=== PATIENT | male | born 1975 | race Caucasian/White ===

== ENCOUNTER 2017-01-06 21:40 | Emergency (ER) | payer BC ==
[~2017-01-06] VITALS: Ht 170.2 cm; Wt 77.7 kg
[~2017-01-06 21:40] MED LIST: ACYC200C PO; HYDR25CA PO; OMEP20TA2 PO
--- OUTSIDE RECORDS SUMMARY | 2017-01-06 21:44 | XMS REPORT | Continuity of Care Document ---
Author Author [facility] Organization [facility] Address Unknown Phone Unavailable Care Team Providers Care Medical Van Driver Name Role Phone Lawrence Sher MD Primary Care Physician [phone] Insurance Providers Payer Name Policy Number Subscriber Name Relationship Self Pay Chin Weber 17 Self / Same As Patient Chief Complaint and Reason for Visit Chief Complaint Malaise Reason for Visit Methamphetamine addiction [id number] Problems Medical Problems Problem Onset Date Status Acute drug intoxication 04/25/2012 Active Anxiety 04/25/2012 Active Abdominal pain 11/14/2013 Resolved Dizziness 10/14/2012 Resolved ANXIETY STATE NOS 05/27/2013 Active Drug abuse 08/19/2013 Active Cellulitis 05/27/2013 Resolved Skin lesion 12/04/2013 Resolved Chest pain 07/04/2013 Resolved Headache 04/25/2014 Resolved Chest discomfort 02/25/2014 Resolved Drug dependence 12/28/2013 Active Cellulitis ~11/29/2013 Resolved Esophagogastroduodenoscopy Unknown Resolved Atypical facial pain ~12/17/2013 Resolved Sore throat symptom ~12/18/2013 Resolved Ear problem ~12/13/2013 Resolved Acute gastritis ~12/25/2013 Active Abdominal pain ~01/20/2014 Active Anxiety ~01/20/2014 Active Jaw pain ~02/16/2014 Resolved Chest pain ~03/03/2014 Resolved Sore throat ~03/27/2014 Active Corneal abrasion, right ~04/14/2014 Active Headache behind the eyes ~04/22/2014 Active Injury of head ~04/25/2014 Active Exposure to STD Unknown Active Eye irritation Unknown Active Diarrhea ~04/27/2014 Active Gastritis ~04/27/2014 Active Drug abuse ~10/11/2014 Active Chest discomfort ~11/11/2014 Active Chest pain ~11/16/2014 Active Methamphetamine addiction ~11/16/2014 Active Cellulitis Unknown Active Methamphetamine abuse ~11/16/2014 Active Substance abuse ~11/21/2014 Active Paresthesias ~11/23/2014 Active Drug abuse and dependence Unknown Active Medications Medication Dose Route Sig Days/Qty Instructions Order Date Discontinued Date Status Omeprazole 20 Mg ORAL DAILY 04/25/12 08/21/13 Discontinued Buspirone Hcl 10 Mg ORAL TWICE A DAY 04/25/12 10/14/12 Discontinued Iron 1 Ea GT DAILY 04/25/12 10/14/12 Discontinued Alprazolam 0.25 Mg ORAL NEEDED 04/25/12 10/14/12 Discontinued Solifenacin Succinate 10 Mg ORAL DAILY 04/26/12 10/14/12 Discontinued Tramadol Hcl 50 Mg ORAL EVERY 6 HOURS PRN 12 Qty 08/15/12 07/19/13 Discontinued Promethazine Hcl 1 Tab ORAL Q 6H PRN 10 Qty 08/15/12 07/19/13 Discontinued Gabapentin 300 Mg ORAL THREE TIMES A DAY 08/21/13 08/27/13 Discontinued Omeprazole 40 Mg ORAL daily 08/27/13 Active Metoprolol Succinate 25 Mg ORAL DAILY 30 Qty 08/28/13 09/13/13 Discontinued Cyanocobalamin 6325-4859 Mcg ORAL DAILY 09/16/13 Active Multivits,Th W-Fe,Other Min 1 Each ORAL DAILY 09/16/13 Active [place]-3 Fatty Acids/Fish Oil 1 Each ORAL DAILY 09/16/13 Active Gabapentin 300 Mg ORAL BEDTIME 09/16/13 12/18/13 Discontinued Phenobarbital 32.4 Mg ORAL THREE TIMES A DAY 09/16/13 12/18/13 Discontinued Calcium Carbonate/Mag Hydrox 1 Each ORAL NEEDED 09/16/13 Discontinued Cephalexin 500 Mg ORAL THREE TIMES A DAY 10 Days 12/01/13 12/01/13 Discontinued Penicillin V Potassium 250 Mg ORAL FOUR TIMES DAILY 12/01/13 Discontinued Cephalexin 500 Mg ORAL FOUR TIMES DAILY 40 Qty 12/04/13 12/18/13 Discontinued Ibuprofen (Motrin) 600 Mg ORAL NEEDED 12/18/13 11/23/14 Discontinued Acetaminophen 1,000 Mg ORAL 12/18/13 01/20/14 Discontinued Prednisone 3 Tab ORAL DAILY 5 Days 12/18/13 12/25/13 Discontinued Acetaminophen (Tylenol) 1,000 Mg ORAL NEEDED 01/20/14 Active Cholecalciferol (Vitamin D3) 2,000 Unit ORAL DAILY 01/20/14 Active Lorazepam 1 Mg ORAL BEDTIME For Anxiety 14 Qty 02/25/14 03/29/14 Discontinued Alprazolam 0.5 Mg ORAL TWICE A DAY 7 Days 03/03/14 03/29/14 Discontinued Fluoxetine Hcl 40 Mg ORAL DAILY 03/29/14 11/11/14 Discontinued Acyclovir 200 Mg ORAL TWICE A DAY 03/29/14 04/25/14 Discontinued Amoxicillin 500 Mg ORAL THREE TIMES A DAY 21 Qty 03/29/14 04/14/14 Discontinued Ondansetron Hcl 4 Mg ORAL prn Q 4 hrs 10 Qty 03/29/14 04/14/14 Discontinued Tramadol Hcl 1-2 Tab ORAL EVERY 4HRS PRN PAIN 8 Qty 04/25/14 11/11/14 Discontinued Doxycycline Hyclate 100 Mg ORAL TWICE A DAY 28 Qty 04/26/14 11/11/14 Discontinued Sulfamethoxazole/Trimethoprim 1 Tab ORAL TWICE A DAY 20 Qty 11/15/14 Active Aspirin/Calcium Carbonate/Mag 2-3 Mg ORAL NEEDED 11/23/14 Active Acyclovir 200 Mg ORAL TWICE A DAY 11/23/14 Active Alprazolam 1 Mg ORAL TWICE A DAY 11/23/14 Active Social History No social history. Hospital Discharge Instructions No hospital discharge instructions. Plan of Care Discharge Date 11/23/14 9:43pm Disposition 01 HOME OR SELF-CARE Condition at Discharge Stable Instructions/Education Provided Methamphetamine Abuse (ED) Prescriptions See Medications Section Referrals Lawrence Sher MD Additional Instructions/Education Follow up with your doctor. ED [place] if any worse. Some of your test results may not be complete prior to your leaving the Emergency Department. The Emergency Department is not authorized to give test results over the phone. Please contact the doctor's office listed in this packet of information for your final results. Follow up with your primary care physician or return to the Emergency Department for worsening or worrisome symptoms. * Emergency Department phone number: [phone], x [phone]* MEDICAL RECORD If you need copies of your X-rays, call [phone]. If you need copies of your medical record, including lab results, a signed authorization for release of records will be required. A telephone call for release of Health Information is not allowed. BILLING Billing can sometimes be confusing and frustrating. To help avoid confusion in the future, please take a moment to acquaint yourself with the billing parties for services. SERVICE BILLING DEMOCRAT Emergency Room Services [facility] Physician Services [facility] X-rays [facility] Patients will receive bills for services from the appropriate provider. If you have any questions about your [facility] bill, our staff will be happy to assist you. Please call [phone], and ask for the billing department. THANK YOU for choosing [facility] as your emergency care provider! Functional Status No functional status results. Allergies, Adverse Reactions, Alerts Allergen Type Severity Reaction Status Last Updated No Known Drug Allergies Active 03/03/14 Immunizations No immunization records. Vital Signs Acute Vital Signs Vital Response Date/Time Temperature (Fahrenheit) 98.2 Pulse 91 bpm Respirations 22 Height 5 ft 7 in Weight 174 lb Body Mass Index 27.0 kg/m^2 Results Test Source Date Result Interp. Ref. Range Comments Absolute Band Neutrophils November 20, 2014 7:20pm 0.1 # Acetaminophen Level August 27, 2013 2:30pm < 10.0 UG/ML L 10.0-30.0 Collected by nurse? N Activated Partial Thromboplast Time November 15, 2014 11:40am 29.5 SEC N 24.9-35.9 Alanine Aminotransferase (ALT/SGPT) November 23, 2014 9:00pm 34 U/L N 30- 65 Albumin November 23, 2014 9:00pm 4.7 g/dL N 3.4-5.0 Albumin/Globulin Ratio November 23, 2014 9:00pm 1.807 H 1.1-1.8 Alkaline Phosphatase November 23, 2014 9:00pm 67 U/L N 38-126 Amylase Level December 25, 2013 6:51pm 69 U/L N 25-115 Collected by nurse? N Anion Gap November 23, 2014 9:00pm 14.3 MEQ/L N 3-15 Aspartate Amino Transf (AST/SGOT) November 23, 2014 9:00pm 23 U/L N 15-37 B-Type Natriuretic Peptide August 20, 2013 10:15am 7 PG/ML N 0-100 BUN/Creatinine Ratio November 23, 2014 9:00pm 11 N 10-20 Band Neutrophils % November 20, 2014 7:20pm 1 % N 0-6 Basophils # (Auto) November 23, 2014 9:00pm 0.0 10^3uL Basophils % (Manual) November 20, 2014 7:20pm 0 % N 0-2 Basophils (%) (Auto) November 23, 2014 9:00pm 0 % N 0-2 Blood Morphology Comment November 20, 2014 7:20pm Normal NORMAL Blood Urea Nitrogen November 23, 2014 9:00pm 12 mg/dL N 7-18 C-Reactive Protein December 25, 2013 6:51pm 0.70 MG/DL N 0.0-0.9 Collected by nurse? N Calcium Level November 23, 2014 9:00pm 9.5 mg/dL N 8.8-10.8 Calcium/Ionized Calcium Ratio November 23, 2014 9:00pm 4.1 mg/dL N 3.8-4.6 Calculated Osmolality November 23, 2014 9:00pm 270 mosm/L L 280-300 Carbon Dioxide Level November 23, 2014 9:00pm 29 mmol/L N 22-29 Chlamydia trachomatis RNA April 26, 2014 8:30am Negative Negative Chlamydia/GC DNA Probe Source April 26, 2014 8:30am Urine () Corrected result; previously reported as Urine on 04/26/14 at 12:42 by V/AUT--- 04/27/14 2349 --- GC.CHL SOURCE previously reported as: Urine Chloride Level November 23, 2014 9:00pm 100 mmol/L N 98-108 Creatine Kinase MB November 20, 2014 7:20pm 2.0 ng/mL N 0.0-6.0 Creatinine November 23, 2014 9:00pm 1.14 mg/dL N 0.8-1.5 D-Dimer August 20, 2013 10:15am 0.43 ug/mL PH 0.00-0.41 Results called to Ladan read back the results. Called by Janna Greenwood at [phone] Differential Total Cells Counted November 20, 2014 7:20pm 100 Eosinophils # November 20, 2014 7:20pm 0.0 # Eosinophils # (Auto) November 23, 2014 9:00pm 0.1 10^3uL Eosinophils % (Manual) November 20, 2014 7:20pm 0 % N 0-4 Eosinophils (%) (Auto) November 23, 2014 9:00pm 1 % N 0-4 Erythrocyte Sedimentation Rate December 25, 2013 6:51pm 8 mm/hr N 0-12 Collected by nurse? N Estimat Glomerular Filtration Rate November 23, 2014 9:00pm 86.1 Estimated GFR (Non- November 23, 2014 9:00pm 71.2 Glucose Level November 23, 2014 9:00pm 99 mg/dL DN 70-110 Hematocrit November 23, 2014 9:00pm 40.80 % N 39.00-50.00 Hemoglobin November 23, 2014 9:00pm 13.9 g/dL N 13.5-17.0 Iron (send out) October 14, 2012 2:48am 75 ug/dL 65-175 Lipase January 20, 2014 12:45pm 58 U/L N 23-300 Collected by nurse? N Lymphocytes # November 20, 2014 7:20pm 1.0 # Lymphocytes # (Auto) November 23, 2014 9:00pm 1.4 X10^3 Lymphocytes % (Manual) November 20, 2014 7:20pm 9 % L 20-46 Lymphocytes (%) (Auto) November 23, 2014 9:00pm 21 % N 20-46 Magnesium Level September 15, 2013 5:35am 2.1 MG/DL N 1.6-2.3 Collected by nurse? N Mean Corpuscular Hemoglobin November 23, 2014 9:00pm 28.6 PG N 26.0-34.0 Mean Corpuscular Hemoglobin Concent November 23, 2014 9:00pm 34.1 g/dL N 31.0-37.0 Mean Corpuscular Volume November 23, 2014 9:00pm 84 FL N 80-100 Mean Platelet Volume November 23, 2014 9:00pm 8.8 FL N 6.0-9.5 Metamyelocytes % August 20, 2013 10:15am 0 % N 0-1 Monocytes # November 20, 2014 7:20pm 0.3 # Monocytes # (Auto) November 23, 2014 9:00pm 0.7 X10^3 Monocytes % (Manual) November 20, 2014 7:20pm 3 % N 3-11 Monocytes (%) (Auto) November 23, 2014 9:00pm 10 % N 3-11 N. gonorrhoeae DNA Specimen Source April 26, 2014 8:30am Urine () Corrected result; previously reported as Urine on 04/26/14 at 12:42 by V/AUT-- - 04/27/14 2349 --- NGON SOURCE previously reported as: Urine Neisseria gonorrhoeae RNA April 26, 2014 8:30am Negative Negative Test Performed by:[place] [address] [employer] Helper: Ernst Stiles III, M.D. Neutrophils # November 20, 2014 7:20pm 9.7 # Neutrophils # (Auto) November 23, 2014 9:00pm 4.7 X10^3 Neutrophils (%) (Auto) November 23, 2014 9:00pm 68 % H 51-67 Platelet Count November 23, 2014 9:00pm 343 10^3uL N 150-450 Potassium Level November 23, 2014 9:00pm 3.9 mmol/L N 3.5-5.1 Prothromb Time International Ratio November 15, 2014 11:40am 1.0 N 0.8-1.4 Prothrombin Time November 15, 2014 11:40am 13.1 SEC N 11.9-14.2 Rapid Plasma Reagin April 26, 2014 9:15am Non-reactive () Red Blood Count November 23, 2014 9:00pm 4.86 10^6uL N 4.50-5.50 Red Cell Distribution Width November 23, 2014 9:00pm 13.0 % N 11.8-15.6 Salicylates Level August 27, 2013 2:30pm < 1.0 MG/DL L 2.0-20.0 Collected by nurse? N Segmented Neutrophils % November 20, 2014 7:20pm 87 % H 51-67 Serum Alcohol November 13, 2014 6:50pm < 10.0 mg/dL L 10-80 Sodium Level November 23, 2014 9:00pm 140 mmol/L N 135-150 Stool Occult Blood November 14, 2013 11:59pm Negative Negative --- 08/30 ---OCCULT BLOOD previously reported as: Negative Stool Occult Blood Expiration Date November 14, 2013 11:59pm 11/29 -- - 11/15/1315 ---OBEXP previously reported as: 11/29 Stool Occult Blood Lot Number November 14, 2013 11:59pm [id number] --- 08/30 ---OCCULT BLOOD LO previously reported as: [id number] Streptococcus Screen March 29, 2014 6:55am Negative Negative Total Bilirubin November 23, 2014 9:00pm 0.5 mg/dL N 0.1-1.0 Total Creatine Kinase November 20, 2014 7:20pm 127 U/L N 55-170 Total Iron Binding Capacity October 14, 2012 2:48am 393 ug/dL 260- 445 Total Protein November 23, 2014 9:00pm 7.3 g/dL N 6.4-8.5 Transferrin % Saturation October 14, 2012 2:48am 19 % 11-46 Troponin I November 23, 2014 9:00pm < 0.012 ng/mL 0.010-0.080 Ur Tricyclic Antidepressants Screen November 13, 2014 6:50pm Negative Negative Urine Amphetamines Screen November 13, 2014 6:50pm Positive H Negative Urine Bacteria July 04, 2013 3:52am None seen /HPF Urine collection method Clean Catch Urine Barbiturates Screen November 13, 2014 6:50pm Negative Negative Urine Benzodiazepines Screen November 13, 2014 6:50pm Negative Negative Urine Bilirubin March 29, 2014 6:55am Negative Negative Urine Blood March 29, 2014 6:55am Negative Negative Urine Cannabinoids Screen November 13, 2014 6:50pm Negative Negative Urine Clarity March 29, 2014 6:55am Clear Urine Cocaine Screen November 13, 2014 6:50pm Negative Negative Urine Collection Type March 29, 2014 6:55am Random voided Urine Color March 29, 2014 6:55am Yellow Urine Glucose (UA) March 29, 2014 6:55am Negative Negative Urine Hyaline Casts July 04, 2013 3:52am 3+ /LPF H Urine collection method Clean Catch Urine Ketones March 29, 2014 6:55am Negative Negative Urine Leukocyte Esterase March 29, 2014 6:55am Negative Negative Urine Methadone Screen November 13, 2014 6:50pm Negative Negative Urine Methamphetamines Screen November 13, 2014 6:50pm Positive H NEGATIVE Urine Mucus July 04, 2013 3:52am 2+ H Urine collection method Clean Catch Urine Myoglobin May 27, 2013 8:30pm <15 mcg/L <=21 Urinary myoglobin is highly unstable unless alkalinizedwith Na2CO3 preservative. Even with alkalinization, myoglobin deterioration is variable and sample dependent (approximate averages of 10% at 1 day, 20% at 3 days, and 30% at 7 days). Analyte Specific Reagent: This test was developed and its performance characteristics determined by [facility]. It has not been cleared or approved by the [place]. Food and Drug Administration. Test Performed by: [address] [address] [employer] Helper: Ernst Stiles III, M.D. Urine Nitrite March 29, 2014 6:55am Negative Negative Urine Opiates Screen November 13, 2014 6:50pm Negative Negative Urine Oxycodone Screen November 13, 2014 6:50pm Negative NEGATIVE Urine Phencyclidine Screen November 13, 2014 6:50pm Negative Negative Phencyclidine testing by this method can showcross-reactivity with several common medications such as venlafaxine, dextromethorphan, and diphenhydramine. Submission of any positive sample for confirmatory testing is recommended. Urine Propoxyphene Screen November 13, 2014 6:50pm Negative NEGATIVE Results of this screen are qualitative and are presumptiveresults. A more specific method (i.e. GC/MS) must be used if confirmation of results is indicated. Urine Protein March 29, 2014 6:55am Negative Negative Urine RBC July 04, 2013 3:52am None seen /HPF Urine collection method Clean Catch Urine RBC (Auto) February 26, 2012 10:55pm Negative Negative Urine Specific Range March 29, 2014 6:55am 1.020 1.005-1.030 Urine Squamous Epithelial Cells July 04, 2013 3:52am None /LPF Urine collection method Clean Catch Urine Urobilinogen March 29, 2014 6:55am 0.2 mg/dL 0.2-1.0 Urine WBC July 04, 2013 3:52am 2-5 /HPF Urine collection method Clean Catch Urine pH March 29, 2014 6:55am 7.0 5.0 - 8.0 Volume Urine Centrifuged July 04, 2013 3:52am 12 ml Urine collection method Clean Catch White Blood Count November 23, 2014 9:00pm 6.94 10^3uL N 4.0-11.0 Group A Streptococcus Culture Throat March 29, 2014 6:55am Procedures Procedure Status Date Provider(s) ROUTINE VENIPUNCTURE completed 11/11/14 METABOLIC PANEL TOTAL CA completed 11/11/14 ASSAY OF TROPONIN QUANT completed 11/11/14 ELECTROCARDIOGRAM TRACING completed 11/11/14 HYDRATION IV INFUSION INIT completed 11/11/14 EMERGENCY DEPT VISIT completed 11/11/14 completed 11/11/14 CHEST X-RAY 1 VIEW FRONTAL completed 11/13/14 COMPREHEN METABOLIC PANEL completed 11/13/14 DRUG SCREEN CLASS LIST A completed 11/13/14 DRUG SCREEN QUANTALCOHOLS completed 11/13/14 ASSAY OF CK (CPK) completed 11/13/14 CREATINE MB FRACTION completed 11/13/14 ASSAY OF TROPONIN QUANT completed 11/13/14 COMPLETE CBC W/AUTO DIFF WBC completed 11/13/14 PROTHROMBIN TIME completed 11/13/14 THROMBOPLASTIN TIME PARTIAL completed 11/13/14 ELECTROCARDIOGRAM TRACING completed 11/13/14 MEASURE BLOOD OXYGEN LEVEL completed 11/13/14 HYDRATE IV INFUSION ADD-ON completed 11/13/14 THER/PROPH/DIAG INJ IV PUSH completed 11/13/14 TX/PRO/DX INJ NEW DRUG ADDON completed 11/13/14 EMERGENCY DEPT VISIT completed 11/13/14 completed 11/13/14 completed 11/13/14 completed 11/13/14 CHEST X-RAY 1 VIEW FRONTAL completed 11/15/14 COMPREHEN METABOLIC PANEL completed 11/15/14 ASSAY OF CK (CPK) completed 11/15/14 CREATINE MB FRACTION completed 11/15/14 ASSAY OF TROPONIN QUANT completed 11/15/14 COMPLETE CBC W/AUTO DIFF WBC completed 11/15/14 PROTHROMBIN TIME completed 11/15/14 THROMBOPLASTIN TIME PARTIAL completed 11/15/14 ELECTROCARDIOGRAM TRACING completed 11/15/14 ELECTROCARDIOGRAM TRACING completed 11/15/14 MEASURE BLOOD OXYGEN LEVEL completed 11/15/14 THER/PROPH/DIAG INJ IV PUSH completed 11/15/14 TX/PRO/DX INJ NEW DRUG ADDON completed 11/15/14 TX/PRO/DX INJ SAME DRUG [employer] TECHNICIAN completed 11/15/14 EMERGENCY DEPT VISIT completed 11/15/14 completed 11/15/14 completed 11/15/14 completed 11/15/14 EMERGENCY DEPT VISIT completed 11/16/14 Encounters Encounter Location Date/Time Departed Emergency Room [facility] 11/23/14 7:34pm Departed Emergency Room [facility] 11/22/14 2:36pm Departed Emergency Room [facility] 11/21/14 5:44pm Departed Emergency Room [facility] 11/20/14 6:27pm Departed Emergency Room [facility] 11/16/14 8:21pm Departed Emergency Room [facility] 11/15/14 11:11am Departed Emergency Room [facility] 11/13/14 6:22pm Departed Emergency Room [facility] 11/11/14 1:06pm Registered Emergency Room [facility] 11/06/14 6:02pm Recent Diagnosis
--- OUTSIDE RECORDS SUMMARY | 2017-01-06 21:44 | XMS REPORT | Continuity of Care Document ---
Author Author [facility] Organization [facility] Address Unknown Phone Unavailable Care Team Providers Care Business Segment Manager Name Role Phone Lawrence Sher MD Primary Care Physician [phone] Insurance Providers Payer Name Policy Number Subscriber Name Relationship Self Pay Chin Weber 18 Self / Same As Patient Chief Complaint and Reason for Visit Chief Complaint Abuse Reason for Visit Drug abuse Chest discomfort Problems Medical Problems Problem Onset Date Status [...] Active Drug abuse ~10/11/2014 Active Chest discomfort Unknown Active Medications Medication Dose Route Sig [...] DAILY 30 Qty 08/28/13 09/13/13 Discontinued Cyanocobalamin 3221-5158 Mcg ORAL DAILY 09/16/13 Active Multivits,Th W-Fe,Other Min 1 Each ORAL DAILY 09/16/13 Active [place]-3 Fatty Acids/Fish Oil 1 Each ORAL DAILY [...] DAILY 40 Qty 12/04/13 12/18/13 Discontinued Ibuprofen 600 Mg ORAL NEEDED 12/18/13 Active Acetaminophen 1,000 Mg ORAL 12/18/13 01/20/14 Discontinued [...] A DAY 28 Qty 04/26/14 11/11/14 Discontinued Social History No social history. Hospital Discharge Instructions No hospital discharge instructions. Plan of Care Discharge Date 11/11/14 3:52pm Disposition 01 HOME OR SELF-CARE Prescriptions See Medications Section Referrals Lawrence Sher MD Additional Instructions/Education Follow up with Dr. Sher as needed Return if symptoms worsen Some of your test results may not [...] worrisome symptoms. * Emergency Department phone number: [phone], x [phone]* MEDICAL RECORD If you need copies of your X-rays, call [phone] x [phone]. If you need copies of [...] the billing parties for services. SERVICE BILLING [employer] Emergency Room Services [facility] Physician Services [facility] X-[facility] Patients will receive bills for services from the appropriate provider. If you have any questions about your [facility] bill, our staff will be happy to assist you. Please call [phone], and ask for the billing department. THANK YOU for choosing [facility] as your emergency care provider! Functional Status No functional status results. Allergies, Adverse Reactions, Alerts Allergen Type Severity Reaction Status Last Updated No Known Drug Allergies Active 03/03/14 Immunizations No immunization records. Vital Signs Acute Vital Signs Vital Response Date/Time Temperature (Fahrenheit) 99.3 Pulse 100 bpm Respirations 17 Height 5 ft 7 in Weight 176 lb Body Mass Index 27.0 kg/m^2 Results Test Source Date Result Interp. Ref. Range Comments Absolute Band Neutrophils August 20, 2013 10:15am 0.0 # Acetaminophen Level August 27, 2013 2:30pm < 10.0 UG/ML L 10.0-30.0 Collected by nurse? N Activated Partial Thromboplast Time August 28, 2013 9:08pm 30.3 SEC N 25.0-39.0 Collected by nurse? N Alanine Aminotransferase (ALT/SGPT) March 29, 2014 7:05am 38 U/L N 30- 65 Albumin March 29, 2014 7:05am 4.7 G/DL N 3.4-5.0 Albumin/Globulin Ratio March 29, 2014 7:05am 1.566 N 1.1-1.8 Alkaline Phosphatase March 29, 2014 7:05am 79 U/L N 38-126 Amylase Level December 25, 2013 6:51pm 69 U/L N 25-115 Collected by nurse? N Anion Gap November 11, 2014 1:25pm 14.6 MEQ/L N 3-15 Aspartate Amino Transf (AST/SGOT) March 29, 2014 7:05am 26 U/L N 15-37 B-Type Natriuretic Peptide August 20, 2013 10:15am 7 PG/ML N 0-100 BUN/Creatinine Ratio November 11, 2014 1:25pm 8 L 10-20 Band Neutrophils % August 20, 2013 10:15am 0 % N 0-6 Basophils # (Auto) April 22, 2014 7:53pm 0.0 10^3uL Basophils % (Manual) August 20, 2013 10:15am 0 % N 0-2 Basophils (%) (Auto) April 22, 2014 7:53pm 0 % N 0-2 Blood Morphology Comment August 20, 2013 10:15am Normal NORMAL Blood Urea Nitrogen November 11, 2014 1:25pm 8 mg/dL N 7-18 C-Reactive Protein December 25, 2013 6:51pm 0.70 MG/DL N 0.0-0.9 Collected by nurse? N Calcium Level November 11, 2014 1:25pm 9.9 mg/dL N 8.8-10.8 Calcium/Ionized Calcium Ratio March 29, 2014 7:05am 4.00 mg/dL Calculated Osmolality March 29, 2014 7:05am 278 MOSM/L L 280-300 Carbon Dioxide Level November 11, 2014 1:25pm 30 mmol/L H 22-29 Chlamydia trachomatis RNA April 26, 2014 8:30am Negative Negative Chlamydia/GC DNA Probe Source April 26, 2014 8:30am Urine () Corrected result; previously reported as Urine on 04/26/14 at 12:42 by V/AUT--- 04/27/14 2349 --- GC.CHL SOURCE previously reported as: Urine Chloride Level November 11, 2014 1:25pm 102 mmol/L N 98-108 Creatine Kinase MB March 03, 2014 7:20am 3.4 NG/ML N 0.0-6.0 Collected by nurse? N Creatinine November 11, 2014 1:25pm 0.96 mg/dL N 0.8-1.5 D-Dimer August 20, 2013 10:15am 0.43 ug/mL PH 0.00-0.41 Results called to Ladan read back the results. Called by Janna Greenwood at 1044 Differential Total Cells Counted August 20, 2013 10:15am 100 Eosinophils # August 20, 2013 10:15am 0.0 # Eosinophils # (Auto) April 22, 2014 7:53pm 0.1 10^3uL Eosinophils % (Manual) August 20, 2013 10:15am 0 % N 0-4 Eosinophils (%) (Auto) April 22, 2014 7:53pm 2 % N 0-4 Erythrocyte Sedimentation Rate December 25, 2013 6:51pm 8 mm/hr N 0-12 Collected by nurse? N Estimat Glomerular Filtration Rate November 11, 2014 1:25pm 105.0 Estimated GFR (Non- November 11, 2014 1:25pm 86.8 Glucose Level November 11, 2014 1:25pm 103 mg/dL N 70-110 Hematocrit April 22, 2014 7:53pm 39.00 % N 39.00-50.00 Hemoglobin April 22, 2014 7:53pm 13.6 g/dL N 13.5-17.0 Iron (send out) October 14, 2012 2:48am 75 ug/dL 65-175 Lipase January 20, 2014 12:45pm 58 U/L N 23-300 Collected by nurse? N Lymphocytes # August 20, 2013 10:15am 0.4 # Lymphocytes # (Auto) April 22, 2014 7:53pm 1.6 X10^3 Lymphocytes % (Manual) August 20, 2013 10:15am 8 % L 20-46 Lymphocytes (%) (Auto) April 22, 2014 7:53pm 29 % N 20-46 Magnesium Level September 15, 2013 5:35am 2.1 MG/DL N 1.6-2.3 Collected by nurse? N Mean Corpuscular Hemoglobin April 22, 2014 7:53pm 29.4 PG N 26.0- 34.0 Mean Corpuscular Hemoglobin Concent April 22, 2014 7:53pm 34.9 g/dL N 31.0-37.0 Mean Corpuscular Volume April 22, 2014 7:53pm 84 FL N 80-100 Mean Platelet Volume April 22, 2014 7:53pm 9.0 FL N 6.0-9.5 Metamyelocytes % August 20, 2013 10:15am 0 % N 0-1 Monocytes # August 20, 2013 10:15am 0.1 # Monocytes # (Auto) April 22, 2014 7:53pm 0.6 X10^3 Monocytes % (Manual) August 20, 2013 10:15am 2 % L 3-11 Monocytes (%) (Auto) April 22, 2014 7:53pm 10 % N 3-11 N. gonorrhoeae DNA Specimen Source April 26, 2014 8:30am Urine () Corrected result; previously reported as Urine on 04/26/14 at 12:42 by V/OLIVERIO-- - 04/27/14 2349 --- NGON SOURCE previously reported as: Urine Neisseria gonorrhoeae RNA April 26, 2014 8:30am Negative Negative Test Performed by:[address] [address] Bridge Painter Helper: Ernst Stiles III, M.D. Neutrophils # August 20, 2013 10:15am 4.7 # Neutrophils # (Auto) April 22, 2014 7:53pm 3.2 X10^3 Neutrophils (%) (Auto) April 22, 2014 7:53pm 58 % N 51-67 Platelet Count April 22, 2014 7:53pm 284 10^3uL N 150-450 Potassium Level November 11, 2014 1:25pm 3.5 mmol/L N 3.5-5.1 Prothromb Time International Ratio December 25, 2013 6:51pm 1.0 N 0.8-1.4 Collected by nurse? N Prothrombin Time December 25, 2013 6:51pm 13.2 SEC N 12.3-14.4 Collected by nurse? N Rapid Plasma Reagin April 26, 2014 9:15am Non-reactive () Red Blood Count April 22, 2014 7:53pm 4.62 10^6uL N 4.50-5.50 Red Cell Distribution Width April 22, 2014 7:53pm 12.8 % N 11.8- 15.6 Salicylates Level August 27, 2013 2:30pm < 1.0 MG/DL L 2.0-20.0 Collected by nurse? N Segmented Neutrophils % August 20, 2013 10:15am 90 % H 51-67 Serum Alcohol August 27, 2013 2:30pm < 10.0 mg/dL L 10-80 Collected by nurse? N Sodium Level November 11, 2014 1:25pm 143 mmol/L N 135-150 Stool Occult Blood November [...] 29, 2014 6:55am Negative Negative Total Bilirubin March 29, 2014 7:05am 0.3 MG/DL N 0.1-1.0 Total Creatine Kinase March 03, 2014 7:20am 353 U/L DPH 55-[address] Alejo read back the results. Called by Lida Phillips at 0845 Total Iron Binding Capacity October 14, 2012 2:48am 393 ug/dL 260- 445 Total Protein March 29, 2014 7:05am 7.7 G/DL N 6.4-8.5 Transferrin % Saturation October 14, 2012 2:48am 19 % 11-46 Troponin I November 11, 2014 1:25pm < 0.012 ng/mL 0.010-0.080 Ur Tricyclic Antidepressants Screen April 26, 2014 8:45am Negative Negative Urine Amphetamines Screen April 26, 2014 8:45am Negative Negative Urine Bacteria July 04, 2013 3:52am None seen /HPF Urine collection method Clean Catch Urine Barbiturates Screen April 26, 2014 8:45am Negative Negative Urine Benzodiazepines Screen April 26, 2014 8:45am Negative Negative Urine Bilirubin March 29, 2014 6:55am Negative Negative Urine Blood March 29, 2014 6:55am Negative Negative Urine Cannabinoids Screen April 26, 2014 8:45am Negative Negative Urine Clarity March 29, 2014 6:55am Clear Urine Cocaine Screen April 26, 2014 8:45am Negative Negative Urine Collection Type March 29, 2014 6:55am Random voided Urine Color March 29, 2014 6:55am Yellow Urine Glucose (UA) March 29, 2014 6:55am Negative Negative Urine Hyaline Casts July 04, 2013 3:52am 3+ /LPF H Urine collection method Clean Catch Urine Ketones March 29, 2014 6:55am Negative Negative Urine Leukocyte Esterase March 29, 2014 6:55am Negative Negative Urine Methadone Screen April 26, 2014 8:45am Negative Negative Urine Methamphetamines Screen April 26, 2014 8:45am Negative NEGATIVE Urine Mucus July 04, 2013 3:52am [...] developed and its performance characteristics determined by [facility]. It has not been cleared or approved by the U.S. Food and Drug Administration. Test Performed by: [address] [address] Bridge Pain[employer] Helper: Ernst Stiles III, M.D. Urine Nitrite March 29, 2014 6:55am Negative Negative Urine Opiates Screen April 26, 2014 8:45am Negative Negative Urine Oxycodone Screen April 26, 2014 8:45am Negative NEGATIVE Urine Phencyclidine Screen April 26, 2014 8:45am Negative Negative Phencyclidine testing by this method can showcross-reactivity with several common medications such as venlafaxine, dextromethorphan, and diphenhydramine. Submission of any positive sample for confirmatory testing is recommended. Urine Propoxyphene Screen April 26, 2014 8:45am Negative NEGATIVE Results of this screen are qualitative and are presumptiveresults. A more specific method (i.e. GC/MS) must be used if confirmation of results is indicated. Urine Protein March 29, 2014 6:55am Negative Negative Urine RBC July 04, 2013 3:52am None seen /HPF Urine collection method Clean Catch Urine RBC (Auto) February 26, 2012 10:55pm Negative Negative Urine Specific [place] March 29, 2014 6:55am 1.020 1.005-1.030 Urine [...] collection method Clean Catch White Blood Count April 22, 2014 7:53pm 5.46 10^3uL N 4.0-11.0 Group A Streptococcus Culture Throat March 29, 2014 6:55am Procedures No known history of procedures. Encounters Encounter Location Date/Time Departed Emergency Room [facility] 11/11/14 1:06pm Registered Emergency Room [facility] 11/06/14 6:02pm Recent Diagnosis
[2017-01-06 21:45] VITALS: Ht 170.2 cm; Wt 77.7 kg
--- OUTSIDE RECORDS SUMMARY | 2017-01-06 21:45 | XMS REPORT | Continuity of Care Document ---
Author Author [facility] Address Unknown Phone Unavailable Care Team Providers Care Mechanic Chief Name Role Phone Lawrence Sher MD Primary Care Physician [phone] Insurance Providers Payer Name Policy Number Subscriber Name Relationship [facility] [id number] Chin Limon 18 Self / Same As Patient Advance Directives Directive Response Recorded Date/Time Advanced Directives No 10/01/16 7:27am Chief Complaint and Reason for Visit Chief Complaint Cardiac Complaint Reason for Visit Chest pain Problems Active Problems Medical Problem Onset Date Status ANXIETY STATE NOS 05/27/2013 Chronic Abdominal pain 11/14/2013 Resolved Abdominal pain ~01/20/2014 Resolved Abdominal pain ~02/02/2015 Resolved Acute drug intoxication 04/18/2016 Chronic Acute gastritis ~12/25/2013 Chronic Anxiety 04/25/2012 Chronic Anxiety ~01/20/2014 Chronic Anxiety ~11/26/2014 Chronic Anxiety disorder, unspecified ~10/14/2015 Chronic Atypical facial pain ~12/17/2013 Resolved Cellulitis 05/27/2013 Resolved Cellulitis ~11/29/2013 Resolved Cellulitis ~05/02/2015 Resolved Chest discomfort 04/28/2016 Resolved Chest discomfort ~11/11/2014 Chronic Chest discomfort ~04/21/2016 Chronic Chest pain 07/04/2013 Resolved Chest pain ~03/03/2014 Resolved Chest pain ~05/02/2015 Chronic Chest pain ~05/03/2015 Chronic Chest wall pain Unknown Chronic Cold exposure Unknown Resolved Constipation Unknown Resolved Corneal abrasion, right ~04/14/2014 Resolved Costochondritis, acute ~12/31/2015 Resolved Diarrhea ~04/27/2014 Resolved Dizziness 10/14/2012 Resolved Drug abuse 04/28/2016 Chronic Drug abuse ~10/11/2014 Chronic Drug abuse and dependence ~11/25/2014 Chronic Drug dependence 12/28/2013 Chronic Ear problem ~12/13/2013 Resolved Epigastric pain ~04/23/2015 Resolved Esophagogastroduodenoscopy Unknown Resolved Exposure to STD Unknown Resolved Eye irritation Unknown Resolved Foreign body anus/rectum ~02/02/2015 Resolved Gastritis ~04/27/2014 Resolved Gastroenteritis ~12/17/2014 Resolved Head ache ~05/03/2015 Chronic Headache 04/25/2014 Resolved Headache Unknown Acute Headache behind the eyes ~04/22/2014 Resolved Hypokalemia ~12/31/2015 Resolved Injury of head ~04/25/2014 Resolved Jaw pain ~02/16/2014 Resolved 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 Methamphetamine addiction ~04/28/2016 Chronic Pain of left calf ~04/21/2016 Resolved Paresthesias ~11/23/2014 Chronic Rectal trauma ~02/02/2015 Resolved Skin lesion 12/04/2013 Resolved Sore throat ~03/27/2014 Resolved Sore throat symptom ~12/18/2013 Resolved Substance abuse ~11/21/2014 Chronic Vomiting ~12/17/2014 Resolved Medications Current Home Medications Medication Dose Units Route Directions Days/Qty Instructions Start Date Cyanocobalamin 1,000 Mcg 6503-2135 Mcg ORAL Daily 09/16/13 Multivits,Th W-Fe,Other Min 1 Each 1 Each ORAL Daily 09/16/13 [place]-3 Fatty Acids/Fish Oil 1 Each 1 Each ORAL Daily 09/16/13 Cholecalciferol (Vitamin D3) 2,000 Unit 2,000 Unit ORAL Daily Acetaminophen (Tylenol) 325 Mg 650 Mg ORAL Every 6 Hours as needed for Pain 0 04/16/16 Past Home Medications Medication Directions Ordered Status Omeprazole 20 Mg Capsule.dr, 20 Mg Oral Daily 04/25/12 Discontinued Buspirone Hcl 10 Mg Tablet, 10 Mg Oral Twice A Day 04/25/12 Discontinued Iron 1 Ea Elixir, 1 Ea G Tube Daily 04/25/12 Discontinued Alprazolam 0.25 Mg Tab.rapdis, 0.25 Mg Oral As Needed 04/25/12 Discontinued Solifenacin Succinate 10 Mg Tablet, 10 Mg Oral Daily 04/26/12 Discontinued Tramadol Hcl (Ultram) 50 Mg Tablet, 50 Mg Oral Every 6 Hours as needed Discontinued Promethazine Hcl 25 Mg Tablet, 1 Tab Oral Q 6H Prn 08/15/12 Discontinued Gabapentin 300 Mg Capsule, 300 Mg Oral Three Times A Day 08/21/13 Discontinued Omeprazole 20 Mg Capsule.dr, 40 Mg Oral Daily 08/27/13 Discontinued Metoprolol Succinate 25 Mg Tab, 25 Mg Oral Daily 08/28/13 Discontinued Gabapentin 300 Mg Capsule, 300 Mg Oral Bedtime 09/16/13 Discontinued Phenobarbital 32.4 Mg Tablet, 32.4 Mg Oral Three Times A Day 09/16/13 Discontinued Calcium Carbonate/Mag Hydrox 1 Each Tab.chew, 1 Each Oral As Needed 09/16/13 Discontinued Cephalexin 500 Mg Capsule, 500 Mg Oral Three Times A Day 12/01/13 Discontinued Penicillin V Potassium 250 Mg Tablet, 250 Mg Oral Four Times Daily 12/01/13 Discontinued Cephalexin 500 Mg Capsule, 500 Mg Oral Four Times Daily 12/04/13 Discontinued Ibuprofen (Motrin) 600 Mg Tablet, 600 Mg Oral As Needed 12/18/13 Discontinued Acetaminophen 325 Mg Tablet, 1000 Mg Oral 12/18/13 Discontinued Prednisone 20 Mg Tablet, 3 Tab Oral Daily 12/18/13 Discontinued Acetaminophen (Tylenol) 500 Mg Tablet, 1000 Mg Oral As Needed 01/20/14 Discontinued Lorazepam 1 Mg Tablet, 1 Mg Oral Bedtime for Anxiety 02/25/14 Discontinued Alprazolam 0.5 Mg Tablet, 0.5 Mg Oral Twice A Day 03/03/14 Discontinued Fluoxetine Hcl 40 Mg Capsule, 40 Mg Oral Daily 03/29/14 Discontinued Acyclovir 200 Mg Capsule, 200 Mg Oral Twice A Day 03/29/14 Discontinued Amoxicillin 500 Mg Capsule, 500 Mg Oral Three Times A Day 03/29/14 Discontinued Ondansetron Hcl 4 Mg Tab, 4 Mg Oral Prn Q 4 Hrs 03/29/14 Discontinued Tramadol Hcl (Ultram) 50 Mg Tablet, 1-2 Tab Oral Every 4HRS as needed for Pain 04/25/14 Discontinued Doxycycline Hyclate 100 Mg Capsule, 100 Mg Oral Twice A Day 04/26/14 Discontinued Sulfamethoxazole/Trimethoprim 1 Each Tablet, 1 Tab Oral Twice A Day 11/15/14 Discontinued Aspirin/Calcium Carbonate/Mag 325 Mg Tablet, 2-3 Mg Oral As Needed 11/23/14 Discontinued Acyclovir 200 Mg/5 Ml Oral.susp, 200 Mg Oral Twice A Day 11/23/14 Discontinued Alprazolam 1 Mg Tablet, 1 Mg Oral Twice A Day 11/23/14 Discontinued Cyclobenzaprine Hcl 10 Mg Tablet, 10 Mg Oral Three Times A Day as needed for Chest Pain 01/06/15 Discontinued Sulfamethoxazole/Trimethoprim 1 Each Tablet, 2 Each Oral Twice A Day Discontinued Cephalexin Monohydrate 500 Mg Capsule, 2 Ea Oral Twice A Day 01/09/15 Discontinued Esomeprazole Magnesium 20 Mg Capsule.dr, 20 Mg Oral Daily 02/02/15 Discontinued Ondansetron Hcl 4 Mg Tab, 4 Mg Oral Three Times A Day as needed for Nausea/ Vomiting 04/23/15 Discontinued Cephalexin 500 Mg Capsule, 500 Mg Oral Three Times A Day 04/29/15 Discontinued Buspirone Hcl (Buspar) 10 Mg Tablet, 10 Mg Oral Twice A Day 10/14/15 Discontinued Citalopram Hydrobromide 10 Mg/5 Ml Solution, 10 Mg Oral Daily 10/14/15 Discontinued Ondansetron Hcl 4 Mg Tab.rapdis, 4 Mg Oral Three Times A Day for Nausea/ Vomiting 12/30/15 Discontinued Ondansetron 4 Mg Tab.rapdis, 4 Mg Oral Every 6 Hours as needed for Nausea Discontinued Social History Social History Problem Response Recorded Date/Time Onset Date Status Exposure to occupational hazards No 04/14/2016 7:46pm Query Response Start Date Stop Date Smoking Status Never smoker Hospital Discharge Instructions No hospital discharge instructions. Plan of Care Discharge Date 10/01/16 8:43am Disposition 01 HOME OR SELF-CARE Instructions/Education Provided Chest Pain (DC) Prescriptions See Medication Section Referrals Lawrence Sher MD - Additional Instructions/Education Rest, drink plenty of fluids. Take ibuprofen or tylenol over the counter as directed for pain. Return if symptoms worsen, if new symptoms develop, or for any other concerns. Some of your test results may not [...] worrisome symptoms. * Emergency Department phone number: [phone], x [phone]* MEDICAL RECORD If you need copies of your X-rays, call [phone] x [phone]. If you need copies of [...] the billing parties for services. SERVICE BILLING LIBERTARIAN Emergency Room Services [facility] Physician Services [facility] X-rays [facility] Patients will receive bills for services from the appropriate provider. If you have any questions about your [facility] bill, our staff will be happy to assist you. Please call [phone], and ask for the billing department. THANK YOU for choosing [facility] as your emergency care provider! Care Plan and Goals ~~Discharge Care Plan~~ Problem: Problems with coping. Goal: Patient will use appropriate resources to deal with life situations. Instructions: Call [employer] hotline @ for assistance. Follow up with screener as directed. Functional Status No functional status results. Allergies, Adverse Reactions, Alerts No known allergies. Immunizations Name Given Type Status Date Pneumonia Vaccine Received if Current 08/17/08 Historical Historical Date Influenza Vaccine Received if Current 05/29/13 Historical Historical Vital Signs Acute Vital Signs Vital Response Date/Time Temperature (Fahrenheit) 98.2 10/01/2016 7:27am Pulse 65 bpm 10/01/2016 8:37am Respirations 17 10/01/2016 8:37am Height 5 ft 7 in Weight 185 lb Body Mass Index 29.0 kg/m^2 Results Laboratory Results Test Name Result Units Flags Reference Collection Date/Time Result Date/ Time Comments White Blood Count 6.46 10^3uL 4.0-11.0 10/01/2016 7:40am 10/01/2016 8: 01am Red Blood Count 4.62 10^6uL 4.50-5.50 10/01/2016 7:40am 10/01/2016 8: 01am Hemoglobin 13.7 g/dL 13.5-17.0 10/01/2016 7:40am 10/01/2016 8:01am Hematocrit 38.30 % L 39.00-50.00 10/01/2016 7:40am 10/01/2016 8:01am Mean Corpuscular Volume 83 FL 80-100 10/01/2016 7:40am 10/01/2016 8: 01am Mean Corpuscular Hemoglobin 29.7 PG 26.0-34.0 10/01/2016 7:40am 2016 8:01am Mean Corpuscular Hemoglobin Concent 35.8 g/dL 31.0-37.0 10/01/2016 7: 40am 10/01/2016 8:01am Red Cell Distribution Width 12.9 % 11.8-15.6 10/01/2016 7:40am 2016 8:01am Platelet Count 299 10^3uL 150-450 10/01/2016 7:40am 10/01/2016 8:01am Mean Platelet Volume 9.0 FL 6.0-9.5 10/01/2016 7:40am 10/01/2016 8: 01am Neutrophils (%) (Auto) 55 % 51-67 10/01/2016 7:40am 10/01/2016 8:01am Lymphocytes (%) (Auto) 32 % 20-46 10/01/2016 7:40am 10/01/2016 8:01am Monocytes (%) (Auto) 11 % 3-11 10/01/2016 7:40am 10/01/2016 8:01am Eosinophils (%) (Auto) 1 % 0-4 10/01/2016 7:40am 10/01/2016 8:01am Basophils (%) (Auto) 1 % 0-2 10/01/2016 7:40am 10/01/2016 8:01am Neutrophils # (Auto) 3.6 X10^3 10/01/2016 7:40am 10/01/2016 8:01am Lymphocytes # (Auto) 2.1 X10^3 10/01/2016 7:40am 10/01/2016 8:01am Monocytes # (Auto) 0.7 X10^3 10/01/2016 7:40am 10/01/2016 8:01am Eosinophils # (Auto) 0.1 10^3uL 10/01/2016 7:40am 10/01/2016 8:01am Basophils # (Auto) 0.0 10^3uL 10/01/2016 7:40am 10/01/2016 8:01am Prothrombin Time 12.3 SEC 10.0-12.5 10/01/2016 7:40am 10/01/2016 8: 09am Prothromb Time International Ratio 1.1 0.8-1.4 10/01/2016 7:40am 8:09am Activated Partial Thromboplast Time 29.9 SEC 26.3-36.8 10/01/2016 7: 40am 10/01/2016 8:09am Sodium Level 144 mmol/L 135-150 10/01/2016 7:40am 10/01/2016 8:19am Potassium Level 4.0 mmol/L 3.5-5.1 10/01/2016 7:40am 10/01/2016 8:19am Chloride Level 104 mmol/L 98-108 10/01/2016 7:40am 10/01/2016 8:19am Carbon Dioxide Level 28 mmol/L 22-29 10/01/2016 7:40am 10/01/2016 8: 19am Anion Gap 16.3 MEQ/L H 3-15 10/01/2016 7:40am 10/01/2016 8:19am Blood Urea Nitrogen 19 mg/dL H 7-18 10/01/2016 7:40am 10/01/2016 8:19am Creatinine 0.85 mg/dL 0.8-1.5 10/01/2016 7:40am 10/01/2016 8:19am BUN/Creatinine Ratio 22 H 10-20 10/01/2016 7:40am 10/01/2016 8:19am Estimat Glomerular Filtration Rate 119.6 10/01/2016 7:40am 2016 8:19am Estimated GFR (Non- 98.9 10/01/2016 7:40am 2016 8:19am Glucose Level 88 mg/dL # 70-110 10/01/2016 7:40am 10/01/2016 8:19am Calculated Osmolality 280 mosm/L 280-300 10/01/2016 7:40am 10/01/2016 8 :19am Calcium Level 9.1 mg/dL 8.8-10.8 10/01/2016 7:40am 10/01/2016 8:19am Calcium/Ionized Calcium Ratio 3.7 mg/dL L 3.8-4.6 10/01/2016 7:40am 8:19am Total Bilirubin 0.6 mg/dL 0.1-1.0 10/01/2016 7:40am 10/01/2016 8:19am Alkaline Phosphatase 76 U/L 38-126 10/01/2016 7:40am 10/01/2016 8:19am Aspartate Amino Transf (AST/SGOT) 33 U/L 15-37 10/01/2016 7:40am 2016 8:19am Alanine Aminotransferase (ALT/SGPT) 46 U/L 30-65 10/01/2016 7:40am 8:19am Troponin I < 0.012 ng/mL 0.010-0.080 10/01/2016 7:40am 10/01/2016 8: 19am Total Protein 8.0 g/dL 6.4-8.5 10/01/2016 7:40am 10/01/2016 8:19am Albumin 4.7 g/dL 3.4-5.0 10/01/2016 7:40am 10/01/2016 8:19am Albumin/Globulin Ratio 1.424 1.1-1.8 10/01/2016 7:40am 10/01/2016 8: 19am Procedures No known history of procedures. Encounters Encounter Location Arrival/Admit Date Discharge/Depart Date Attending Provider Departed Emergency Room [facility] 10/01/16 7:18am 10/01/16 8:43am NIHARIKA PATEL MD Recent Diagnosis
--- OUTSIDE RECORDS SUMMARY | 2017-01-06 21:45 | XMS REPORT | Summary of Care ---
Author Author Igor Correia M.D. Organization Unknown Address Unknown Phone Unavailable Care Team Providers Care Garage Door Technician Name Role Phone Igor Correia M.D. Unavailable Unavailable Igor Correia Unavailable Unavailable Unavailable Unavailable Functional Status Name Dates Details Functional status health issues are not documented Status: Name Dates Details Cognitive status health issues are not documented Status: Problems Name Dates Details Stomach problems (536.9, K31.9) Status: Active Chest pain (786.50, R07.9) Status: Active Shortness of breath (786.05, R06.02) Status: Active Kidney problem (593.9, N28.9) Status: Active Appetite loss (783.0, R63.0) Status: Active Hoarseness (784.42, R49.0) Status: Active Weight loss (783.21, R63.4) Status: Active Dysphagia (787.20, R13.10) Status: Active Eczematoid otitis externa of both ears, unspecified chronicity (380.22, H60.543 ) Status: Active Chronic cough (786.2, R05) Status: Active Gastroesophageal reflux disease without esophagitis (530.81, K21.9) Status: Active Lymphadenopathy, posterior cervical (785.6, R59.0) Status: Active Dysphonia (784.42, R49.0) Status: Active Bacterial folliculitis (704.8, L73.8) Status: Active Acne vulgaris (706.1, L70.0) Status: Active Benign neoplasm of skin of trunk (216.5, D23.5) Status: Active Epidermal inclusion cyst (706.2, L72.0) Status: Active Anxiety (300.00, F41.9) Status: Active Panic attack (300.01, F41.0) Status: Active Canker sores oral (528.2, K12.0) Status: Active Coccyx pain (724.79, M53.3) Status: Active Fatigue (780.79, R53.83) Status: Active Lump in neck (784.2, R22.1) Status: Active Lump in the groin (789.39, R19.09) Status: Active Shoulder pain (719.41, M25.519) Status: Active Back pain (724.5, M54.9) Status: Active Chronic midline low back pain without sciatica (724.2, M54.5) Status: Active Medications Name Dates Details Multivitamins Oral Capsule TAKE 1 CAPSULE DAILY. * Start 01-May-2014 Active Fish Oil 1000 MG Oral Capsule TAKE 1 CAPSULE DAILY. * Quantity: 30 Refills: 0 * Start 01-May-2014 Active Vitamin D3 1000 UNIT Oral Capsule Take 1 tablet daily * Quantity: 30 Refills: 3 * Start 01-May-2014 Active NexIUM 20 MG Oral Capsule Delayed Release * Refills: 0 * Start 18-Jun-2015 Active Vitamin B-12 250 MCG Oral Tablet * Refills: 0 * Start 18-Jun-2015 Active Acyclovir 400 MG Oral Tablet TAKE 1 TABLET TWICE DAILY. * Quantity: 60 Refills: 11 Brenstephanie Sorto, Igor * Start 03-Jun-2016 Active Meloxicam 7.5 MG Oral Tablet TAKE 1 TABLET DAILY WITH FOOD. * Quantity: 30 Refills: 0 Jairon Correia M.D.ian * Start 18-Jun-2016 Active Allergies and Adverse Reactions Name Dates Details No Known Drug Allergies (Allergy) Status: Active Past Medical History Name Dates Details History of depression (V11.8, Z86.59) Status: Resolved History of migraine (V12.49, Z86.69) Status: Resolved History of osteoarthritis (V13.4, Z87.39) Status: Resolved History of peptic ulcer (V12.71, Z87.11) Status: Resolved History of recurrent urinary tract infection (V13.02, Z87.440) Status: Resolved Procedures Procedure Dates Details History of Tonsillectomy History of Neuroplasty Decompression Median Nerve At Carpal Tunnel History of Repair Tendon / Muscle Of Elbow History of Diagnostic Esophagogastroduodenoscopy History of Colonoscopy History of Special ENT Services Nasopharyngoscopy With Endoscope Procedures not documented Immunization Name Dates Details Immunizations not documented Family History Name Dates Details Family history of malignant neoplasm of breast (V16.3, Z80.3) Comments: Family History Status: Active Family history of cerebrovascular accident (CVA) (V17.1, Z82.3) Comments: Family History Status: Active Family history of malignant neoplasm of prostate (V16.42, Z80.42) Comments: Family History Status: Active Name Dates Details Family history of chronic obstructive pulmonary disease (V17.6, Z82.5) Status: Active Name Dates Details Family history of myocardial infarction (V17.3, Z82.49) Status: Active Name Dates Details Family history of malignant neoplasm of breast (V16.3, Z80.3) Status: Active Name Dates Details Family history of lung disease (V19.8, Z83.6) Status: Active Family history of cardiac disorder (V17.49, Z82.49) Status: Active Name Dates Details Family history of hypertension (V17.49, Z82.49) Status: Active Family history of diabetes mellitus (V18.0, Z83.3) Status: Active Family history of High cholesterol (272.0, E78.00) Status: Active Family history of malignant neoplasm (V16.9, Z80.9) Status: Active Name Dates Details Family history of myocardial infarction (V17.3, Z82.49) Status: Active Name Dates Details Family history of myocardial infarction (V17.3, Z82.49) Status: Active Social History Name Dates Details - Status: Name Dates Details Never smoker Vital Signs Date Test Result Details 18-Jun-2016 08:27 BP Systolic 128 mm[Hg] Status: Comments: Location: LUE; Position: Sitting BP Diastolic 68 mm[Hg] Status: Comments: Location: LUE; Position: Sitting Temperature 98.8 f Status: Comments: Method: Tympanic Heart Rate 70 /min Status: Comments: Location: ; Weight 181 lb Status: Physical Findings 95 Status: Comments: O2 Saturation 03-Jun-2016 08:24 BP Systolic 162 mm[Hg] Status: Comments: Location: LUE; Position: Sitting BP Diastolic 70 mm[Hg] Status: Comments: Location: LUE; Position: Sitting Temperature 98.4 f Status: Comments: Method: Tympanic Heart Rate 63 /min Status: Comments: Location: ; Weight 187 lb Status: Physical Findings 97 Status: Comments: O2 Saturation Results Date Description Value Details 03-Jun-2016 10:32 XRay SPINE-SACRUM & COCCYX Comments: Exam Date: 2015 09:36Dictation Date: 06/03/2016 10:32 X SPINE SACRUM & COCCYX 14:47 CBC w/ Auto Diff 7150 WBC 5.0 K/uL Range: 4.5-11.0 RBC 4.76 mil/uL Range: 4.20-5.40 HGB 13.8 g/dL (Below low threshold) Range: 14.0-18.0 HCT 40.4 % (Below low threshold) Range: 42.0-53.0 MCV 84.8 fL Range: 80.0-99.0 MCH 28.9 pg Range: 27.3-32.5 MCHC 34.1 % Range: 32.0-36.0 RDW 13.7 % Range: 11.6-14.8 PLATELETS 341 K/uL Range: 150-400 MPV 6.1 fL Range: 6.0-11.0 %NEUTRO 58.8 % Range: 37.0-80.0 %LYMPHS 31.5 % Range: 13.0-50.0 %MONO 5.8 % Range: 0.0-12.0 %EOS 1.5 % Range: 0.0-7.0 %BASO 0.5 % Range: 0.0-2.5 %GENNA 2.0 % Range: 0.0-5.0 NEUTRO 3.0 K/uL Range: 2.0-6.9 LYMPHS 1.6 K/uL Range: 0.6-3.4 MONOS 0.3 K/uL Range: 0.0-0.9 EOS 0.1 K/uL Range: 0.0-0.7 BASO 0.0 K/uL Range: 0.0-0.2 14:51 Comprehensive Metabolic Panel 1212 SODIUM 141 mmol/L Range: 133-144 POTASSIUM 3.9 mmol/L Range: 3.5-5.1 CHLORIDE 108 mmol/L Range: 98-110 CARBON DIOXIDE 26.2 mmol/L Range: 23.0-33.0 ANION GAP 7 mmol/L Range: 6-16 BUN 14 mg/dL Range: 7-18 CREATININE, SERUM 0.91 mg/dL Range: 0.70-1.30 BUN:CREATININE RATIO 15 EST GFR, >60 ml/min Range: >60 EST GFR, NON-AFR SW[place] >60 ml/min Range: >60 Comments: EST GFR is reported in ml/min per 1.73 m2 of body surface area. ----- GLUCOSE 100 mg/dL Range: 70-100 ALK PHOSPHATASE 71 U/L Range: 46-116 TOTAL BILIRUBIN 0.20 mg/dL Range: 0.20-1.00 AST 28 U/L Range: 8-35 ALT 42 U/L Range: 16-63 ALBUMIN 3.9 g/dL Range: 3.4-5.0 TOTAL PROTEIN 7.0 g/dL Range: 6.4-8.2 A/G RATIO 1.3 units Range: 1.0-1.8 CALCIUM 8.7 mg/dL Range: 8.5-10.1 14:53 THYROID STIM. HORMONE 3602 THYROID STIM. HORMONE 1.385 uIU/mL Range: 0.550-4.780 Comments: No established reference ranges for infants and children <2 years of age----- Plan of Care Name Dates Details Planned Observations Planned Goals not documented Planned Encounters Appointment; Provider: Lv Lester M.D. On 02-Sep-2016 10:15 Interventions Provided Medication Changes* Meloxicam 7.5 MG Oral Tablet - Start Instructions Name Dates Details Instructions not documented Encounters Appointment; Igor Correia M.D. Encounter Diagnosis: Problem not documented On 03-Jun-2016 08:15 Appointment; Lv Lester M.D. Encounter Diagnosis: Problem not documented On 30-Aug-2015 10:00 Appointment; Smith Ibanez M.D. Encounter Diagnosis: Problem not documented On 27-Aug-2015 08:30 Appointment; Smith Ibanez M.D. Encounter Diagnosis: Problem not documented On 18-Jun-2015 08:30
--- OUTSIDE RECORDS SUMMARY | 2017-01-06 21:45 | XMS REPORT | Continuity of Care Document ---
Author Author [facility] Organization [facility] Address Unknown Phone Unavailable Care Team Providers Care Table Tender Sludge Name Role Phone Lawrence Sher MD Primary Care Physician [phone] Insurance Providers Payer Name Policy Number Subscriber Name Relationship [facility] [id number] Chin Weber 18 Self / Same As Patient Self Pay/Pending [facility] Apprv [id number] Chin Weber 18 Self / Same As Patient Chief Complaint and Reason for Visit Chief Complaint Pain Reason for Visit Methamphetamine addiction [id number] Problems Medical Problems Problem Onset Date Status [...] Acute gastritis ~12/25/2013 Active Abdominal pain ~01/20/2014 Resolved Anxiety ~01/20/2014 Active Jaw pain ~02/16/2014 Resolved Chest pain ~03/03/2014 Resolved Sore throat ~03/27/2014 Resolved Corneal abrasion, right ~04/14/2014 Resolved Headache behind the eyes ~04/22/2014 Resolved Injury of head ~04/25/2014 Resolved Exposure to STD Unknown Resolved Eye irritation Unknown Resolved Diarrhea ~04/27/2014 Resolved Gastritis ~04/27/2014 Resolved Drug abuse ~10/11/2014 Active Chest discomfort ~11/11/2014 Active Chest pain ~11/16/2014 Active Methamphetamine addiction ~11/16/2014 Active Cellulitis Unknown Resolved Methamphetamine abuse ~11/16/2014 Active Substance abuse ~11/21/2014 Active Paresthesias ~11/23/2014 Active Drug abuse and dependence ~11/25/2014 Active Anxiety ~11/26/2014 Active Vomiting ~12/17/2014 Resolved Gastroenteritis ~12/17/2014 Resolved Chest discomfort Unknown Active Rectal trauma ~02/02/2015 Resolved Foreign body anus/rectum ~02/02/2015 Resolved Abdominal pain ~02/02/2015 Resolved Constipation Unknown Resolved Epigastric pain ~04/23/2015 Active Medications Medication Dose Route Sig Days/Qty [...] Discontinued Omeprazole 40 Mg ORAL daily 08/27/13 02/02/15 Discontinued Metoprolol Succinate 25 Mg ORAL DAILY 30 Qty 08/28/13 09/13/13 Discontinued Cyanocobalamin 3581-6367 Mcg ORAL DAILY 09/16/13 Active Multivits,Th W-Fe,Other Min 1 Each ORAL DAILY 09/16/13 Active Gunter-3 Fatty Acids/Fish Oil 1 Each ORAL DAILY [...] ORAL TWICE A DAY 20 Qty 11/15/14 02/02/15 Discontinued Aspirin/Calcium Carbonate/Mag 2-3 Mg ORAL NEEDED 11/23/14 Discontinued Acyclovir 200 Mg ORAL TWICE A DAY 11/23/14 Active Alprazolam 1 Mg ORAL TWICE A DAY 11/23/14 Active Cyclobenzaprine HCl 10 Mg ORAL THREE TIMES A DAY PRN CHEST PAIN 15 Qty 01/06/15 02/02/15 Discontinued Sulfamethoxazole/Trimethoprim 2 Each ORAL TWICE A DAY 14 Qty 01/09/15 02/02/15 Discontinued Cephalexin Monohydrate 2 Ea ORAL TWICE A DAY 14 Qty 01/09/15 02/02/15 Discontinued Esomeprazole Magnesium 20 Mg ORAL DAILY 02/02/15 Active Ondansetron Hcl 4 Mg ORAL THREE TIMES A DAY PRN NAUSEA/VOMITING 12 Qty 04/23/15 Active Social History No social history. Hospital Discharge Instructions No hospital discharge instructions. Plan of Care Discharge Date 04/28/15 1:25am Disposition 01 HOME OR SELF-CARE Condition at Discharge Stable Instructions/Education Provided Generalized Anxiety Disorder (GEN) Methamphetamine Abuse (ED) Prescriptions See Medications Section Referrals Lawrence Sher MD Additional Instructions/Education ED [place] if any worse. Follow up with your doctor. Some of your test results may not [...] worrisome symptoms. * Emergency Department phone number: [phone], x [phone]* MEDICAL RECORD If you need copies of your X-rays, call [phone]. If you need copies of [...] the billing parties for services. [employer] Emergency Room Services [facility] Physician Services [facility] X-rays [facility] Patients will receive bills for services from the appropriate provider. If you have any questions about your [facility] bill, our staff will be happy to assist you. Please call [phone], and ask for the billing department. THANK YOU for choosing [facility] as your emergency care provider! Functional Status No functional status results. Allergies, Adverse Reactions, Alerts Allergen Type Severity Reaction Status Last Updated No Known Drug Allergies Active 04/27/15 Immunizations No immunization records. Vital Signs Acute Vital Signs Vital Response Date/Time Temperature (Fahrenheit) 98.1 Pulse 113 bpm Respirations 22 Height 5 ft 6 in Weight 174 lb Body Mass Index 28.0 kg/m^2 Results Test Source Date Result Interp. Ref. Range Comments Absolute Band Neutrophils November 20, 2014 7:20pm 0.1 # Acetaminophen Level August 27, 2013 2:30pm < 10.0 UG/ML L 10.0-30.0 Collected by nurse? N Activated Partial Thromboplast Time April 27, 2015 9:51pm 29.3 SEC N 24.9-35.9 Alanine Aminotransferase (ALT/SGPT) April 27, 2015 9:51pm 46 U/L N 30-65 Albumin April 27, 2015 9:51pm 5.2 g/dL H 3.4-5.0 Albumin/Globulin Ratio April 27, 2015 9:51pm 1.529 N 1.1-1.8 Alkaline Phosphatase April 27, 2015 9:51pm 76 U/L N 38-126 Amylase Level February 02, 2015 7:39am 77 U/L N 25-115 Anion Gap April 27, 2015 9:51pm 23.2 MEQ/L H 3-15 Aspartate Amino Transf (AST/SGOT) April 27, 2015 9:51pm 36 U/L N 15- 37 B-Type Natriuretic Peptide August 20, 2013 10:15am 7 PG/ML N 0-100 BUN/Creatinine Ratio April 27, 2015 9:51pm 12 N 10-20 Band Neutrophils % November 20, 2014 7:20pm 1 % N 0-6 Basophils # (Auto) April 27, 2015 9:51pm 0.0 10^3uL Basophils % (Manual) November 20, 2014 7:20pm 0 % N 0-2 Basophils (%) (Auto) April 27, 2015 9:51pm 0 % N 0-2 Blood Morphology Comment November 20, 2014 7:20pm Normal NORMAL Blood Urea Nitrogen April 27, 2015 9:51pm 12 mg/dL N 7-18 C-Reactive Protein December 25, 2013 6:51pm 0.70 MG/DL N 0.0-0.9 Collected by nurse? N Calcium Level April 27, 2015 9:51pm 10.2 mg/dL N 8.8-10.8 Calcium/Ionized Calcium Ratio April 27, 2015 9:51pm 4.0 mg/dL N 3.8- 4.6 Calculated Osmolality April 27, 2015 9:51pm 277 mosm/L L 280-300 Carbon Dioxide Level April 27, 2015 9:51pm 25 mmol/L N 22-29 Chlamydia trachomatis RNA April 26, 2014 8:30am Negative Negative Chlamydia/GC DNA Probe Source April 26, 2014 8:30am Urine () Corrected result; previously reported as Urine on 04/26/14 at 12:42 by V/AUT--- 04/27/14 2349 --- GC.CHL SOURCE previously reported as: Urine Chloride Level April 27, 2015 9:51pm 100 mmol/L N 98-108 Creatine Kinase MB April 27, 2015 9:51pm 4.4 ng/mL N 0.0-6.0 Creatinine April 27, 2015 9:51pm 0.99 mg/dL N 0.8-1.5 D-Dimer April 27, 2015 9:51pm 0.51 ug/mL PH 0.00-0.41 Results called to EZ IN ERwho read back the results. Called by Ysabel Almeida at 2212 Differential Total Cells Counted November 20, 2014 7:20pm 100 Eosinophils # November 20, 2014 7:20pm 0.0 # Eosinophils # (Auto) April 27, 2015 9:51pm 0.1 10^3uL Eosinophils % (Manual) November 20, 2014 7:20pm 0 % N 0-4 Eosinophils (%) (Auto) April 27, 2015 9:51pm 1 % N 0-4 Erythrocyte Sedimentation Rate December 25, 2013 6:51pm 8 mm/hr N 0-12 Collected by nurse? N Estimat Glomerular Filtration Rate April 27, 2015 9:51pm 101.3 Estimated GFR (Non- April 27, 2015 9:51pm 83.7 Glucose Level April 27, 2015 9:51pm 99 mg/dL N 70-110 Hematocrit April 27, 2015 9:51pm 42.20 % N 39.00-50.00 Hemoglobin April 27, 2015 9:51pm 14.8 g/dL N 13.5-17.0 Iron (send out) October 14, 2012 2:48am 75 ug/dL 65-175 Lipase April 24, 2015 3:18pm 58 U/L N 23-300 Lymphocytes # November 20, 2014 7:20pm 1.0 # Lymphocytes # (Auto) April 27, 2015 9:51pm 2.0 X10^3 Lymphocytes % (Manual) November 20, 2014 7:20pm 9 % L 20-46 Lymphocytes (%) (Auto) April 27, 2015 9:51pm 23 % N 20-46 Magnesium Level September 15, 2013 5:35am 2.1 MG/DL N 1.6-2.3 Collected by nurse? N Mean Corpuscular Hemoglobin April 27, 2015 9:51pm 28.7 PG N 26.0- 34.0 Mean Corpuscular Hemoglobin Concent April 27, 2015 9:51pm 35.1 g/dL N 31.0-37.0 Mean Corpuscular Volume April 27, 2015 9:51pm 82 FL N 80-100 Mean Platelet Volume April 27, 2015 9:51pm 8.6 FL N 6.0-9.5 Metamyelocytes % August 20, 2013 10:15am 0 % N 0-1 Monocytes # November 20, 2014 7:20pm 0.3 # Monocytes # (Auto) April 27, 2015 9:51pm 0.7 X10^3 Monocytes % (Manual) November 20, 2014 7:20pm 3 % N 3-11 Monocytes (%) (Auto) April 27, 2015 9:51pm 8 % N 3-11 N. gonorrhoeae DNA Specimen Source April 26, 2014 8:30am Urine () Corrected result; previously reported as Urine on 04/26/14 at 12:42 by V/AUT-- - 04/27/14 2349 --- NGON SOURCE previously reported as: Urine SO-Fbt-J-Type Natriuretic Peptide April 27, 2015 9:51pm 41 pg/mL N 0 -125 <300 ng/mL - HF unlikely Age <50 years, NT-proBNP >450 pg/mL - HF Likely Age 50-75 yrs, NT-proBNP >900 pg/mL - HF Likely Age >75 yrs, NT-proBNP >1800 - HF likely Neisseria gonorrhoeae RNA April 26, 2014 8:30am Negative Negative Test Performed by:[address] [address] Patch Press Operator: Ernst Stiles III, M.D. Neutrophils # November 20, 2014 7:20pm 9.7 # Neutrophils # (Auto) April 27, 2015 9:51pm 5.7 X10^3 Neutrophils (%) (Auto) April 27, 2015 9:51pm 67 % N 51-67 Platelet Count April 27, 2015 9:51pm 352 10^3uL N 150-450 Potassium Level April 27, 2015 9:51pm 3.9 mmol/L N 3.5-5.1 Prothromb Time International Ratio April 27, 2015 9:51pm 1.0 N 0.8- 1.4 Prothrombin Time April 27, 2015 9:51pm 13.3 SEC N 11.9-14.2 Rapid Plasma Reagin April 26, 2014 9:15am Non-reactive () Red Blood Count April 27, 2015 9:51pm 5.15 10^6uL N 4.50-5.50 Red Cell Distribution Width April 27, 2015 9:51pm 12.7 % N 11.8- 15.6 Salicylates Level August 27, 2013 2:30pm < 1.0 MG/DL L 2.0-20.0 Collected by nurse? N Segmented Neutrophils % November 20, 2014 7:20pm 87 % H 51-67 Serum Alcohol April 27, 2015 9:51pm < 10.0 mg/dL L 10-80 Sodium Level April 27, 2015 9:51pm 144 mmol/L N 135-150 Stool Occult Blood February 02, 2015 7:27am Positive NEGATIVE Stool Occult Blood Expiration Date November 14, 2013 11:59pm 11/29 -- - 11/15/1315 ---OBEXP previously reported as: 11/29 Stool Occult Blood Lot Number November 14, 2013 11:59pm [id number] --- 08/30 ---OCCULT BLOOD LO previously reported as: 1121 Streptococcus Screen March 29, 2014 6:55am Negative Negative Total Bilirubin April 27, 2015 9:51pm 1.2 mg/dL H 0.1-1.0 Total Creatine Kinase April 27, 2015 9:51pm 472 U/L PH 55-170 Results called to EZ IN ERwho read back the results. Called by Ysabel Almeida at 2210 Total Iron Binding Capacity October 14, 2012 2:48am 393 ug/dL 260- 445 Total Protein April 27, 2015 9:51pm 8.6 g/dL H 6.4-8.5 Transferrin % Saturation October 14, 2012 2:48am 19 % 11-46 Troponin I April 27, 2015 9:51pm < 0.012 ng/mL 0.010-0.080 Urine Bacteria April 22, 2015 8:30am Rare /HPF Urine collection method Clean Catch Urine Bilirubin April 27, 2015 9:45pm Negative Negative Urine collection method Clean Catch Urine Blood March 29, 2014 6:55am Negative Negative Urine Clarity April 27, 2015 9:45pm Clear Urine collection method Clean Catch Urine Collection Type April 27, 2015 9:45pm Clean catch Urine collection method Clean Catch Urine Color April 27, 2015 9:45pm Yellow Urine collection method Clean Catch Urine Glucose (UA) April 27, 2015 9:45pm Negative Negative Urine collection method Clean Catch Urine Hyaline Casts July 04, 2013 3:52am 3+ /LPF H Urine collection method Clean Catch Urine Ketones April 27, 2015 9:45pm 1+ H Negative Urine collection method Clean Catch Urine Leukocyte Esterase April 27, 2015 9:45pm Negative Negative Urine collection method Clean Catch Urine Mucus April 22, 2015 8:30am 2+ H Urine collection method Clean Catch [...] developed and its performance characteristics determined by [facility]. It has not been cleared or approved by the U.S. Food and Drug Administration. Test Performed by: [facility] [address] [address] Patch Press Operator: Ernst Stiles III, M.D. Urine Nitrite April 27, 2015 9:45pm Negative Negative Urine collection method Clean Catch Urine Protein April 27, 2015 9:45pm Negative Negative Urine collection method Clean Catch Urine RBC April 22, 2015 8:30am 2-5 /HPF Urine collection method Clean Catch Urine RBC (Auto) April 27, 2015 9:45pm Negative Negative Urine collection method Clean Catch Urine Specific Adamant April 27, 2015 9:45pm 1.010 1.005-1.030 Urine collection method Clean Catch Urine Squamous Epithelial Cells April 22, 2015 8:30am 2-5 /LPF Urine collection method Clean Catch Urine Urobilinogen April 27, 2015 9:45pm 0.2 mg/dL 0.2-1.0 Urine collection method Clean Catch Urine WBC April 22, 2015 8:30am 0-2 /HPF Urine collection method Clean Catch Urine pH April 27, 2015 9:45pm 6.0 5.0 - 8.0 Urine collection method Clean Catch Volume Urine Centrifuged April 22, 2015 8:30am 10 ml Urine collection method Clean Catch White Blood Count April 27, 2015 9:51pm 8.43 10^3uL N 4.0-11.0 Group A Streptococcus Culture Throat March 29, 2014 6:55am Urine Culture Urine-Voided Urine April 22, 2015 8:30am Procedures Procedure Status Date Provider(s) US EXAM ABDOM COMPLETE completed 04/13/15 US EXAM PELVIC COMPLETE completed 04/13/15 Encounters Encounter Location Date/Time Departed Emergency Room [facility] 04/27/15 9:08pm Departed Emergency Room [facility] 04/24/15 2:30pm Departed Emergency Room [facility] 04/23/15 1:10pm Departed Emergency Room [facility] 04/22/15 5:47am Registered Clinic [facility] 04/13/15 7:19am Recent Diagnosis
--- OUTSIDE RECORDS SUMMARY | 2017-01-06 21:45 | XMS REPORT | Continuity of Care Document ---
Author Author [facility] Organization [facility] Address Unknown Phone Unavailable Care Team Providers Care Honey Producer Name Role Phone Lawrence Sher MD Primary Care Physician [phone] Insurance Providers Payer Name Policy Number Subscriber Name Relationship Self Pay Chin Weber 17 Self / Same As Patient Chief Complaint and Reason for Visit Chief Complaint Cardiac Complaint Reason for Visit Chest pain Drug abuse Problems Medical Problems Problem Onset Date Status [...] Active Chest discomfort ~11/11/2014 Active Chest pain Unknown Active Medications Medication Dose Route Sig [...] DAILY 30 Qty 08/28/13 09/13/13 Discontinued Cyanocobalamin [id number] Mcg ORAL DAILY 09/16/13 Active Multivits,Th W-Fe,Other Min 1 Each ORAL DAILY 09/16/13 Active [place]-3 Fatty Acids/Fish Oil 1 Each ORAL DAILY [...] discharge instructions. Plan of Care Discharge Date 11/13/14 8:14pm Disposition 01 HOME OR SELF-CARE Condition at Discharge Stable Instructions/Education Provided Chest Pain (ED) Methamphetamine Abuse (ED) Prescriptions See Medications Section Referrals Lawrence Sher MD Additional Instructions/Education STOP using drugs!!! Follow up with primary care doctor. Return to ER as needed. Some of your test results may not [...] worrisome symptoms. * Emergency Department phone number: [phone], x [phone]* MEDICAL RECORD If you need copies of your X-rays, call [phone] x [phone]. If you need copies of [...] the billing parties for services. SERVICE BILLING [employer]STITUTION [employer] Emergency Room Services [facility] Physician Services [facility] X-[facility] [place] [facility] Patients will receive bills for services from the appropriate provider. If you have any questions about your [facility] bill, our staff will be happy to assist you. Please call [phone], and ask for the billing department. THANK YOU for choosing [facility] as your emergency care provider! Functional Status No functional status results. Allergies, Adverse Reactions, Alerts Allergen Type Severity Reaction Status Last Updated No Known Drug Allergies Active 03/03/14 Immunizations No immunization records. Vital Signs Acute Vital Signs Vital Response Date/Time Temperature (Fahrenheit) 97.4 Pulse 98 bpm Respirations 28 Height 5 ft 7 in Weight 175 lb Body Mass Index 27.0 kg/m^2 Results Test Source Date Result Interp. Ref. Range Comments Absolute Band Neutrophils August 20, 2013 10:15am 0.0 # Acetaminophen Level August 27, 2013 2:30pm < 10.0 UG/ML L 10.0-30.0 Collected by nurse? N Activated Partial Thromboplast Time November 13, 2014 6:50pm 29.5 SEC N 24.9-35.9 Alanine Aminotransferase (ALT/SGPT) November 13, 2014 6:50pm 41 U/L N 30- 65 Albumin November 13, 2014 6:50pm 5.2 g/dL H 3.4-5.0 Albumin/Globulin Ratio November 13, 2014 6:50pm 1.677 N 1.1-1.8 Alkaline Phosphatase November 13, 2014 6:50pm 78 U/L N 38-126 Amylase Level December 25, 2013 6:51pm 69 U/L N 25-115 Collected by nurse? N Anion Gap November 13, 2014 6:50pm 15.3 MEQ/L H 3-15 Aspartate Amino Transf (AST/SGOT) November 13, 2014 6:50pm 28 U/L N 15-37 B-Type Natriuretic Peptide August 20, 2013 10:15am 7 PG/ML N 0-100 BUN/Creatinine Ratio November 13, 2014 6:50pm 11 N 10-20 Band Neutrophils % August 20, 2013 10:15am 0 % N 0-6 Basophils # (Auto) November 13, 2014 6:50pm 0.0 10^3uL Basophils % (Manual) August 20, 2013 10:15am 0 % N 0-2 Basophils (%) (Auto) November 13, 2014 6:50pm 0 % N 0-2 Blood Morphology Comment August 20, 2013 10:15am Normal NORMAL Blood Urea Nitrogen November 13, 2014 6:50pm 10 mg/dL N 7-18 C-Reactive Protein December 25, 2013 6:51pm 0.70 MG/DL N 0.0-0.9 Collected by nurse? N Calcium Level November 13, 2014 6:50pm 10.2 mg/dL N 8.8-10.8 Calcium/Ionized Calcium Ratio November 13, 2014 6:50pm 4.1 mg/dL N 3.8-4.6 Calculated Osmolality November 13, 2014 6:50pm 275 mosm/L L 280-300 Carbon Dioxide Level November 13, 2014 6:50pm 30 mmol/L H 22-29 Chlamydia trachomatis RNA April 26, 2014 8:30am Negative Negative Chlamydia/GC DNA Probe Source April 26, 2014 8:30am Urine () Corrected result; previously reported as Urine on 04/26/14 at 12:42 by V/AUT--- 04/27/14 2349 --- GC.CHL SOURCE previously reported as: Urine Chloride Level November 13, 2014 6:50pm 101 mmol/L N 98-108 Creatine Kinase MB November 13, 2014 6:50pm 1.9 NG/ML N 0.0-6.0 Creatinine November 13, 2014 6:50pm 0.95 mg/dL N 0.8-1.5 D-Dimer August 20, 2013 10:15am 0.43 ug/mL PH 0.00-0.41 Results called to Ladan read back the results. Called by Janna Greenwood at 1044 Differential Total Cells Counted August 20, 2013 10:15am 100 Eosinophils # August 20, 2013 10:15am 0.0 # Eosinophils # (Auto) November 13, 2014 6:50pm 0.0 10^3uL Eosinophils % (Manual) August 20, 2013 10:15am 0 % N 0-4 Eosinophils (%) (Auto) November 13, 2014 6:50pm 0 % N 0-4 Erythrocyte Sedimentation Rate December 25, 2013 6:51pm 8 mm/hr N 0-12 Collected by nurse? N Estimat Glomerular Filtration Rate November 13, 2014 6:50pm 106.3 Estimated GFR (Non- November 13, 2014 6:50pm 87.8 Glucose Level November 13, 2014 6:50pm 103 mg/dL N 70-110 Hematocrit November 13, 2014 6:50pm 42.80 % N 39.00-50.00 Hemoglobin November 13, 2014 6:50pm 14.6 g/dL N 13.5-17.0 Iron (send out) October 14, 2012 2:48am 75 ug/dL 65-175 Lipase January 20, 2014 12:45pm 58 U/L N 23-300 Collected by nurse? N Lymphocytes # August 20, 2013 10:15am 0.4 # Lymphocytes # (Auto) November 13, 2014 6:50pm 1.6 X10^3 Lymphocytes % (Manual) August 20, 2013 10:15am 8 % L 20-46 Lymphocytes (%) (Auto) November 13, 2014 6:50pm 19 % L 20-46 Magnesium Level September 15, 2013 5:35am 2.1 MG/DL N 1.6-2.3 Collected by nurse? N Mean Corpuscular Hemoglobin November 13, 2014 6:50pm 28.5 PG N 26.0-34.0 Mean Corpuscular Hemoglobin Concent November 13, 2014 6:50pm 34.1 g/dL N 31.0-37.0 Mean Corpuscular Volume November 13, 2014 6:50pm 84 FL N 80-100 Mean Platelet Volume November 13, 2014 6:50pm 8.7 FL N 6.0-9.5 Metamyelocytes % August 20, 2013 10:15am 0 % N 0-1 Monocytes # August 20, 2013 10:15am 0.1 # Monocytes # (Auto) November 13, 2014 6:50pm 0.8 X10^3 Monocytes % (Manual) August 20, 2013 10:15am 2 % L 3-11 Monocytes (%) (Auto) November 13, 2014 6:50pm 9 % N 3-11 N. gonorrhoeae DNA Specimen Source April 26, 2014 8:30am Urine () Corrected result; previously reported as Urine on 04/26/14 at 12:42 by V/AUT-- - 04/27/14 2349 --- NGON SOURCE previously reported as: Urine Neisseria gonorrhoeae RNA April 26, 2014 8:30am Negative Negative Test Performed by:[place] [address] Telephone Appointment Clerk: Ernst Stiles III, M.D. Neutrophils # August 20, 2013 10:15am 4.7 # Neutrophils # (Auto) November 13, 2014 6:50pm 6.3 X10^3 Neutrophils (%) (Auto) November 13, 2014 6:50pm 72 % H 51-67 Platelet Count November 13, 2014 6:50pm 426 10^3uL N 150-450 Potassium Level November 13, 2014 6:50pm 3.6 mmol/L N 3.5-5.1 Prothromb Time International Ratio November 13, 2014 6:50pm 1.0 N 0.8-1.4 Prothrombin Time November 13, 2014 6:50pm 12.5 SEC N 11.9-14.2 Rapid Plasma Reagin April 26, 2014 9:15am Non-reactive () Red Blood Count November 13, 2014 6:50pm 5.12 10^6uL N 4.50-5.50 Red Cell Distribution Width November 13, 2014 6:50pm 12.9 % N 11.8-15.6 Salicylates Level August 27, 2013 2:30pm < 1.0 MG/DL L 2.0-20.0 Collected by nurse? N Segmented Neutrophils % August 20, 2013 10:15am 90 % H 51-67 Serum Alcohol November 13, 2014 6:50pm < 10.0 mg/dL L 10-80 Sodium Level November 13, 2014 6:50pm 143 mmol/L N 135-150 Stool Occult Blood [...] 2014 6:55am Negative Negative Total Bilirubin November 13, 2014 6:50pm 0.5 mg/dL DN 0.1-1.0 Total Creatine Kinase November 13, 2014 6:50pm 111 U/L DN 55-170 Total Iron Binding Capacity October 14, 2012 2:48am 393 ug/dL 260- 445 Total Protein November 13, 2014 6:50pm 8.3 g/dL N 6.4-8.5 Transferrin % Saturation October 14, 2012 2:48am 19 % 11-46 Troponin I November 13, 2014 6:50pm < 0.012 ng/mL 0.010-0.080 Ur Tricyclic Antidepressants [...] developed and its performance characteristics determined by [facility]. It has not been cleared or approved by the U.S. Food and Drug Administration. Test Performed by: [address] [address] Telephone Appointment Clerk: Ernst Stiles III, M.D. Urine Nitrite March [...] 26, 2012 10:55pm Negative Negative Urine Specific [place] March 29, 2014 6:55am 1.020 1.005-1.030 Urine [...] method Clean Catch White Blood Count November 13, 2014 6:50pm 8.79 10^3uL N 4.0-11.0 Group A Streptococcus Culture Throat March 29, 2014 6:55am Procedures No known history of procedures. Encounters Encounter Location Date/Time Departed Emergency Room [facility] 11/13/14 6:22pm Departed Emergency Room [facility] 11/11/14 1:06pm Registered Emergency Room [facility] 11/06/14 6:02pm Recent Diagnosis
--- OUTSIDE RECORDS SUMMARY | 2017-01-06 21:45 | XMS REPORT | Summary of Care ---
Author Author Igor Correia M.D. Organization Unknown Address Unknown Phone Unavailable Care Team Providers Care Photographic Process Screen Maker Name Role Phone Igor Correia M.D. Unavailable [...] Active Panic attack (300.01, F41.0) Status: Active Lump in neck (784.2, R22.1) Status: Active Lump in the groin (789.39, R19.09) Status: Active Canker sores oral (528.2, K12.0) Status: Active Coccyx pain (724.79, M53.3) Status: Active Fatigue (780.79, R53.83) Status: Active Medications Name Dates Details Multivitamins [...] TWICE DAILY. * Quantity: 60 Refills: 11 Igor Correia M.D. * Start 03-Jun-2016 Active Allergies and Adverse Reactions Name Dates [...] Procedures Procedure Dates Details History of Tonsillectomy THYROID STIM. HORMONE 3602 Ordered: 03-Jun-2016 Comprehensive Metabolic Panel 1212 Ordered: 03-Jun-2016 CBC w/ Auto Diff 7150 Ordered: 03-Jun-2016 Immunization Name Dates Details Immunizations not documented Family History Name Dates Details Family history of lung [...] smoker Vital Signs Date Test Result Details 03-Jun-2016 08:24 BP Systolic 162 mm[Hg] Status: Comments: Location: LUE; Position: Sitting BP Diastolic 70 mm[Hg] Status: Comments: Location: LUE; Position: Sitting Temperature 98.4 f Status: Comments: Method: Tympanic Heart Rate 63 /min Status: Comments: Location: ; Weight 187 lb Status: Physical Findings 97 Status: Comments: O2 Saturation Results Date Description Value Details Results not documented Plan of Care Name Dates Details Planned Observations Planned Goals not documented Planned Encounters Appointment; Provider: Lv Lester M.D. On 02-Sep-2016 10:15 Appointment; Provider: Igor Correia M.D. On 18-Jun-2016 08:30 Interventions Provided Medication Changes* Acyclovir 200 MG Oral Capsule - Stop * Acyclovir 400 MG Oral Tablet - Start Labs/Procedures/Imaging* CBC w/ Auto Diff 7150; To be Done: 03 Jun 2016 * Comprehensive Metabolic Panel 1212; To be Done: 03 Jun 2016 * THYROID STIM. HORMONE 3602; To be Done: 03 Jun 2016 Instructions Name Dates Details Instructions not documented Encounters Appointment; Lv Lester M.D. Encounter Diagnosis: Problem not documented On 30-Aug-2015 10:00 Appointment; Smith Ibanez M.D. Encounter Diagnosis: Problem not documented On 27-Aug-2015 08:30 Appointment; Smith Ibanez M.D. Encounter Diagnosis: Problem not documented On 18-Jun-2015 08:30
--- OUTSIDE RECORDS SUMMARY | 2017-01-06 21:46 | XMS REPORT | Continuity of Care Document ---
Author Author [facility] Organization [facility] Address Unknown Phone Unavailable Support Name Relationship Address Phone VUHUDSON SOTO Caregiver [facility] [address] [place] [address] SHAHNAZ LUTHER Caregiver [address] [place] [address] [place] [address] CHARLESDANUTA COLLINS Next Of Kin [address] [place] [address] Insurance Providers Payer Name Policy Number Subscriber Name Relationship [facility] [id number] Chin Weber 17 Self Advance Directives Directive Response Recorded Date/Time Advanced Directives Type None 04/29/14 5:58am Problems Medical Problems Problem Onset Date Status Headache Unknown Active GERD (gastroesophageal reflux disease) Unknown Active Abdominal pain Unknown Active Medications Medication Dose Route Sig Days/Qty Instructions Order Date Discontinued Date Status Fluoxetine Hcl 40 Mg PO DAILY 01/05/10 Active Multivitamins 1 Tab PO DAILY 01/05/10 Active Omeprazole Magnesium 1 Tab PO TWICE A DAY 04/29/14 Active Trazodone HCl 50 Mg PO DAILY Take 1 tablet, by mouth, one time a day ( at BEDTIME). 04/29/14 Active [place]-3 Fatty Acids 500 Mg PO DAILY 04/29/14 Active Acyclovir 1 Cap PO TWICE A DAY 04/29/14 Active [b12] 04/29/14 Active [vit d32 2000] PO DAILY PRN PAIN 04/29/14 Active Sucralfate 1 G PO BEFORE MEALS AND AT BEDTIME For GASTROINTESTINAL UPSET 5 Days at BEDTIME). 04/29/14 Active Social History Social History Problem Response Recorded Date/Time Smoking Status Never smoker 04/29/2014 6:52am Chewing Tobacco Status No 04/29/2014 6:52am Hx Substance Use Y CLEAN 12 MONTHS,COCAINE, METH as of 04/29/14 04/29/2014 6: 52am Hx Alcohol Use No 04/29/2014 6:52am Hospital Discharge Instructions No hospital discharge instructions. Plan of Care No plan of care. Functional Status Query Response Date Recorded Physical Hygiene Self April 29, 2014 6:52am Disabilities Visual April 29, 2014 6:52am Devices Used Dentures Glasses April 29, 2014 6:52am Dressing Self April 29, 2014 6:52am Ambulation Self April 29, 2014 6:52am Diet Self April 29, 2014 6:52am Mental Status Alert Oriented April 29, 2014 6:52am Disabilities Visual April 29, 2014 6:52am Devices Used Dentures Glasses April 29, 2014 6:52am Physical Hygiene Self April 29, 2014 6:52am Dressing Self April 29, 2014 6:52am Ambulation Self April 29, 2014 6:52am Diet Self April 29, 2014 6:52am Allergies, Adverse Reactions, Alerts Allergen Type Severity Reaction Status Last Updated NKDA Allergy Unknown Active 04/29/14 Immunizations Name Given Type Hx Influenza Vaccination Y 2012 Historical Hx Pneumococcal Vaccination Y -2008 Historical Hx Influenza Vaccination Y 2012 Historical Vital Signs Acute Vital Signs Vital Response Date/Time Temperature (Fahrenheit) 96.8 deg F (96.8 - 99.1) Temperature (Calculated Celsius) 36.45292 degrees C (36.0 - 37.3) Pulse Rate (adult) 61 bpm (60 - 100) Respiratory Rate 16 breaths/min (10 - 20) O2 Sat by Pulse Oximetry 98 % (90 - 100) Blood Pressure 122/73 mm Hg Results Test Source Date Result Interp. Ref. Range Comments Acetaminophen Level January 05, 2010 9:20pm < 10 UG/ML L 10-30 Alanine Aminotransferase (ALT/SGPT) April 29, 2014 6:40am 38 U/L N 21-72 Albumin April 29, 2014 6:40am 4.7 G/DL N 3.5-5.0 Albumin/Globulin Ratio April 29, 2014 6:40am 1.7 RATIO N 1.1-2.2 Alcohol, Quantitative January 05, 2010 9:20pm <10 MG/DL - Alkaline Phosphatase April 29, 2014 6:40am 83 U/L N 38-126 Amylase Level April 29, 2014 6:40am 64 U/L N 30-110 Anion Gap April 29, 2014 6:40am 13 MEQ/L N 5-15 Aspartate Amino Transf (AST/SGOT) April 29, 2014 6:40am 24 U/L N 17- 59 B-Type Natriuretic Peptide May 17, 2009 7:55pm < 15 PG/ML L 15-100 BUN/Creatinine Ratio April 29, 2014 6:40am 14 RATIO N 6-26 Basophils # (Auto) April 29, 2014 6:40am 0.0 T/MM3 N 0-0.2 Basophils (%) (Auto) April 29, 2014 6:40am 0.4 % N 0-2 Blood Urea Nitrogen April 29, 2014 6:40am 14.0 MG/DL N 9-20 Calcium Level April 29, 2014 6:40am 9.5 MG/DL N 8.4-10.2 Calculated Osmolality April 29, 2014 6:40am 276 MOSM/KG N 261-280 Carbon Dioxide Level April 29, 2014 6:40am 30 MEQ/L N 22-30 Chloride Level April 29, 2014 6:40am 100 MEQ/L N 98-107 Cholesterol Level May 14, 2009 2:48pm 161 MG/DL N 132-199 Cholesterol/HDL Ratio May 14, 2009 2:48pm 5.0 RATIO N 0-5.0 Creatinine April 29, 2014 6:40am 1.0 MG/DL N 0.8-1.5 Eosinophils # (Auto) April 29, 2014 6:40am 0.2 T/MM3 N 0-0.5 Eosinophils (%) (Auto) April 29, 2014 6:40am 2.7 % N 0-4 Free Thyroxine May 17, 2009 7:55pm 0.68 NG/DL L 0.78-2.19 Gamma Glutamyl Transpeptidase May 14, 2009 2:48pm 33 U/L N 8-78 Globulin April 29, 2014 6:40am 2.7 G/DL N 2.4-3.6 Glucose Level April 29, 2014 6:40am 96 MG/DL N 75-110 Hematocrit April 29, 2014 6:40am 41.5 % N 41-53 Hemoglobin April 29, 2014 6:40am 13.9 GM/DL N 13.5-17.5 Hepatitis A IgM Antibody May 14, 2009 2:48pm Negative - Hepatitis B Core IgM Antibody May 14, 2009 2:48pm Negative - Hepatitis B Surface Antigen May 14, 2009 2:48pm Negative - Hepatitis C Antibody May 14, 2009 2:48pm Negative - Influenza Type A Antigen May 17, 2009 7:50pm Negative - Influenza Type B Antigen May 17, 2009 7:50pm Negative - LDL Cholesterol, Calculated May 14, 2009 2:48pm 81.8 N 66-159 Lipase April 29, 2014 6:40am 88 U/L N 23-300 Lymphocytes # (Auto) April 29, 2014 6:40am 1.9 T/MM3 N 1-4.8 Lymphocytes # (Manual) January 05, 2010 9:20pm 3.0 T/MM3 N 1-4.8 Lymphocytes % (Manual) January 05, 2010 9:20pm 26.0 % N 23-45 Lymphocytes (%) (Auto) April 29, 2014 6:40am 27.5 % N 23-45 Mean Corpuscular Hemoglobin April 29, 2014 6:40am 28.8 UUG N 26-34 Mean Corpuscular Hemoglobin Concent April 29, 2014 6:40am 33.5 GM/DL N 31-37 Mean Corpuscular Volume April 29, 2014 6:40am 86.1 UM3 N 80-100 Mean Platelet Volume April 29, 2014 6:40am 8.9 UM3 L 9.4-12.4 Monocytes # (Auto) April 29, 2014 6:40am 0.6 T/MM3 N 0-0.8 Monocytes # (Manual) January 05, 2010 9:20pm 1.6 T/MM3 H 0-0.8 Monocytes % (Manual) January 05, 2010 9:20pm 14.0 % H 0-9.0 Monocytes (%) (Auto) April 29, 2014 6:40am 9.1 % H 0-9.0 Neutrophils # (Auto) April 29, 2014 6:40am 4.2 T/MM3 N 1.8-7.7 Neutrophils # (Manual) January 05, 2010 9:20pm 6.8 T/MM3 N 1.8-7.7 Neutrophils % (Manual) January 05, 2010 9:20pm 60.0 % N 33-66 Neutrophils (%) (Auto) April 29, 2014 6:40am 60.0 % N 33-66 Platelet Count April 29, 2014 6:40am 293 T/MM3 N 130-400 Potassium Level April 29, 2014 6:40am 4.0 MEQ/L N 3.6-5 Prostate Specific Antigen April 04, 2008 12:33pm 0.76 NG/ML N 0-4.0 RDW Standard Deviation April 29, 2014 6:40am 39.8 FL N 36.9-50.2 Rapid Plasma Reagin May 14, 2009 2:48pm Nonreactive - Red Blood Count April 29, 2014 6:40am 4.82 M/MM3 N 4.50-5.90 Salicylates Level January 05, 2010 9:20pm < 1.0 MG/DL L 2-20 Sodium Level April 29, 2014 6:40am 143 MEQ/L N 134-144 Stool Occult Blood April 29, 2014 6:35am Negative - Has specimen been collected/obtained? Y Stool for White Cells April 29, 2014 6:35am Negative - Has specimen been collected/obtained? Y Thyroid Stimulating Hormone (TSH) May 17, 2009 7:55pm 0.90 MIU/ML N 0.47-4.68 Total Bilirubin April 29, 2014 6:40am 0.40 MG/DL N 0.20-1.30 Total Protein April 29, 2014 6:40am 7.4 G/DL N 6.3-8.2 Triglycerides Level May 14, 2009 2:48pm 241 MG/DL H 40-160 Troponin I April 29, 2014 6:40am < 0.012 ng/ml 0-0.12 Urine Bilirubin April 29, 2014 6:30am Negative - Has specimen been collected/obtained? Y Urine Blood April 29, 2014 6:30am Negative - Has specimen been collected/obtained? Y Urine Collection Type April 29, 2014 6:30am Cleancatch-midstream - Has specimen been collected/obtained? Y Urine Color April 29, 2014 6:30am Yellow - Has specimen been collected/obtained? Y Urine Glucose (UA) April 29, 2014 6:30am Negative - Has specimen been collected/obtained? Y Urine Ketones April 29, 2014 6:30am Negative - Has specimen been collected/obtained? Y Urine Leukocyte Esterase April 29, 2014 6:30am Negative - Has specimen been collected/obtained? Y Urine Nitrite April 29, 2014 6:30am Negative - Has specimen been collected/obtained? Y Urine Protein April 29, 2014 6:30am Negative - Has specimen been collected/obtained? Y Urine RBC January 05, 2010 10:25pm 0-1 /HPF - Has specimen been collected /obtained? Y Urine Specific [place] April 29, 2014 6:30am 1.010 L - Has specimen been collected/obtained? Y Urine Turbidity April 29, 2014 6:30am Clear - Has specimen been collected/obtained? Y Urine Urobilinogen April 29, 2014 6:30am 0.2 EU/DL - Has specimen been collected/obtained? Y Urine WBC January 05, 2010 10:25pm None seen /HPF - Has specimen been collected/obtained? Y Urine pH April 29, 2014 6:30am 6.0 - Has specimen been collected/ obtained? Y VLDL Cholesterol May 14, 2009 2:48pm 48.2 MG/DL H 0-28 Vitamin B12 Level May 14, 2009 2:48pm 283 PG/ML N 239-931 White Blood Count April 29, 2014 6:40am 6.9 T/MM3 N 4.5-11.0 Chemistry Specimen Hemolysis April 29, 2014 6:40am < 15 0-25 0-25 : No Hemolysis.26-70: Slight Hemolysis - can falsely elevate K and Urine Protein. 71-285: Moderate Hemolysis - can falsely elevate K, Troponin I, CA 19-9, PTH, CSF GLucose, and Urine Protein, and can falsely decrease Phenytoin. 286-999: Gross Hemolysis - can falsely elevate K, Troponin I, CA 19-9, PTH, CSF Glucose, and Urine Protine, and can falsely decrease Phenytoin. Recommend specimen recollection. Urinalysis Comment April 29, 2014 6:30am Microscopic not ind. - Has specimen been collected/obtained? Y Lab Scanned Report May 06, 2011 1:36pm REFERENCE LAB [id number] - EKG May 17, 2009 7:50pm Complete - HDL Cholesterol Direct May 14, 2009 2:48pm 31 MG/DL L 40-60 HIV (1&2) Antibody Rapid April 04, 2008 12:33pm Negative - Lyme Disease Total Antibody May 14, 2009 2:48pm Send out - Turbidity April 29, 2014 6:40am < 20 0-20 Glomerular Filtration Rate Calc April 29, 2014 6:40am 83 - Immature Granulocyte # (Auto) April 29, 2014 6:40am 0.02 T/MM3 N 0.00-0.03 Immature Granulocyte % (Auto) April 29, 2014 6:40am 0.3 % N 0.0-0.5 Icterus Index April 29, 2014 6:40am < 2 0-7 Clostridium difficile [id number] April 29, 2014 6:35am SPECIMEN WAS FORMED AND DID NOT MEET CRITERIA . BB 04/29/14 - C. difficile Toxin B Gene (PCR) April 29, 2014 6:35am Test not performed - Procedures No known history of procedures. Encounters Encounter Location Date/Time Departed Emergency Room [facility] 04/29/14 5:57am Recent Diagnosis
--- OUTSIDE RECORDS SUMMARY | 2017-01-06 21:46 | XMS REPORT | Continuity of Care Document ---
Author Author [facility] Address Unknown Phone Unavailable Care Team Providers Care Water Supervisor Name Role Phone Lawrence Sher MD Primary Care Physician [phone] Insurance Providers Payer Name Policy Number Subscriber Name Relationship [facility] [id number] Chin Weber 17 Self / Same As Patient Advance Directives Directive Response Recorded Date/Time Advanced Directives No 04/18/16 6:53am Chief Complaint and Reason for Visit Chief Complaint Cardiac Complaint Reason for Visit Acute drug intoxication Chest discomfort Problems Active Problems Medical Problem Onset Date Status ANXIETY STATE NOS 05/27/2013 Chronic Abdominal pain 11/14/2013 Resolved Abdominal pain ~01/20/2014 Resolved Abdominal pain ~02/02/2015 Resolved Acute drug intoxication 04/25/2012 Chronic Acute gastritis ~12/25/2013 Chronic Anxiety 04/25/2012 Chronic Anxiety ~01/20/2014 Chronic Anxiety ~11/26/2014 Chronic Anxiety disorder, unspecified ~10/14/2015 Chronic Atypical facial pain ~12/17/2013 Resolved Cellulitis 05/27/2013 Resolved Cellulitis ~11/29/2013 Resolved Cellulitis ~05/02/2015 Resolved Chest discomfort 02/25/2014 Resolved Chest discomfort ~11/11/2014 Chronic Chest discomfort Unknown Chronic Chest pain 07/04/2013 Resolved Chest pain ~03/03/2014 Resolved Chest pain ~05/02/2015 Chronic Chest pain ~05/03/2015 Chronic Chest wall pain Unknown Acute Cold exposure Unknown Resolved Constipation Unknown Resolved Corneal abrasion, right ~04/14/2014 Resolved Costochondritis, acute ~12/31/2015 Acute Diarrhea ~04/27/2014 Resolved Dizziness 10/14/2012 Resolved Drug abuse 08/19/2013 Chronic Drug abuse ~10/11/2014 Chronic Drug abuse [...] behind the eyes ~04/22/2014 Resolved Hypokalemia ~12/31/2015 Acute Injury of head ~04/25/2014 Resolved Jaw pain ~02/16/2014 Resolved Methamphetamine abuse ~04/04/2016 Chronic Methamphetamine addiction ~04/30/2015 Chronic Paresthesias ~11/23/2014 Chronic Rectal trauma ~02/02/2015 Resolved Skin lesion 12/04/2013 Resolved Sore throat ~03/27/2014 Resolved Sore throat symptom ~12/18/2013 Resolved Substance abuse ~11/21/2014 Chronic Vomiting ~12/17/2014 Resolved Medications Current Home Medications Medication Dose Units Route Directions Days/Qty Instructions Start Date Cyanocobalamin 1,000 Mcg 7832-5123 Mcg ORAL Daily 09/16/13 Multivits,Th W-Fe,Other Min 1 Each 1 Each ORAL Daily 09/16/13 [place]-3 Fatty Acids/Fish Oil 1 Each 1 Each ORAL Daily 09/16/13 Cholecalciferol (Vitamin D3) 2,000 Unit 2,000 Unit ORAL Daily Acyclovir 200 Mg/5 Ml 200 Mg ORAL Twice A Day 11/23/14 Esomeprazole Magnesium 20 Mg 20 Mg ORAL Daily 02/02/15 Acetaminophen (Tylenol) 325 Mg 650 Mg ORAL Every 6 Hours as needed for Pain 0 04/16/16 Ondansetron 4 Mg 4 Mg ORAL Every 6 Hours as needed for Nausea 15 04/16 Past Home Medications Medication Directions Ordered Status [...] 2-3 Mg Oral As Needed 11/23/14 Discontinued Alprazolam 1 Mg Tablet, 1 Mg Oral Twice A Day 11/23/14 Discontinued Cyclobenzaprine Hcl 10 Mg Tablet, 10 Mg Oral Three Times A Day as needed for Chest Pain 01/06/15 Discontinued Sulfamethoxazole/Trimethoprim 1 Each Tablet, 2 Each Oral Twice A Day Discontinued Cephalexin Monohydrate 500 Mg Capsule, 2 Ea Oral Twice A Day 01/09/15 Discontinued Ondansetron Hcl 4 Mg Tab, 4 [...] A Day for Nausea/ Vomiting 12/30/15 Discontinued Social History Social History Problem Response Recorded Date/Time Onset Date Status Exposure to occupational hazards No 04/14/2016 7:46pm Query Response Start Date Stop Date Smoking Status Never smoker Hospital Discharge Instructions No hospital discharge instructions. Plan of Care Discharge Date 04/18/16 9:30am Disposition 01 HOME OR SELF-CARE Condition at Discharge Stable Instructions/Education Provided Methamphetamine Abuse (ED) Prescriptions See Medication Section Referrals Lawrence Sher MD - Additional Instructions/Education Some of your test results may not [...] worrisome symptoms. * Emergency Department phone number: [phone], x [phone]* MEDICAL RECORD If you need copies of your X-rays, call [phone] x [phone]. If you need copies of [...] SERVICE BILLING [employer] Emergency Room Services [facility] Physician Services [facility] X-rays [facility] Patients will receive bills for services from the appropriate provider. If you have any questions about your [facility] bill, our staff will be happy to assist you. Please call [phone], and ask for the billing department. THANK YOU for choosing [facility] as your emergency care provider! Care Plan and Goals ~~Discharge Care Plan~~ Problem: Exposure to chemical, heat or environmental. Goal: Minimal injury from exposure. Instructions: Follow home discharge instructions as directed. Take medication(s) as directed. Keep wound clean and dry, if applicable. Functional Status No functional status results. Allergies, Adverse Reactions, Alerts No known allergies. Immunizations Name Given Type Status Date Pneumonia Vaccine Received if Current 08/17/08 Historical Historical Date Influenza Vaccine Received if Current 05/29/13 Historical Historical Vital Signs Acute Vital Signs Vital Response Date/Time Temperature (Fahrenheit) 98.6 04/18/2016 9:29am Pulse 77 bpm 04/18/2016 9:29am Respirations 18 04/18/2016 9:29am Height 5 ft 7 in Weight 165 lb Body Mass Index 25.0 kg/m^2 Results Laboratory Results Test Name Result Units Flags Reference Collection Date/Time Result Date/ Time Comments White Blood Count 4.43 10^3uL 4.0-11.0 03/23/2016 7:25pm 03/23/2016 8: 01pm Red Blood Count 4.50 10^6uL 4.50-5.50 03/23/2016 7:25pm 03/23/2016 8: 01pm Hemoglobin 13.1 g/dL L 13.5-17.0 03/23/2016 7:25pm 03/23/2016 8:01pm Hematocrit 36.70 % L 39.00-50.00 03/23/2016 7:25pm 03/23/2016 8:01pm Mean Corpuscular Volume 82 FL 80-100 03/23/2016 7:25pm 03/23/2016 8: 01pm Mean Corpuscular Hemoglobin 29.1 PG 26.0-34.0 03/23/2016 7:25pm 2015 8:01pm Mean Corpuscular Hemoglobin Concent 35.7 g/dL 31.0-37.0 03/23/2016 7: 25pm 03/23/2016 8:01pm Red Cell Distribution Width 12.5 % 11.8-15.6 03/23/2016 7:25pm 2015 8:01pm Platelet Count 324 10^3uL 150-450 03/23/2016 7:25pm 03/23/2016 8:01pm Mean Platelet Volume 9.1 FL 6.0-9.5 03/23/2016 7:25pm 03/23/2016 8: 01pm Differential Total Cells Counted 100 03/23/2016 7:25pm 03/23/2016 8 :05pm Segmented Neutrophils % 59 % 51-67 03/23/2016 7:25pm 03/23/2016 8:05pm Band Neutrophils % 0 % 0-6 03/23/2016 7:25pm 03/23/2016 8:05pm Lymphocytes % (Manual) 25 % 20-46 03/23/2016 7:25pm 03/23/2016 8:05pm Monocytes % (Manual) 12 % H 3-11 03/23/2016 7:25pm 03/23/2016 8:05pm Eosinophils % (Manual) 2 % 0-4 03/23/2016 7:25pm 03/23/2016 8:05pm Basophils % (Manual) 2 % 0-2 03/23/2016 7:25pm 03/23/2016 8:05pm Metamyelocytes % 0 % 0-1 03/23/2016 7:25pm 03/23/2016 8:05pm Neutrophils # 2.6 # 03/23/2016 7:03/23/2016 8:05pm Absolute Band Neutrophils 0.0 # 03/23/2016 7:25pm 03/23/2016 8:05pm Lymphocytes # 1.1 # 03/23/2016 7:2503/23/2016 8:05pm Monocytes # 0.5 # 03/23/2016 7:25pm 03/23/2016 8:05pm Eosinophils # 0.1 # 03/23/2016 7:2503/23/2016 8:05pm Basophils # (Manual) 0.1 # 03/23/2016 7:25pm 03/23/2016 8:05pm Blood Morphology Comment SEE REFERENCE NORMAL 03/23/2016 7:25pm 03/23 8:05pm Toxic Granulation SLIGHT 03/23/2016 7:03/23/2016 8:05pm Prothrombin Time 14.3 SEC H 11.6-14.2 03/23/2016 7:2503/23/2016 8: 01pm Prothromb Time International Ratio 1.1 0.8-1.4 03/23/2016 7:02/2016 8:01pm Activated Partial Thromboplast Time 30.6 SEC 24.9-35.9 03/23/2016 7: 2503/23/2016 8:01pm Sodium Level 151 mmol/L # H 135-150 03/23/2016 7:03/23/2016 8:03pm Potassium Level 3.1 mmol/L L 3.5-5.1 03/23/2016 7:2503/23/2016 8: 03pm Chloride Level 107 mmol/L 98-108 03/23/2016 7:03/23/2016 8:03pm Carbon Dioxide Level 29 mmol/L 22-29 03/23/2016 7:03/23/2016 8: 03pm Anion Gap 18.1 MEQ/L H 3-15 03/23/2016 7:2503/23/2016 8:03pm Blood Urea Nitrogen 9 mg/dL 03-0303/23/2016 7:2503/23/2016 8:03pm Creatinine 0.90 mg/dL 0.8-1.5 03/23/2016 7:25pm 03/23/2016 8:03pm BUN/Creatinine Ratio 10 10-20 03/23/2016 7:25pm 03/23/2016 8:03pm Estimat Glomerular Filtration Rate 112.5 03/23/2016 7:25pm 2015 8:03pm Estimated GFR (Non- 93.0 03/23/2016 7:25pm 2015 8:03pm Glucose Level 97 mg/dL 70-110 03/23/2016 7:25pm 03/23/2016 8:03pm Calculated Osmolality 289 mosm/L 280-300 03/23/2016 7:25pm 03/23/2016 8 :03pm Calcium Level 9.1 mg/dL 8.8-10.8 03/23/2016 7:25pm 03/23/2016 8:03pm Calcium/Ionized Calcium Ratio 4.0 mg/dL 3.8-4.6 03/23/2016 7:25pm 03/23 8:03pm Total Bilirubin 0.5 mg/dL 0.1-1.0 03/23/2016 7:25pm 03/23/2016 8:03pm Alkaline Phosphatase 78 U/L 38-126 03/23/2016 7:25pm 03/23/2016 8:03pm Aspartate Amino Transf (AST/SGOT) 30 U/L 15-37 03/23/2016 7:25pm 2015 8:03pm Alanine Aminotransferase (ALT/SGPT) 40 U/L 30-65 03/23/2016 7:25pm 02/2016 8:03pm Total Creatine Kinase 342 U/L *H 55-170 03/23/2016 7:25pm 03/23/2016 8: 03pm Results called to HANNA KING who read back the results. Called by Carroll Robertson at 2001 Creatine Kinase MB 2.7 ng/mL 0.0-6.0 03/23/2016 7:25pm 03/23/2016 8: 03pm Troponin I < 0.012 ng/mL 0.010-0.080 03/23/2016 7:25pm 03/23/2016 8: 03pm Total Protein 7.1 g/dL 6.4-8.5 03/23/2016 7:25pm 03/23/2016 8:03pm Albumin 4.2 g/dL 3.4-5.0 03/23/2016 7:25pm 03/23/2016 8:03pm Albumin/Globulin Ratio 1.448 1.1-1.8 03/23/2016 7:25pm 03/23/2016 8: 03pm Pending Laboratory Results Test Name Collection Date/Time Procedures Procedure Status Date Provider(s) ROUTINE VENIPUNCTURE Completed 03/23/16 CHEST X-RAY 1 VIEW FRONTAL Completed 03/23/16 COMPREHEN METABOLIC PANEL Completed 03/23/16 ASSAY OF CK (CPK) Completed 03/23/16 CREATINE MB FRACTION Completed 03/23/16 ASSAY OF TROPONIN QUANT Completed 03/23/16 COMPLETE CBC W/AUTO DIFF WBC Completed 03/23/16 PROTHROMBIN TIME Completed 03/23/16 THROMBOPLASTIN TIME PARTIAL Completed 03/23/16 ELECTROCARDIOGRAM TRACING Completed 03/23/16 THER/PROPH/DIAG INJ IV PUSH Completed 03/23/16 TX/PRO/DX INJ NEW DRUG ADDON Completed 03/23/16 EMERGENCY DEPT VISIT Completed 03/23/16 Completed 03/23/16 Completed 03/23/16 ROUTINE VENIPUNCTURE Completed 03/29/16 COMPREHEN METABOLIC PANEL Completed 03/29/16 ASSAY OF TROPONIN QUANT Completed 03/29/16 COMPLETE CBC W/AUTO DIFF WBC Completed 03/29/16 ELECTROCARDIOGRAM TRACING Completed 03/29/16 HYDRATE IV INFUSION ADD-ON Completed 03/29/16 THER/PROPH/DIAG INJ SC/IM Completed 03/29/16 THER/PROPH/DIAG INJ IV PUSH Completed 03/29/16 EMERGENCY DEPT VISIT Completed 03/29/16 Completed 03/29/16 Completed 03/29/16 ROUTINE VENIPUNCTURE Completed 04/04/16 CHEST X-RAY 1 VIEW FRONTAL Completed 04/04/16 COMPREHEN METABOLIC PANEL Completed 04/04/16 DRUG SCREEN CLASS LIST A Completed 04/04/16 DRUG SCREEN QUANTALCOHOLS Completed 04/04/16 ASSAY OF CK (CPK) Completed 04/04/16 CREATINE MB FRACTION Completed 04/04/16 ASSAY OF TROPONIN QUANT Completed 04/04/16 COMPLETE CBC W/AUTO DIFF WBC Completed 04/04/16 PROTHROMBIN TIME Completed 04/04/16 THROMBOPLASTIN TIME PARTIAL Completed 04/04/16 ELECTROCARDIOGRAM TRACING Completed 04/04/16 ELECTROCARDIOGRAM TRACING Completed 04/04/16 THER/PROPH/DIAG INJ IV PUSH Completed 04/04/16 EMERGENCY DEPT VISIT Completed 04/04/16 Completed 04/04/16 Completed 04/04/16 ROUTINE VENIPUNCTURE Completed 04/14/16 CHEST X-RAY 2VW FRONTAL&LATL Completed 04/14/16 COMPREHEN METABOLIC PANEL Completed 04/14/16 DRUG SCREEN CLASS LIST A Completed 04/14/16 DRUG SCREEN QUANTALCOHOLS Completed 04/14/16 ANALGESICS NON-OPIOID 1 OR 2 Completed 04/14/16 ANALGESICS NON-OPIOID 1 OR 2 Completed 04/14/16 URINALYSIS AUTO W/O SCOPE Completed 04/14/16 MICROSCOPIC EXAM OF URINE Completed 04/14/16 ASSAY OF CK (CPK) Completed 04/14/16 ASSAY OF TROPONIN QUANT Completed 04/14/16 COMPLETE CBC W/AUTO DIFF WBC Completed 04/14/16 RBC SED RATE AUTOMATED Completed 04/14/16 C-REACTIVE PROTEIN Completed 04/14/16 MEASURE BLOOD OXYGEN LEVEL Completed 04/14/16 Completed 04/14/16 Completed 04/14/16 Completed 04/14/16 Completed 04/14/16 Encounters Encounter Location Arrival/Admit Date Discharge/Depart Date Attending Provider Departed Emergency Room [facility] 04/18/16 6:53am 04/18/16 9:30am VASU QIU MD Discharged Inpatient (obs) [facility] 04/14/16 7:37pm 04/16/16 1: 38pm KIRSTIE RIVERA MD Departed Emergency Room [facility] 04/04/16 3:01am 04/04/16 6:38am UZIEL POSEY MD Departed Emergency Room [facility] 03/29/16 10:28am 03/29/16 4:41pm WILLIAM SOSA MD Departed Emergency Room [facility] 03/23/16 6:36pm 03/23/16 8:56pm WILLIAM SOSA MD Recent Diagnosis
--- OUTSIDE RECORDS SUMMARY | 2017-01-06 21:46 | XMS REPORT | Summary of Care ---
Author Author Bren Sorto, Igor Organization Unknown Address Unknown Phone Unavailable Care Team Providers Care Animal Husbandry Teacher Name Role Phone Igor Correia M.D. Unavailable Unavailable Ruiz Lester M.D. Unavailable Unavailable Lawrence Sher Unavailable Unavailable Unavailable Unavailable Functional Status Name Dates Details Functional status health issues are not documented Status: Name Dates Details Cognitive status health issues are not documented Status: Problems Name Dates Details Stomach problems (536.9, K31.9) Status: Active Chest pain (786.50, R07.9) Status: Active Shortness of breath (786.05, R06.02) Status: Active Kidney problem (593.9, N28.9) Status: Active Appetite loss (783.0, R63.0) Status: Active Weight loss (783.21, R63.4) Status: Active Eczematoid otitis externa of both ears, unspecified chronicity (380.22, H60.543 ) Status: Active Chronic cough (786.2, R05) Status: Active Lymphadenopathy, posterior cervical (785.6, R59.0) Status: Active Dysphonia (784.42, R49.0) Status: Active Epidermal inclusion cyst (706.2, L72.0) [...] pain without sciatica (724.2, M54.5) Status: Active Hoarseness (784.42, R49.0) Status: Active Dysphagia (787.20, R13.10) Status: Active Gastroesophageal reflux disease without esophagitis (530.81, K21.9) Status: Active Uvular hypertrophy (528.9, K13.79) Status: Active Melanocytic nevus of trunk (216.5, D22.5) Status: Active Blue nevus of buttock (216.5, D23.5) Status: Active Ingrown toenail (703.0, L60.0) Status: Active Secondary infection of skin (686.8, L08.89) Status: Active Methamphetamine abuse (305.70, F15.10) Status: Active Interstitial cystitis (595.1, N30.10) Status: Active Carpal tunnel syndrome (354.0, G56.00) Status: Active Medications Name Dates Details Multivitamins [...] Igor Correia M.D. * Start 03-Jun-2016 Active Meloxicam 7.5 MG Oral Tablet TAKE 1 TABLET DAILY WITH FOOD. * Quantity: 30 Refills: 0 Igor Correia M.D. Start 18-Jun-2016 Active Cephalexin 500 MG Oral Capsule TAKE ONE CAPSULE TWO TIMES A DAY FOR 7 DAYS. * Quantity: 14 Refills: 0 Lv Lester M.D. Start 13-Nov-2016 Active Allergies and Adverse Reactions Name Dates Details No Known Drug Allergies (Allergy) Status: Active Past Medical History Name Dates Details Interstitial cystitis (595.1, N30.10) Status: Active History of anxiety disorder (V11.8, Z86.59) Status: Resolved History of depression (V11.8, Z86.59) Status: Resolved History of migraine (V12.49, Z86.69) Status: Resolved History of obsessive compulsive disorder (V11.2, Z86.59) Status: Resolved History of osteoarthritis (V13.4, Z87.39) [...] History Name Dates Details Family history of cerebrovascular accident (CVA) (V17.1, Z82.3) Comments: Family History Status: Active Family history of malignant neoplasm of breast [...] smoker Vital Signs Date Test Result Details No Known Vitals to report Results Date Description Value Details Results not documented Plan of Care Name Dates Details Planned Observations Planned Goals not documented Instructions Name Dates Details Instructions not documented Encounters Appointment; Lv Lester M.D. Encounter Diagnosis: Problem not documented On 13-Nov-2016 09:45 Appointment; Smith Ibanez M.D. Encounter Diagnosis: Problem not documented On 12-Nov-2016 14:15 Appointment; Lv Lester M.D. Encounter Diagnosis: Problem not documented On 02-Sep-2016 10:15 Appointment; Igor Correia M.D. Encounter Diagnosis: Problem not documented On 18-Jun-2016 08:30 Appointment; Igor Correia M.D. Encounter Diagnosis: Problem not documented On 03-Jun-2016 08:15 Appointment; Lv Lester M.D. Encounter Diagnosis: Problem not documented On 30-Aug-2015 10:00 Appointment; Smith Ibanez M.D. Encounter Diagnosis: Problem not documented On 27-Aug-2015 08:30 Appointment; Smith Ibanez M.D. Encounter Diagnosis: Problem not documented On 18-Jun-2015 08:30
--- OUTSIDE RECORDS SUMMARY | 2017-01-06 21:46 | XMS REPORT | Continuity of Care Document ---
Author Author [facility] Organization [facility] Address Unknown Phone Unavailable Care Team Providers Care Information Services Vice President Name Role Phone Lawrence Sher MD Primary Care Physician [phone] Insurance Providers Payer Name Policy Number Subscriber Name Relationship [facility] [id number] Chin Weber 18 Self / Same As Patient Self Pay/Pending [facility] Apprv [id number] Chin Weber 18 Self / Same As Patient Chief Complaint and Reason for Visit Chief Complaint Pain Reason for Visit Drug abuse Anxiety Epigastric pain Chest pain Problems Medical Problems Problem Onset Date Status [...] Chest discomfort Unknown Active Rectal trauma ~02/02/2015 Active Foreign body anus/rectum ~02/02/2015 Active Abdominal pain ~02/02/2015 Active Constipation Unknown Active Epigastric pain Unknown Active Medications Medication Dose Route [...] DAILY 30 Qty 08/28/13 09/13/13 Discontinued Cyanocobalamin [id number] Mcg ORAL DAILY 09/16/13 Active Multivits,Th W-Fe,Other Min 1 Each ORAL DAILY 09/16/13 Active Sixes-3 Fatty Acids/Fish Oil 1 Each ORAL DAILY [...] discharge instructions. Plan of Care Discharge Date 04/24/15 6:05pm Disposition 01 HOME OR SELF-CARE Condition at Discharge Stable Prescriptions See Medications Section Referrals Lawrence Sher MD Additional Instructions/Education Follow up with Venkatesh Garcia Don't use any more drugs Continue the xanax as prescribed for anxiety Return if symptoms worsen Some of your [...] worrisome symptoms. * Emergency Department phone number: [phone], x [phone]* MEDICAL RECORD If you need copies of your X-rays, call [phone] x [phone]. If you need copies of [...] SERVICE BILLING [place] Emergency Room Services [facility] Physician Services [facility] X-rays [facility] Patients will receive bills for services from the appropriate provider. If you have any questions about your [facility] bill, our staff will be happy to assist you. Please call [phone], and ask for the billing department. THANK YOU for choosing [facility] as your emergency care provider! Functional Status No functional status results. Allergies, Adverse Reactions, Alerts Allergen Type Severity Reaction Status Last Updated No Known Drug Allergies Active 04/24/15 Immunizations No immunization records. Vital Signs Acute Vital Signs Vital Response Date/Time Temperature (Fahrenheit) 98.9 Pulse 89 bpm Respirations 20 Height 5 ft 6 in Weight 174 lb Body Mass Index 28.0 kg/m^2 Results Test Source Date Result Interp. Ref. Range Comments Absolute Band Neutrophils November 20, 2014 7:20pm 0.1 # Acetaminophen Level August 27, 2013 2:30pm < 10.0 UG/ML L 10.0-30.0 Collected by nurse? N Activated Partial Thromboplast Time April 22, 2015 6:40am 29.4 SEC N 24.9-35.9 Alanine Aminotransferase (ALT/SGPT) April 24, 2015 3:18pm 46 U/L N 30-65 Albumin April 24, 2015 3:18pm 5.0 g/dL N 3.4-5.0 Albumin/Globulin Ratio April 24, 2015 3:18pm 1.470 N 1.1-1.8 Alkaline Phosphatase April 24, 2015 3:18pm 73 U/L N 38-126 Amylase Level February 02, 2015 7:39am 77 U/L N 25-115 Anion Gap April 24, 2015 3:18pm 21.2 MEQ/L H 3-15 Aspartate Amino Transf (AST/SGOT) April 24, 2015 3:18pm 57 U/L H 15- 37 B-Type Natriuretic Peptide August 20, 2013 10:15am 7 PG/ML N 0-100 BUN/Creatinine Ratio April 24, 2015 3:18pm 13 N 10-20 Band Neutrophils % November 20, 2014 7:20pm 1 % N 0-6 Basophils # (Auto) April 24, 2015 3:18pm 0.0 10^3uL Basophils % (Manual) November 20, 2014 7:20pm 0 % N 0-2 Basophils (%) (Auto) April 24, 2015 3:18pm 0 % N 0-2 Blood Morphology Comment November 20, 2014 7:20pm Normal NORMAL Blood Urea Nitrogen April 24, 2015 3:18pm 13 mg/dL N 7-18 C-Reactive Protein December 25, 2013 6:51pm 0.70 MG/DL N 0.0-0.9 Collected by nurse? N Calcium Level April 24, 2015 3:18pm 9.8 mg/dL N 8.8-10.8 Calcium/Ionized Calcium Ratio April 24, 2015 3:18pm 3.9 mg/dL N 3.8- 4.6 Calculated Osmolality April 24, 2015 3:18pm 276 mosm/L L 280-300 Carbon Dioxide Level April 24, 2015 3:18pm 23 mmol/L N 22-29 Chlamydia trachomatis RNA April 26, 2014 8:30am Negative Negative Chlamydia/GC DNA Probe Source April 26, 2014 8:30am Urine () Corrected result; previously reported as Urine on 04/26/14 at 12:42 by V/OLIVERIO--- 04/27/14 2349 --- GC.CHL SOURCE previously reported as: Urine Chloride Level April 24, 2015 3:18pm 102 mmol/L N 98-108 Creatine Kinase MB April 22, 2015 6:40am 9.5 ng/mL H 0.0-6.0 Creatinine April 24, 2015 3:18pm 1.00 mg/dL N 0.8-1.5 D-Dimer August 20, 2013 10:15am 0.43 ug/mL PH 0.00-0.41 Results called to Ladan read back the results. Called by Janna Greenwood at [phone] Differential Total Cells Counted November 20, 2014 7:20pm 100 Eosinophils # November 20, 2014 7:20pm 0.0 # Eosinophils # (Auto) April 24, 2015 3:18pm 0.0 10^3uL Eosinophils % (Manual) November 20, 2014 7:20pm 0 % N 0-4 Eosinophils (%) (Auto) April 24, 2015 3:18pm 1 % N 0-4 Erythrocyte Sedimentation Rate December 25, 2013 6:51pm 8 mm/hr N 0-12 Collected by nurse? N Estimat Glomerular Filtration Rate April 24, 2015 3:18pm 100.1 Estimated GFR (Non- April 24, 2015 3:18pm 82.8 Glucose Level April 24, 2015 3:18pm 93 mg/dL N 70-110 Hematocrit April 24, 2015 3:18pm 42.30 % N 39.00-50.00 Hemoglobin April 24, 2015 3:18pm 14.9 g/dL N 13.5-17.0 Iron (send out) October 14, 2012 2:48am 75 ug/dL 65-175 Lipase April 24, 2015 3:18pm 58 U/L N 23-300 Lymphocytes # November 20, 2014 7:20pm 1.0 # Lymphocytes # (Auto) April 24, 2015 3:18pm 2.0 X10^3 Lymphocytes % (Manual) November 20, 2014 7:20pm 9 % L 20-46 Lymphocytes (%) (Auto) April 24, 2015 3:18pm 28 % N 20-46 Magnesium Level September 15, 2013 5:35am 2.1 MG/DL N 1.6-2.3 Collected by nurse? N Mean Corpuscular Hemoglobin April 24, 2015 3:18pm 28.6 PG N 26.0- 34.0 Mean Corpuscular Hemoglobin Concent April 24, 2015 3:18pm 35.2 g/dL N 31.0-37.0 Mean Corpuscular Volume April 24, 2015 3:18pm 81 FL N 80-100 Mean Platelet Volume April 24, 2015 3:18pm 8.7 FL N 6.0-9.5 Metamyelocytes % August 20, 2013 10:15am 0 % N 0-1 Monocytes # November 20, 2014 7:20pm 0.3 # Monocytes # (Auto) April 24, 2015 3:18pm 1.0 X10^3 Monocytes % (Manual) November 20, 2014 7:20pm 3 % N 3-11 Monocytes (%) (Auto) April 24, 2015 3:18pm 14 % H 3-11 N. gonorrhoeae DNA Specimen Source April 26, 2014 8:30am Urine () Corrected result; previously reported as Urine on 04/26/14 at 12:42 by V/AUT-- - 04/27/14 2349 --- NGON SOURCE previously reported as: Urine Neisseria gonorrhoeae RNA April 26, 2014 8:30am Negative Negative Test Performed by:[address] [address] Orthopaedic Doctor: Ernst Stiles III, M.D. Neutrophils # November 20, 2014 7:20pm 9.7 # Neutrophils # (Auto) April 24, 2015 3:18pm 4.1 X10^3 Neutrophils (%) (Auto) April 24, 2015 3:18pm 57 % N 51-67 Platelet Count April 24, 2015 3:18pm 310 10^3uL N 150-450 Potassium Level April 24, 2015 3:18pm 3.5 mmol/L N 3.5-5.1 Prothromb Time International Ratio April 22, 2015 6:40am 1.0 N 0.8- 1.4 Prothrombin Time April 22, 2015 6:40am 13.2 SEC N 11.9-14.2 Rapid Plasma Reagin April 26, 2014 9:15am Non-reactive () Red Blood Count April 24, 2015 3:18pm 5.21 10^6uL N 4.50-5.50 Red Cell Distribution Width April 24, 2015 3:18pm 12.8 % N 11.8- 15.6 Salicylates Level August 27, 2013 2:30pm < 1.0 MG/DL L 2.0-20.0 Collected by nurse? N Segmented Neutrophils % November 20, 2014 7:20pm 87 % H 51-67 Serum Alcohol November 25, 2014 9:00pm < 10.0 mg/dL L 10-80 Sodium Level April 24, 2015 3:18pm 143 mmol/L N 135-150 Stool Occult Blood February 02, 2015 7:27am Positive NEGATIVE Stool Occult Blood Expiration Date November 14, 2013 11:59pm 11/29 -- - 11/15/1315 ---OBEXP previously reported as: 11/29 Stool Occult Blood Lot Number November 14, 2013 11:59pm [id number] --- 08/30 ---OCCULT BLOOD LO previously reported as: 1121 Streptococcus Screen March 29, 2014 6:55am Negative Negative Total Bilirubin April 24, 2015 3:18pm 1.5 mg/dL H 0.1-1.0 Total Creatine Kinase April 22, 2015 6:40am 404 U/L DPH 55-170 Results called to MARTHA [facility] read back the results. Called by Ysabel Almeida at 0700 Total Iron Binding Capacity October 14, 2012 2:48am 393 ug/dL 260- 445 Total Protein April 24, 2015 3:18pm 8.4 g/dL N 6.4-8.5 Transferrin % Saturation October 14, 2012 2:48am 19 % 11-46 Troponin I April 24, 2015 3:18pm < 0.012 ng/mL 0.010-0.080 Urine Bacteria April 22, 2015 8:30am Rare /HPF Urine collection method Clean Catch Urine Bilirubin April 22, 2015 8:30am Negative Negative Urine collection method Clean Catch Urine Blood March 29, 2014 6:55am Negative Negative Urine Clarity April 22, 2015 8:30am Clear Urine collection method Clean Catch Urine Collection Type April 22, 2015 8:30am Random voided Urine collection method Clean Catch Urine Color April 22, 2015 8:30am Yellow Urine collection method Clean Catch Urine Glucose (UA) April 22, 2015 8:30am Negative Negative Urine collection method Clean Catch Urine Hyaline Casts July 04, 2013 3:52am 3+ /LPF H Urine collection method Clean Catch Urine Ketones April 22, 2015 8:30am Negative Negative Urine collection method Clean Catch Urine Leukocyte Esterase April 22, 2015 8:30am Trace H Negative Urine collection method Clean Catch [...] developed and its performance characteristics determined by [facility]. It has not been cleared or approved by the [place]. Food and Drug Administration. Test Performed by: [facility] [address] [address] Orthopaedic Doctor: rEnst Stiles III, M.D. Urine Nitrite April 22, 2015 8:30am Negative Negative Urine collection method Clean Catch Urine Protein April 22, 2015 8:30am 1+ H Negative Urine collection method Clean Catch Urine RBC April 22, 2015 8:30am 2-5 /HPF Urine collection method Clean Catch Urine RBC (Auto) April 22, 2015 8:30am Trace-intact H Negative Urine collection method Clean Catch Urine Specific [place] April 22, 2015 8:30am 1.020 1.005-1.030 Urine collection method Clean Catch Urine Squamous Epithelial Cells April 22, 2015 8:30am 2-5 /LPF Urine collection method Clean Catch Urine Urobilinogen April 22, 2015 8:30am 0.2 mg/dL 0.2-1.0 Urine collection method Clean Catch Urine WBC April 22, 2015 8:30am 0-2 /HPF Urine collection method Clean Catch Urine pH April 22, 2015 8:30am 7.0 5.0 - 8.0 Urine collection method Clean Catch Volume Urine Centrifuged April 22, 2015 8:30am 10 ml Urine collection method Clean Catch White Blood Count April 24, 2015 3:18pm 7.15 10^3uL N 4.0-11.0 Group A Streptococcus Culture Throat March 29, 2014 6:55am Urine Culture Urine-Voided Urine April 22, 2015 8:30am Procedures Procedure Status Date Provider(s) US EXAM ABDOM COMPLETE completed 04/13/15 US EXAM PELVIC COMPLETE completed 04/13/15 Encounters Encounter Location Date/Time Departed Emergency Room [facility] 04/24/15 2:30pm Departed Emergency Room [facility] 04/23/15 1:10pm Departed Emergency Room [facility] 04/22/15 5:47am Registered Clinic [facility] 04/13/15 7:19am Recent Diagnosis
--- OUTSIDE RECORDS SUMMARY | 2017-01-06 21:47 | XMS REPORT | Continuity of Care Document ---
Author Author [facility] Organization [facility] Address Unknown Phone Unavailable Care Team Providers Care Ethylbenzene Cracking Supervisor Name Role Phone Lawrence Sher MD Primary Care Physician [phone] Insurance Providers Payer Name Policy Number Subscriber Name Relationship Self Pay Chin Weber 18 Self / Same As Patient Chief Complaint and Reason for Visit Chief Complaint Abuse Reason for Visit Anxiety Substance abuse Problems Medical Problems Problem Onset Date [...] and dependence ~11/25/2014 Active Anxiety ~11/26/2014 Active Medications Medication Dose Route Sig Days/Qty [...] DAILY 30 Qty 08/28/13 09/13/13 Discontinued Cyanocobalamin 6533-8153 Mcg ORAL DAILY 09/16/13 Active Multivits,Th W-Fe,Other Min 1 Each ORAL DAILY 09/16/13 Active [place]-3 Fatty Acids/Fish Oil 1 Each ORAL DAILY [...] discharge instructions. Plan of Care Discharge Date 11/27/14 4:27pm Disposition 01 HOME OR SELF-CARE Condition at Discharge Stable Instructions/Education Provided Methamphetamine Abuse (ED) Prescriptions See Medications Section Referrals Lawrence Sher MD Functional Status No functional status results. Allergies, Adverse Reactions, Alerts Allergen Type Severity Reaction Status Last Updated No Known Drug Allergies Active 03/03/14 Immunizations No immunization records. Vital Signs Acute Vital Signs Vital Response Date/Time Temperature (Fahrenheit) 98.6 Pulse 85 bpm Respirations 18 Height 5 ft 7 in Weight 175 lb Body Mass Index 27.0 kg/m^2 Results Test Source Date Result Interp. Ref. Range Comments Absolute Band Neutrophils November 20, 2014 7:20pm 0.1 # Acetaminophen Level August 27, 2013 2:30pm < 10.0 UG/ML L 10.0-30.0 Collected by nurse? N Activated Partial Thromboplast Time November 25, 2014 9:00pm 30.7 SEC N 24.9-35.9 Alanine Aminotransferase (ALT/SGPT) November 27, 2014 1:48am 32 U/L N 30- 65 Albumin November 27, 2014 1:48am 4.4 g/dL N 3.4-5.0 Albumin/Globulin Ratio November 27, 2014 1:48am 1.833 H 1.1-1.8 Alkaline Phosphatase November 27, 2014 1:48am 89 U/L N 38-126 Amylase Level December 25, 2013 6:51pm 69 U/L N 25-115 Collected by nurse? N Anion Gap November 27, 2014 1:48am 14.2 MEQ/L N 3-15 Aspartate Amino Transf (AST/SGOT) November 27, 2014 1:48am 33 U/L N 15-37 B-Type Natriuretic Peptide August 20, 2013 10:15am 7 PG/ML N 0-100 BUN/Creatinine Ratio November 27, 2014 1:48am 6 L 10-20 Band Neutrophils % November 20, 2014 7:20pm 1 % N 0-6 Basophils # (Auto) November 27, 2014 1:48am 0.0 10^3uL Basophils % (Manual) November 20, 2014 7:20pm 0 % N 0-2 Basophils (%) (Auto) November 27, 2014 1:48am 1 % N 0-2 Blood Morphology Comment November 20, 2014 7:20pm Normal NORMAL Blood Urea Nitrogen November 27, 2014 1:48am 6 mg/dL DL 7-18 C-Reactive Protein December 25, 2013 6:51pm 0.70 MG/DL N 0.0-0.9 Collected by nurse? N Calcium Level November 27, 2014 1:48am 9.1 mg/dL N 8.8-10.8 Calcium/Ionized Calcium Ratio November 27, 2014 1:48am 4.1 mg/dL N 3.8-4.6 Calculated Osmolality November 27, 2014 1:48am 271 mosm/L L 280-300 Carbon Dioxide Level November 27, 2014 1:48am 24 mmol/L N 22-29 Chlamydia trachomatis RNA April 26, 2014 8:30am Negative Negative Chlamydia/GC DNA Probe Source April 26, 2014 8:30am Urine () Corrected result; previously reported as Urine on 04/26/14 at 12:42 by V/AUT--- 04/27/14 2349 --- GC.CHL SOURCE previously reported as: Urine Chloride Level November 27, 2014 1:48am 106 mmol/L N 98-108 Creatine Kinase MB November 27, 2014 1:48am 1.5 ng/mL N 0.0-6.0 Creatinine November 27, 2014 1:48am 0.99 mg/dL N 0.8-1.5 D-Dimer August 20, 2013 10:15am 0.43 ug/mL PH 0.00-0.41 Results called to Ladan read back the results. Called by Janna Greenwood at 1044 Differential Total Cells Counted November 20, 2014 7:20pm 100 Eosinophils # November 20, 2014 7:20pm 0.0 # Eosinophils # (Auto) November 27, 2014 1:48am 0.1 10^3uL Eosinophils % (Manual) November 20, 2014 7:20pm 0 % N 0-4 Eosinophils (%) (Auto) November 27, 2014 1:48am 2 % N 0-4 Erythrocyte Sedimentation Rate December 25, 2013 6:51pm 8 mm/hr N 0-12 Collected by nurse? N Estimat Glomerular Filtration Rate November 27, 2014 1:48am 101.3 Estimated GFR (Non- November 27, 2014 1:48am 83.7 Glucose Level November 27, 2014 1:48am 132 mg/dL DH 70-110 Hematocrit November 27, 2014 1:48am 38.20 % L 39.00-50.00 Hemoglobin November 27, 2014 1:48am 13.0 g/dL L 13.5-17.0 Iron (send out) October 14, 2012 2:48am 75 ug/dL 65-175 Lipase January 20, 2014 12:45pm 58 U/L N 23-300 Collected by nurse? N Lymphocytes # November 20, 2014 7:20pm 1.0 # Lymphocytes # (Auto) November 27, 2014 1:48am 1.4 X10^3 Lymphocytes % (Manual) November 20, 2014 7:20pm 9 % L 20-46 Lymphocytes (%) (Auto) November 27, 2014 1:48am 25 % N 20-46 Magnesium Level September 15, 2013 5:35am 2.1 MG/DL N 1.6-2.3 Collected by nurse? N Mean Corpuscular Hemoglobin November 27, 2014 1:48am 28.9 PG N 26.0-34.0 Mean Corpuscular Hemoglobin Concent November 27, 2014 1:48am 34.0 g/dL N 31.0-37.0 Mean Corpuscular Volume November 27, 2014 1:48am 85 FL N 80-100 Mean Platelet Volume November 27, 2014 1:48am 8.9 FL N 6.0-9.5 Metamyelocytes % August 20, 2013 10:15am 0 % N 0-1 Monocytes # November 20, 2014 7:20pm 0.3 # Monocytes # (Auto) November 27, 2014 1:48am 0.5 X10^3 Monocytes % (Manual) November 20, 2014 7:20pm 3 % N 3-11 Monocytes (%) (Auto) November 27, 2014 1:48am 10 % N 3-11 N. gonorrhoeae DNA Specimen Source April 26, 2014 8:30am Urine () Corrected result; previously reported as Urine on 04/26/14 at 12:42 by V/AUT-- - 04/27/14 2349 --- NGON SOURCE previously reported as: Urine Neisseria gonorrhoeae RNA April 26, 2014 8:30am Negative Negative Test Performed by:[place] [address] Ranger Aide: Ernst Stiles III, M.D. Neutrophils # November 20, 2014 7:20pm 9.7 # Neutrophils # (Auto) November 27, 2014 1:48am 3.4 X10^3 Neutrophils (%) (Auto) November 27, 2014 1:48am 62 % N 51-67 Platelet Count November 27, 2014 1:48am 328 10^3uL N 150-450 Potassium Level November 27, 2014 1:48am 4.1 mmol/L N 3.5-5.1 Prothromb Time International Ratio November 25, 2014 9:00pm 1.0 N 0.8-1.4 Prothrombin Time November 25, 2014 9:00pm 13.2 SEC N 11.9-14.2 Rapid Plasma Reagin April 26, 2014 9:15am Non-reactive () Red Blood Count November 27, 2014 1:48am 4.50 10^6uL N 4.50-5.50 Red Cell Distribution Width November 27, 2014 1:48am 12.8 % N 11.8-15.6 Salicylates Level August 27, 2013 2:30pm < 1.0 MG/DL L 2.0-20.0 Collected by nurse? N Segmented Neutrophils % November 20, 2014 7:20pm 87 % H 51-67 Serum Alcohol November 25, 2014 9:00pm < 10.0 mg/dL L 10-80 Sodium Level November 27, 2014 1:48am 141 mmol/L N 135-150 Stool Occult Blood November [...] 2014 6:55am Negative Negative Total Bilirubin November 27, 2014 1:48am 0.3 mg/dL N 0.1-1.0 Total Creatine Kinase November 27, 2014 1:48am 504 U/L PH 55-170 Results called to Germaine/Maximilian read back the results. Called by Martha Denise at 0207 Total Iron Binding Capacity October 14, 2012 2:48am 393 ug/dL 260- 445 Total Protein November 27, 2014 1:48am 6.8 g/dL N 6.4-8.5 Transferrin % Saturation October 14, 2012 2:48am 19 % 11-46 Troponin I November 27, 2014 1:48am < 0.012 ng/mL 0.010-0.080 Ur Tricyclic Antidepressants Screen November 27, 2014 1:22am Negative Negative Urine collection method Clean Catch Urine Amphetamines Screen November 27, 2014 1:22am Positive H Negative Urine collection method Clean Catch Urine Bacteria July 04, 2013 3:52am None seen /HPF Urine collection method Clean Catch Urine Barbiturates Screen November 27, 2014 1:22am Negative Negative Urine collection method Clean Catch Urine Benzodiazepines Screen November 27, 2014 1:22am Positive H Negative Urine collection method Clean Catch Urine Bilirubin November 27, 2014 1:22am Negative Negative Urine collection method Clean Catch Urine Blood March 29, 2014 6:55am Negative Negative Urine Cannabinoids Screen November 27, 2014 1:22am Negative Negative Urine collection method Clean Catch Urine Clarity November 27, 2014 1:22am Clear Urine collection method Clean Catch Urine Cocaine Screen November 27, 2014 1:22am Positive H Negative Urine collection method Clean Catch Urine Collection Type November 27, 2014 1:22am Clean catch Urine collection method Clean Catch Urine Color November 27, 2014 1:22am Yellow Urine collection method Clean Catch Urine Glucose (UA) November 27, 2014 1:22am Negative Negative Urine collection method Clean Catch Urine Hyaline Casts July 04, 2013 3:52am 3+ /LPF H Urine collection method Clean Catch Urine Ketones November 27, 2014 1:22am Negative Negative Urine collection method Clean Catch Urine Leukocyte Esterase November 27, 2014 1:22am Negative Negative Urine collection method Clean Catch Urine Methadone Screen November 27, 2014 1:22am Negative Negative Urine collection method Clean Catch Urine Methamphetamines Screen November 27, 2014 1:22am Positive H NEGATIVE Urine collection method Clean Catch Urine Mucus July 04, 2013 3:52am 2+ [...] developed and its performance characteristics determined by [facility]. It has not been cleared or approved by the [place]. Food and Drug Administration. Test Performed by: [facility] - [address] [address] Ranger Aide: Ernst Stiles III, M.D. Urine Nitrite November 27, 2014 1:22am Negative Negative Urine collection method Clean Catch Urine Opiates Screen November 27, 2014 1:22am Negative Negative Urine collection method Clean Catch Urine Oxycodone Screen November 27, 2014 1:22am Negative NEGATIVE Urine collection method Clean Catch Urine Phencyclidine Screen November 27, 2014 1:22am Negative Negative Phencyclidine testing by this method can showcross-reactivity with several common medications such as venlafaxine, dextromethorphan, and diphenhydramine. Submission of any positive sample for confirmatory testing is recommended. Urine Propoxyphene Screen November 27, 2014 1:22am Negative NEGATIVE Results of this screen are qualitative and are presumptiveresults. A more specific method (i.e. GC/MS) must be used if confirmation of results is indicated. Urine Protein November 27, 2014 1:22am Negative Negative Urine collection method Clean Catch Urine RBC July 04, 2013 3:52am None seen /HPF Urine collection method Clean Catch Urine RBC (Auto) November 27, 2014 1:22am Negative Negative Urine collection method Clean Catch Urine Specific [place] November 27, 2014 1:22am 1.010 1.005-1.030 Urine collection method Clean Catch Urine Squamous Epithelial Cells July 04, 2013 3:52am None /LPF Urine collection method Clean Catch Urine Urobilinogen November 27, 2014 1:22am 0.2 mg/dL 0.2-1.0 Urine collection method Clean Catch Urine WBC July 04, 2013 3:52am 2-5 /HPF Urine collection method Clean Catch Urine pH November 27, 2014 1:22am 6.5 5.0 - 8.0 Urine collection method Clean Catch Volume Urine Centrifuged July 04, 2013 3:52am 12 ml Urine collection method Clean Catch White Blood Count November 27, 2014 1:48am 5.45 10^3uL N 4.0-11.0 Group A Streptococcus Culture [...] ADDON completed 11/15/14 TX/PRO/DX INJ SAME DRUG INFECTION CONTROL COORDINATOR completed 11/15/14 EMERGENCY DEPT VISIT completed 11/15/14 completed 11/15/14 completed 11/15/14 completed 11/15/14 EMERGENCY DEPT VISIT completed 11/16/14 CHEST X-RAY 1 VIEW FRONTAL completed 11/20/14 COMPREHEN METABOLIC PANEL completed 11/20/14 ASSAY OF CK (CPK) completed 11/20/14 CREATINE MB FRACTION completed 11/20/14 ASSAY OF TROPONIN QUANT completed 11/20/14 COMPLETE CBC W/AUTO DIFF WBC completed 11/20/14 ELECTROCARDIOGRAM TRACING completed 11/20/14 MEASURE BLOOD OXYGEN LEVEL completed 11/20/14 HYDRATE IV INFUSION ADD-ON completed 11/20/14 THER/PROPH/DIAG INJ IV PUSH completed 11/20/14 TX/PRO/DX INJ NEW DRUG ADDON completed 11/20/14 EMERGENCY DEPT VISIT completed 11/20/14 completed 11/20/14 completed 11/20/14 completed 11/20/14 completed 11/20/14 completed 11/20/14 ROUTINE VENIPUNCTURE completed 11/21/14 ASSAY OF TROPONIN QUANT completed 11/21/14 ELECTROCARDIOGRAM TRACING completed 11/21/14 EMERGENCY DEPT VISIT completed 11/21/14 ROUTINE VENIPUNCTURE completed 11/22/14 ASSAY OF TROPONIN QUANT completed 11/22/14 ELECTROCARDIOGRAM TRACING completed 11/22/14 EMERGENCY DEPT VISIT completed 11/22/14 ROUTINE VENIPUNCTURE completed 11/23/14 COMPREHEN METABOLIC PANEL completed 11/23/14 ASSAY OF TROPONIN QUANT completed 11/23/14 COMPLETE CBC W/AUTO DIFF WBC completed 11/23/14 ELECTROCARDIOGRAM TRACING completed 11/23/14 THER/PROPH/DIAG INJ SC/IM completed 11/23/14 EMERGENCY DEPT VISIT completed 11/23/14 completed 11/23/14 completed 11/23/14 Encounters Encounter Location Date/Time Departed Emergency Room [facility] 11/27/14 3:25pm Departed Emergency Room [facility] 11/27/14 1:16am Departed Emergency Room [facility] 11/25/14 8:24pm Departed Emergency Room [facility] 11/23/14 7:34pm Departed Emergency Room [facility] 11/22/14 2:36pm Departed Emergency Room [facility] 11/21/14 5:44pm Departed Emergency Room [facility] 11/20/14 6:27pm Departed Emergency Room [facility] 11/16/14 8:21pm Departed Emergency Room [facility] 11/15/14 11:11am Departed Emergency Room [facility] 11/13/14 6:22pm Departed Emergency Room [facility] 11/11/14 1:06pm Registered Emergency Room [facility] 11/06/14 6:02pm Recent Diagnosis
--- OUTSIDE RECORDS SUMMARY | 2017-01-06 21:47 | XMS REPORT | Continuity of Care Document ---
Author Author [facility] Address Unknown Phone Unavailable Care Team Providers Care Medical Superintendent Name Role Phone Lawrence Sher MD Primary Care Physician [phone] Insurance Providers Payer Name Policy Number Subscriber Name Relationship [facility] [id number] Chin eWber 18 Self / Same As Patient Advance Directives Directive Response Recorded Date/Time Advanced Directives No 04/04/16 3:04am Chief Complaint and Reason for Visit Chief Complaint Cardiac Complaint Reason for Visit Methamphetamine abuse Problems Active Problems Medical Problem Onset Date [...] Days/Qty Instructions Start Date Cyanocobalamin 1,000 Mcg 4737-1689 Mcg ORAL Daily 09/16/13 Multivits,Th W-Fe,Other Min 1 Each 1 Each ORAL Daily 09/16/13 [place]-3 Fatty Acids/Fish Oil 1 Each 1 Each ORAL Daily 09/16/13 Acetaminophen (Tylenol) 500 Mg 1,000 Mg ORAL As Needed 01/20/14 Cholecalciferol (Vitamin D3) 2,000 Unit 2,000 Unit ORAL Daily Acyclovir 200 Mg/5 Ml 200 Mg ORAL Twice A Day 11/23/14 Esomeprazole Magnesium 20 Mg 20 Mg ORAL Daily 02/02/15 Past Home Medications Medication Directions Ordered Status [...] Tablet, 3 Tab Oral Daily 12/18/13 Discontinued Lorazepam 1 Mg Tablet, 1 Mg [...] Date Status Exposure to occupational hazards No 09/14/2013 8:19pm Query Response Start Date Stop Date Smoking Status Current every day smoker Hospital Discharge Instructions No hospital discharge instructions. Plan of Care Discharge Date 04/04/16 6:38am Disposition 01 HOME OR SELF-CARE Instructions/Education Provided Methamphetamine Abuse (ED) Prescriptions See Medication Section Referrals Lawrence Sher MD - Additional Instructions/Education Return to ED for worsening of symptoms Some of your test results may not [...] worrisome symptoms. * Emergency Department phone number: [phone], x [phone]* MEDICAL RECORD If you need copies of your X-rays, call [phone] x [phone]. If you need copies of [...] services. SERVICE BILLING DEMO[employer]AT Emergency Room Services [facility] Physician Services [facility] X-rays [place] [facility] Patients will receive bills for services from the appropriate provider. If you have any questions about your [facility] bill, our staff will be happy to assist you. Please call [phone], and ask for the billing department. THANK YOU for choosing [facility] as your emergency care provider! Care Plan and Goals ~~Discharge Care Plan~~ Problem: Methamphetamine abuse Goal: Patient will use appropriate resources to deal with triggers for wanting to use methamphetamines. Will come up with a plan to stop addictive behavior. Instructions: Will gain a support team to help cope with addiction. F/U with PCP to get a plan of action with PCP to find support and a rehab facility. Functional Status No functional status results. Allergies, Adverse Reactions, Alerts No known allergies. Immunizations Name Given Type Status Date Pneumonia Vaccine Received if Current 08/17/08 Historical Historical Date Influenza Vaccine Received if Current 05/29/13 Historical Historical Vital Signs Acute Vital Signs Vital Response Date/Time Temperature (Fahrenheit) 99.5 03/29/2016 4:40pm Pulse 83 bpm 04/04/2016 6:43am Respirations 18 04/04/2016 6:43am Height 5 ft 7 in Weight 173 lb Body Mass Index 27.0 kg/m^2 Results Laboratory Results Test Name Result [...] 03/23/2016 8:05pm Neutrophils # 2.6 # 03/23/2016 7:25pm 03/23/2016 8:05pm Absolute Band Neutrophils 0.0 # 03/23/2016 7:25pm 03/23/2016 8:05pm Lymphocytes # 1.1 # 03/23/2016 7:25pm 03/23/2016 8:05pm Monocytes # 0.5 # 03/23/2016 7:25pm 03/23/2016 8:05pm Eosinophils # 0.1 # 03/23/2016 7:25pm 03/23/2016 8:05pm Basophils # (Manual) 0.1 # 03/23/2016 7:25pm 03/23/2016 8:05pm Blood Morphology Comment SEE REFERENCE NORMAL 03/23/2016 7:25pm 03/23 8:05pm Toxic Granulation SLIGHT 03/23/2016 7:2503/23/2016 8:05pm Prothrombin Time 14.3 SEC H 11.6-14.2 03/23/2016 7:2503/23/2016 8: 01pm Prothromb Time International Ratio 1.1 0.8-1.4 03/23/2016 7:2502/2016 8:01pm Activated Partial Thromboplast Time 30.6 SEC 24.9-35.9 03/23/2016 7: 2503/23/2016 8:01pm Sodium Level 151 mmol/L # H 135-150 03/23/2016 7:2503/23/2016 8:03pm Potassium Level 3.1 mmol/L L 3.5-5.1 03/23/2016 7:2503/23/2016 8: 03pm Chloride Level 107 mmol/L 98-108 03/23/2016 7:2503/23/2016 8:03pm Carbon Dioxide Level 29 mmol/L 22-29 03/23/2016 7:2503/23/2016 8: 03pm Anion Gap 18.1 MEQ/L H 3-15 03/23/2016 7:25pm 03/23/2016 8:03pm Blood Urea Nitrogen 9 mg/dL 03-0303/23/2016 7:2503/23/2016 8:03pm Creatinine 0.90 mg/dL 0.8-1.5 03/23/2016 7:25pm 03/23/2016 8:03pm BUN/Creatinine Ratio 10 10-20 03/23/2016 7:2503/23/2016 8:03pm Estimat Glomerular Filtration Rate 112.5 03/23/2016 [...] the results. Called by Carroll Robertson at 2002 Creatine Kinase MB 2.7 ng/mL 0.0-6.0 03/23/2016 [...] VISIT Completed 03/23/16 Completed 03/23/16 Completed 03/23/16 Encounters Encounter Location Arrival/Admit Date Discharge/Depart Date Attending Provider Registered Emergency Room [facility] 04/04/16 3:01am UZIEL POSEY MD Departed Emergency Room [facility] 03/29/16 10:28am 03/29/16 4:41pm WILLIAM SOSA MD Departed Emergency Room [facility] 03/23/16 6:36pm 03/23/16 8:56pm WILLIAM SOSA MD Recent Diagnosis
--- OUTSIDE RECORDS SUMMARY | 2017-01-06 21:47 | XMS REPORT | Summary of Care ---
Author Author Igor Correia M.D. Organization Unknown Address Unknown Phone Unavailable Care Team Providers Care Sonar Technician Name Role Phone Igor Correia M.D. [...] Procedures Procedure Dates Details History of Tonsillectomy Procedures not documented Immunization Name Dates Details [...] >60 ml/min Range: >60 EST GFR, NON-AFR [place] >60 ml/min Range: >60 Comments: EST GFR [...] Provider: Igor Correia M.D. On 18-Jun-2016 08:30 Instructions Name Dates Details Instructions not documented Encounters Appointment; Igor Correia M.D. Encounter Diagnosis: Problem not documented On 03-Jun-2016 08:15 Appointment; Lv Lester M.D. Encounter Diagnosis: Problem not documented On 30-Aug-2015 10:00 Appointment; Smith Ibanez M.D. Encounter Diagnosis: Problem not documented On 27-Aug-2015 08:30 Appointment; Smith Ibanez M.D. Encounter Diagnosis: Problem not documented On 18-Jun-2015 08:30
--- OUTSIDE RECORDS SUMMARY | 2017-01-06 21:47 | XMS REPORT | Continuity of Care Document ---
Author Author [facility] Address Unknown Phone Unavailable Care Team Providers Care Tapper Bit Name Role Phone Lawrence Sher MD Primary Care Physician [phone] Insurance Providers Payer Name Policy Number Subscriber Name Relationship [facility] [id number] Chin Weber 18 Self / Same As Patient Advance Directives Directive Response Recorded Date/Time Advanced Directives No 03/23/16 6:45pm Chief Complaint and Reason for Visit Chief Complaint Abuse Reason for Visit Drug abuse Chest wall pain Problems Active Problems Medical Problem Onset [...] Resolved Jaw pain ~02/16/2014 Resolved Methamphetamine abuse ~11/16/2014 Chronic Methamphetamine addiction ~04/30/2015 Chronic Paresthesias ~11/23/2014 Chronic Rectal trauma ~02/02/2015 Resolved Skin lesion 12/04/2013 Resolved Sore throat ~03/27/2014 Resolved Sore throat symptom ~12/18/2013 Resolved Substance abuse ~11/21/2014 Chronic Vomiting ~12/17/2014 Resolved Medications Current Home Medications Medication Dose Units Route Directions Days/Qty Instructions Start Date Cyanocobalamin 1,000 Mcg 3414-6116 Mcg ORAL Daily 09/16/13 Multivits,Th W-Fe,Other Min 1 Each 1 Each ORAL Daily 09/16/13 [place]-3 Fatty Acids/Fish Oil 1 Each 1 Each [...] discharge instructions. Plan of Care Discharge Date 03/23/16 8:56pm Disposition 01 HOME OR SELF-CARE Condition at Discharge Stable Instructions/Education Provided Costochondritis (ED) Methamphetamine Abuse (ED) Prescriptions See Medication Section Referrals aLwrence Sher MD - Additional Instructions/Education Printed substance abuse treatment centers near [facility]. Some of your test results may not [...] worrisome symptoms. * Emergency Department phone number: [phone], x [phone]* MEDICAL RECORD If you need copies of your X-rays, call [phone] x [phone]. If you need copies of [...] the billing parties for services. SERVICE BILLING [facility] Emergency Room Services [facility] Physician Services [facility] X-[facility] Patients will receive bills for services from the appropriate provider. If you have any questions about your [facility] bill, our staff will be happy to assist you. Please call [phone], and ask for the billing department. THANK YOU for choosing [facility] as your emergency care provider! Care Plan and Goals ~~Discharge Care Plan~~ Problem: Problems with coping. Goal: Patient will use appropriate resources to deal with life situations. Instructions: Call [employer] hotline @ for assistance. Follow up with screener as directed. Functional Status No functional status results. Allergies, Adverse Reactions, Alerts No known allergies. Immunizations Name Given Type Status Date Pneumonia Vaccine Received if Current 08/17/08 Historical Historical Date Influenza Vaccine Received if Current 05/29/13 Historical Historical Vital Signs Acute Vital Signs Vital Response Date/Time Temperature (Fahrenheit) 98.9 03/23/2016 8:53pm Pulse 80 bpm 03/23/2016 8:53pm Respirations 24 03/23/2016 8:53pm Height 5 ft 6 in Weight 154 lb Body Mass Index 24.0 kg/m^2 Results Laboratory Results Test Name Result [...] 8:05pm Absolute Band Neutrophils 0.0 # 03/23/2016 7:2503/23/2016 8:05pm Lymphocytes # 1.1 # 03/23/2016 7:25pm 03/23/2016 8:05pm Monocytes # 0.5 # 03/23/2016 7:pm 03/23/2016 8:05pm Eosinophils # 0.1 # 03/23/2016 7:03/23/2016 8:05pm Basophils # (Manual) 0.1 # 03/23/2016 7:pm 03/23/2016 8:05pm Blood Morphology Comment SEE REFERENCE NORMAL 03/23/2016 7:pm 03/23 8:05pm Toxic Granulation SLIGHT 03/23/2016 7:03/23/2016 8:05pm Prothrombin Time 14.3 SEC H 11.6-14.2 03/23/2016 7:03/23/2016 8: 01pm Prothromb Time International Ratio 1.1 0.8-1.4 03/23/2016 7:02/2016 8:01pm Activated Partial Thromboplast Time 30.6 SEC 24.9-35.9 03/23/2016 7: 03/23/2016 8:01pm Sodium Level 151 mmol/L # H 135-150 03/23/2016 7:03/23/2016 8:03pm Potassium Level 3.1 mmol/L L 3.5-5.1 03/23/2016 7:03/23/2016 8: 03pm Chloride Level 107 mmol/L 98-108 03/23/2016 7:03/23/2016 8:03pm Carbon Dioxide Level 29 mmol/L 22-29 03/23/2016 7:03/23/2016 8: 03pm Anion Gap 18.1 MEQ/L H 3-15 03/23/2016 7:03/23/2016 8:03pm Blood Urea Nitrogen 9 mg/dL 03-0303/23/2016 7:03/23/2016 8:03pm Creatinine 0.90 mg/dL 0.8-1.5 03/23/2016 7:03/23/2016 8:03pm BUN/Creatinine Ratio 10 10-20 03/23/2016 7:25pm [...] 1.448 1.1-1.8 03/23/2016 7:25pm 03/23/2016 8: 03pm Procedures No known history of procedures. Encounters Encounter Location Arrival/Admit Date Discharge/Depart Date Attending Provider Departed Emergency Room [facility] 03/23/16 6:36pm 03/23/16 8:56pm WILLIAM SOSA MD Recent Diagnosis
--- OUTSIDE RECORDS SUMMARY | 2017-01-06 21:48 | XMS REPORT | Continuity of Care Document ---
Author Author [facility] Organization [facility] Address Unknown Phone Unavailable Care Team Providers Care Fats And Oils Loader Name Role Phone Lawrence Sher MD Primary Care Physician [phone] Insurance Providers Payer Name Policy Number Subscriber Name Relationship Self Pay Chin Weber 18 Self / Same As Patient Problems Medical Problems Problem Onset Date Status [...] Active Drug abuse and dependence ~11/25/2014 Active Medications Medication Dose Route Sig Days/Qty [...] DAILY 30 Qty 08/28/13 09/13/13 Discontinued Cyanocobalamin 8490-2933 Mcg ORAL DAILY 09/16/13 Active Multivits,Th W-Fe,Other Min 1 Each ORAL DAILY 09/16/13 Active [place]-3 Fatty Acids/Fish Oil 1 Each ORAL DAILY [...] discharge instructions. Plan of Care Discharge Date 11/25/14 11:28pm Disposition 07 AGAINST MEDICAL ADVICE Prescriptions See Medications Section Referrals Lawrence Sher MD Functional Status No functional status results. Allergies, Adverse Reactions, Alerts Allergen Type Severity Reaction Status Last Updated No Known Drug Allergies Active 03/03/14 Immunizations No immunization records. Vital Signs Acute Vital Signs Vital Response Date/Time Temperature (Fahrenheit) 98.1 Pulse 79 bpm Respirations 18 Height 5 ft 7 in Weight 176 lb Body Mass Index 27.0 kg/m^2 Results Test Source Date Result Interp. Ref. Range Comments Absolute Band Neutrophils November 20, 2014 7:20pm 0.1 # Acetaminophen Level August 27, 2013 2:30pm < 10.0 UG/ML L 10.0-30.0 Collected by nurse? N Activated Partial Thromboplast Time November 25, 2014 9:00pm 30.7 SEC N 24.9-35.9 Alanine Aminotransferase (ALT/SGPT) November 25, 2014 9:00pm 34 U/L N 30- 65 Albumin November 25, 2014 9:00pm 4.5 g/dL N 3.4-5.0 Albumin/Globulin Ratio November 25, 2014 9:00pm 1.666 N 1.1-1.8 Alkaline Phosphatase November 25, 2014 9:00pm 73 U/L N 38-126 Amylase Level December 25, 2013 6:51pm 69 U/L N 25-115 Collected by nurse? N Anion Gap November 25, 2014 9:00pm 13.7 MEQ/L N 3-15 Aspartate Amino Transf (AST/SGOT) November 25, 2014 9:00pm 35 U/L N 15-37 B-Type Natriuretic Peptide August 20, 2013 10:15am 7 PG/ML N 0-100 BUN/Creatinine Ratio November 25, 2014 9:00pm 12 N 10-20 Band Neutrophils % November 20, 2014 7:20pm 1 % N 0-6 Basophils # (Auto) November 25, 2014 9:00pm 0.0 10^3uL Basophils % (Manual) November 20, 2014 7:20pm 0 % N 0-2 Basophils (%) (Auto) November 25, 2014 9:00pm 0 % N 0-2 Blood Morphology Comment November 20, 2014 7:20pm Normal NORMAL Blood Urea Nitrogen November 25, 2014 9:00pm 13 mg/dL N 7-18 C-Reactive Protein December 25, 2013 6:51pm 0.70 MG/DL N 0.0-0.9 Collected by nurse? N Calcium Level November 25, 2014 9:00pm 9.5 mg/dL N 8.8-10.8 Calcium/Ionized Calcium Ratio November 25, 2014 9:00pm 4.2 mg/dL N 3.8-4.6 Calculated Osmolality November 25, 2014 9:00pm 272 mosm/L L 280-300 Carbon Dioxide Level November 25, 2014 9:00pm 27 mmol/L N 22-29 Chlamydia trachomatis RNA April 26, 2014 8:30am Negative Negative Chlamydia/GC DNA Probe Source April 26, 2014 8:30am Urine () Corrected result; previously reported as Urine on 04/26/14 at 12:42 by V/AUT--- 04/27/14 2349 --- GC.CHL SOURCE previously reported as: Urine Chloride Level November 25, 2014 9:00pm 105 mmol/L N 98-108 Creatine Kinase MB November 25, 2014 9:00pm 2.3 ng/mL N 0.0-6.0 Creatinine November 25, 2014 9:00pm 1.13 mg/dL N 0.8-1.5 D-Dimer August 20, 2013 10:15am 0.43 ug/mL PH 0.00-0.41 Results called to Ladan read back the results. Called by Janna Greenwood at 1044 Differential Total Cells Counted November 20, 2014 7:20pm 100 Eosinophils # November 20, 2014 7:20pm 0.0 # Eosinophils # (Auto) November 25, 2014 9:00pm 0.1 10^3uL Eosinophils % (Manual) November 20, 2014 7:20pm 0 % N 0-4 Eosinophils (%) (Auto) November 25, 2014 9:00pm 1 % N 0-4 Erythrocyte Sedimentation Rate December 25, 2013 6:51pm 8 mm/hr N 0-12 Collected by nurse? N Estimat Glomerular Filtration Rate November 25, 2014 9:00pm 87.0 Estimated GFR (Non- November 25, 2014 9:00pm 71.9 Glucose Level November 25, 2014 9:00pm 93 mg/dL N 70-110 Hematocrit November 25, 2014 9:00pm 39.90 % N 39.00-50.00 Hemoglobin November 25, 2014 9:00pm 13.6 g/dL N 13.5-17.0 Iron (send out) October 14, 2012 2:48am 75 ug/dL 65-175 Lipase January 20, 2014 12:45pm 58 U/L N 23-300 Collected by nurse? N Lymphocytes # November 20, 2014 7:20pm 1.0 # Lymphocytes # (Auto) November 25, 2014 9:00pm 1.5 X10^3 Lymphocytes % (Manual) November 20, 2014 7:20pm 9 % L 20-46 Lymphocytes (%) (Auto) November 25, 2014 9:00pm 19 % L 20-46 Magnesium Level September 15, 2013 5:35am 2.1 MG/DL N 1.6-2.3 Collected by nurse? N Mean Corpuscular Hemoglobin November 25, 2014 9:00pm 29.2 PG N 26.0-34.0 Mean Corpuscular Hemoglobin Concent November 25, 2014 9:00pm 34.1 g/dL N 31.0-37.0 Mean Corpuscular Volume November 25, 2014 9:00pm 86 FL N 80-100 Mean Platelet Volume November 25, 2014 9:00pm 9.0 FL N 6.0-9.5 Metamyelocytes % August 20, 2013 10:15am 0 % N 0-1 Monocytes # November 20, 2014 7:20pm 0.3 # Monocytes # (Auto) November 25, 2014 9:00pm 0.6 X10^3 Monocytes % (Manual) November 20, 2014 7:20pm 3 % N 3-11 Monocytes (%) (Auto) November 25, 2014 9:00pm 8 % N 3-11 N. gonorrhoeae DNA Specimen Source April 26, 2014 8:30am Urine () Corrected result; previously reported as Urine on 04/26/14 at 12:42 by V/AUT-- - 04/27/14 2349 --- NGON SOURCE previously reported as: Urine Neisseria gonorrhoeae RNA April 26, 2014 8:30am Negative Negative Test Performed by:[place] [address] Prop Sawyer: Ernst Stiles III, M.D. Neutrophils # November 20, 2014 7:20pm 9.7 # Neutrophils # (Auto) November 25, 2014 9:00pm 5.6 X10^3 Neutrophils (%) (Auto) November 25, 2014 9:00pm 72 % H 51-67 Platelet Count November 25, 2014 9:00pm 345 10^3uL N 150-450 Potassium Level November 25, 2014 9:00pm 4.1 mmol/L N 3.5-5.1 Prothromb Time International Ratio November 25, 2014 9:00pm 1.0 N 0.8-1.4 Prothrombin Time November 25, 2014 9:00pm 13.2 SEC N 11.9-14.2 Rapid Plasma Reagin April 26, 2014 9:15am Non-reactive () Red Blood Count November 25, 2014 9:00pm 4.66 10^6uL N 4.50-5.50 Red Cell Distribution Width November 25, 2014 9:00pm 13.0 % N 11.8-15.6 Salicylates Level August 27, 2013 2:30pm < 1.0 MG/DL L 2.0-20.0 Collected by nurse? N Segmented Neutrophils % November 20, 2014 7:20pm 87 % H 51-67 Serum Alcohol November 25, 2014 9:00pm < 10.0 mg/dL L 10-80 Sodium Level November 25, 2014 9:00pm 141 mmol/L N 135-150 Stool Occult Blood [...] 2014 6:55am Negative Negative Total Bilirubin November 25, 2014 9:00pm 0.5 mg/dL N 0.1-1.0 Total Creatine Kinase November 25, 2014 9:00pm 725 U/L DPH 55-[address] Verduzco read back the results. Called by Cristian Hernandez at 2138 Total Iron Binding Capacity October 14, 2012 2:48am 393 ug/dL 260- 445 Total Protein November 25, 2014 9:00pm 7.2 g/dL N 6.4-8.5 Transferrin % Saturation October 14, 2012 2:48am 19 % 11-46 Troponin I November 25, 2014 9:00pm < 0.012 ng/mL 0.010-0.080 Ur Tricyclic Antidepressants Screen November 25, 2014 9:45pm Negative Negative Urine Amphetamines Screen November 25, 2014 9:45pm Positive H Negative Urine Bacteria July 04, 2013 3:52am None seen /HPF Urine collection method Clean Catch Urine Barbiturates Screen November 25, 2014 9:45pm Negative Negative Urine Benzodiazepines Screen November 25, 2014 9:45pm Positive H Negative Urine Bilirubin March 29, 2014 6:55am Negative Negative Urine Blood March 29, 2014 6:55am Negative Negative Urine Cannabinoids Screen November 25, 2014 9:45pm Negative Negative Urine Clarity March 29, 2014 6:55am Clear Urine Cocaine Screen November 25, 2014 9:45pm Positive H Negative Urine Collection Type March 29, 2014 6:55am Random voided Urine Color March 29, 2014 6:55am Yellow Urine Glucose (UA) March 29, 2014 6:55am Negative Negative Urine Hyaline Casts July 04, 2013 3:52am 3+ /LPF H Urine collection method Clean Catch Urine Ketones March 29, 2014 6:55am Negative Negative Urine Leukocyte Esterase March 29, 2014 6:55am Negative Negative Urine Methadone Screen November 25, 2014 9:45pm Negative Negative Urine Methamphetamines Screen November 25, 2014 9:45pm Positive H NEGATIVE Urine Mucus July 04, [...] developed and its performance characteristics determined by [facility]. It has not been cleared or approved by the U.S. Food and Drug Administration. Test Performed by: [facility] [place] [address] Prop Sawyer: Ernst Stiles III, M.D. Urine Nitrite March 29, 2014 6:55am Negative Negative Urine Opiates Screen November 25, 2014 9:45pm Negative Negative Urine Oxycodone Screen November 25, 2014 9:45pm Negative NEGATIVE Urine Phencyclidine Screen November 25, 2014 9:45pm Negative Negative Phencyclidine testing by this method can showcross-reactivity with several common medications such as venlafaxine, dextromethorphan, and diphenhydramine. Submission of any positive sample for confirmatory testing is recommended. Urine Propoxyphene Screen November 25, 2014 9:45pm Negative NEGATIVE Results of this screen are qualitative and are presumptiveresults. A more specific method (i.e. GC/MS) must be used if confirmation of results is indicated. Urine Protein March 29, 2014 6:55am Negative Negative Urine RBC July 04, 2013 3:52am None seen /HPF Urine collection method Clean Catch Urine RBC (Auto) February 26, 2012 10:55pm Negative Negative Urine Specific Bailey March 29, 2014 6:55am 1.020 1.005-1.030 Urine [...] method Clean Catch White Blood Count November 25, 2014 9:00pm 7.78 10^3uL N 4.0-11.0 Group A Streptococcus Culture [...] ADDON completed 11/15/14 TX/PRO/DX INJ SAME DRUG MATERIAL SPREADER completed 11/15/14 EMERGENCY DEPT VISIT completed 11/15/14 [...] completed 11/22/14 EMERGENCY DEPT VISIT completed 11/22/14 Encounters Encounter Location Date/Time Departed Emergency Room [facility] 11/25/14 8:24pm Departed Emergency Room [facility] 11/23/14 7:34pm Departed Emergency Room [facility] 11/22/14 2:36pm Departed Emergency Room [facility] 11/21/14 5:44pm Departed Emergency Room [facility] 11/20/14 6:27pm Departed Emergency Room [facility] 11/16/14 8:21pm Departed Emergency Room [facility] 11/15/14 11:11am Departed Emergency Room [facility] 11/13/14 6:22pm Departed Emergency Room [facility] 11/11/14 1:06pm Registered Emergency Room [facility] 11/06/14 6:02pm Recent Diagnosis Drug abuse and dependence
--- OUTSIDE RECORDS SUMMARY | 2017-01-06 21:48 | XMS REPORT | Summary of Care ---
Author Author Shamar Sorto, [facility] Unknown Address Unknown Phone Unavailable Care Team Providers Care Print Traffic Manager Name Role Phone Igor Correia M.D. Unavailable Unavailable Pamella Ibanez M.D. Unavailable Unavailable Lawrence Sher Unavailable Unavailable [...] Active Uvular hypertrophy (528.9, K13.79) Status: Active Medications Name Dates Details Multivitamins [...] TWICE DAILY. * Quantity: 60 Refills: 11 Terlton M.D., Igor * Start 03-Jun-2016 Active Meloxicam 7.5 MG Oral Tablet TAKE 1 TABLET DAILY WITH FOOD. * Quantity: 30 Refills: 0 Terlton M.D., Igor * Start 18-Jun-2016 Active Allergies and Adverse [...] Encounters Appointment; Provider: Lv Lester M.D. On 13-Nov-2016 09:45 Instructions Name Dates Details Instructions not documented [...]
--- OUTSIDE RECORDS SUMMARY | 2017-01-06 21:48 | XMS REPORT | Continuity of Care Document ---
Author Author [facility] Address Unknown Phone Unavailable Care Team Providers Care Hides Inspector Name Role Phone Lawrence Sher MD Primary Care Physician [phone] Insurance Providers Payer Name Policy Number Subscriber Name Relationship [facility] [id number] Chin Weber 17 Self / Same As Patient Advance Directives Directive Response Recorded Date/Time Advanced Directives No 04/24/16 12:15am Chief Complaint and Reason for Visit Chief Complaint Pain Reason for Visit Methamphetamine abuse Anxiety Chest pain Problems Active Problems Medical Problem [...] ~11/29/2013 Resolved Cellulitis ~05/02/2015 Resolved Chest discomfort 04/18/2016 Resolved Chest discomfort ~11/11/2014 Chronic Chest discomfort [...] Resolved 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 Methamphetamine addiction ~04/30/2015 Chronic Pain of left calf ~04/21/2016 Acute Paresthesias ~11/23/2014 Chronic Rectal trauma ~02/02/2015 Resolved Skin lesion 12/04/2013 Resolved Sore throat ~03/27/2014 Resolved Sore throat symptom ~12/18/2013 Resolved Substance abuse ~11/21/2014 Chronic Vomiting ~12/17/2014 Resolved Medications Current Home Medications Medication Dose Units Route Directions Days/Qty Instructions Start Date Cyanocobalamin 1,000 Mcg [id number] Mcg ORAL Daily 09/16/13 Multivits,Th W-Fe,Other Min 1 Each 1 Each ORAL Daily 09/16/13 [place]-3 Fatty Acids/Fish Oil 1 Each 1 Each [...] discharge instructions. Plan of Care Discharge Date 04/24/16 1:51am Disposition 01 HOME OR SELF-CARE Condition at Discharge Stable Instructions/Education Provided Chest Pain (ED) Generalized Anxiety Disorder (ED) Methamphetamine Abuse (ED) Prescriptions See Medication Section Referrals Lawrence Sher MD - Additional Instructions/Education STOP USING METHAMPHETAMINE. Xanax 0.25mg as Dispensed, 1-2 every 8 hours as needed for anxiety. OTC Ibuprofen 400mg every 6 to 8 hours with food as needed for pain. Start Rehab tomorrow, as arranged. Follow up with your PCP per his office and discuss an Rx for an anxiety medicine. Some of your test results may not [...] worrisome symptoms. * Emergency Department phone number: [phone], x [phone]* MEDICAL RECORD If you need copies of your X-rays, call [phone] x [phone]. If you need copies of [...] services. SERVICE BILLING [employer] Emergency Room Services [facility] Physician Services [facility] X[facility] Patients will receive bills for services from the appropriate provider. If you have any questions about your [facility] bill, our staff will be happy to assist you. Please call [phone], and ask for the billing department. THANK YOU for choosing [facility] as your emergency care provider! Care Plan and Goals ~~Discharge Care Plan~~ Problem: Problems with coping. Goal: Patient will use appropriate resources to deal with life situations. Instructions: Call [employer] hotline @ for assistance. Follow up with screener as directed. Functional Status No functional status results. Allergies, Adverse Reactions, Alerts No known allergies. Immunizations Name Given Type Status Date Pneumonia Vaccine Received if Current 08/17/08 Historical Historical Date Influenza Vaccine Received if Current 05/29/13 Historical Historical Vital Signs Acute Vital Signs Vital Response Date/Time Temperature (Fahrenheit) 99.0 04/24/2016 1:28am Pulse 100 bpm 04/24/2016 1:28am Respirations 26 04/24/2016 1:28am Height 5 ft 7 in Weight 169 lb Body Mass Index 26.0 kg/m^2 Results Laboratory Results Test Name Result Units Flags Reference Collection Date/Time Result Date/ Time Comments White Blood Count 5.07 10^3uL 4.0-11.0 03/29/2016 11:56am 03/29/2016 12 :09pm Red Blood Count 4.29 10^6uL L 4.50-5.50 03/29/2016 11:5603/29/2016 12 :09pm Hemoglobin 12.5 g/dL L 13.5-17.0 03/29/2016 11:56am 03/29/2016 12:09pm Hematocrit 35.30 % L 39.00-50.00 03/29/2016 11:56am 03/29/2016 12:09pm Mean Corpuscular Volume 82 FL 80-100 03/29/2016 11:5603/29/2016 12: 09pm Mean Corpuscular Hemoglobin 29.1 PG 26.0-34.0 03/29/2016 11:562015 12:09pm Mean Corpuscular Hemoglobin Concent 35.4 g/dL 31.0-37.0 03/29/2016 11: 56am 03/29/2016 12:09pm Red Cell Distribution Width 12.5 % 11.8-15.6 03/29/2016 11:56am 2015 12:09pm Platelet Count 360 10^3uL 150-450 03/29/2016 11:5603/29/2016 12: 09pm Mean Platelet Volume 8.7 FL 6.0-9.5 03/29/2016 11:5603/29/2016 12: 09pm Neutrophils (%) (Auto) 59 % 51-67 03/29/2016 11:56am 03/29/2016 12: 09pm Lymphocytes (%) (Auto) 25 % 20-46 03/29/2016 11:56am 03/29/2016 12: 09pm Monocytes (%) (Auto) 14 % H 3-11 03/29/2016 11:56am 03/29/2016 12:09pm Eosinophils (%) (Auto) 1 % 0-4 03/29/2016 11:5603/29/2016 12:09pm Basophils (%) (Auto) 1 % 0-2 03/29/2016 11:5603/29/2016 12:09pm Neutrophils # (Auto) 3.0 X10^3 03/29/2016 11:5603/29/2016 12:09pm Lymphocytes # (Auto) 1.2 X10^3 03/29/2016 11:56am 03/29/2016 12:09pm Monocytes # (Auto) 0.7 X10^3 03/29/2016 11:5603/29/2016 12:09pm Eosinophils # (Auto) 0.0 10^3uL 03/29/2016 11:56am 03/29/2016 12: 09pm Basophils # (Auto) 0.1 10^3uL 03/29/2016 11:5603/29/2016 12:09pm Sodium Level 147 mmol/L 135-150 03/29/2016 11:5603/29/2016 12:20pm Potassium Level 3.5 mmol/L 3.5-5.1 03/29/2016 11:5603/29/2016 12: 20pm Chloride Level 107 mmol/L 98-108 03/29/2016 11:5603/29/2016 12:20pm Carbon Dioxide Level 28 mmol/L 22-29 03/29/2016 11:5603/29/2016 12: 20pm Anion Gap 16.5 MEQ/L H 3-15 03/29/2016 11:5603/29/2016 12:20pm Blood Urea Nitrogen 8 mg/dL 7-18 03/29/2016 11:5603/29/2016 12:20pm Creatinine 0.87 mg/dL 0.8-1.5 03/29/2016 11:5603/29/2016 12:20pm BUN/Creatinine Ratio 9 L 10-20 03/29/2016 11:5603/29/2016 12:20pm Estimat Glomerular Filtration Rate 117.0 03/29/2016 11:562015 12:20pm Estimated GFR (Non- 96.7 03/29/2016 11:562015 12:20pm Glucose Level 127 mg/dL # H 70-110 03/29/2016 11:56am 03/29/2016 12:20pm Calculated Osmolality 284 mosm/L 280-300 03/29/2016 11:56am 03/29/2016 12:20pm Calcium Level 9.1 mg/dL 8.8-10.8 03/29/2016 11:56am 03/29/2016 12:20pm Calcium/Ionized Calcium Ratio 4.0 mg/dL 3.8-4.6 03/29/2016 11:56 12:20pm Total Bilirubin 0.5 mg/dL 0.1-1.0 03/29/2016 11:56am 03/29/2016 12: 20pm Alkaline Phosphatase 69 U/L 38-126 03/29/2016 11:56am 03/29/2016 12: 20pm Aspartate Amino Transf (AST/SGOT) 23 U/L 15-37 03/29/2016 11:56am 03/29 12:20pm Alanine Aminotransferase (ALT/SGPT) 32 U/L 30-65 03/29/2016 11:56am 12:20pm Troponin I < 0.012 ng/mL 0.010-0.080 03/29/2016 11:56am 03/29/2016 12: 24pm Total Protein 7.0 g/dL 6.4-8.5 03/29/2016 11:56am 03/29/2016 12:20pm Albumin 4.2 g/dL 3.4-5.0 03/29/2016 11:56am 03/29/2016 12:20pm Albumin/Globulin Ratio 1.500 1.1-1.8 03/29/2016 11:56am 03/29/2016 12 :20pm Pending Laboratory Results Test Name Collection Date/Time Procedures Procedure Status Date Provider(s) ROUTINE VENIPUNCTURE Completed 03/29/16 COMPREHEN METABOLIC PANEL [...] 04/14/16 Completed 04/14/16 Completed 04/14/16 Completed 04/14/16 ROUTINE VENIPUNCTURE Completed 04/18/16 COMPREHEN METABOLIC PANEL Completed 04/18/16 ASSAY OF LIPASE Completed 04/18/16 ASSAY OF TROPONIN QUANT Completed 04/18/16 COMPLETE CBC W/AUTO DIFF WBC Completed 04/18/16 ELECTROCARDIOGRAM TRACING Completed 04/18/16 EMERGENCY DEPT VISIT Completed 04/18/16 ROUTINE VENIPUNCTURE Completed 04/19/16 COMPREHEN METABOLIC PANEL Completed 04/19/16 ASSAY OF TROPONIN QUANT Completed 04/19/16 COMPLETE CBC W/AUTO DIFF WBC Completed 04/19/16 ELECTROCARDIOGRAM TRACING Completed 04/19/16 THER/PROPH/DIAG INJ SC/IM Completed 04/19/16 EMERGENCY DEPT VISIT Completed 04/19/16 Completed 04/19/16 Completed 04/19/16 Completed 04/19/16 Encounters Encounter Location Arrival/Admit Date Discharge/Depart Date Attending Provider Departed Emergency Room [facility] 04/24/16 12:15am 04/24/16 1:51am HAYDEN DUFF MD Departed Emergency Room [facility] 04/21/16 7:59pm 04/21/16 11:42pm HAYDEN DUFF MD Departed Emergency Room [facility] 04/19/16 1:46pm 04/19/16 6:11pm DIDIER ALBERT MD Departed Emergency Room [facility] 04/18/16 6:53am 04/18/16 9:30am VASU QIU MD Discharged Inpatient (obs) [facility] 04/14/16 7:37pm 04/16/16 1: 38pm KIRSTIE RIVERA MD Departed Emergency Room [facility] 04/04/16 3:01am 04/04/16 6:38am UZIEL POSEY MD Departed Emergency Room [facility] 03/29/16 10:28am 03/29/16 4:41pm WILLIAM SOSA MD Recent Diagnosis
--- OUTSIDE RECORDS SUMMARY | 2017-01-06 21:49 | XMS REPORT | Continuity of Care Document ---
Author Author [facility] Address Unknown Phone Unavailable Care Team Providers Care Building Maintenance Supervisor Name Role Phone Lawrence Sher MD Primary Care Physician [phone] Insurance Providers Payer Name Policy Number Subscriber Name Relationship [employer] Other Chin Weber 17 Self / Same As Patient Advance Directives Directive Response Recorded Date/Time Advanced Directives No 12/30/15 8:57am Chief Complaint and Reason for Visit Chief Complaint Abuse Reason for Visit Drug abuse Chest pain Problems Active Problems Medical Problem Onset Date Status ANXIETY STATE NOS 05/27/2013 Chronic Abdominal pain 11/14/2013 Resolved Abdominal pain ~01/20/2014 Resolved Abdominal pain ~02/02/2015 Resolved Acute drug intoxication 04/25/2012 Chronic Acute gastritis ~12/25/2013 Chronic Anxiety 04/25/2012 Chronic Anxiety ~01/20/2014 Chronic Anxiety ~11/26/2014 Chronic Anxiety disorder, unspecified ~10/14/2015 Acute Atypical facial pain ~12/17/2013 Resolved Cellulitis 05/27/2013 Resolved Cellulitis ~11/29/2013 Resolved Cellulitis ~05/02/2015 Resolved Chest discomfort 02/25/2014 Resolved Chest discomfort ~11/11/2014 Chronic Chest discomfort Unknown Chronic Chest pain 07/04/2013 Resolved Chest pain ~03/03/2014 Resolved Chest pain ~05/02/2015 Chronic Chest pain ~05/03/2015 Acute Cold exposure Unknown Acute Constipation Unknown Resolved Corneal abrasion, right ~04/14/2014 Resolved Diarrhea ~04/27/2014 Resolved Dizziness 10/14/2012 Resolved Drug abuse 08/19/2013 Chronic Drug abuse ~10/11/2014 Chronic Drug abuse and dependence ~11/25/2014 Chronic Drug dependence 12/28/2013 Chronic Ear problem ~12/13/2013 Resolved Epigastric pain ~04/23/2015 Acute Esophagogastroduodenoscopy Unknown Resolved Exposure to STD Unknown Resolved Eye irritation Unknown Resolved Foreign body anus/rectum ~02/02/2015 Resolved Gastritis ~04/27/2014 Resolved Gastroenteritis ~12/17/2014 Resolved Head ache ~05/03/2015 Acute Headache 04/25/2014 Resolved Headache Unknown Acute Headache behind the eyes ~04/22/2014 Resolved Injury of head ~04/25/2014 Resolved Jaw pain ~02/16/2014 Resolved Methamphetamine abuse ~11/16/2014 Chronic Methamphetamine addiction ~04/30/2015 Chronic Paresthesias ~11/23/2014 Chronic Rectal trauma ~02/02/2015 Resolved Skin lesion 12/04/2013 Resolved Sore throat ~03/27/2014 Resolved Sore throat symptom ~12/18/2013 Resolved Substance abuse ~11/21/2014 Chronic Vomiting ~12/17/2014 Resolved Medications Current Home Medications Medication Dose Units Route Directions Days/Qty Instructions Start Date Cyanocobalamin 1,000 Mcg [id number] Mcg ORAL Daily 09/16/13 Multivits,Th W-Fe,Other Min 1 Each 1 Each ORAL Daily 09/16/13 [place]-3 Fatty Acids/Fish Oil 1 Each 1 Each ORAL Daily 09/16/13 Acetaminophen (Tylenol) 500 Mg 1,000 Mg ORAL As Needed 01/20/14 Cholecalciferol (Vitamin D3) 2,000 Unit 2,000 Unit ORAL Daily Acyclovir 200 Mg/5 Ml 200 Mg ORAL Twice A Day 11/23/14 Esomeprazole Magnesium 20 Mg 20 Mg ORAL Daily 02/02/15 Buspirone Hcl (Buspar) 10 Mg 10 Mg ORAL Twice A Day 10/14/15 Citalopram Hydrobromide 10 Mg/5 Ml 10 Mg ORAL Daily 10/14/15 Ondansetron Hcl 4 Mg 4 Mg ORAL Three Times A Day for Nausea/Vomiting 12 12/30/15 Past Home Medications Medication Directions Ordered Status [...] Oral Three Times A Day 04/29/15 Discontinued Social History Social History Problem Response Recorded Date/Time Onset Date Status Exposure to occupational hazards No 09/14/2013 8:19pm Query Response Start Date Stop Date Smoking Status Unknown, if ever smoked Hospital Discharge Instructions No hospital discharge instructions. Plan of Care Discharge Date 12/30/15 11:47am Disposition 01 HOME OR SELF-CARE Condition at Discharge Stable Instructions/Education Provided Methamphetamine Abuse (ED) Prescriptions See Medication Section Referrals Lawrence Sher MD - Additional Instructions/Education Stop using drugs. Push fluids and foods today. Return if pain worsens or changes. Your heart does not appear to have any damage. Your vital signs are normal. Your signs and symptoms can be all attributed to the usage of methamphetamines. Some of your test results may not [...] worrisome symptoms. * Emergency Department phone number: [phone], x [phone]* MEDICAL RECORD If you need copies of your X-rays, call [phone] x [phone]. If you need copies of [...] services. SERVICE BILLING [employer] Emergency Room Services [facility] Physician Services [facility] X-rays [place] [facility] Patients will receive bills for services from the appropriate provider. If you have any questions about your [facility] bill, our staff will be happy to assist you. Please call [phone], and ask for the billing department. THANK YOU for choosing [facility] as your emergency care provider! Care Plan and Goals ~~Discharge Care Plan~~ Problem:drug abuse Goal:stop taking meth Instructions:follow up with pcp Functional Status No functional status results. Allergies, Adverse Reactions, Alerts No known allergies. Immunizations Name Given Type Status Date Pneumonia Vaccine Received if Current 08/17/08 Historical Historical Date Influenza Vaccine Received if Current 05/29/13 Historical Historical Vital Signs Acute Vital Signs Vital Response Date/Time Temperature (Fahrenheit) 98.0 12/30/2015 9:04am Pulse 82 bpm 12/30/2015 9:04am Respirations 20 12/30/2015 9:04am Height 5 ft 6 in Weight 220 lb Body Mass Index 35.0 kg/m^2 Results Pending Laboratory Results Test Name Collection Date/Time Procedures Procedure Status Date Provider(s) X-RAY EXAM OF ELBOW Completed 11/30/15 X-RAY EXAM OF ELBOW Completed 11/30/15 X-RAY EXAM OF WRIST Completed 11/30/15 Encounters Encounter Location Arrival/Admit Date Discharge/Depart Date Attending Provider Registered Emergency Room [facility] 12/30/15 8:46am EVELINA JOHNSON MD Registered Clinic [facility] 11/30/15 9:27am Mika Del Valle MD Recent Diagnosis
--- OUTSIDE RECORDS SUMMARY | 2017-01-06 21:49 | XMS REPORT | Continuity of Care Document ---
Author Author [facility] Organization [facility] Address Unknown Phone Unavailable Care Team Providers Care Contact Center Professional Name Role Phone Lawrence Sher MD Primary Care Physician [phone] Insurance Providers Payer Name Policy Number Subscriber Name Relationship Self Pay Chin Weber 17 Self / Same As Patient Chief Complaint and Reason for Visit Chief Complaint Skin Condition Reason for Visit [id number] pain Methamphetamine addiction Cellulitis Problems Medical Problems Problem Onset Date Status [...] discomfort ~11/11/2014 Active Chest pain Unknown Active Methamphetamine addiction Unknown Active Cellulitis Unknown Active Medications Medication Dose Route Sig [...] DAILY 30 Qty 08/28/13 09/13/13 Discontinued Cyanocobalamin [id number] Mcg ORAL DAILY 09/16/13 Active Multivits,Th W-Fe,Other Min 1 Each ORAL DAILY 09/16/13 Active [place]-3 Fatty Acids/Fish Oil 1 Each ORAL DAILY [...] Ibuprofen (Motrin) 600 Mg ORAL NEEDED 12/18/13 Active Acetaminophen [...] TWICE A DAY 20 Qty 11/15/14 Active Social History No social history. Hospital Discharge Instructions No hospital discharge instructions. Plan of Care Discharge Date 11/15/14 1:50pm Disposition 01 HOME OR SELF-CARE Condition at Discharge Stable Instructions/Education Provided Cellulitis (ED) Methamphetamine Abuse (ED) Prescriptions See Medications Section Referrals Lawrence Sher MD Additional Instructions/Education Follow up with your doctor. ED [place] if any worse. Bactrim as directed. Some of your test results may not [...] worrisome symptoms. * Emergency Department phone number: [phone], x [phone]* MEDICAL RECORD If you need copies of your X-rays, call [phone]. If you need copies of [...] [employer] Emergency Room Services [facility] Patients will receive bills for services from the appropriate provider. If you have any questions about your [facility] bill, our staff will be happy to assist you. Please call [phone], and ask for the billing department. THANK YOU for choosing [facility] as your emergency care provider! Functional Status No functional status results. Allergies, Adverse Reactions, Alerts Allergen Type Severity Reaction Status Last Updated No Known Drug Allergies Active 03/03/14 Immunizations No immunization records. Vital Signs Acute Vital Signs Vital Response Date/Time Temperature (Fahrenheit) 97.1 Pulse 105 bpm Respirations 19 Height 5 ft 7 in Weight 175 lb Body Mass Index 27.6 kg/m^2 Results Test Source Date Result Interp. Ref. Range Comments Absolute Band Neutrophils August 20, 2013 10:15am 0.0 # Acetaminophen Level August 27, 2013 2:30pm < 10.0 UG/ML L 10.0-30.0 Collected by nurse? N Activated Partial Thromboplast Time November 15, 2014 11:40am 29.5 SEC N 24.9-35.9 Alanine Aminotransferase (ALT/SGPT) November 15, 2014 11:40am 37 U/L N 30- 65 Albumin November 15, 2014 11:40am 4.9 g/dL N 3.4-5.0 Albumin/Globulin Ratio November 15, 2014 11:40am 1.750 N 1.1-1.8 Alkaline Phosphatase November 15, 2014 11:40am 78 U/L N 38-126 Amylase Level December 25, 2013 6:51pm 69 U/L N 25-115 Collected by nurse? N Anion Gap November 15, 2014 11:40am 15.8 MEQ/L H 3-15 Aspartate Amino Transf (AST/SGOT) November 15, 2014 11:40am 22 U/L N 15-37 B-Type Natriuretic Peptide August 20, 2013 10:15am 7 PG/ML N 0-100 BUN/Creatinine Ratio November 15, 2014 11:40am 14 N 10-20 Band Neutrophils % August 20, 2013 10:15am 0 % N 0-6 Basophils # (Auto) November 15, 2014 11:40am 0.0 10^3uL Basophils % (Manual) August 20, 2013 10:15am 0 % N 0-2 Basophils (%) (Auto) November 15, 2014 11:40am 0 % N 0-2 Blood Morphology Comment August 20, 2013 10:15am Normal NORMAL Blood Urea Nitrogen November 15, 2014 11:40am 12 mg/dL N 7-18 C-Reactive Protein December 25, 2013 6:51pm 0.70 MG/DL N 0.0-0.9 Collected by nurse? N Calcium Level November 15, 2014 11:40am 9.8 mg/dL N 8.8-10.8 Calcium/Ionized Calcium Ratio November 15, 2014 11:40am 4.1 mg/dL N 3.8- 4.6 Calculated Osmolality November 15, 2014 11:40am 274 mosm/L L 280-300 Carbon Dioxide Level November 15, 2014 11:40am 25 mmol/L N 22-29 Chlamydia trachomatis RNA April 26, 2014 8:30am Negative Negative Chlamydia/GC DNA Probe Source April 26, 2014 8:30am Urine () Corrected result; previously reported as Urine on 04/26/14 at 12:42 by V/AUT--- 04/27/14 2349 --- GC.CHL SOURCE previously reported as: Urine Chloride Level November 15, 2014 11:40am 105 mmol/L N 98-108 Creatine Kinase MB November 15, 2014 11:40am 1.6 ng/mL N 0.0-6.0 Creatinine November 15, 2014 11:40am 0.88 mg/dL N 0.8-1.5 D-Dimer August 20, 2013 10:15am 0.43 ug/mL PH 0.00-0.41 Results called to Ladan read back the results. Called by Janna Greenwood at 1044 Differential Total Cells Counted August 20, 2013 10:15am 100 Eosinophils # August 20, 2013 10:15am 0.0 # Eosinophils # (Auto) November 15, 2014 11:40am 0.0 10^3uL Eosinophils % (Manual) August 20, 2013 10:15am 0 % N 0-4 Eosinophils (%) (Auto) November 15, 2014 11:40am 1 % N 0-4 Erythrocyte Sedimentation Rate December 25, 2013 6:51pm 8 mm/hr N 0-12 Collected by nurse? N Estimat Glomerular Filtration Rate November 15, 2014 11:40am 116.1 Estimated GFR (Non- November 15, 2014 11:40am 95.9 Glucose Level November 15, 2014 11:40am 101 mg/dL N 70-110 Hematocrit November 15, 2014 11:40am 40.60 % N 39.00-50.00 Hemoglobin November 15, 2014 11:40am 14.1 g/dL N 13.5-17.0 Iron (send out) October 14, 2012 2:48am 75 ug/dL 65-175 Lipase January 20, 2014 12:45pm 58 U/L N 23-300 Collected by nurse? N Lymphocytes # August 20, 2013 10:15am 0.4 # Lymphocytes # (Auto) November 15, 2014 11:40am 1.3 X10^3 Lymphocytes % (Manual) August 20, 2013 10:15am 8 % L 20-46 Lymphocytes (%) (Auto) November 15, 2014 11:40am 21 % N 20-46 Magnesium Level September 15, 2013 5:35am 2.1 MG/DL N 1.6-2.3 Collected by nurse? N Mean Corpuscular Hemoglobin November 15, 2014 11:40am 28.7 PG N 26.0-34.0 Mean Corpuscular Hemoglobin Concent November 15, 2014 11:40am 34.7 g/dL N 31.0-37.0 Mean Corpuscular Volume November 15, 2014 11:40am 83 FL N 80-100 Mean Platelet Volume November 15, 2014 11:40am 8.6 FL N 6.0-9.5 Metamyelocytes % August 20, 2013 10:15am 0 % N 0-1 Monocytes # August 20, 2013 10:15am 0.1 # Monocytes # (Auto) November 15, 2014 11:40am 0.7 X10^3 Monocytes % (Manual) August 20, 2013 10:15am 2 % L 3-11 Monocytes (%) (Auto) November 15, 2014 11:40am 11 % N 3-11 N. gonorrhoeae DNA Specimen Source April 26, 2014 8:30am Urine () Corrected result; previously reported as Urine on 04/26/14 at 12:42 by V/AUT-- - 04/27/14 2349 --- NGON SOURCE previously reported as: Urine Neisseria gonorrhoeae RNA April 26, 2014 8:30am Negative Negative Test Performed by:[place] [address] Sales Manager [place]: Ernst Stiles III, M.D. Neutrophils # August 20, 2013 10:15am 4.7 # Neutrophils # (Auto) November 15, 2014 11:40am 4.2 X10^3 Neutrophils (%) (Auto) November 15, 2014 11:40am 67 % N 51-67 Platelet Count November 15, 2014 11:40am 413 10^3uL N 150-450 Potassium Level November 15, 2014 11:40am 4.0 mmol/L N 3.5-5.1 Prothromb Time International Ratio November 15, 2014 11:40am 1.0 N 0.8-1.4 Prothrombin Time November 15, 2014 11:40am 13.1 SEC N 11.9-14.2 Rapid Plasma Reagin April 26, 2014 9:15am Non-reactive () Red Blood Count November 15, 2014 11:40am 4.92 10^6uL N 4.50-5.50 Red Cell Distribution Width November 15, 2014 11:40am 12.9 % N 11.8-15.6 Salicylates Level August 27, 2013 2:30pm < 1.0 MG/DL L 2.0-20.0 Collected by nurse? N Segmented Neutrophils % August 20, 2013 10:15am 90 % H 51-67 Serum Alcohol November 13, 2014 6:50pm < 10.0 mg/dL L 10-80 Sodium Level November 15, 2014 11:40am 142 mmol/L N 135-150 Stool Occult Blood November 14, 2013 11:59pm Negative Negative --- 08/30 0016 ---OCCULT BLOOD previously reported as: Negative Stool Occult Blood Expiration Date November 14, 2013 11:59pm 11/29 -- - 11/15/1315 ---OBEXP previously reported as: 11/29 Stool Occult Blood Lot Number November 14, 2013 11:59pm [id number] --- 08/30 ---OCCULT BLOOD LO previously reported as: 1121 Streptococcus Screen March 29, 2014 6:55am Negative Negative Total Bilirubin November 15, 2014 11:40am 0.6 mg/dL N 0.1-1.0 Total Creatine Kinase November 15, 2014 11:40am 115 U/L N 55-170 Total Iron Binding Capacity October 14, 2012 2:48am 393 ug/dL 260- 445 Total Protein November 15, 2014 11:40am 7.7 g/dL N 6.4-8.5 Transferrin % Saturation October 14, 2012 2:48am 19 % 11-46 Troponin I November 15, 2014 11:40am < 0.012 ng/mL 0.010-0.080 Ur Tricyclic Antidepressants [...] developed and its performance characteristics determined by [facility]. It has not been cleared or approved by the U.S. Food and Drug Administration. Test Performed by: [facility] - [address] [address] Sales Manager [place]: Ernst Stiles III, M.D. Urine Nitrite March [...] 26, 2012 10:55pm Negative Negative Urine Specific [place] March 29, 2014 6:55am 1.020 1.005-1.030 Urine [...] method Clean Catch White Blood Count November 15, 2014 11:40am 6.30 10^3uL N 4.0-11.0 Group A Streptococcus Culture Throat March 29, 2014 6:55am Procedures Procedure Status Date Provider(s) ROUTINE VENIPUNCTURE completed 11/11/14 METABOLIC PANEL TOTAL CA completed 11/11/14 ASSAY OF TROPONIN QUANT completed 11/11/14 ELECTROCARDIOGRAM TRACING completed 11/11/14 HYDRATION IV INFUSION INIT completed 11/11/14 EMERGENCY DEPT VISIT completed 11/11/14 completed 11/11/14 Encounters Encounter Location Date/Time Departed Emergency Room [facility] 11/15/14 11:11am Departed Emergency Room [facility] 11/13/14 6:22pm Departed Emergency Room [facility] 11/11/14 1:06pm Registered Emergency Room [facility] 11/06/14 6:02pm Recent Diagnosis
--- OUTSIDE RECORDS SUMMARY | 2017-01-06 21:49 | XMS REPORT | Continuity of Care Document ---
Author Author [facility] Address Unknown Phone Unavailable Care Team Providers Care Label Drier Name Role Phone Lawrence Sher MD Primary Care Physician [phone] Insurance Providers Payer Name Policy Number Subscriber Name Relationship [facility] [id number] Chin Weber 17 Self / Same As Patient Advance Directives Directive Response Recorded Date/Time Advanced Directives No 04/28/16 1:59pm Chief Complaint and Reason for Visit Chief Complaint Cardiac Complaint Reason for Visit Drug abuse Methamphetamine addiction Chest discomfort Problems Active Problems Medical Problem [...] Days/Qty Instructions Start Date Cyanocobalamin 1,000 Mcg [id number] Mcg ORAL Daily 09/16/13 Multivits,Th W-Fe,Other Min 1 Each 1 Each ORAL Daily 09/16/13 [place]-3 Fatty Acids/Fish Oil 1 Each 1 Each [...] discharge instructions. Plan of Care Discharge Date 04/28/16 3:19pm Disposition 01 HOME OR SELF-CARE Condition at Discharge Stable Instructions/Education Provided Chest Pain (ED) Methamphetamine Abuse (ED) Prescriptions See Medication Section Referrals Lawrence Sher MD - Additional Instructions/Education ED [place] if any worse. [...] worrisome symptoms. * Emergency Department phone number: [phone], x [phone]* MEDICAL RECORD If you need copies of your X-rays, call [phone] x [phone]. If you need copies of [...] [employer] Emergency Room Services [facility] Physician Services [facility] X-[facility] Patients will receive bills for services from the appropriate provider. If you have any questions about your [facility] bill, our staff will be happy to assist you. Please call [phone], and ask for the billing department. THANK YOU for choosing [facility] as your emergency care provider! Care Plan and Goals ~~Discharge Care Plan~~ Problem: Chest, epigastric or chest wall pain Goal: Decreased pain Instructions: Follow home discharge instructions. Follow up with primary care physician or labor service representative as directed. Functional Status No functional status results. Allergies, Adverse Reactions, Alerts No known allergies. Immunizations Name Given Type Status Date Pneumonia Vaccine Received if Current 08/17/08 Historical Historical Date Influenza Vaccine Received if Current 05/29/13 Historical Historical Vital Signs Acute Vital Signs Vital Response Date/Time Temperature (Fahrenheit) 98.1 04/28/2016 3:06pm Pulse 101 bpm 04/28/2016 3:06pm Respirations 16 04/28/2016 3:06pm Height 5 ft 7 in Weight 173 lb Body Mass Index 27.0 kg/m^2 Results Laboratory Results Test Name Result Units Flags Reference Collection Date/Time Result Date/ Time Comments White Blood Count 5.07 10^3uL 4.0-11.0 03/29/2016 11:56am 03/29/2016 12 :09pm Red Blood Count 4.29 10^6uL L 4.50-5.50 03/29/2016 11:5603/29/2016 12 :09pm Hemoglobin 12.5 g/dL L 13.5-17.0 03/29/2016 11:5603/29/2016 12:09pm Hematocrit 35.30 % L 39.00-50.00 03/29/2016 11:5603/29/2016 12:09pm Mean Corpuscular Volume 82 FL 80-100 03/29/2016 11:5603/29/2016 12: 09pm Mean Corpuscular Hemoglobin 29.1 PG 26.0-34.0 03/29/2016 11:562015 12:09pm Mean Corpuscular Hemoglobin Concent 35.4 g/dL 31.0-37.0 03/29/2016 11: 5603/29/2016 12:09pm Red Cell Distribution Width 12.5 % 11.8-15.6 03/29/2016 11:562015 12:09pm Platelet Count 360 10^3uL 150-450 03/29/2016 11:5603/29/2016 12: 09pm Mean Platelet Volume 8.7 FL 6.0-9.5 03/29/2016 11:5603/29/2016 12: 09pm Neutrophils (%) (Auto) 59 % 51-67 03/29/2016 11:5603/29/2016 12: 09pm Lymphocytes (%) (Auto) 25 % 20-46 03/29/2016 11:5603/29/2016 12: 09pm Monocytes (%) (Auto) 14 % H 3-11 03/29/2016 11:5603/29/2016 12:09pm Eosinophils (%) (Auto) 1 % 0-4 03/29/2016 11:5603/29/2016 12:09pm Basophils (%) (Auto) 1 % 0-2 03/29/2016 11:5603/29/2016 12:09pm Neutrophils # (Auto) 3.0 X10^3 03/29/2016 11:5603/29/2016 12:09pm Lymphocytes # (Auto) 1.2 X10^3 03/29/2016 11:56am 03/29/2016 12:09pm Monocytes # (Auto) 0.7 X10^3 03/29/2016 11:56am 03/29/2016 12:09pm Eosinophils # (Auto) 0.0 10^3uL 03/29/2016 11:56am 03/29/2016 12: 09pm Basophils # (Auto) 0.1 10^3uL 03/29/2016 11:56am 03/29/2016 12:09pm Sodium Level 147 mmol/L 135-150 03/29/2016 11:56am 03/29/2016 12:20pm Potassium Level 3.5 mmol/L 3.5-5.1 03/29/2016 11:56am 03/29/2016 12: 20pm Chloride Level 107 mmol/L 98-108 03/29/2016 11:56am 03/29/2016 12:20pm Carbon Dioxide Level 28 mmol/L 22-29 03/29/2016 11:56am 03/29/2016 12: 20pm Anion Gap 16.5 MEQ/L H 3-15 03/29/2016 11:56am 03/29/2016 12:20pm Blood Urea Nitrogen 8 mg/dL 7-18 03/29/2016 11:56am 03/29/2016 12:20pm Creatinine 0.87 mg/dL 0.8-1.5 03/29/2016 11:56am 03/29/2016 12:20pm BUN/Creatinine Ratio 9 L 10-20 03/29/2016 11:56am 03/29/2016 12:20pm Estimat Glomerular Filtration Rate 117.0 03/29/2016 11:562015 12:20pm Estimated GFR (Non- 96.7 03/29/2016 11:56am 2015 12:20pm Glucose Level 127 mg/dL # H 70-110 03/29/2016 11:56am 03/29/2016 12:20pm Calculated Osmolality 284 mosm/L 280-300 03/29/2016 11:56am 03/29/2016 12:20pm Calcium Level 9.1 mg/dL 8.8-10.8 03/29/2016 11:56am 03/29/2016 12:20pm Calcium/Ionized Calcium Ratio 4.0 mg/dL 3.8-4.6 03/29/2016 11:56am 12:20pm Total Bilirubin 0.5 mg/dL 0.1-1.0 03/29/2016 [...] 04/19/16 Completed 04/19/16 Completed 04/19/16 Completed 04/19/16 ROUTINE VENIPUNCTURE Completed 04/21/16 COMPREHEN METABOLIC PANEL Completed 04/21/16 ASSAY OF MAGNESIUM Completed 04/21/16 ASSAY OF TROPONIN QUANT Completed 04/21/16 COMPLETE CBC W/AUTO DIFF WBC Completed 04/21/16 ELECTROCARDIOGRAM TRACING Completed 04/21/16 EMERGENCY DEPT VISIT Completed 04/21/16 Encounters Encounter Location Arrival/Admit Date Discharge/Depart Date Attending Provider Departed Emergency Room [facility] 04/28/16 1:54pm 04/28/16 3:19pm WILLIAM SOSA MD Departed Emergency Room [facility] 04/24/16 12:15am 04/24/16 1:51am HAYDEN DUFF MD Departed Emergency Room [facility] 04/21/16 7:59pm 04/21/16 11:42pm HAYDEN DUFF MD Departed Emergency Room [facility] 04/19/16 1:46pm 04/19/16 6:11pm DIDIER ALBERT MD Departed Emergency Room [facility] 04/18/16 6:53am 04/18/16 9:30am VASU QIU MD Discharged Inpatient (obs) [facility] 04/14/16 7:37pm 04/16/16 1: 38pm KIRSTIE RIVERA MD Departed Emergency Room [facility] 04/04/16 3:01am 04/04/16 6:38am UZIEL POSEY MD Departed Emergency Room [facility] 03/29/16 10:28am 03/29/16 4:41pm WILLIAM SOSA MD Recent Diagnosis
--- OUTSIDE RECORDS SUMMARY | 2017-01-06 21:50 | XMS REPORT | Continuity of Care Document ---
Author Author [facility] Organization [facility] Address Unknown Phone Unavailable Care Team Providers Care Crop Quantitative Geneticist Name Role Phone Lawrence Sher MD Primary Care Physician [phone] Insurance Providers Payer Name Policy Number Subscriber Name Relationship Self Pay/Approved Full [facility] [id number] Chin Weber 17 Self / Same As Patient Chief Complaint and Reason for Visit Chief Complaint Abuse Reason for Visit Drug abuse Methamphetamine addiction Constipation [id number] Problems Medical Problems Problem Onset Date Status [...] Abdominal pain ~02/02/2015 Active Constipation Unknown Active Medications Medication Dose Route Sig [...] DAILY 30 Qty 08/28/13 09/13/13 Discontinued Cyanocobalamin 2582-3186 Mcg ORAL DAILY 09/16/13 Active Multivits,Th W-Fe,Other Min 1 Each ORAL DAILY 09/16/13 Active [place]-3 Fatty Acids/Fish Oil 1 Each ORAL DAILY [...] Magnesium 20 Mg ORAL DAILY 02/02/15 Active Social History No social history. Hospital Discharge Instructions No hospital discharge instructions. Plan of Care Discharge Date 02/14/15 9:09am Disposition 01 HOME OR SELF-CARE Condition at Discharge Stable Instructions/Education Provided Constipation (ED) Generalized Anxiety Disorder (ED) Methamphetamine Abuse (ED) Prescriptions See Medications Section Referrals Lawrence Sher MD Additional Instructions/Education ED [place] if any worse. Follow up with your doctor. Drink 1 bottle Mag Citrate when at home. Contact your doctor in regard help with Methamphetamine cessation. Some of your test results may not [...] worrisome symptoms. * Emergency Department phone number: [phone], x [phone]* MEDICAL RECORD If you need copies of your X-rays, call [phone] x [phone]. If you need copies of [...] services. SERVICE BILLING LIBERTARIAN Emergency Room Services [facility] Physician Services [facility] X[facility] [place] [facility] Patients will receive bills for services from the appropriate provider. If you have any questions about your [facility] bill, our staff will be happy to assist you. Please call [phone], and ask for the billing department. THANK YOU for choosing [facility] as your emergency care provider! Functional Status No functional status results. Allergies, Adverse Reactions, Alerts Allergen Type Severity Reaction Status Last Updated No Known Drug Allergies Active 02/14/15 Immunizations No immunization records. Vital Signs Acute Vital Signs Vital Response Date/Time Temperature (Fahrenheit) 98.5 Pulse 65 bpm Respirations 18 Height 5 ft 7 in Weight 169 lb Body Mass Index 26.0 kg/m^2 Results Test Source Date Result Interp. Ref. Range Comments Absolute Band Neutrophils November 20, 2014 7:20pm 0.1 # Acetaminophen Level August 27, 2013 2:30pm < 10.0 UG/ML L 10.0-30.0 Collected by nurse? N Activated Partial Thromboplast Time January 06, 2015 6:35am 30.3 SEC N 24.9- 35.9 Alanine Aminotransferase (ALT/SGPT) February 14, 2015 7:20am 30 U/L N 30-65 Albumin February 14, 2015 7:20am 4.1 g/dL N 3.4-5.0 Albumin/Globulin Ratio February 14, 2015 7:20am 1.464 N 1.1-1.8 Alkaline Phosphatase February 14, 2015 7:20am 67 U/L N 38-126 Amylase Level February 02, 2015 7:39am 77 U/L N 25-115 Anion Gap February 14, 2015 7:20am 14.7 MEQ/L N 3-15 Aspartate Amino Transf (AST/SGOT) February 14, 2015 7:20am 22 U/L N 15-37 B-Type Natriuretic Peptide August 20, 2013 10:15am 7 PG/ML N 0-100 BUN/Creatinine Ratio February 14, 2015 7:20am 10 N 10-20 Band Neutrophils % November 20, 2014 7:20pm 1 % N 0-6 Basophils # (Auto) February 14, 2015 7:20am 0.0 10^3uL Basophils % (Manual) November 20, 2014 7:20pm 0 % N 0-2 Basophils (%) (Auto) February 14, 2015 7:20am 1 % N 0-2 Blood Morphology Comment November 20, 2014 7:20pm Normal NORMAL Blood Urea Nitrogen February 14, 2015 7:20am 8 mg/dL N 7-18 C-Reactive Protein December 25, 2013 6:51pm 0.70 MG/DL N 0.0-0.9 Collected by nurse? N Calcium Level February 14, 2015 7:20am 9.0 mg/dL N 8.8-10.8 Calcium/Ionized Calcium Ratio February 14, 2015 7:20am 4.0 mg/dL N 3.8-4.6 Calculated Osmolality February 14, 2015 7:20am 261 mosm/L L 280-300 Carbon Dioxide Level February 14, 2015 7:20am 26 mmol/L N 22-29 Chlamydia trachomatis RNA April 26, 2014 8:30am Negative Negative Chlamydia/GC DNA Probe Source April 26, 2014 8:30am Urine () Corrected result; previously reported as Urine on 04/26/14 at 12:42 by V/AUT--- 04/27/14 2349 --- GC.CHL SOURCE previously reported as: Urine Chloride Level February 14, 2015 7:20am 99 mmol/L N 98-108 Creatine Kinase MB February 14, 2015 7:20am 1.6 ng/mL N 0.0-6.0 Creatinine February 14, 2015 7:20am 0.83 mg/dL N 0.8-1.5 D-Dimer August 20, 2013 10:15am 0.43 ug/mL PH 0.00-0.41 Results called to Ladan read back the results. Called by Janna Greenwood at 1044 Differential Total Cells Counted November 20, 2014 7:20pm 100 Eosinophils # November 20, 2014 7:20pm 0.0 # Eosinophils # (Auto) February 14, 2015 7:20am 0.1 10^3uL Eosinophils % (Manual) November 20, 2014 7:20pm 0 % N 0-4 Eosinophils (%) (Auto) February 14, 2015 7:20am 2 % N 0-4 Erythrocyte Sedimentation Rate December 25, 2013 6:51pm 8 mm/hr N 0-12 Collected by nurse? N Estimat Glomerular Filtration Rate February 14, 2015 7:20am 124.2 Estimated GFR (Non- February 14, 2015 7:20am 102.6 Glucose Level February 14, 2015 7:20am 90 mg/dL N 70-110 Hematocrit February 14, 2015 7:20am 37.70 % L 39.00-50.00 Hemoglobin February 14, 2015 7:20am 13.2 g/dL L 13.5-17.0 Iron (send out) October 14, 2012 2:48am 75 ug/dL 65-175 Lipase February 02, 2015 7:39am 141 U/L N 23-300 Lymphocytes # November 20, 2014 7:20pm 1.0 # Lymphocytes # (Auto) February 14, 2015 7:20am 2.2 X10^3 Lymphocytes % (Manual) November 20, 2014 7:20pm 9 % L 20-46 Lymphocytes (%) (Auto) February 14, 2015 7:20am 36 % N 20-46 Magnesium Level September 15, 2013 5:35am 2.1 MG/DL N 1.6-2.3 Collected by nurse? N Mean Corpuscular Hemoglobin February 14, 2015 7:20am 28.8 PG N 26.0-34.0 Mean Corpuscular Hemoglobin Concent February 14, 2015 7:20am 35.0 g/dL N 31.0-37.0 Mean Corpuscular Volume February 14, 2015 7:20am 82 FL N 80-100 Mean Platelet Volume February 14, 2015 7:20am 8.6 FL N 6.0-9.5 Metamyelocytes % August 20, 2013 10:15am 0 % N 0-1 Monocytes # November 20, 2014 7:20pm 0.3 # Monocytes # (Auto) February 14, 2015 7:20am 0.8 X10^3 Monocytes % (Manual) November 20, 2014 7:20pm 3 % N 3-11 Monocytes (%) (Auto) February 14, 2015 7:20am 13 % H 3-11 N. gonorrhoeae DNA Specimen Source April 26, 2014 8:30am Urine () Corrected result; previously reported as Urine on 04/26/14 at 12:42 by V/AUT-- - 04/27/14 2349 --- NGON SOURCE previously reported as: Urine Neisseria gonorrhoeae RNA April 26, 2014 8:30am Negative Negative Test Performed by:[address] [address] Barrel Assembler Helper: Ernst Stiles III, M.D. Neutrophils # November 20, 2014 7:20pm 9.7 # Neutrophils # (Auto) February 14, 2015 7:20am 3.0 X10^3 Neutrophils (%) (Auto) February 14, 2015 7:20am 49 % L 51-67 Platelet Count February 14, 2015 7:20am 298 10^3uL N 150-450 Potassium Level February 14, 2015 7:20am 3.4 mmol/L L 3.5-5.1 Prothromb Time International Ratio January 06, 2015 6:35am 1.1 N 0.8-1.4 Prothrombin Time January 06, 2015 6:35am 13.6 SEC N 11.9-14.2 Rapid Plasma Reagin April 26, 2014 9:15am Non-reactive () Red Blood Count February 14, 2015 7:20am 4.59 10^6uL N 4.50-5.50 Red Cell Distribution Width February 14, 2015 7:20am 12.7 % N 11.8-15.6 Salicylates Level August 27, 2013 2:30pm < 1.0 MG/DL L 2.0-20.0 Collected by nurse? N Segmented Neutrophils % November 20, 2014 7:20pm 87 % H 51-67 Serum Alcohol November 25, 2014 9:00pm < 10.0 mg/dL L 10-80 Sodium Level February 14, 2015 7:20am 136 mmol/L DN 135-150 Stool Occult Blood February 02, 2015 7:27am Positive NEGATIVE Stool Occult Blood Expiration Date November 14, 2013 11:59pm 11/29 -- - 11/15/1315 ---OBEXP previously reported as: 11/29 Stool Occult Blood Lot Number November 14, 2013 11:59pm [id number] --- 08/30 ---OCCULT BLOOD LO previously reported as: [id number] Streptococcus Screen March 29, 2014 6:55am Negative Negative Total Bilirubin February 14, 2015 7:20am 0.6 mg/dL DN 0.1-1.0 Total Creatine Kinase February 14, 2015 7:20am 147 U/L DN 55-170 Total Iron Binding Capacity October 14, 2012 2:48am 393 ug/dL 260- 445 Total Protein February 14, 2015 7:20am 6.9 g/dL N 6.4-8.5 Transferrin % Saturation October 14, 2012 2:48am 19 % 11-46 Troponin I January 06, 2015 8:38am < 0.012 ng/mL 0.010-0.080 Urine Bacteria January 06, 2015 8:35am None seen /HPF Urine collection method Clean Catch Urine Bilirubin February 14, 2015 7:30am Negative Negative Urine collection method Clean Catch Urine Blood March 29, 2014 6:55am Negative Negative Urine Clarity February 14, 2015 7:30am Clear Urine collection method Clean Catch Urine Collection Type February 14, 2015 7:30am Clean catch Urine collection method Clean Catch Urine Color February 14, 2015 7:30am Yellow Urine collection method Clean Catch Urine Glucose (UA) February 14, 2015 7:30am Negative Negative Urine collection method Clean Catch Urine Hyaline Casts July 04, 2013 3:52am 3+ /LPF H Urine collection method Clean Catch Urine Ketones February 14, 2015 7:30am Negative Negative Urine collection method Clean Catch Urine Leukocyte Esterase February 14, 2015 7:30am Negative Negative Urine collection method Clean Catch Urine Mucus January 06, 2015 8:35am 3+ H Urine collection method Clean Catch Urine [...] its performance characteristics determined by [facility]. It has not been cleared or approved by the U.S. Food and Drug Administration. Test Performed by: [facility] [address] [address] Barrel Assembler Helper: Ernst Stiles III, M.D. Urine Nitrite February 14, 2015 7:30am Negative Negative Urine collection method Clean Catch Urine Protein February 14, 2015 7:30am Negative Negative Urine collection method Clean Catch Urine RBC January 06, 2015 8:35am 0-2 /HPF Urine collection method Clean Catch Urine RBC (Auto) February 14, 2015 7:30am Negative Negative Urine collection method Clean Catch Urine Specific [place] February 14, 2015 7:30am <=1.005 1.005-1.030 Urine collection method Clean Catch Urine Squamous Epithelial Cells January 06, 2015 8:35am 0-2 /LPF Urine collection method Clean Catch Urine Urobilinogen February 14, 2015 7:30am 0.2 mg/dL 0.2-1.0 Urine collection method Clean Catch Urine WBC January 06, 2015 8:35am None seen /HPF Urine collection method Clean Catch Urine pH February 14, 2015 7:30am 6.5 5.0 - 8.0 Urine collection method Clean Catch Volume Urine Centrifuged January 06, 2015 8:35am 12 ml Urine collection method Clean Catch White Blood Count February 14, 2015 7:20am 6.19 10^3uL N 4.0-11.0 Group A Streptococcus Culture Throat March 29, 2014 6:55am Procedures Procedure Status Date Provider(s) ROUTINE VENIPUNCTURE completed 02/02/15 X-RAY EXAM SERIES ABDOMEN completed 02/02/15 COMPREHEN METABOLIC PANEL completed 02/02/15 DRUG SCREEN CLASS LIST A completed 02/02/15 URINALYSIS AUTO W/O SCOPE completed 02/02/15 ASSAY OF AMYLASE completed 02/02/15 ASSAY TEST FOR BLOOD FECAL completed 02/02/15 ASSAY OF LIPASE completed 02/02/15 COMPLETE CBC W/AUTO DIFF WBC completed 02/02/15 MEASURE BLOOD OXYGEN LEVEL completed 02/02/15 HYDRATE IV INFUSION ADD-ON completed 02/02/15 EMERGENCY DEPT VISIT completed 02/02/15 completed 02/02/15 Encounters Encounter Location Date/Time Departed Emergency Room [facility] 02/14/15 6:07am Departed Emergency Room [facility] 02/02/15 7:07am Recent Diagnosis
--- OUTSIDE RECORDS SUMMARY | 2017-01-06 21:50 | XMS REPORT | Continuity of Care Document ---
Author Author [facility] Organization [facility] Address Unknown Phone Unavailable Care Team Providers Care Fare Register Repairer Name Role Phone Lawrence Sher MD Primary Care Physician [phone] Insurance Providers Payer Name Policy Number Subscriber Name Relationship Self Pay Chin Limon 17 Self / Same As Patient Chief Complaint and Reason for Visit Chief Complaint Cardiac Complaint Reason for Visit Chest pain Methamphetamine abuse Problems Medical Problems Problem Onset Date [...] Cellulitis Unknown Active Methamphetamine abuse ~11/16/2014 Active Medications Medication Dose Route Sig Days/Qty [...] DAILY 30 Qty 08/28/13 09/13/13 Discontinued Cyanocobalamin 9953-8960 Mcg ORAL DAILY 09/16/13 Active Multivits,Th W-Fe,Other Min 1 Each ORAL DAILY 09/16/13 Active [place]-3 Fatty Acids/Fish Oil 1 Each ORAL DAILY [...] discharge instructions. Plan of Care Discharge Date 11/16/14 9:45pm Disposition 01 HOME OR SELF-CARE Condition at Discharge Stable Instructions/Education Provided Chest Pain (ED) Panic Disorder (ED) Methamphetamine Abuse (ED) Prescriptions See Medications Section Referrals Lawrence Sher MD Additional Instructions/Education Stop using methamphetamine. You are not having a heart attack. Follow up with Dr. Sher tomorrow. Some of your test results may not [...] worrisome symptoms. * Emergency Department phone number: [phone], x [phone]* MEDICAL RECORD If you need copies of your X-rays, call [phone] x [phone]. If you need copies of [...] SERVICE BILLING CONSTITUTION PARTY Emergency Room Services [facility] Physician Services [facility] [place] [facility] Patients will receive bills for services from the appropriate provider. If you have any questions about your [facility] bill, our staff will be happy to assist you. Please call [phone], and ask for the billing department. THANK YOU for choosing [facility] as your emergency care provider! Functional Status No functional status results. Allergies, Adverse Reactions, Alerts Allergen Type Severity Reaction Status Last Updated No Known Drug Allergies Active 03/03/14 Immunizations No immunization records. Vital Signs Acute Vital Signs Vital Response Date/Time Temperature (Fahrenheit) 98.0 Pulse 90 bpm Respirations 18 Height 5 ft 7 in Weight 174 lb Body Mass Index 27.0 kg/m^2 Results Test Source Date Result Interp. Ref. Range Comments Group A Streptococcus Culture Throat March 29, [...] 11/13/14 completed 11/13/14 completed 11/13/14 completed 11/13/14 Encounters Encounter Location Date/Time Registered Emergency Room [facility] 11/16/14 8:21pm Departed Emergency Room [facility] 11/15/14 11:11am Departed Emergency Room [facility] 11/13/14 6:22pm Departed Emergency Room [facility] 11/11/14 1:06pm Registered Emergency Room [facility] 11/06/14 6:02pm Recent Diagnosis
--- OUTSIDE RECORDS SUMMARY | 2017-01-06 21:51 | XMS REPORT | Continuity of Care Document ---
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 HAYDEN DUFF MD R Ot R07.9 CHEST PAIN, UNSPECIFIED 04/28/2016 WILLIAM SOSA MD P Ot F15.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, UNCOMPLICATE 04/28/2016 WILLIAM SOSA MD P Ot R07.9 CHEST PAIN, UNSPECIFIED 04/29/2016 HAYDEN DUFF MD R Ot F15.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, UNCOMPLICATE 04/29/2016 HAYDEN DUFF MD R Ot F41.9 ANXIETY DISORDER, UNSPECIFIED 04/29/2016 HAYDEN DUFF MD R Ot R07.9 CHEST PAIN, UNSPECIFIED 05/01/2016 HAYDEN DUFF MD R Ot F15.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, UNCOMPLICATE 05/01/2016 HAYDEN DUFF MD R Ot F41.9 ANXIETY DISORDER, UNSPECIFIED 05/01/2016 HAYDEN DUFF MD R Ot R07.9 CHEST PAIN, UNSPECIFIED 05/01/2016 Christos GOMEZ, Lawrence Lang Ot 789.00 ABDOMINAL PAIN, UNSPECIFIED SITE 05/01/2016 Eligio GOMEZ, Mika Alvares Ot M25.521 PAIN IN RIGHT ELBOW 05/01/2016 Eligio GOMEZ, Mika Alvares Ot M25.522 PAIN IN LEFT ELBOW 05/01/2016 Eligio GOMEZ, Mika Alvares Ot M79.641 PAIN IN RIGHT HAND 05/01/2016 Del ValleMika de los santos MD Ot M79.642 PAIN IN LEFT HAND 05/01/2016 Mika Del Valle MD Ot M79.644 PAIN IN RIGHT FINGER(S) 05/01/2016 Mika Del Valle MD Ot M79.645 PAIN IN LEFT FINGER(S) 05/01/2016 Mika Del Valle MD Ot R20.8 OTHER DISTURBANCES OF SKIN SENSATION 05/01/2016 WILLIAM SOSA MD Ot F15.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, UNCOMPLICATE 05/01/2016 WILLIAM SOSA MD Ot R07.9 CHEST PAIN, UNSPECIFIED 05/01/2016 Christos GOMEZ, Lawrence Lang Ot 789.00 ABDOMINAL PAIN, UNSPECIFIED SITE 05/01/2016 Mika Del Valle MD Ot M25.521 PAIN IN RIGHT ELBOW 05/01/2016 Mika Del Valle MD Ot M25.522 PAIN IN LEFT ELBOW 05/01/2016 Mika Del Valle MD Ot M79.641 PAIN IN RIGHT HAND 05/01/2016 Mika Del Valle MD Ot M79.642 PAIN IN LEFT HAND 05/01/2016 Mika Del Valle MD Ot M79.644 PAIN IN RIGHT FINGER(S) 05/01/2016 Mika Del Valle MD Ot M79.645 PAIN IN LEFT FINGER(S) 05/01/2016 Mika Del Valle MD Ot R20.8 OTHER DISTURBANCES OF SKIN SENSATION 05/07/2016 Christos GOMEZ, Lawrence M Ot F15.90 OTHER STIMULANT USE, UNSPECIFIED, UNCOMP 05/12/2016 Christos GOMEZ, Lawrence M Ot 789.00 ABDOMINAL PAIN, UNSPECIFIED SITE 05/12/2016 Mika Del Valle MD Ot M25.521 PAIN IN RIGHT ELBOW 05/12/2016 Mika Del Valle MD Ot M25.522 PAIN IN LEFT ELBOW 05/12/2016 Mika Del Valle MD Ot M79.641 PAIN IN RIGHT HAND 05/12/2016 Mika Del Valle MD Ot M79.642 PAIN IN LEFT HAND 05/12/2016 Mika Del Valle MD Ot M79.644 PAIN IN RIGHT FINGER(S) 05/12/2016 Mika Del Valle MD Ot M79.645 PAIN IN LEFT FINGER(S) 05/12/2016 Mika Del Valle MD Ot R20.8 OTHER DISTURBANCES OF SKIN SENSATION 05/12/2016 Lawrence Sher MD Ot F15.90 OTHER STIMULANT USE, UNSPECIFIED, UNCOMP 05/12/2016 Lawrence Sher MD Ot F15.90 OTHER STIMULANT USE, UNSPECIFIED, UNCOMP 05/12/2016 Lawrence Sher MD Ot 789.00 ABDOMINAL PAIN, UNSPECIFIED SITE 05/12/2016 Mika Del Valle MD K Ot M25.521 PAIN IN RIGHT ELBOW 05/12/2016 Mika Del Valle MD K Ot M25.522 PAIN IN LEFT ELBOW 05/12/2016 Beckie Del Valle MDry K Ot M79.641 PAIN IN RIGHT HAND 05/12/2016 Mika Del Valle MD K Ot M79.642 PAIN IN LEFT HAND 05/12/2016 Mika Del Valle MD K Ot M79.644 PAIN IN RIGHT FINGER(S) 05/12/2016 Mika Del Valle MD K Ot M79.645 PAIN IN LEFT FINGER(S) 05/12/2016 Mika Del Valle MD Ot R20.8 OTHER DISTURBANCES OF SKIN SENSATION 05/12/2016 Lawrence Sher MD Ot F15.90 OTHER STIMULANT USE, UNSPECIFIED, UNCOMP 05/12/2016 Lawrence Sher MD Ot F15.90 OTHER STIMULANT USE, UNSPECIFIED, UNCOMP 05/12/2016 Lawrence Sher MD Ot F15.90 OTHER STIMULANT USE, UNSPECIFIED, UNCOMP 05/14/2016 Lawrence Sher MD Ot F15.90 OTHER STIMULANT USE, UNSPECIFIED, UNCOMP 05/14/2016 Lawrence Sher MD Ot F15.90 OTHER STIMULANT USE, UNSPECIFIED, UNCOMP 05/17/2016 Lawrence Sher MD Ot F15.90 OTHER STIMULANT USE, UNSPECIFIED, UNCOMP 05/17/2016 Lawrence Sher MD Ot F15.90 OTHER STIMULANT USE, UNSPECIFIED, UNCOMP 05/17/2016 Lawrence Sher MD Ot 789.00 ABDOMINAL PAIN, UNSPECIFIED SITE 05/17/2016 Mika Del Valle MD K Ot M25.521 PAIN IN RIGHT ELBOW 05/17/2016 Mika Del Valle MD K Ot M25.522 PAIN IN LEFT ELBOW 05/17/2016 Mika Del Valle MD Ot M79.641 PAIN IN RIGHT HAND 05/17/2016 Mika Del Valle MD Ot M79.642 PAIN IN LEFT HAND 05/17/2016 Mika Del Valle MD Ot M79.644 PAIN IN RIGHT FINGER(S) 05/17/2016 Mika Del Valle MD Ot M79.645 PAIN IN LEFT FINGER(S) 05/17/2016 Mika Del Valle MD Ot R20.8 OTHER DISTURBANCES OF SKIN SENSATION 05/17/2016 Lawrence Sher MD Ot F15.90 OTHER STIMULANT USE, UNSPECIFIED, UNCOMP 05/17/2016 Lawrence Sher MD Ot F15.90 OTHER STIMULANT USE, UNSPECIFIED, UNCOMP 06/04/2016 Lawrence Sher MD Ot 789.00 ABDOMINAL PAIN, UNSPECIFIED SITE 06/04/2016 Mika Del Valle MD Ot M25.521 PAIN IN RIGHT ELBOW 06/04/2016 Mika Del Valle MD Ot M25.522 PAIN IN LEFT ELBOW 06/04/2016 Mika Del Valle MD Ot M79.641 PAIN IN RIGHT HAND 06/04/2016 Mika Del Valle MD Ot M79.642 PAIN IN LEFT HAND 06/04/2016 Mika Del Valle MD Ot M79.644 PAIN IN RIGHT FINGER(S) 06/04/2016 Mika Del Valle MD Ot M79.645 PAIN IN LEFT FINGER(S) 06/04/2016 Mika Del Valle MD Ot R20.8 OTHER DISTURBANCES OF SKIN SENSATION 06/04/2016 Lawrence Sher MD Ot F15.90 OTHER STIMULANT USE, UNSPECIFIED, UNCOMP 06/04/2016 Lawrence Sher MD Ot F15.90 OTHER STIMULANT USE, UNSPECIFIED, UNCOMP 06/10/2016 SOTO INGRAM MD Ot M25.512 PAIN IN LEFT SHOULDER 06/10/2016 SOTO INGRAM MD Ot M75.112 INCOMPLETE ROTATR-CUFF TEAR/RUPTR OF L S 06/10/2016 SOTO INGRAM MD Ot N50.89 OTHER SPECIFIED DISORDERS OF THE MALE GE 06/12/2016 SOTO INGRAM MD, Ot M25.512 PAIN IN LEFT SHOULDER 06/13/2016 LA OSHEA DO Ot 786.50 CHEST PAIN NOS 06/13/2016 JORGE GOMEZ, NIHARIKA L Ot 786.50 CHEST PAIN NOS 06/13/2016 DAYO DAILEY, LA Lang Ot 305.70 AMPHETAMINE ABUSE-UNSPEC 06/13/2016 DAYO DAILEY, LA Lang Ot 786.50 CHEST PAIN NOS 06/13/2016 DAYO DAILEY, LA Lang Ot 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 06/13/2016 LA OSHEA DO Ot 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.3 UNDETERM POIS-PSYCHOTROP 06/13/2016 DEVIKA GOMEZ, LISA Edmonds Ot 786.50 CHEST PAIN NOS 06/13/2016 DEVIKA GOMEZ, LISA Edmonds Ot 787.01 NAUSEA WITH VOMITING 06/13/2016 MIRNA GOMEZ, FRNACES Kolb Ot 723.1 CERVICALGIA 06/13/2016 MIRNA GOMEZ, FRANCES Kolb Ot 786.50 CHEST PAIN NOS 06/13/2016 MIRNA GOMEZ, FRANCES Kolb Ot 789.00 ABDOMINAL PAIN, UNSPECIFIED SITE 06/13/2016 HECTOR GOMEZ, KIRSTIE Jones Ot 786.50 CHEST PAIN NOS 06/13/2016 Christos GOMEZ, Lawrence Lang Ot 721.0 CERVICAL SPONDYLOSIS 06/13/2016 Christos GOMEZ, Lawrence Lang Ot 721.3 LUMBOSACRAL SPONDYLOSIS 06/13/2016 Christos GOMEZ, Lawrence Lang Ot 724.3 SCIATICA 06/13/2016 Christos GOMEZ, Lawrence Lang Ot 784.0 HEADACHE 06/13/2016 Christos GOMEZ, Lawrence Lang Ot 789.01 ABDOMINAL PAIN, RIGHT UPPER QUADRANT 06/13/2016 Christos GOMEZ, Lawrence Lang Ot 789.00 ABDOMINAL PAIN, UNSPECIFIED SITE 06/13/2016 Shamar GOMEZ, Smith Can Ot R22.1 LOCALIZED SWELLING, MASS AND LUMP, NECK 06/13/2016 Candelaria GOMEZ, Damien Zhang Ot R35.0 FREQUENCY OF MICTURITION 06/13/2016 Damien Gaona MD Ot R39.15 URGENCY OF URINATION 06/13/2016 UYEN GOMEZ, VASU Lockhart Ot 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 06/13/2016 UYEN GOMEZ, VASU Lockhart Ot R07.89 OTHER CHEST PAIN 06/13/2016 KYAW GABREIL F[employer] J[employer] DEVELOPER Ot R10.84 GENERALIZED ABDOMINAL PAIN 06/13/2016 KYAW GABRIEL [employer] DEVELOPER Ot R11.2 NAUSEA WITH VOMITING, UNSPECIFIED 06/13/2016 KYAW GABRIEL [employer] DEVELOPER Ot R19.7 DIARRHEA, UNSPECIFIED 06/19/2016 SOTO INGRAM MD, Ot M25.512 PAIN IN LEFT SHOULDER 06/19/2016 SOTO INGRAM MD, Ot M75.112 INCOMPLETE ROTATR-CUFF TEAR/RUPTR OF L S 06/19/2016 SOTO INGRAM MD, Ot N50.89 OTHER SPECIFIED DISORDERS OF THE MALE GE 06/19/2016 SOTO INGRAM MD, Ot M25.512 PAIN IN LEFT SHOULDER 07/08/2016 SOTO INGRAM MD, Ot M54.12 RADICULOPATHY, CERVICAL REGION 07/08/2016 SOTO INGRAM MD, Ot M54.2 CERVICALGIA 07/24/2016 SOTO INGRAM MD, Ot M54.12 RADICULOPATHY, CERVICAL REGION 07/24/2016 SOTO INGRAM MD, Ot M54.2 CERVICALGIA 09/18/2016 SOTO INGRAM MD, Ot M25.512 PAIN IN LEFT SHOULDER 10/01/2016 NIHARIKA PATEL MD Ot R07.9 CHEST PAIN, UNSPECIFIED 10/01/2016 NIHARIKA PATEL MD L Ot Z82.41 FAMILY HISTORY OF SUDDEN CARDIAC 10/02/2016 ROOSEVELT GOMEZ, DIDIER Ot J42 UNSPECIFIED CHRONIC BRONCHITIS 10/02/2016 DIDIER ALBERT MD Ot R05 COUGH 10/08/2016 NIHARIKA PATEL MD Ot R07.9 CHEST PAIN, UNSPECIFIED 10/08/2016 NIHARIKA PATEL MD Ot Z82.41 FAMILY HISTORY OF SUDDEN CARDIAC 10/08/2016 ROOSEVELT GOMEZ, DIDIER Ot J42 UNSPECIFIED CHRONIC BRONCHITIS 10/08/2016 DIDIER ALBERT MD Ot R05 COUGH 11/23/2016 LA OSHEA DO Ot F15.10 OTHER STIMULANT ABUSE, UNCOMPLICATED 11/23/2016 LA OSHEA DO Ot R07.89 OTHER CHEST PAIN 11/27/2016 LA OSHEA DO Ot F15.10 OTHER STIMULANT ABUSE, UNCOMPLICATED 11/27/2016 LA OSHEA DO Ot R07.89 OTHER CHEST PAIN Procedures Code Description Performed By Performed On 45.16 12/13/2013 Results Test Result Range Complete blood count (CBC) with automated white blood cell (WBC) differential - 03/23/16 19:25 Blood automated leukocyte count 4.43 4.0 -11.0 Erythrocytes 4.50 4.50-5.50 12.0-16.0;g/dL 13.1 13.5-17.0 Hematocrit 36.70 39.00-50.00 Automated erythrocyte mean corpuscular volume 82 80-100 Mean corpuscular hemoglobin (MCH) determination 29.1 26.0-34.0 Automated erythrocyte mean corpuscular hemoglobin concentration measurement ( mass/volume) 35.7 31.0-37.0 Erythrocyte distribution width 12.5 11.8 -15.6 Automated blood platelet count 324 150- 450 Automated blood platelet mean volume measurement 9.1 6.0-9.5 Prothrombin time (PT) with international normalized ratio (INR) - 03/23/16 19: 25 Prothrombin time (PT) in platelet poor plasma by coagulation assay 14.3 11.6-14.2 INR in platelet poor plasma by coagulation assay 1.1 0.8-1.4 Activated partial thromboplastin time (aPTT) in platelet poor plasma bycoagulation assay - 03/23/16 19:25 Activated partial thromboplastin time (aPTT) in platelet poor plasma bycoagulation assay 30.6 24.9-35.9 Comprehensive metabolic panel - 03/23/16 19:25 Sodium measurement 97 70-110 Carbon dioxide measurement 29 22-29 Serum or plasma anion gap 18.1 3-15 BLOOD UREA NITROGEN 9 7-18 CREATININE SERUM 0.90 0.8-1.5 Brucella species antibody panel (IgG, IgM) 10 10-20 Estimated glomerular filtration rate (GFR) 112.5 Estimated glomerular filtration rate (GFR) non- 93.0 OSMOLALITY,CALCULATED 289 280-300 CALCIUM 9.1 8.8-10.8 Calculated ionized calcium measurement 4.0 3.8-4.6 BILIRUBIN,TOTAL 0.5 0.1-1.0 Serum or plasma alkaline phosphatase measurement 78 38-126 ASPARTATE AMINO TRANSFERASE 30 15-37 ALANINE AMINOTRANSFERASE 40 30-65 Serum or plasma total protein measurement 7.1 6.4-8.5 Serum or plasma albumin measurement 4.2 3.4-5.0 Serum or plasma albumin/globulin mass ratio 1.448 1.1-1.8 Serum or plasma creatine kinase measurement - 03/23/16 19:25 Serum or plasma creatine kinase measurement 342 55-170 Serum or plasma creatine kinase MB measurement - 03/23/16 19:25 Serum or plasma creatine kinase MB measurement 2.7 0.0-6.0 TROPONIN I* - 03/23/16 19:25 TROPONIN I < 0.012 0.010-0.080 Complete blood count, platelets with manual differential - 03/23/16 19:25 Total cell count 100 Blood segmented neutrophils percentage 59 51-67 Blood band neutrophil count as percentage of total leukocytes 0 0-6 LYMPHOCYTES % 25 20-46 Automated monocyte percentage 12 3-11 Eosinophil count auto 2 0-4 Basophils 2 0-2 Manual blood metamyelocytes/100 leukocytes 0 0-1 NEUTROPHILS(SEG) 2.6 NEUTROPHILS # BANDS 0.0 Blood lymphocytes manual count (number/volume) 1.1 Automated blood monocyte count 0.5 Blood absolute eosinophil count 0.1 Basophils 0.1 Erythrocyte morphology assessment SEE REFERENCE NORMAL Toxic leukocyte granulation detection SLIGHT Complete blood count (CBC) with automated white blood cell (WBC) differential - 03/29/16 11:56 Blood automated leukocyte count 5.07 4.0 -11.0 Erythrocytes 4.29 4.50-5.50 12.0-16.0;g/dL 12.5 13.5-17.0 Hematocrit 35.30 39.00-50.00 Automated erythrocyte mean corpuscular volume 82 80-100 Mean corpuscular hemoglobin (MCH) determination 29.1 26.0-34.0 Automated erythrocyte mean corpuscular hemoglobin concentration measurement ( mass/volume) 35.4 31.0-37.0 Erythrocyte distribution width 12.5 11.8 -15.6 Automated blood platelet count 360 150- 450 Automated blood platelet mean volume measurement 8.7 6.0-9.5 Automated neutrophil percentage 59 51- 67 Lymphocytes/100 leukocytes 25 20-46 Automated monocyte percentage 14 3-11 Eosinophil count auto 1 0-4 Automated basophil percentage 1 0-2 Automated blood neutrophil count 3.0 Blood lymphocytes count (number/volume) 1.2 Automated blood monocyte count 0.7 Blood absolute eosinophil count 0.0 Basophils 0.1 Comprehensive metabolic panel - 03/29/16 11:56 Sodium measurement 127 70-110 Carbon dioxide measurement 28 22-29 Serum or plasma anion gap 16.5 3-15 BLOOD UREA NITROGEN 8 7-18 CREATININE SERUM 0.87 0.8-1.5 Brucella species antibody panel (IgG, IgM) 9 10-20 Estimated glomerular filtration rate (GFR) 117.0 Estimated glomerular filtration rate (GFR) non- 96.7 OSMOLALITY,CALCULATED 284 280-300 CALCIUM 9.1 8.8-10.8 Calculated ionized calcium measurement 4.0 3.8-4.6 BILIRUBIN,TOTAL 0.5 0.1-1.0 Serum or plasma alkaline phosphatase measurement 69 38-126 ASPARTATE AMINO TRANSFERASE 23 15-37 ALANINE AMINOTRANSFERASE 32 30-65 Serum or plasma total protein measurement 7.0 6.4-8.5 Serum or plasma albumin measurement 4.2 3.4-5.0 Serum or plasma albumin/globulin mass ratio 1.500 1.1-1.8 TROPONIN I* - 03/29/16 11:56 TROPONIN I < 0.012 0.010-0.080 Complete blood count (CBC) with automated white blood cell (WBC) differential - 04/04/16 03:15 Blood automated leukocyte count 7.98 4.0 -11.0 Erythrocytes 4.64 4.50-5.50 12.0-16.0;g/dL 13.3 13.5-17.0 Hematocrit 38.60 39.00-50.00 Automated erythrocyte mean corpuscular volume 83 80-100 Mean corpuscular hemoglobin (MCH) determination 28.7 26.0-34.0 Automated erythrocyte mean corpuscular hemoglobin concentration measurement ( mass/volume) 34.5 31.0-37.0 Erythrocyte distribution width 12.4 11.8 -15.6 Automated blood platelet count 424 150- 450 Automated blood platelet mean volume measurement 9.3 6.0-9.5 Automated neutrophil percentage 71 51- 67 Lymphocytes/100 leukocytes 20 20-46 Automated monocyte percentage 9 3-11 Eosinophil count auto 0 0-4 Automated basophil percentage 0 0-2 Automated blood neutrophil count 5.6 Blood lymphocytes count (number/volume) 1.6 Automated blood monocyte count 0.7 Blood absolute eosinophil count 0.0 Basophils 0.0 DRUG SCREEN STAT - 04/04/16 03:15 Urine phencyclidine detection by screening method >25 NG/ml NEGATIVE NEGATIVE Urine benzodiazepines detection by screening method Negative Negative Urine cocaine detection Negative Negative Urine amphetamines detection by screen method > 1000 ng/mL NEGATIVE NEGATIVE Urine tetrahydrocannabinol detection by screening method >100 NG/ml Negative Negative Urine opiates detection by screening method Negative Negative Urine barbiturates detection by screening method Negative Negative Drugs of abuse panel NEGATIVE NEGATIVE Prothrombin time (PT) with international normalized ratio (INR) - 04/04/16 03: 15 Prothrombin time (PT) in platelet poor plasma by coagulation assay 13.3 11.6-14.2 INR in platelet poor plasma by coagulation assay 1.0 0.8-1.4 Activated partial thromboplastin time (aPTT) in platelet poor plasma bycoagulation assay - 04/04/16 03:15 Activated partial thromboplastin time (aPTT) in platelet poor plasma bycoagulation assay 29.7 24.9-35.9 Comprehensive metabolic panel - 04/04/16 03:15 Sodium measurement 121 70-110 Carbon dioxide measurement 28 22-29 Serum or plasma anion gap 17.0 3-15 BLOOD UREA NITROGEN 9 7-18 CREATININE SERUM 0.77 0.8-1.5 Brucella species antibody panel (IgG, IgM) 12 10-20 Estimated glomerular filtration rate (GFR) 134.7 Estimated glomerular filtration rate (GFR) non- 111.3 OSMOLALITY,CALCULATED 279 280-300 CALCIUM 8.8 8.8-10.8 Calculated ionized calcium measurement 3.8 3.8-4.6 BILIRUBIN,TOTAL 0.4 0.1-1.0 Serum or plasma alkaline phosphatase measurement 83 38-126 ASPARTATE AMINO TRANSFERASE 20 15-37 ALANINE AMINOTRANSFERASE 30 30-65 Serum or plasma total protein measurement 7.3 6.4-8.5 Serum or plasma albumin measurement 4.4 3.4-5.0 Serum or plasma albumin/globulin mass ratio 1.517 1.1-1.8 Serum or plasma creatine kinase measurement - 04/04/16 03:15 Serum or plasma creatine kinase measurement 109 55-170 Serum or plasma creatine kinase MB measurement - 04/04/16 03:15 Serum or plasma creatine kinase MB measurement 2.2 0.0-6.0 TROPONIN I* - 04/04/16 03:15 TROPONIN I < 0.012 0.010-0.080 ALCOHOL - 04/04/16 03:15 ALCOHOL < 10.0 10-80 Serum or plasma creatine kinase measurement - 04/14/16 20:27 Serum or plasma creatine kinase measurement 137 55-170 TROPONIN I* - 04/14/16 20:27 TROPONIN I < 0.012 0.010-0.080 C REACTIVE PROTEIN* - 04/14/16 20:27 C REACTIVE PROTEIN* 0.60 0.0-0.9 SALICYLATE - 04/14/16 20:27 SALICYLATE < 1.0 2.0-20.0 ACETAMINOPHEN - 04/14/16 20:27 ACETAMINOPHEN < 10.0 10.0-30.0 ALCOHOL - 04/14/16 20:27 ALCOHOL < 10.0 10-80 Erythrocyte sedimentation rate - 04/14/16 20:27 Erythrocyte sedimentation rate 15 0-12 Complete blood count (CBC) with automated white blood cell (WBC) differential - 04/14/16 20:27 Blood automated leukocyte count 7.84 4.0 -11.0 Erythrocytes 5.00 4.50-5.50 12.0-16.0;g/dL 14.2 13.5-17.0 Hematocrit 41.00 39.00-50.00 Automated erythrocyte mean corpuscular volume 82 80-100 Mean corpuscular hemoglobin (MCH) determination 28.4 26.0-34.0 Automated erythrocyte mean corpuscular hemoglobin concentration measurement ( mass/volume) 34.6 31.0-37.0 Erythrocyte distribution width 12.9 11.8 -15.6 Automated blood platelet count 452 150- 450 Automated blood platelet mean volume measurement 9.6 6.0-9.5 Automated neutrophil percentage 69 51- 67 Lymphocytes/100 leukocytes 19 20-46 Automated monocyte percentage 11 3-11 Eosinophil count auto 1 0-4 Automated basophil percentage 1 0-2 Automated blood neutrophil count 5.4 Blood lymphocytes count (number/volume) 1.5 Automated blood monocyte count 0.8 Blood absolute eosinophil count 0.0 Basophils 0.0 Comprehensive metabolic panel - 04/14/16 20:27 Sodium measurement 114 70-110 Carbon dioxide measurement -29 Serum or plasma anion gap 19.1 3-15 BLOOD UREA NITROGEN 10 7-18 CREATININE SERUM 1.04 0.8-1.5 Brucella species antibody panel (IgG, IgM) 10 10-20 Estimated glomerular filtration rate (GFR) 95.2 Estimated glomerular filtration rate (GFR) non- 78.7 OSMOLALITY,CALCULATED 285 280-300 CALCIUM 9.5 8.8-10.8 Calculated ionized calcium measurement 3.8 3.8-4.6 BILIRUBIN,TOTAL 0.7 0.1-1.0 Serum or plasma alkaline phosphatase measurement 79 38-126 ASPARTATE AMINO TRANSFERASE 22 15-37 ALANINE AMINOTRANSFERASE 29 30-65 Serum or plasma total protein measurement 8.3 6.4-8.5 Serum or plasma albumin measurement 4.8 3.4-5.0 Serum or plasma albumin/globulin mass ratio 1.371 1.1-1.8 UA CULTURE IF INDICATED* - 04/14/16 22:25 COLLECTION METHOD CLEAN CATCH Color of urine by auto Dark Yellow Urine appearance determination Clear Urine pH measurement by automated test strip 7.0 5.0 - 8.0 Specific gravity of urine by automated test strip 1.025 1.005-1.030 Urine protein measurement by test strip (mass/volume) 1+ Negative Urine glucose detection by automated test strip Negative Negative Urine erythrocytes count by automated test strip (number/volume) Negative Negative Urine ketones detection by automated test strip Negative Negative Urine nitrite detection by test strip Negative Negative Urine total bilirubin detection by automated test strip Negative Negative Urine urobilinogen measurement by automated test strip (mass/volume) 1.0 0.2-1.0 Urine leukocyte esterase detection by dipstick Negative Negative Microscopic examination of urine - 04/14/16 22:25 Urine volume measurement 12 mL Urine erythrocytes detection by automated method 0-2 Automated urine sediment leukocyte count by microscopy (number/high power field ) Bacteria Rare SQUAMOUS EPITHELIAL CELL,UR None MUCOUS,URINE 3+ Hyaline casts detection in urine sediment by light microscopy Rare DRUG SCREEN STAT - 04/14/16 22:25 Urine phencyclidine detection by screening method >25 NG/ml NEGATIVE NEGATIVE Urine benzodiazepines detection by screening method Positive Negative Urine cocaine detection Negative Negative Urine amphetamines detection by screen method > 1000 ng/mL POSITIVE NEGATIVE Urine tetrahydrocannabinol detection by screening method >100 NG/ml Negative Negative Urine opiates detection by screening method Negative Negative Urine barbiturates detection by screening method Negative Negative Drugs of abuse panel NEGATIVE NEGATIVE Complete blood count (CBC) with automated white blood cell (WBC) differential - 04/18/16 07:04 Blood automated leukocyte count 6.92 4.0 -11.0 Erythrocytes 5.21 4.50-5.50 12.0-16.0;g/dL 14.8 13.5-17.0 Hematocrit 43.60 39.00-50.00 Automated erythrocyte mean corpuscular volume 84 80-100 Mean corpuscular hemoglobin (MCH) determination 28.4 26.0-34.0 Automated erythrocyte mean corpuscular hemoglobin concentration measurement ( mass/volume) 33.9 31.0-37.0 Erythrocyte distribution width 12.8 11.8 -15.6 Automated blood platelet count 394 150- 450 Automated blood platelet mean volume measurement 9.2 6.0-9.5 Automated neutrophil percentage 67 51- 67 Lymphocytes/100 leukocytes 24 20-46 Automated monocyte percentage 7 3-11 Eosinophil count auto 1 0-4 Automated basophil percentage 0 0-2 Automated blood neutrophil count 4.6 Blood lymphocytes count (number/volume) 1.7 Automated blood monocyte count 0.5 Blood absolute eosinophil count 0.1 Basophils 0.0 Comprehensive metabolic panel - 04/18/16 07:04 Sodium measurement 120 70-110 Carbon dioxide measurement 30 22-29 Serum or plasma anion gap 19.6 3-15 BLOOD UREA NITROGEN 11 7-18 CREATININE SERUM 0.86 0.8-1.5 Brucella species antibody panel (IgG, IgM) 13 10-20 Estimated glomerular filtration rate (GFR) 118.6 Estimated glomerular filtration rate (GFR) non- 98.0 OSMOLALITY,CALCULATED 285 280-300 CALCIUM 9.7 8.8-10.8 Calculated ionized calcium measurement 3.9 3.8-4.6 BILIRUBIN,TOTAL 0.5 0.1-1.0 Serum or plasma alkaline phosphatase measurement 83 38-126 ASPARTATE AMINO TRANSFERASE 22 15-37 ALANINE AMINOTRANSFERASE 32 30-65 Serum or plasma total protein measurement 8.2 6.4-8.5 Serum or plasma albumin measurement 4.9 3.4-5.0 Serum or plasma albumin/globulin mass ratio 1.484 1.1-1.8 TROPONIN I* - 04/18/16 07:04 TROPONIN I < 0.012 0.010-0.080 Lipase measurement - 04/18/16 07:04 Lipase measurement 52 23-300 Complete blood count (CBC) with automated white blood cell (WBC) differential - 04/19/16 14:52 Blood automated leukocyte count 7.31 4.0 -11.0 Erythrocytes 4.98 4.50-5.50 12.0-16.0;g/dL 14.1 13.5-17.0 Hematocrit 42.00 39.00-50.00 Automated erythrocyte mean corpuscular volume 84 80-100 Mean corpuscular hemoglobin (MCH) determination 28.3 26.0-34.0 Automated erythrocyte mean corpuscular hemoglobin concentration measurement ( mass/volume) 33.6 31.0-37.0 Erythrocyte distribution width 12.7 11.8 -15.6 Automated blood platelet count 363 150- 450 Automated blood platelet mean volume measurement 9.1 6.0-9.5 Automated neutrophil percentage 75 51- 67 Lymphocytes/100 leukocytes 15 20-46 Automated monocyte percentage 9 3-11 Eosinophil count auto 1 0-4 Automated basophil percentage 0 0-2 Automated blood neutrophil count 5.5 Blood lymphocytes count (number/volume) 1.1 Automated blood monocyte count 0.7 Blood absolute eosinophil count 0.1 Basophils 0.0 Comprehensive metabolic panel - 04/19/16 14:52 Sodium measurement 115 70-110 Carbon dioxide measurement 32 22-29 Serum or plasma anion gap 17.5 3-15 BLOOD UREA NITROGEN 11 7-18 CREATININE SERUM 0.82 0.8-1.5 Brucella species antibody panel (IgG, IgM) 13 10-20 Estimated glomerular filtration rate (GFR) 125.3 Estimated glomerular filtration rate (GFR) non- 103.5 OSMOLALITY,CALCULATED 283 280-300 CALCIUM 9.9 8.8-10.8 Calculated ionized calcium measurement 4.2 3.8-4.6 BILIRUBIN,TOTAL 0.3 0.1-1.0 Serum or plasma alkaline phosphatase measurement 79 38-126 ASPARTATE AMINO TRANSFERASE 18 15-37 ALANINE AMINOTRANSFERASE 29 30-65 Serum or plasma total protein measurement 7.7 6.4-8.5 Serum or plasma albumin measurement 4.5 3.4-5.0 Serum or plasma albumin/globulin mass ratio 1.406 1.1-1.8 TROPONIN I* - 04/19/16 14:52 TROPONIN I < 0.012 0.010-0.080 Complete blood count (CBC) with automated white blood cell (WBC) differential - 04/21/16 21:00 Blood automated leukocyte count 7.57 4.0 -11.0 Erythrocytes 5.28 4.50-5.50 12.0-16.0;g/dL 15.0 13.5-17.0 Hematocrit 44.00 39.00-50.00 Automated erythrocyte mean corpuscular volume 83 80-100 Mean corpuscular hemoglobin (MCH) determination 28.4 26.0-34.0 Automated erythrocyte mean corpuscular hemoglobin concentration measurement ( mass/volume) 34.1 31.0-37.0 Erythrocyte distribution width 12.8 11.8 -15.6 Automated blood platelet count 377 150- 450 Automated blood platelet mean volume measurement 8.9 6.0-9.5 Automated neutrophil percentage 62 51- 67 Lymphocytes/100 leukocytes 24 20-46 Automated monocyte percentage 13 3-11 Eosinophil count auto 1 0-4 Automated basophil percentage 0 0-2 Automated blood neutrophil count 4.7 Blood lymphocytes count (number/volume) 1.8 Automated blood monocyte count 1.0 Blood absolute eosinophil count 0.1 Basophils 0.0 Comprehensive metabolic panel - 04/21/16 21:00 Sodium measurement 96 70-110 Carbon dioxide measurement 30 22-29 Serum or plasma anion gap 17.4 3-15 BLOOD UREA NITROGEN 10 7-18 CREATININE SERUM 0.95 0.8-1.5 Brucella species antibody panel (IgG, IgM) 11 10-20 Estimated glomerular filtration rate (GFR) 105.7 Estimated glomerular filtration rate (GFR) non- 87.4 OSMOLALITY,CALCULATED 277 280-300 CALCIUM 9.8 8.8-10.8 Calculated ionized calcium measurement 4.0 3.8-4.6 BILIRUBIN,TOTAL 0.8 0.1-1.0 Serum or plasma alkaline phosphatase measurement 73 38-126 ASPARTATE AMINO TRANSFERASE 29 15-37 ALANINE AMINOTRANSFERASE 32 30-65 Serum or plasma total protein measurement 8.2 6.4-8.5 Serum or plasma albumin measurement 4.8 3.4-5.0 Serum or plasma albumin/globulin mass ratio 1.411 1.1-1.8 Magnesium measurement - 04/21/16 21:00 Magnesium measurement 2.6 1.6-2.3 TROPONIN I* - 04/21/16 21:00 TROPONIN I < 0.012 0.010-0.080 Complete blood count (CBC) with automated white blood cell (WBC) differential - 04/24/16 00:41 Blood automated leukocyte count 10.81 4.0-11.0 Erythrocytes 5.00 4.50-5.50 12.0-16.0;g/dL 14.1 13.5-17.0 Hematocrit 41.00 39.00-50.00 Automated erythrocyte mean corpuscular volume 82 80-100 Mean corpuscular hemoglobin (MCH) determination 28.2 26.0-34.0 Automated erythrocyte mean corpuscular hemoglobin concentration measurement ( mass/volume) 34.4 31.0-37.0 Erythrocyte distribution width 12.4 11.8 -15.6 Automated blood platelet count 348 150- 450 Automated blood platelet mean volume measurement 8.9 6.0-9.5 Automated neutrophil percentage 78 51- 67 Lymphocytes/100 leukocytes 13 20-46 Automated monocyte percentage 8 3-11 Eosinophil count auto 1 0-4 Automated basophil percentage 0 0-2 Automated blood neutrophil count 8.5 Blood lymphocytes count (number/volume) 1.4 Automated blood monocyte count 0.8 Blood absolute eosinophil count 0.1 Basophils 0.0 Comprehensive metabolic panel - 04/24/16 00:41 Sodium measurement 114 70-110 Carbon dioxide measurement 27 22-29 Serum or plasma anion gap 18.1 3-15 BLOOD UREA NITROGEN 9 7-18 CREATININE SERUM 0.85 0.8-1.5 Brucella species antibody panel (IgG, IgM) 11 10-20 Estimated glomerular filtration rate (GFR) 120.2 Estimated glomerular filtration rate (GFR) non- 99.3 OSMOLALITY,CALCULATED 277 280-300 CALCIUM 9.4 8.8-10.8 Calculated ionized calcium measurement 4.0 3.8-4.6 BILIRUBIN,TOTAL 0.4 0.1-1.0 Serum or plasma alkaline phosphatase measurement 97 38-126 ASPARTATE AMINO TRANSFERASE 23 15-37 ALANINE AMINOTRANSFERASE 32 30-65 Serum or plasma total protein measurement 7.6 6.4-8.5 Serum or plasma albumin measurement 4.7 3.4-5.0 Serum or plasma albumin/globulin mass ratio 1.620 1.1-1.8 Magnesium measurement - 04/24/16 00:41 Magnesium measurement 1.9 1.6-2.3 TROPONIN I* - 04/24/16 00:41 TROPONIN I < 0.012 0.010-0.080 C REACTIVE PROTEIN* - 04/24/16 00:41 C REACTIVE PROTEIN* < 0.50 0.0-0.9 Complete blood count (CBC) with automated white blood cell (WBC) differential - 04/28/16 14:20 Blood automated leukocyte count 10.75 4.0-11.0 Erythrocytes 5.09 4.50-5.50 12.0-16.0;g/dL 14.5 13.5-17.0 Hematocrit 41.90 39.00-50.00 Automated erythrocyte mean corpuscular volume 82 80-100 Mean corpuscular hemoglobin (MCH) determination 28.5 26.0-34.0 Automated erythrocyte mean corpuscular hemoglobin concentration measurement ( mass/volume) 34.6 31.0-37.0 Erythrocyte distribution width 12.5 11.8 -15.6 Automated blood platelet count 380 150- 450 Automated blood platelet mean volume measurement 9.1 6.0-9.5 Automated neutrophil percentage 82 51- 67 Lymphocytes/100 leukocytes 11 20-46 Automated monocyte percentage 6 3-11 Eosinophil count auto 0 0-4 Automated basophil percentage 0 0-2 Automated blood neutrophil count 8.9 Blood lymphocytes count (number/volume) 1.2 Automated blood monocyte count 0.6 Blood absolute eosinophil count 0.0 Basophils 0.0 Comprehensive metabolic panel - 04/28/16 14:20 Sodium measurement 113 70-110 Carbon dioxide measurement 29 22-29 Serum or plasma anion gap 18.9 3-15 BLOOD UREA NITROGEN 13 7-18 CREATININE SERUM 0.85 0.8-1.5 Brucella species antibody panel (IgG, IgM) 15 10-20 Estimated glomerular filtration rate (GFR) 120.2 Estimated glomerular filtration rate (GFR) non- 99.3 OSMOLALITY,CALCULATED 281 280-300 CALCIUM 9.9 8.8-10.8 Calculated ionized calcium measurement 4.0 3.8-4.6 BILIRUBIN,TOTAL 0.4 0.1-1.0 Serum or plasma alkaline phosphatase measurement 91 38-126 ASPARTATE AMINO TRANSFERASE 29 15-37 ALANINE AMINOTRANSFERASE 40 30-65 Serum or plasma total protein measurement 8.4 6.4-8.5 Serum or plasma albumin measurement 4.8 3.4-5.0 Serum or plasma albumin/globulin mass ratio 1.333 1.1-1.8 Serum or plasma creatine kinase measurement - 04/28/16 14:20 Serum or plasma creatine kinase measurement 197 55-170 Serum or plasma creatine kinase MB measurement - 04/28/16 14:20 Serum or plasma creatine kinase MB measurement 1.7 0.0-6.0 TROPONIN I* - 04/28/16 14:20 TROPONIN I < 0.012 0.010-0.080 DRUG SCREEN STAT - 05/01/16 11:13 Urine phencyclidine detection by screening method >25 NG/ml NEGATIVE NEGATIVE Urine benzodiazepines detection by screening method Negative Negative Urine cocaine detection Negative Negative Urine amphetamines detection by screen method > 1000 ng/mL POSITIVE NEGATIVE Urine tetrahydrocannabinol detection by screening method >100 NG/ml Negative Negative Urine opiates detection by screening method Negative Negative Urine barbiturates detection by screening method Negative Negative Drugs of abuse panel NEGATIVE NEGATIVE DRUG SCREEN STAT - 05/02/16 14:19 Urine phencyclidine detection by screening method >25 NG/ml NEGATIVE NEGATIVE Urine benzodiazepines detection by screening method Negative Negative Urine cocaine detection Negative Negative Urine amphetamines detection by screen method > 1000 ng/mL NEGATIVE NEGATIVE Urine tetrahydrocannabinol detection by screening method >100 NG/ml Negative Negative Urine opiates detection by screening method Negative Negative Urine barbiturates detection by screening method Negative Negative Drugs of abuse panel NEGATIVE NEGATIVE Complete blood count (CBC) with automated white blood cell (WBC) differential - 10/01/16 07:40 Blood automated leukocyte count 6.46 4.0 -11.0 Erythrocytes 4.62 4.50-5.50 12.0-16.0;g/dL 13.7 13.5-17.0 Hematocrit 38.30 39.00-50.00 Automated erythrocyte mean corpuscular volume 83 80-100 Mean corpuscular hemoglobin (MCH) determination 29.7 26.0-34.0 Automated erythrocyte mean corpuscular hemoglobin concentration measurement ( mass/volume) 35.8 31.0-37.0 Erythrocyte distribution width 12.9 11.8 -15.6 Automated blood platelet count 299 150- 450 Automated blood platelet mean volume measurement 9.0 6.0-9.5 Automated neutrophil percentage 55 51- 67 Lymphocytes/100 leukocytes 32 20-46 Automated monocyte percentage 11 3-11 Eosinophil count auto 1 0-4 Automated basophil percentage 1 0-2 Automated blood neutrophil count 3.6 Blood lymphocytes count (number/volume) 2.1 Automated blood monocyte count 0.7 Blood absolute eosinophil count 0.1 Basophils 0.0 Prothrombin time (PT) with international normalized ratio (INR) - 10/01/16 07: 40 Prothrombin time (PT) in platelet poor plasma by coagulation assay 12.3 10.0-12.5 INR 1.1 0.8-1.4 Activated partial thromboplastin time (aPTT) in platelet poor plasma bycoagulation assay - 10/01/16 07:40 Activated partial thromboplastin time (aPTT) in platelet poor plasma bycoagulation assay 29.9 26.3-36.8 Comprehensive metabolic panel - 10/01/16 07:40 Sodium measurement 88 70-110 CARBON DIOXIDE 28 22-29 Serum or plasma anion gap 16.3 3-15 BLOOD UREA NITROGEN 19 7-18 CREATININE SERUM 0.85 0.8-1.5 Brucella species antibody panel (IgG, IgM) 22 10-20 Estimated glomerular filtration rate (GFR) 119.6 Estimated glomerular filtration rate (GFR) non- 98.9 OSMOLALITY,CALCULATED 280 280-300 CALCIUM 9.1 8.8-10.8 Calculated ionized calcium measurement 3.7 3.8-4.6 BILIRUBIN,TOTAL 0.6 0.1-1.0 Serum or plasma alkaline phosphatase measurement 76 38-126 ASPARTATE AMINO TRANSFERASE 33 15-37 ALANINE AMINOTRANSFERASE 46 30-65 Serum or plasma total protein measurement 8.0 6.4-8.5 Serum or plasma albumin measurement 4.7 3.4-5.0 Serum or plasma albumin/globulin mass ratio 1.424 1.1-1.8 TROPONIN I* - 10/01/16 07:40 TROPONIN I < 0.012 0.010-0.080 Complete blood count (CBC) with automated white blood cell (WBC) differential - 10/02/16 10:10 Blood automated leukocyte count 10.55 4.0-11.0 Erythrocytes 5.05 4.50-5.50 12.0-16.0;g/dL 14.8 13.5-17.0 Hematocrit 42.40 39.00-50.00 Automated erythrocyte mean corpuscular volume 84 80-100 Mean corpuscular hemoglobin (MCH) determination 29.3 26.0-34.0 Automated erythrocyte mean corpuscular hemoglobin concentration measurement ( mass/volume) 34.9 31.0-37.0 Erythrocyte distribution width 13.4 11.8 -15.6 Automated blood platelet count 311 150- 450 Automated blood platelet mean volume measurement 8.9 6.0-9.5 Automated neutrophil percentage 72 51- 67 Lymphocytes/100 leukocytes 16 20-46 Automated monocyte percentage 12 3-11 Eosinophil count auto 0 0-4 Automated basophil percentage 0 0-2 Automated blood neutrophil count 7.6 Blood lymphocytes count (number/volume) 1.7 Automated blood monocyte count 1.3 Blood absolute eosinophil count 0.0 Basophils 0.0 Comprehensive metabolic panel - 10/02/16 10:10 Sodium measurement 93 70-110 CARBON DIOXIDE 26 22-29 Serum or plasma anion gap 19.0 3-15 BLOOD UREA NITROGEN 15 7-18 CREATININE SERUM 0.83 0.8-1.5 Brucella species antibody panel (IgG, IgM) 18 10-20 Estimated glomerular filtration rate (GFR) 122.9 Estimated glomerular filtration rate (GFR) non- 101.6 OSMOLALITY,CALCULATED 279 280-300 CALCIUM 9.3 8.8-10.8 Calculated ionized calcium measurement 3.6 3.8-4.6 BILIRUBIN,TOTAL 1.2 0.1-1.0 Serum or plasma alkaline phosphatase measurement 76 38-126 ASPARTATE AMINO TRANSFERASE 169 15-37 ALANINE AMINOTRANSFERASE 75 30-65 Serum or plasma total protein measurement 8.9 6.4-8.5 Serum or plasma albumin measurement 5.0 3.4-5.0 Serum or plasma albumin/globulin mass ratio 1.282 1.1-1.8 TROPONIN I* - 10/02/16 10:10 TROPONIN I 0.028 0.010-0.080 Streptococcus pyogenes antigen detection - 10/02/16 10:18 Streptococcus pyogenes antigen detection Negative Negative Bacteria identification by respiratory culture - 10/02/16 10:18 Bacteria identification by respiratory culture FRIEND FOR RESULTS: * - NEW RESULT - RESULT WAS MODIFIED AFTER FINAL STATUS SET Complete blood count (CBC) with automated white blood cell (WBC) differential - 11/23/16 15:19 Blood automated leukocyte count 12.78 4.0-11.0 Erythrocytes 5.54 4.50-5.50 12.0-16.0;g/dL 15.7 13.5-17.0 Hematocrit 46.30 39.00-50.00 Automated erythrocyte mean corpuscular volume 84 80-100 Mean corpuscular hemoglobin (MCH) determination 28.3 26.0-34.0 Automated erythrocyte mean corpuscular hemoglobin concentration measurement ( mass/volume) 33.9 31.0-37.0 Erythrocyte distribution width 13.2 11.8 -15.6 Automated blood platelet count 428 150- 450 Automated blood platelet mean volume measurement 9.0 6.0-9.5 Automated neutrophil percentage 75 51- 67 Lymphocytes/100 leukocytes 14 20-46 Automated monocyte percentage 11 3-11 Eosinophil count auto 0 0-4 Automated basophil percentage 0 0-2 Automated blood neutrophil count 9.6 Blood lymphocytes count (number/volume) 1.7 Automated blood monocyte count 1.4 Blood absolute eosinophil count 0.0 Basophils 0.0 Prothrombin time (PT) with international normalized ratio (INR) - 11/23/16 15: 19 Prothrombin time (PT) in platelet poor plasma by coagulation assay 13.9 10.0-12.5 INR 1.2 0.8-1.4 Activated partial thromboplastin time (aPTT) in platelet poor plasma bycoagulation assay - 11/23/16 15:19 Activated partial thromboplastin time (aPTT) in platelet poor plasma bycoagulation assay 28.8 26.3-36.8 D-dimer test - 11/23/16 15:19 D-dimer test < 0-500 Comprehensive metabolic panel - 11/23/16 15:19 Sodium measurement 163 70-110 CARBON DIOXIDE 23 22-29 Serum or plasma anion gap 24.2 3-15 BLOOD UREA NITROGEN 18 7-18 CREATININE SERUM 1.15 0.8-1.5 Brucella species antibody panel (IgG, IgM) 16 10-20 Estimated glomerular filtration rate (GFR) 84.4 Estimated glomerular filtration rate (GFR) non- 69.7 OSMOLALITY,CALCULATED 282 280-300 CALCIUM 9.2 8.8-10.8 Calculated ionized calcium measurement 3.5 3.8-4.6 BILIRUBIN,TOTAL 0.9 0.1-1.0 Serum or plasma alkaline phosphatase measurement 77 38-126 ASPARTATE AMINO TRANSFERASE 38 15-37 ALANINE AMINOTRANSFERASE 31 30-65 Serum or plasma total protein measurement 9.0 6.4-8.5 Serum or plasma albumin measurement 5.1 3.4-5.0 Serum or plasma albumin/globulin mass ratio 1.307 1.1-1.8 Magnesium measurement - 11/23/16 15:19 Magnesium measurement 2.1 1.6-2.3 Serum or plasma creatine kinase measurement - 11/23/16 15:19 Serum or plasma creatine kinase measurement 489 55-170 Serum or plasma creatine kinase MB measurement - 11/23/16 15:19 Serum or plasma creatine kinase MB measurement 3.5 0.0-6.0 TROPONIN I* - 11/23/16 15:19 TROPONIN I 0.035 0.010-0.080 NT-Pro BNP - 11/23/16 15:19 NT-Pro BNP 516 0-125 ALCOHOL - 11/23/16 15:19 ALCOHOL < 10.0 10-80 DRUG SCREEN STAT - 11/23/16 17:50 Urine phencyclidine detection by screening method >25 NG/ml NEGATIVE NEGATIVE Urine benzodiazepines detection by screening method Positive Negative Urine cocaine detection Negative Negative Urine amphetamines detection by screen method > 1000 ng/mL POSITIVE NEGATIVE Urine tetrahydrocannabinol detection by screening method >100 NG/ml Negative Negative Urine opiates detection by screening method Negative Negative Urine barbiturates detection by screening method Negative Negative Drugs of abuse panel NEGATIVE NEGATIVE Encounters ACCT No. Visit Date/Time Discharge Status Pt. Type Provider Facility Loc./Unit Complaint [id number] 07/04/2013 07:22:00 2012 20:40:00 DIS Outpatient Arlyn Wagner DO [address] [id number] 09/15/2012 04:42:00 2012 09:11:00 DIS Emergency Vasu Washington MD [facility] [id number] 05/14/2012 01:28:00 Document Registration
--- OUTSIDE RECORDS SUMMARY | 2017-01-06 21:51 | XMS REPORT | Continuity of Care Document ---
Author Author [facility] Address Unknown Phone Unavailable Care Team Providers Care Electro Tech Name Role Phone Lawrence Sher MD Primary Care Physician [phone] Insurance Providers Payer Name Policy Number Subscriber Name Relationship [facility] [id number] Chin Weber 17 Self / Same As Patient Advance Directives Directive Response Recorded Date/Time Advanced Directives No 11/23/16 5:08pm Chief Complaint and Reason for Visit Chief Complaint Cardiac Complaint Reason for Visit Methamphetamine addiction Chest pain Methamphetamine abuse Problems Active Problems Medical Problem [...] Resolved Jaw pain ~02/16/2014 Resolved Methamphetamine abuse ~10/02/2016 Chronic Methamphetamine addiction ~04/28/2016 Chronic Pain of left calf ~04/21/2016 Resolved Paresthesias ~11/23/2014 Chronic Rectal trauma ~02/02/2015 Resolved Skin lesion 12/04/2013 Resolved Sore throat ~03/27/2014 Resolved Sore throat symptom ~12/18/2013 Resolved Substance abuse ~11/21/2014 Chronic Vomiting ~12/17/2014 Resolved Medications Current Home Medications Medication Dose Units Route Directions Days/Qty Instructions Start Date Omeprazole Magnesium 20 Mg 20 Mg ORAL Daily 11/23/16 Sulfamethoxazole/Trimethoprim 1 Each 1 Tab ORAL Twice A Day 11/23/16 Fluoxetine Hcl 40 Mg 40 Mg ORAL Daily 11/23/16 Past Home Medications Medication Directions Ordered Status [...] Tab, 25 Mg Oral Daily 08/28/13 Discontinued Cyanocobalamin 1,000 Mcg Tablet, 7422-5647 Mcg Oral Daily 09/16/13 Discontinued Multivits,Th W-Fe,Other Min 1 Each Tablet, 1 Each Oral Daily 09/16/13 Discontinued [place]-3 Fatty Acids/Fish Oil 1 Each Capsule.dr, 1 Each Oral Daily 09/16/13 Discontinued Gabapentin 300 Mg Capsule, 300 Mg [...] 1000 Mg Oral As Needed 01/20/14 Discontinued Cholecalciferol (Vitamin D3) 2,000 Unit Tablet, 2000 Unit Oral Daily Discontinued Lorazepam 1 Mg Tablet, 1 Mg [...] A Day for Nausea/ Vomiting 12/30/15 Discontinued Acetaminophen (Tylenol) 325 Mg Tablet, 650 Mg Oral Every 6 Hours as needed for Pain 04/16/16 Discontinued Ondansetron 4 Mg Tab.rapdis, 4 Mg Oral Every 6 Hours as needed for Nausea Discontinued Prednisone 20 Mg Tablet, 3 Tab Oral Daily for Inflammation 10/02/16 Discontinued Social History Social History Problem Response Recorded Date/Time Onset Date Status Exposure to occupational hazards No 04/14/2016 7:46pm Query Response Start Date Stop Date Smoking Status Never smoker Hospital Discharge Instructions No hospital discharge instructions. Plan of Care Discharge Date 11/23/16 7:22pm Disposition 01 HOME OR SELF-CARE Condition at Discharge Stable Instructions/Education Provided Methamphetamine Chest Pain (DC) Prescriptions See Medication Section Referrals Lawrence Sher MD - Additional Instructions/Education Please stop doing meth! Let Dr. Sher know tomorrow morning that you have started using again. Do not drive tonight. Some of your test results may not [...] worrisome symptoms. * Emergency Department phone number: [phone], x [phone]* MEDICAL RECORD If you need copies of your X-rays, call [phone] x [phone]. If you need copies of [...] services. SERVICE BILLING [facility] Emergency Room Services [facility] X[facility] Patients will receive bills for services from the appropriate provider. If you have any questions about your [facility] bill, our staff will be happy to assist you. Please call [phone], and ask for the billing department. THANK YOU for choosing [facility] as your emergency care provider! Care Plan and Goals ~~Discharge Care Plan~~ Problem: Chest, epigastric or chest wall pain Goal: Decreased pain Instructions: Take medication(s) as directed. Follow home discharge instructions. Follow up with primary care physician or spice grinder as directed. Functional Status No functional status results. Allergies, Adverse Reactions, Alerts No known allergies. Immunizations Name Given Type Status Date Pneumonia Vaccine Received if Current 08/17/08 Historical Historical Date Influenza Vaccine Received if Current 05/29/13 Historical Historical Vital Signs Acute Vital Signs Vital Response Date/Time Temperature (Fahrenheit) 99.6 11/23/2016 7:24pm Pulse 126 bpm 11/23/2016 7:24pm Respirations 21 11/23/2016 7:24pm Height 5 ft 7 in Weight 176 lb Body Mass Index 27.0 kg/m^2 Results Laboratory Results Test Name Result Units Flags Reference Collection Date/Time Result Date/ Time Comments White Blood Count 12.78 10^3uL H 4.0-11.0 11/23/2016 3:pm 11/23/2016 5 :54pm Red Blood Count 5.54 10^6uL H 4.50-5.50 11/23/2016 3:pm 11/23/2016 5: 54pm Hemoglobin 15.7 g/dL 13.5-17.0 11/23/2016 3:pm 11/23/2016 5:54pm Hematocrit 46.30 % 39.00-50.00 11/23/2016 3:11/23/2016 5:54pm Mean Corpuscular Volume 84 FL 80-100 11/23/2016 3:11/23/2016 5: 54pm Mean Corpuscular Hemoglobin 28.3 PG 26.0-34.0 11/23/2016 3:pm 2016 5:54pm Mean Corpuscular Hemoglobin Concent 33.9 g/dL 31.0-37.0 11/23/2016 3: pm 11/23/2016 5:54pm Red Cell Distribution Width 13.2 % 11.8-15.6 11/23/2016 3:2016 5:54pm Platelet Count 428 10^3uL 150-450 11/23/2016 3:11/23/2016 5:54pm Mean Platelet Volume 9.0 FL 6.0-9.5 11/23/2016 3:11/23/2016 5: 54pm Neutrophils (%) (Auto) 75 % H 51-67 11/23/2016 3:pm 11/23/2016 5:54pm Lymphocytes (%) (Auto) 14 % L 20-46 11/23/2016 3:pm 11/23/2016 5:54pm Monocytes (%) (Auto) 11 % 3-11 11/23/2016 3:11/23/2016 5:54pm Eosinophils (%) (Auto) 0 % 0-4 11/23/2016 3:pm 11/23/2016 5:54pm Basophils (%) (Auto) 0 % 0-2 11/23/2016 3:pm 11/23/2016 5:54pm Neutrophils # (Auto) 9.6 X10^3 11/23/2016 3:pm 11/23/2016 5:54pm Lymphocytes # (Auto) 1.7 X10^3 11/23/2016 3:pm 11/23/2016 5:54pm Monocytes # (Auto) 1.4 X10^3 11/23/2016 3:pm 11/23/2016 5:54pm Eosinophils # (Auto) 0.0 10^3uL 11/23/2016 3:pm 11/23/2016 5:54pm Basophils # (Auto) 0.0 10^3uL 11/23/2016 3:pm 11/23/2016 5:54pm Prothrombin Time 13.9 SEC H 10.0-12.5 11/23/2016 3:11/23/2016 6: 09pm Prothromb Time International Ratio 1.2 0.8-1.4 11/23/2016 3:04/2017 6:09pm Activated Partial Thromboplast Time 28.8 SEC 26.3-36.8 11/23/2016 3: 11/23/2016 6:09pm D-Dimer < 215 ng/mL 0-500 11/23/2016 3:11/23/2016 6:09pm Sodium Level 143 mmol/L 135-150 11/23/2016 3:11/23/2016 6:16pm Potassium Level 3.4 mmol/L L 3.5-5.1 11/23/2016 3:11/23/2016 6: 16pm Chloride Level 100 mmol/L 98-108 11/23/2016 3:11/23/2016 6:16pm Carbon Dioxide Level 23 mmol/L 22-29 11/23/2016 3:11/23/2016 6: 16pm Anion Gap 24.2 MEQ/L H 3-15 11/23/2016 3:11/23/2016 6:16pm Blood Urea Nitrogen 18 mg/dL 7-18 11/23/2016 3:11/23/2016 6:16pm Creatinine 1.15 mg/dL 0.8-1.5 11/23/2016 3:11/23/2016 6:16pm BUN/Creatinine Ratio 16 10-20 11/23/2016 3:11/23/2016 6:16pm Estimat Glomerular Filtration Rate 84.4 11/23/2016 3:2016 6:16pm Estimated GFR (Non- 69.7 11/23/2016 3:2016 6:16pm Glucose Level 163 mg/dL # H 70-110 11/23/2016 3:11/23/2016 6:16pm Calculated Osmolality 282 mosm/L 280-300 11/23/2016 3:11/23/2016 6 :16pm Calcium Level 9.2 mg/dL 8.8-10.8 11/23/2016 3:11/23/2016 6:16pm Calcium/Ionized Calcium Ratio 3.5 mg/dL L 3.8-4.6 11/23/2016 3:04/2017 6:16pm Magnesium Level 2.1 mg/dL 1.6-2.3 11/23/2016 3:11/23/2016 6:16pm Total Bilirubin 0.9 mg/dL 0.1-1.0 11/23/2016 3:11/23/2016 6:16pm Alkaline Phosphatase 77 U/L 38-126 11/23/2016 3:11/23/2016 6:16pm Aspartate Amino Transf (AST/SGOT) 38 U/L H 15-37 11/23/2016 3:11/23 6:16pm Alanine Aminotransferase (ALT/SGPT) 31 U/L 30-65 11/23/2016 3:04/2017 6:16pm Total Creatine Kinase 489 U/L #*H 55-170 11/23/2016 3:11/23/2016 6: 16pm Results called to DR OSHEA who read back the results. Called by Cristian Hernandez at [phone] Creatine Kinase MB 3.5 ng/mL 0.0-6.0 11/23/2016 3:11/23/2016 6: 18pm Troponin I 0.035 ng/mL 0.010-0.080 11/23/2016 3:19pm 11/23/2016 6:18pm FR-Ema-B-Type Natriuretic Peptide 516 pg/mL H 0-125 11/23/2016 3:19pm 6:18pm <300 ng/mL - HF unlikely Age <50 years, NT-proBNP >450 pg/mL - HF Likely Age 50-75 yrs, NT-proBNP >900 pg/mL - HF Likely Age >75 yrs, NT-proBNP >1800 - HF likely Total Protein 9.0 g/dL H 6.4-8.5 11/23/2016 3:19pm 11/23/2016 6:16pm Albumin 5.1 g/dL H 3.4-5.0 11/23/2016 3:19pm 11/23/2016 6:16pm Albumin/Globulin Ratio 1.307 1.1-1.8 11/23/2016 3:19pm 11/23/2016 6: 16pm Serum Alcohol < 10.0 mg/dL L 10-80 11/23/2016 3:19pm 11/23/2016 6:16pm Procedures No known history of procedures. Encounters Encounter Location Arrival/Admit Date Discharge/Depart Date Attending Provider Departed Emergency Room [facility] 11/23/16 5:01pm 11/23/16 7:22pm LA OSHEA DO Recent Diagnosis
--- OUTSIDE RECORDS SUMMARY | 2017-01-06 21:51 | XMS REPORT | Continuity of Care Document ---
Author Author [facility] Address Unknown Phone Unavailable Care Team Providers Care Combiner Name Role Phone Lawrence Sher MD Primary Care Physician [phone] Insurance Providers Payer Name Policy Number Subscriber Name Relationship [facility] [id number] Chin Weber 17 Self / Same As Patient Advance Directives Directive Response Recorded Date/Time Advanced Directives No 04/19/16 1:50pm Chief Complaint and Reason for Visit Chief [...] Days/Qty Instructions Start Date Cyanocobalamin 1,000 Mcg 7352-2292 Mcg ORAL Daily 09/16/13 Multivits,Th W-Fe,Other Min 1 Each 1 Each ORAL Daily 09/16/13 [place]-3 Fatty Acids/Fish Oil 1 Each 1 Each [...] discharge instructions. Plan of Care Discharge Date 04/19/16 6:11pm Disposition 01 HOME OR SELF-CARE Condition at Discharge Stable Instructions/Education Provided Methamphetamine Abuse (ED) Prescriptions See Medication Section Referrals Lawrence Sher MD - Additional Instructions/Education Don't use meth Follow up with Dr. Sher this coming week Return if symptoms worsen Some of your [...] worrisome symptoms. * Emergency Department phone number: [phone], x [phone]* MEDICAL RECORD If you need copies of your X-rays, call [phone] x [phone]. If you need copies of [...] [facility] [employer] [facility] Emergency Room Services [facility] Physician Services [facility] X-[facility] [place] [facility] Patients will receive bills for services from the appropriate provider. If you have any questions about your [facility] bill, our staff will be happy to assist you. Please call [phone], and ask for the billing department. THANK YOU for choosing [facility] as your emergency care provider! Care Plan and Goals ~~Discharge Care Plan~~ Problem:drug abuse Goal:seek rehab Instructions:follow up with pcp Functional Status No functional status results. Allergies, Adverse Reactions, Alerts No known allergies. Immunizations Name Given Type Status Date Pneumonia Vaccine Received if Current 08/17/08 Historical Historical Date Influenza Vaccine Received if Current 05/29/13 Historical Historical Vital Signs Acute Vital Signs Vital Response Date/Time Temperature (Fahrenheit) 98.4 04/19/2016 6:10pm Pulse 83 bpm 04/19/2016 6:10pm Respirations 18 04/19/2016 6:10pm Height 5 ft 7 in Weight 172 lb Body Mass Index 27.0 kg/m^2 Results [...] 7:2503/23/2016 8:05pm Lymphocytes # 1.1 # 03/23/2016 7:2503/23/2016 8:05pm Monocytes # 0.5 # 03/23/2016 7:25pm 03/23/2016 8:05pm Eosinophils # 0.1 # 03/23/2016 7:2503/23/2016 8:05pm Basophils # (Manual) 0.1 # 03/23/2016 7:2503/23/2016 8:05pm Blood Morphology Comment SEE REFERENCE NORMAL [...] 7:2503/23/2016 8:03pm Creatinine 0.90 mg/dL 0.8-1.5 03/23/2016 7:2503/23/2016 8:03pm BUN/Creatinine Ratio 10 10-20 03/23/2016 7:25pm [...] Discharge/Depart Date Attending Provider Departed Emergency Room [facility] 04/19/16 1:46pm 04/19/16 6:11pm DIDIER ALBERT MD Departed Emergency Room [facility] 04/18/16 6:53am 04/18/16 9:30am VASU QIU MD Discharged Inpatient (obs) [facility] 04/14/16 7:37pm 04/16/16 1: 38pm KIRSTIE RIVERA MD Departed Emergency Room [facility] 04/04/16 3:01am 04/04/16 6:38am UZIEL POSEY MD Departed Emergency Room [facility] 03/29/16 10:28am 03/29/16 4:41pm WILLIAM SOSA MD Departed Emergency Room [facility] 03/23/16 6:36pm 03/23/16 8:56pm WILLIAM SOSA MD Recent Diagnosis
--- OUTSIDE RECORDS SUMMARY | 2017-01-06 21:52 | XMS REPORT | Continuity of Care Document ---
Author Author [facility] Address Unknown Phone Unavailable Care Team Providers Care Tower Watchman Name Role Phone Lawrence Sher MD Primary Care Physician [phone] Insurance Providers Payer Name Policy Number Subscriber Name Relationship [facility] [id number] Chin Weber 17 Self / Same As Patient Advance Directives Directive Response Recorded Date/Time Advanced Directives No 04/21/16 8:27pm Chief Complaint and Reason for Visit Chief Complaint Cardiac Complaint Reason for Visit Chest discomfort Pain of left calf Methamphetamine abuse Problems Active Problems Medical Problem [...] abuse ~04/04/2016 Chronic Methamphetamine addiction ~04/30/2015 Chronic Pain of left calf Unknown Acute Paresthesias ~11/23/2014 Chronic Rectal trauma ~02/02/2015 Resolved Skin lesion 12/04/2013 Resolved Sore throat ~03/27/2014 Resolved Sore throat symptom ~12/18/2013 Resolved Substance abuse ~11/21/2014 Chronic Vomiting ~12/17/2014 Resolved Medications Current Home Medications Medication Dose Units Route Directions Days/Qty Instructions Start Date Cyanocobalamin 1,000 Mcg 8633-6821 Mcg ORAL Daily 09/16/13 Multivits,Th W-Fe,Other Min 1 Each 1 Each ORAL Daily 09/16/13 [place]-3 Fatty Acids/Fish Oil 1 Each 1 Each [...] discharge instructions. Plan of Care Discharge Date 04/21/16 11:42pm Disposition 01 HOME OR SELF-CARE Condition at Discharge Stable Instructions/Education Provided Methamphetamine Abuse (ED) Prescriptions See Medication Section Referrals Lawrence Sher MD - Additional Instructions/Education STOP using Methamphetamine. Follow up with PCP in the next few days. Discuss possible Rx for Xanax. Some of your test results may not [...] worrisome symptoms. * Emergency Department phone number: [phone], x [phone]* MEDICAL RECORD If you need copies of your X-rays, call [phone] x [phone]. If you need copies of [...] services. [facility] Emergency Room Services [facility] Physician Services [facility] X-[facility] [place] [facility] Patients will receive bills for services from the appropriate provider. If you have any questions about your [facility] bill, our staff will be happy to assist you. Please call [phone], and ask for the billing department. THANK YOU for choosing [facility] as your emergency care provider! Care Plan and Goals ~~Discharge Care Plan~~ Problem: Chest, epigastric or chest wall pain Goal: Decreased pain Instructions: Follow home discharge instructions. Follow up with primary care physician or shoe repair supervisor as directed. Functional Status No functional status results. Allergies, Adverse Reactions, Alerts No known allergies. Immunizations Name Given Type Status Date Pneumonia Vaccine Received if Current 08/17/08 Historical Historical Date Influenza Vaccine Received if Current 05/29/13 Historical Historical Vital Signs Acute Vital Signs Vital Response Date/Time Temperature (Fahrenheit) 98.4 04/21/2016 11:43pm Pulse 87 bpm 04/21/2016 11:43pm Respirations 16 04/21/2016 11:43pm Height 5 ft 7 in Weight 171 lb Body Mass Index 26.0 kg/m^2 Results [...] Thromboplast Time 30.6 SEC 24.9-35.9 03/23/2016 7: 25pm 03/23/2016 8:01pm Sodium Level 151 mmol/L # H 135-150 03/23/2016 7:2503/23/2016 8:03pm Potassium Level 3.1 mmol/L L 3.5-5.1 03/23/2016 7:2503/23/2016 8: 03pm Chloride Level 107 mmol/L 98-108 03/23/2016 7:25pm 03/23/2016 8:03pm Carbon Dioxide Level 29 mmol/L 22-29 03/23/2016 7:03/23/2016 8: 03pm Anion Gap 18.1 MEQ/L H 3-15 03/23/2016 7:25pm 03/23/2016 8:03pm Blood Urea Nitrogen 9 mg/dL 703/23/2016 7:2503/23/2016 8:03pm Creatinine 0.90 mg/dL 0.8-1.5 03/23/2016 [...] Discharge/Depart Date Attending Provider Departed Emergency Room [facility] 04/21/16 7:59pm 04/21/16 11:42pm HAYDEN DUFF MD Departed Emergency Room [facility] 04/19/16 1:46pm 04/19/16 6:11pm DIDIER ALBERT MD Departed Emergency Room [facility] 04/18/16 6:53am 04/18/16 9:30am VASU QUI MD Discharged Inpatient (obs) [facility] 04/14/16 7:37pm 04/16/16 1: 38pm KIRSTIE RIVERA MD Departed Emergency Room [facility] 04/04/16 3:01am 04/04/16 6:38am UZIEL POSEY MD Departed Emergency Room [facility] 03/29/16 10:28am 03/29/16 4:41pm WILLIAM SOSA MD Departed Emergency Room [facility] 03/23/16 6:36pm 03/23/16 8:56pm WILLIAM SOSA MD Recent Diagnosis
--- OUTSIDE RECORDS SUMMARY | 2017-01-06 21:52 | XMS REPORT | Continuity of Care Document ---
Author Author [facility] Address Unknown Phone Unavailable Care Team Providers Care Online Banking Specialist Name Role Phone Lawrence Sher MD Primary Care Physician [phone] Insurance Providers Payer Name Policy Number Subscriber Name Relationship [facility] [id number] Chin Weber 17 Self / Same As Patient Advance Directives Directive Response Recorded Date/Time Advanced Directives No 04/14/16 7:46pm Chief Complaint and Reason for Visit Chief Complaint DETOX Reason for Visit Exposure to STD Rectal trauma Problems Active Problems Medical Problem Onset Date [...] Days/Qty Instructions Start Date Cyanocobalamin 1,000 Mcg 4841-1514 Mcg ORAL Daily 09/16/13 Multivits,Th W-Fe,Other Min 1 Each 1 Each ORAL Daily 09/16/13 [place]-3 Fatty Acids/Fish Oil 1 Each 1 Each [...] Problem Response Recorded Date/Time Onset Date Status 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 You improved with supportive care. Continue your efforts to quit using methamphetamine. Keep your appointment with [facility] as previously scheduled. * Quitting smoking is one of the best things you can do for your health. Review the provided handouts for details. Activity Instructions As tolerated. Doctor's Appointment Follow-up with [facility] as previously scheduled. Follow-up with your primary care doctor in 1 week. Discharge Diet: Regular Orders DISCHARGE: Discharge to:: HOME Home, Self Care Discharge Plan of Care Discharge Plan of Care #1 Problem: Meth withdrawal Goal: Maintain fluid intake Instructions for meeting goal: Follow printed materials given to you at dismissal. Plan of Care Discharge Date 04/16/16 1:38pm Disposition 01 HOME OR SELF-CARE Instructions/Education Provided Ondansetron (By mouth) How to Stop Smoking (GEN) Cigarette Smoking and Its Health Risks (GEN) Methamphetamine Abuse (DC) Prescriptions See Medication Section Referrals [facility] (Physician Referral) - 04/17/16 Address: [address] [place] [address] Lawrence Sher MD ([facility]) - 03/23/17 Address: [address] [place] [address] Care Plan and Goals See Discharge Instructions Section Functional Status Query Response Date Recorded Level of Conscious Alert Oriented x4 April 16, 2016 8:54am Movement Moves extremities April 16, 2016 8:54am Allergies, Adverse Reactions, Alerts No known allergies. Immunizations Name Given Type Status Date Pneumonia Vaccine Received if Current 08/17/08 Historical Historical Date Influenza Vaccine Received if Current 05/29/13 Historical Historical Vital Signs Acute Vital Signs Vital Response Date/Time Temperature (Fahrenheit) 98.0 04/16/2016 7:48am Pulse 79 bpm 04/16/2016 7:48am Respirations 20 04/16/2016 7:48am Height 5 ft 7 in Weight 167 lb Body Mass Index 26.0 kg/m^2 Results [...] Prothrombin Time 14.3 SEC H 11.6-14.2 03/23/2016 7:25pm 03/23/2016 8: 01pm Prothromb Time International Ratio 1.1 0.8-1.4 03/23/2016 7:2502/2016 8:01pm Activated Partial Thromboplast Time 30.6 SEC 24.9-35.9 03/23/2016 7: 03/23/2016 8:01pm Sodium Level 151 mmol/L # H 135-150 03/23/2016 7:03/23/2016 8:03pm Potassium Level 3.1 mmol/L L 3.5-5.1 03/23/2016 7:25pm 03/23/2016 8: 03pm Chloride Level 107 mmol/L 98-108 03/23/2016 7:03/23/2016 8:03pm Carbon Dioxide Level 29 mmol/L 22-29 03/23/2016 7:03/23/2016 8: 03pm Anion Gap 18.1 MEQ/L H 3-15 03/23/2016 7:03/23/2016 8:03pm Blood Urea Nitrogen 9 mg/dL 7-18 03/23/2016 7:25pm 03/23/2016 8:03pm Creatinine 0.90 mg/dL 0.8-1.5 03/23/2016 7:03/23/2016 8:03pm BUN/Creatinine Ratio 10 10-20 03/23/2016 7:2503/23/2016 8:03pm Estimat Glomerular Filtration Rate 112.5 03/23/2016 7:2015 8:03pm Estimated GFR (Non- 93.0 03/23/2016 7:2015 8:03pm Glucose Level 97 mg/dL 70-110 03/23/2016 7:25pm 03/23/2016 8:03pm Calculated Osmolality 289 mosm/L 280-300 03/23/2016 7:pm 03/23/2016 8 :03pm Calcium Level 9.1 mg/dL [...] VISIT Completed 04/04/16 Completed 04/04/16 Completed 04/04/16 Encounters Encounter Location Arrival/Admit Date Discharge/Depart Date Attending Provider Discharged Inpatient (obs) [facility] 04/14/16 7:37pm 04/16/16 1: 38pm KIRSTIE RIVERA MD Departed Emergency Room [facility] 04/04/16 3:01am 04/04/16 6:38am UZIEL POSEY MD Departed Emergency Room [facility] 03/29/16 10:28am 03/29/16 4:41pm WILLIAM SOSA MD Departed Emergency Room [facility] 03/23/16 6:36pm 03/23/16 8:56pm WILLIAM SOSA MD Recent Diagnosis Exposure to STD Rectal trauma
--- OUTSIDE RECORDS SUMMARY | 2017-01-06 21:52 | XMS REPORT | Continuity of Care Document ---
Author Author [facility] Organization [facility] Address Unknown Phone Unavailable Support Name Relationship Address Phone LISA SNYDER MD Caregiver [address] [place] [address] [place] [address] Unavailable SHAHNAZ LUTHER Caregiver [facility] [place] [address] Unavailable PAT WEBER Next Of Kin [address] [place] [address] Insurance Providers Guarantor Chin Weber Address [address] [facility] [place] [address] Email DENIED/NO TO PT PORTAL Payer [facility] Policy Number [id number] Subscriber's Name Chin Weber Relationship 18 Self Group Number [id number] Advance Directives Directive Response Recorded Date/Time Advanced Directives Type None 12/31/15 3:10am Chief Complaint and Reason for Visit Chief Complaint Cardiac Complaint Reason for Visit Non-cardiac chest pain Methamphetamine abuse Problems Active Problems Medical Problem Onset Date Status Abdominal pain Unknown Acute Anxiety with somatization Unknown Acute Chronic back pain Unknown Acute GERD (gastroesophageal reflux disease) Unknown Acute Headache Unknown Acute Past Problems Medical Problem Onset Date Methamphetamine abuse Unknown Non-cardiac chest pain Unknown Medications Current Home Medications Medication Dose Units Route Directions Days Qty Instructions Start Date Acyclovir 200 Mg Capsule Unknown Dose Oral Twice A Day 12/31/15 Hydroxyzine Pamoate (Vistaril) 25 Mg Capsule Unknown Dose Oral Twice A Day 12/31/15 Omeprazole Magnesium (Prilosec Otc) 20 Mg Tablet.dr [place] Tab Oral Daily 12/31/15 Social History Social History Problem Response Recorded Date/Time Onset Date Status Hx Substance Use Y METH 12/31/2015 4:10am Not Applicable Not Applicable Hx Alcohol Use No 12/31/2015 4:10am Not Applicable Not Applicable Tobacco Usage none 12/31/2015 3:50am Not Applicable Not Applicable Query Response Start Date Stop Date Smoking Status Current every day smoker Hospital Discharge Instructions No hospital discharge instructions. Plan of Care Discharge Date 12/31/15 5:11am Disposition 01 DISCHARGED HOME, SELF-CARE Condition at Discharge Improved Instructions/Education Provided DI for Chest Pain Prescriptions See Medication Section Referrals SHAHNAZ LUTHER Order Date: 3 Days Address: [address] [place] [address] [address] [place], [place] [address] Note: Additional Instructions/Education STOP ALL METHAMPHETAMINE USE...FOREVER. Consider ice or heat to the chest in the areas of pain. Care Plan and Goals Physician Care Plan Problem: atypical chest pain. methamphetamine abuse. Goal: Follow up with primary care provider Instructions: Take medications and follow care plan as discussed/written Functional Status No functional status results. Allergies, Adverse Reactions, Alerts Allergen Type Severity Reaction Status Last Updated NKDA Allergy Unknown Active 12/31/15 Immunizations Query Response on File Recorded Date/Time Hx Influenza Vaccination Y 201204/27/15 3:39am Hx Pneumococcal Vaccination Y 04/27/15 3:39am Hx Influenza Vaccination Y 201204/27/15 3:39am Vital Signs Acute Vital Signs Vital Response Date/Time Temperature (Fahrenheit) 98.8 deg F (96.8 - 99.1) 12/31/2015 5:11am Temperature (Calculated Celsius) 37.95463 degrees C (36.0 - 37.3) 12/31/2015 5:11am Pulse Rate (adult) 81 bpm (60 - 100) 12/31/2015 5:11am Respiratory Rate 19 breaths/min (10 - 20) 12/31/2015 5:11am O2 Sat by Pulse Oximetry 97 % (90 - 100) 12/31/2015 5:11am Blood Pressure 144/97 mm Hg 12/31/2015 5:11am Height (Feet) 5 feet 12/31/2015 3:31am Height (Inches) 7.00 inches 12/31/2015 3:31am Weight (Kilograms) 82.600 kg 12/31/2015 3:31am Body Mass Index (BMI) 28.0 12/31/2015 3:31am Results Laboratory Results Test Name Result Units Flags Reference Collection Date/Time Result Date/ Time Comments White Blood Count 5.2 T/MM3 4.5-11.0 12/31/2015 3:20am 12/31/2015 3: 43am Red Blood Count 4.82 M/MM3 4.50-5.90 12/31/2015 3:12/31/2015 3: 43am Hemoglobin 14.0 GM/DL 13.5-17.5 12/31/2015 3:12/31/2015 3:43am Hematocrit 40.4 % L 41-53 12/31/2015 3:12/31/2015 3:43am Mean Corpuscular Volume 83.8 UM3 80-100 12/31/2015 3:12/31/2015 3: 43am Mean Corpuscular Hemoglobin 29.0 UUG 26-34 12/31/2015 3:2015 3:43am Mean Corpuscular Hemoglobin Concent 34.7 GM/DL 31-37 12/31/2015 3:12/31/2015 3:43am RDW Standard Deviation 38.8 FL 36.9-50.2 12/31/2015 3:12/31/2015 3 :43am Platelet Count 337 T/MM3 130-400 12/31/2015 3:12/31/2015 3:43am Mean Platelet Volume 9.1 UM3 L 9.4-12.4 12/31/2015 3:12/31/2015 3: 43am Neutrophils (%) (Auto) 60.2 % 33-66 12/31/2015 3:12/31/2015 3: 43am Lymphocytes (%) (Auto) 30.5 % 23-45 12/31/2015 3:12/31/2015 3: 43am Monocytes (%) (Auto) 8.7 % 0-9.0 12/31/2015 3:12/31/2015 3:43am Eosinophils (%) (Auto) 0.4 % 0-4 12/31/2015 3:12/31/2015 3:43am Basophils (%) (Auto) 0.2 % 0-2 12/31/2015 3:12/31/2015 3:43am Immature Granulocyte % (Auto) 0.0 % 0.0-0.5 12/31/2015 3:2015 3:43am Absolute Neutrophils (auto) 3.1 T/MM3 1.8-7.7 12/31/2015 3:2015 3:43am Absolute Lymphocytes (auto) 1.6 T/MM3 1-4.8 12/31/2015 3:2015 3:43am Absolute Monocytes (auto) 0.5 T/MM3 0-0.8 12/31/2015 3:12/31/2015 3:43am Absolute Eosinophils (auto) 0.0 T/MM3 0-0.5 12/31/2015 3:2015 3:43am Absolute Basophils (auto) 0.0 T/MM3 0-0.2 12/31/2015 3:12/31/2015 3:43am Absolute Immature Granulocyte (auto 0.00 T/MM3 0.00-0.03 12/31/2015 3: 12/31/2015 3:43am Prothromb Time International Ratio 1.26 H 0.81-1.09 12/31/2015 3:12/31/2015 3:46am THERAPUTIC RANGE=2.00-3.00 FOR ANTI-THROMBOSIS THERAPUTIC RANGE=2.50-3.50 FOR IMPLANTED VALVE Icterus Index < 2 0-7 12/31/2015 3:12/31/2015 3:51am Chemistry Specimen Hemolysis < 15 0-25 12/31/2015 3:12/31/2015 3 :51am 0-25: Specimen Exhibited No Hemolysis. Turbidity < 20 0-20 12/31/2015 3:12/31/2015 3:51am Sodium Level 140 MEQ/L 134-144 12/31/2015 3:12/31/2015 3:51am Potassium Level 3.4 MEQ/L L 3.6-5 12/31/2015 3:12/31/2015 3:51am Chloride Level 102 MEQ/L 98-107 12/31/2015 3:12/31/2015 3:51am Carbon Dioxide Level 27 MEQ/L 22-30 12/31/2015 3:12/31/2015 3: 51am Anion Gap 11 MEQ/L 5-15 12/31/2015 3:12/31/2015 3:51am Blood Urea Nitrogen 7.0 MG/DL L 9-20 12/31/2015 3:12/31/2015 3: 51am Creatinine 0.9 MG/DL 0.8-1.5 12/31/2015 3:2012/31/2015 3:51am BUN/Creatinine Ratio 8 RATIO 6-26 12/31/2015 3:12/31/2015 3:51am Glomerular Filtration Rate Calc 93 12/31/2015 3:20am 12/31/2015 3: 51am Glucose Level 112 MG/DL H 75-110 12/31/2015 3:12/31/2015 3:51am Calculated Osmolality 268 MOSM/KG 261-280 12/31/2015 3:12/31/2015 3:51am Calcium Level 9.2 MG/DL 8.4-10.2 12/31/2015 3:12/31/2015 3:51am Troponin I < 0.012 ng/ml 0-0.12 12/31/2015 3:12/31/2015 4:03am Troponin values with a difference of 55% increase from orginal troponin value represent a true biological DELTA value. (%increase Calc=Orginal Troponin value, divided by subsequent Troponin value, multiplied by 100) SE-Iyx-E-Type Natriuretic Peptide 83 PG/ML 0-175 12/31/2015 3: 4:03am Rule in cut points: <50 years old=450; 50-75 years old=900; >75 years old=1800; When utilizing ProBNP rule-in cut points, adjustment for impaired renal function is typically not required. Procedures No known history of procedures. Encounters Encounter Location Arrival/Admit Date Discharge/Depart Date Attending Provider Departed Emergency Room [facility] 12/31/15 3:08am 12/31/15 5: 11am LISA SNYDER MD Recent Diagnosis
--- OUTSIDE RECORDS SUMMARY | 2017-01-06 21:52 | XMS REPORT | Referral Summary ---
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 Role Phone Precious Sher Primary Care Physician [phone] Encounter VC Date(s): 12/18/15 - 12/18/15 [facility] [address] [place] [address] Discharge Diagnosis: Left against medical advice Discharge Diagnosis: Chest pain of uncertain etiology Discharge Disposition: Left Against Medical Advice Attending Physician: Frances Warren MD Admitting Physician: Frances Warren MD Vital Signs Most recent to 1 oldest [Reference Range]: Temperature Oral 36.7 degC [35.8-37.3 degC] (12/18/15 12:46 PM) Peripheral Pulse 112 bpm Rate [60-100 bpm] *HI* (12/18/15 12:46 PM) Heart Rate Monitored 96 bpm [60-100 bpm] (12/18/15 2:30 PM) Respiratory Rate 19 br/min [14-20 br/min] (12/18/15 2:30 PM) Blood Pressure 135/96 mmHg [90-140/60-90 mmHg] (12/18/15 2:30 PM) Mean Arterial 106 mmHg Pressure, Cuff (12/18/15 2:30 PM) SpO2 97 % (12/18/15 2:30 PM) Problem List No data available for this section Allergies, Adverse Reactions, Alerts No Known Allergies Medications aspirin 81 mg oral tablet, chewable 81 mg 1 tabs, Oral, Daily, # 30 tabs, 0 Refill(s) Start Date: 12/18/15 Status: Ordered nitroglycerin 0.4 mg sublingual tablet 0.4 mg 1 tabs, SubLingual, q5min, as needed for chest pain, # 100 tabs, 0 Refill (s) Start Date: 12/18/15 Status: Ordered Results Hematology Most recent to 1 oldest [Reference Range]: WBC [4.8-10.8 6.1 10*3/uL 10*3/uL] (12/18/15 12:55 PM) RBC [4.60-6.20] 5.18 (12/18/15 12:55 PM) Hgb [14.0-18.0 15.3 gm/dL gm/dL] (12/18/15 12:55 PM) Hct [42.0-52.0 %] 43.3 % (12/18/15 12:55 PM) MCV [82.0-99.0 fL] 83.6 fL (12/18/15 12:55 PM) MCH [27.0-32.0 pg] 29.5 pg (12/18/15 12:55 PM) MCHC [32.0-36.0 35.3 gm/dL gm/dL] (12/18/15 12:55 PM) RDW [11.5-14.5 %] 12.8 % (12/18/15 12:55 PM) Platelet [150-400 284 10*3/uL 10*3/uL] (12/18/15 12:55 PM) MPV [9.4-12.3 fL] 9.0 fL *LOW* (12/18/15 12:55 PM) Immature 0.2 % Granulocytes (12/18/15 12:55 PM) [0.0-1.0 %] Neutrophils [51-75 63 % %] (12/18/15 12:55 PM) Lymphocytes [20-46 27 % %] (12/18/15 12:55 PM) Monocytes [4-11 %] 9 % (12/18/15 12:55 PM) Eosinophils [0-4 %] 1 % (12/18/15 12:55 PM) Basophils [0-2 %] 1 % (12/18/15 12:55 PM) Neutro Absolute 3.84 10*3 [1.90-7.00 10*3] (12/18/15 12:55 PM) Lymph Absolute 1.66 10*3 [0.80-3.30 10*3] (12/18/15 12:55 PM) [place] Absolute 0.52 10*3 [0.30-1.00 10*3] (12/18/15 12:55 PM) Eos Absolute 0.03 10*3 [0.00-0.50 10*3] (12/18/15 12:55 PM) Baso Absolute 0.03 10*3 [0.00-0.20 10*3] (12/18/15 12:55 PM) Nucleated RBC 0.0 /100 WBC Automated [0 /100 (12/18/15 12:55 PM) WBC] Chemistry Most recent to 1 oldest [Reference Range]: Sodium Lvl [136-144 140 mEq/L mEq/L] (12/18/15 12:55 PM) Potassium Lvl 3.4 mEq/L [3.6-5.1 mEq/L] *LOW* (12/18/15 12:55 PM) Chloride [99-109 105 mEq/L mEq/L] (12/18/15 12:55 PM) CO2 [22-32 mEq/L] 25 mEq/L (12/18/15 12:55 PM) AGAP [3-20] 10 (12/18/15 12:55 PM) BUN [4-20 mg/dL] 14 mg/dL (12/18/15 12:55 PM) Glucose Lvl [70-100 112 mg/dL mg/dL] *HI* (12/18/15 12:55 PM) Creatinine Lvl 0.94 mg/dL [0.64-1.27 mg/dL] (12/18/15 12:55 PM) eGFR [>60] >60 1 (12/18/15 12:55 PM) Calcium Lvl 9.6 mg/dL [8.6-10.0 mg/dL] (12/18/15 12:55 PM) Albumin Lvl [3.5-4.8 4.7 gm/dL gm/dL] (12/18/15 12:55 PM) Total Protein 8.1 gm/dL [6.1-7.9 gm/dL] *HI* (12/18/15 12:55 PM) Globulin [1.9-4.3 3.4 gm/dL gm/dL] (12/18/15 12:55 PM) ALT [17-63 U/L] 26 U/L (12/18/15 12:55 PM) AST [15-41 U/L] 24 U/L (12/18/15 12:55 PM) Alk Phos [26-104 60 U/L U/L] (12/18/15 12:55 PM) Bili Total [0.2-1.2 0.6 mg/dL 2 mg/dL] (12/18/15 12:55 PM) Troponin [<0.06 <0.05 ng/mL ng/mL] (12/18/15 12:55 PM) 1Result Comment: Multiply eGFR results by 1.21 for race. 2Result Comment: Naproxen, specifically the metabolite O-desmethylnaproxen, may cause spurious elevation in Total Bilirubin levels. Toxicology Most recent to 1 oldest [Reference Range]: U Amphetamine Scrn Negative (12/18/15 1:46 PM) U Cocaine Scrn Negative (12/18/15 1:46 PM) U Cannab Scrn Negative (12/18/15 1:46 PM) U Opiate Scrn Negative (12/18/15 1:46 PM) U PCP Scrn Negative (12/18/15 1:46 PM) U Benzodiazepine Negative Scrn (12/18/15 1:46 PM) U Barbiturate Scrn Negative (12/18/15 1:46 PM) Methadone Lvl Negative (12/18/15 1:46 PM) Tricyclics Not Detected 1 (12/18/15 1:46 PM) 1Result Comment: Cut-off concentrations: Amphetamines: 1000 ng/mL Cocaine: 300 ng/mL Cannabinoid: 50 ng/mL Opiate: 300 ng/mL Phencyclidine (PCP): 25 ng/mL Benzodiazepine: 200 ng/mL Barbiturate: 200 ng/mL Methadone: 300 ng/mL Tricyclic: 300 ng/mL The urine drug screen assays are qualitative screens. A more specific GC/MS method must be performed to obtain a confirmed analytical result. Unconfirmed screening results must not be used for non-medical purposes(e.g. employment or legal testing) Immunizations Vaccine Date Refusal Reason influenza virus vaccine, live 05/17/09 Procedures No data available for this section Social History Social History Type Response Smoking Status Former smoker Assessment and Plan No data available for this section
--- OUTSIDE RECORDS SUMMARY | 2017-01-06 21:52 | XMS REPORT | Continuity of Care Document ---
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 Name Role Phone Lawrence Sher MD Primary Care Physician [phone] Insurance Providers Payer Name Policy Number Subscriber Name Relationship [facility] [id number] Chin Weber 18 Self / Same As Patient Advance Directives Directive Response Recorded Date/Time Advanced Directives No 03/29/16 10:38am Chief Complaint and Reason for Visit Chief Complaint Pain Reason for Visit Chest pain Methamphetamine addiction Drug abuse Problems Active Problems Medical Problem Onset [...] Days/Qty Instructions Start Date Cyanocobalamin 1,000 Mcg [id number] Mcg ORAL Daily 09/16/13 Multivits,Th W-Fe,Other Min 1 Each 1 Each ORAL Daily 09/16/13 [place]-3 Fatty Acids/Fish Oil 1 Each 1 Each [...] discharge instructions. Plan of Care Discharge Date 03/29/16 4:41pm Disposition 01 HOME OR SELF-CARE Condition at [...] worrisome symptoms. * Emergency Department phone number: [phone], x [phone]* MEDICAL RECORD If you need copies of your X-rays, call [phone] x [phone]. If you need copies of [...] SERVICE BILLING [employer] Emergency Room Services [facility] Physician Services [facility] X-[facility] [place] [facility] Patients will receive bills for services from the appropriate provider. If you have any questions about your [facility] bill, our staff will be happy to assist you. Please call [phone], and ask for the billing department. THANK YOU for choosing [facility] as your emergency care provider! Care Plan and Goals ~~Discharge Care Plan~~ Problem: Problems with coping. Goal: Patient will use appropriate resources to deal with life situations. Instructions: Call PAYMEY hotline @ for assistance. Follow up with screener as directed. Functional Status No functional status results. Allergies, Adverse Reactions, Alerts No known allergies. Immunizations Name Given Type Status Date Pneumonia Vaccine Received if Current 08/17/08 Historical Historical Date Influenza Vaccine Received if Current 05/29/13 Historical Historical Vital Signs Acute Vital Signs Vital Response Date/Time Temperature (Fahrenheit) 99.5 03/29/2016 4:40pm Pulse 104 bpm 03/29/2016 4:40pm Respirations 20 03/29/2016 4:40pm Height 5 ft 6 in Weight 173 lb Body Mass Index [...] 7:25pm 03/23 8:05pm Toxic Granulation SLIGHT 03/23/2016 7:25pm 03/23/2016 8:05pm Prothrombin Time 14.3 SEC H 11.6-14.2 [...] 7:2503/23/2016 8:03pm Blood Urea Nitrogen 9 mg/dL 703/23/2016 7:03/23/2016 8:03pm Creatinine 0.90 mg/dL 0.8-1.5 03/23/2016 7:2503/23/2016 8:03pm BUN/Creatinine Ratio 10 10-20 03/23/2016 7:2503/23/2016 [...] Laboratory Results Test Name Collection Date/Time Procedures No known history of procedures. Encounters Encounter Location Arrival/Admit Date Discharge/Depart Date Attending Provider Departed Emergency Room [facility] 03/29/16 10:28am 03/29/16 4:41pm WILLIAM SOSA MD Departed Emergency Room [facility] 03/23/16 6:36pm 03/23/16 8:56pm WILLIAM SSOA MD Recent Diagnosis
--- OUTSIDE RECORDS SUMMARY | 2017-01-06 21:53 | XMS REPORT | Summary of Care ---
Author Author Igor Correia M.D. Organization Unknown Address Unknown Phone Unavailable Care Team Providers Care Mall Manager Name Role Phone Igor Correia M.D. [...] in the groin (789.39, R19.09) Status: Active Medications Name Dates Details Multivitamins [...] >60 ml/min Range: >60 EST GFR, NON-AFR HONDURAN >60 ml/min Range: >60 Comments: EST GFR [...] Acyclovir 400 MG Oral Tablet - Start Instructions Name Dates Details Instructions not documented Encounters Appointment; Lv Lester M.D. Encounter Diagnosis: Problem not documented On 30-Aug-2015 10:00 Appointment; Smith Ibanez M.D. Encounter Diagnosis: Problem not documented On 27-Aug-2015 08:30 Appointment; Smith Ibanez M.D. Encounter Diagnosis: Problem not documented On 18-Jun-2015 08:30
--- OUTSIDE RECORDS SUMMARY | 2017-01-06 21:53 | XMS REPORT | Continuity of Care Document ---
Author Author [facility] Organization [facility] Address Unknown Phone Unavailable Care Team Providers Care Painter Plate Name Role Phone Lawrence Sher MD Primary Care Physician [phone] Insurance Providers Payer Name Policy Number Subscriber Name Relationship Self Pay Chin Weber 18 Self / Same As Patient Chief Complaint and Reason for Visit Chief Complaint Abuse Reason for Visit Methamphetamine abuse Chest pain Problems Medical Problems Problem Onset [...] abuse ~11/16/2014 Active Substance abuse ~11/21/2014 Active Medications Medication Dose Route Sig Days/Qty [...] DAILY 30 Qty 08/28/13 09/13/13 Discontinued Cyanocobalamin [id number] Mcg ORAL DAILY 09/16/13 Active Multivits,Th W-Fe,Other Min 1 Each ORAL DAILY 09/16/13 Active [place]-3 Fatty Acids/Fish Oil 1 Each ORAL DAILY [...] discharge instructions. Plan of Care Discharge Date 11/22/14 4:19pm Disposition 01 HOME OR SELF-CARE Condition at Discharge Stable Instructions/Education Provided Methamphetamine Abuse (ED) Prescriptions See Medications Section Referrals Lawrence Sher MD Additional Instructions/Education Stop using the meth. Consider drug treatment programs. Some of your test results may not [...] worrisome symptoms. * Emergency Department phone number: [phone], x [phone]* MEDICAL RECORD If you need copies of your X-rays, call [phone] x [phone]. If you need copies of [...] services. SERVICE BILLING [employer] Emergency Room Services [facility] Physician Services [facility] X-rays [place] [facility] Patients will receive bills for services from the appropriate provider. If you have any questions about your [facility] bill, our staff will be happy to assist you. Please call [phone], and ask for the billing department. THANK YOU for choosing [facility] as your emergency care provider! Functional Status No functional status results. Allergies, Adverse Reactions, Alerts Allergen Type Severity Reaction Status Last Updated No Known Drug Allergies Active 03/03/14 Immunizations No immunization records. Vital Signs Acute Vital Signs Vital Response Date/Time Temperature (Fahrenheit) 98.2 Pulse 91 bpm Respirations 18 Height 5 ft 7 in Weight 178 lb Body Mass Index 27.0 kg/m^2 Results Test Source Date Result Interp. Ref. Range Comments Absolute Band Neutrophils November 20, 2014 7:20pm 0.1 # Acetaminophen Level August 27, 2013 2:30pm < 10.0 UG/ML L 10.0-30.0 Collected by nurse? N Activated Partial Thromboplast Time November 15, 2014 11:40am 29.5 SEC N 24.9-35.9 Alanine Aminotransferase (ALT/SGPT) November 20, 2014 7:20pm 31 U/L N 30- 65 Albumin November 20, 2014 7:20pm 5.1 g/dL H 3.4-5.0 Albumin/Globulin Ratio November 20, 2014 7:20pm 1.700 N 1.1-1.8 Alkaline Phosphatase November 20, 2014 7:20pm 69 U/L N 38-126 Amylase Level December 25, 2013 6:51pm 69 U/L N 25-115 Collected by nurse? N Anion Gap November 20, 2014 7:20pm 16.7 MEQ/L H 3-15 Aspartate Amino Transf (AST/SGOT) November 20, 2014 7:20pm 38 U/L H 15-37 B-Type Natriuretic Peptide August 20, 2013 10:15am 7 PG/ML N 0-100 BUN/Creatinine Ratio November 20, 2014 7:20pm 9 L 10-20 Band Neutrophils % November 20, 2014 7:20pm 1 % N 0-6 Basophils # (Auto) November 20, 2014 7:20pm Not Performed Basophils % (Manual) November 20, 2014 7:20pm 0 % N 0-2 Basophils (%) (Auto) November 20, 2014 7:20pm Not Performed 0-2 Blood Morphology Comment November 20, 2014 7:20pm Normal NORMAL Blood Urea Nitrogen November 20, 2014 7:20pm 9 mg/dL N 7-18 C-Reactive Protein December 25, 2013 6:51pm 0.70 MG/DL N 0.0-0.9 Collected by nurse? N Calcium Level November 20, 2014 7:20pm 9.8 mg/dL N 8.8-10.8 Calcium/Ionized Calcium Ratio November 20, 2014 7:20pm 4.0 mg/dL N 3.8-4.6 Calculated Osmolality November 20, 2014 7:20pm 273 mosm/L L 280-300 Carbon Dioxide Level November 20, 2014 7:20pm 28 mmol/L N 22-29 Chlamydia trachomatis RNA April 26, 2014 8:30am Negative Negative Chlamydia/GC DNA Probe Source April 26, 2014 8:30am Urine () Corrected result; previously reported as Urine on 04/26/14 at 12:42 by V/AUT--- 04/27/14 2349 --- GC.CHL SOURCE previously reported as: Urine Chloride Level November 20, 2014 7:20pm 100 mmol/L N 98-108 Creatine Kinase MB November 20, 2014 7:20pm 2.0 ng/mL N 0.0-6.0 Creatinine November 20, 2014 7:20pm 0.99 mg/dL N 0.8-1.5 D-Dimer August 20, 2013 10:15am 0.43 ug/mL PH 0.00-0.41 Results called to Ladan read back the results. Called by Janna Greenwood at [phone] Differential Total Cells Counted November 20, 2014 7:20pm 100 Eosinophils # November 20, 2014 7:20pm 0.0 # Eosinophils # (Auto) November 20, 2014 7:20pm Not Performed Eosinophils % (Manual) November 20, 2014 7:20pm 0 % N 0-4 Eosinophils (%) (Auto) November 20, 2014 7:20pm Not Performed 0-4 Erythrocyte Sedimentation Rate December 25, 2013 6:51pm 8 mm/hr N 0-12 Collected by nurse? N Estimat Glomerular Filtration Rate November 20, 2014 7:20pm 101.3 Estimated GFR (Non- November 20, 2014 7:20pm 83.7 Glucose Level November 20, 2014 7:20pm 132 mg/dL DH 70-110 Hematocrit November 20, 2014 7:20pm 42.30 % N 39.00-50.00 Hemoglobin November 20, 2014 7:20pm 14.6 g/dL N 13.5-17.0 Iron (send out) October 14, 2012 2:48am 75 ug/dL 65-175 Lipase January 20, 2014 12:45pm 58 U/L N 23-300 Collected by nurse? N Lymphocytes # November 20, 2014 7:20pm 1.0 # Lymphocytes # (Auto) November 20, 2014 7:20pm Not Performed Lymphocytes % (Manual) November 20, 2014 7:20pm 9 % L 20-46 Lymphocytes (%) (Auto) November 20, 2014 7:20pm Not Performed 20-46 Magnesium Level September 15, 2013 5:35am 2.1 MG/DL N 1.6-2.3 Collected by nurse? N Mean Corpuscular Hemoglobin November 20, 2014 7:20pm 28.8 PG N 26.0-34.0 Mean Corpuscular Hemoglobin Concent November 20, 2014 7:20pm 34.5 g/dL N 31.0-37.0 Mean Corpuscular Volume November 20, 2014 7:20pm 83 FL N 80-100 Mean Platelet Volume November 20, 2014 7:20pm 9.1 FL N 6.0-9.5 Metamyelocytes % August 20, 2013 10:15am 0 % N 0-1 Monocytes # November 20, 2014 7:20pm 0.3 # Monocytes # (Auto) November 20, 2014 7:20pm Not Performed Monocytes % (Manual) November 20, 2014 7:20pm 3 % N 3-11 Monocytes (%) (Auto) November 20, 2014 7:20pm Not Performed 3-11 N. gonorrhoeae DNA Specimen Source April 26, 2014 8:30am Urine () Corrected result; previously reported as Urine on 04/26/14 at 12:42 by V/AUT-- - 04/27/14 2349 --- NGON SOURCE previously reported as: Urine Neisseria gonorrhoeae RNA April 26, 2014 8:30am Negative Negative Test Performed by:[place] [address] Library Circulation Assistant: Ernst Stiles III, M.D. Neutrophils # November 20, 2014 7:20pm 9.7 # Neutrophils # (Auto) November 20, 2014 7:20pm Not Performed Neutrophils (%) (Auto) November 20, 2014 7:20pm Not Performed 51-67 Platelet Count November 20, 2014 7:20pm 375 10^3uL N 150-450 Potassium Level November 20, 2014 7:20pm 4.3 mmol/L N 3.5-5.1 POTASSIUM RESULT MAY BE FALSLY ELEVATED DUE TO A SLIGHTLYHEMOLYSED SAMPLE. I WILL REDRAW AND RERUN IF REQUESTED/MB Prothromb Time International Ratio November 15, 2014 11:40am 1.0 N 0.8-1.4 Prothrombin Time November 15, 2014 11:40am 13.1 SEC N 11.9-14.2 Rapid Plasma Reagin April 26, 2014 9:15am Non-reactive () Red Blood Count November 20, 2014 7:20pm 5.07 10^6uL N 4.50-5.50 Red Cell Distribution Width November 20, 2014 7:20pm 12.9 % N 11.8-15.6 Salicylates Level August 27, 2013 2:30pm < 1.0 MG/DL L 2.0-20.0 Collected by nurse? N Segmented Neutrophils % November 20, 2014 7:20pm 87 % H 51-67 Serum Alcohol November 13, 2014 6:50pm < 10.0 mg/dL L 10-80 Sodium Level November 20, 2014 7:20pm 141 mmol/L N 135-150 Stool Occult Blood [...] 2014 6:55am Negative Negative Total Bilirubin November 20, 2014 7:20pm 0.5 mg/dL N 0.1-1.0 Total Creatine Kinase November 20, 2014 7:20pm 127 U/L N 55-170 Total Iron Binding Capacity October 14, 2012 2:48am 393 ug/dL 260- 445 Total Protein November 20, 2014 7:20pm 8.1 g/dL N 6.4-8.5 Transferrin % Saturation October 14, 2012 2:48am 19 % 11-46 Troponin I November 22, 2014 3:12pm < 0.012 ng/mL 0.010-0.080 Ur Tricyclic Antidepressants [...] and its performance characteristics determined by [facility]. It has not been cleared or approved by the U.S. Food and Drug Administration. Test Performed by: [address] [address] Library Circulation Assistant: Ernst Stiles III, M.D. 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 completed 11/15/14 EMERGENCY DEPT VISIT completed 11/15/14 completed 11/15/14 completed 11/15/14 completed 11/15/14 EMERGENCY DEPT VISIT completed 11/16/14 Encounters Encounter Location Date/Time Departed Emergency Room [facility] 11/22/14 2:36pm Departed Emergency Room [facility] 11/21/14 5:44pm Departed Emergency Room [facility] 11/20/14 6:27pm Departed Emergency Room [facility] 11/16/14 8:21pm Departed Emergency Room [facility] 11/15/14 11:11am Departed Emergency Room [facility] 11/13/14 6:22pm Departed Emergency Room [facility] 11/11/14 1:06pm Registered Emergency Room [facility] 11/06/14 6:02pm Recent Diagnosis
--- OUTSIDE RECORDS SUMMARY | 2017-01-06 21:53 | XMS REPORT | Continuity of Care Document ---
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 Name Role Phone Lawrence Sher MD Primary Care Physician [phone] Insurance Providers Payer Name Policy Number Subscriber Name Relationship [facility] [id number] Chin Weber 17 Self / Same As Patient Self Pay/Pending [facility] Apprv [id number] Chin Weber 17 Self / Same As Patient Chief Complaint and Reason for Visit Chief Complaint Abuse Reason for Visit Drug abuse Rectal trauma Methamphetamine addiction Chest discomfort Problems Medical Problems Problem Onset [...] DAILY 30 Qty 08/28/13 09/13/13 Discontinued Cyanocobalamin 7099-8001 Mcg ORAL DAILY 09/16/13 Active Multivits,Th W-Fe,Other Min 1 Each ORAL DAILY 09/16/13 Active [place]-3 Fatty Acids/Fish Oil 1 Each ORAL DAILY [...] discharge instructions. Plan of Care Discharge Date 04/22/15 9:26am Disposition 01 HOME OR SELF-CARE Condition at Discharge Stable Instructions/Education Provided Rectal Bleeding (ED) Methamphetamine Abuse (ED) Prescriptions See Medications Section Referrals Lawrence Sher MD Additional Instructions/Education STOP USING METHAMPHETAMINE. Follow up with your health provider this week regarding your rectal bleeding and chest pains due to Meth abuse. Some of your test results may not [...] worrisome symptoms. * Emergency Department phone number: [phone], x [phone]* MEDICAL RECORD If you need copies of your X-rays, call [phone] x [phone]. If you need copies of [...] SERVICE BILLING [employer]Y Emergency Room Services [facility] Physician Services [facility] X-rays [place] [facility] Patients will receive bills for services from the appropriate provider. If you have any questions about your [facility] bill, our staff will be happy to assist you. Please call [phone], and ask for the billing department. THANK YOU for choosing [facility] as your emergency care provider! Functional Status No functional status results. Allergies, Adverse Reactions, Alerts Allergen Type Severity Reaction Status Last Updated No Known Drug Allergies Active 04/22/15 Immunizations No immunization records. Vital Signs Acute Vital Signs Vital Response Date/Time Temperature (Fahrenheit) 98.8 Pulse 109 bpm Respirations 18 Height 5 ft 6 in Weight 183 lb Body Mass Index 29.0 kg/m^2 Results Test Source Date Result Interp. Ref. Range Comments Absolute Band Neutrophils November 20, 2014 7:20pm 0.1 # Acetaminophen Level August 27, 2013 2:30pm < 10.0 UG/ML L 10.0-30.0 Collected by nurse? N Activated Partial Thromboplast Time April 22, 2015 6:40am 29.4 SEC N 24.9-35.9 Alanine Aminotransferase (ALT/SGPT) April 22, 2015 6:40am 37 U/L N 30-65 Albumin April 22, 2015 6:40am 5.2 g/dL DH 3.4-5.0 Albumin/Globulin Ratio April 22, 2015 6:40am 1.575 N 1.1-1.8 Alkaline Phosphatase April 22, 2015 6:40am 74 U/L N 38-126 Amylase Level February 02, 2015 7:39am 77 U/L N 25-115 Anion Gap April 22, 2015 6:40am 24.4 MEQ/L H 3-15 Aspartate Amino Transf (AST/SGOT) April 22, 2015 6:40am 36 U/L N 15- 37 B-Type Natriuretic Peptide August 20, 2013 10:15am 7 PG/ML N 0-100 BUN/Creatinine Ratio April 22, 2015 6:40am 16 N 10-20 Band Neutrophils % November 20, 2014 7:20pm 1 % N 0-6 Basophils # (Auto) April 22, 2015 6:40am 0.0 10^3uL Basophils % (Manual) November 20, 2014 7:20pm 0 % N 0-2 Basophils (%) (Auto) April 22, 2015 6:40am 0 % N 0-2 Blood Morphology Comment November 20, 2014 7:20pm Normal NORMAL Blood Urea Nitrogen April 22, 2015 6:40am 16 mg/dL DN 7-18 C-Reactive Protein December 25, 2013 6:51pm 0.70 MG/DL N 0.0-0.9 Collected by nurse? N Calcium Level April 22, 2015 6:40am 9.7 mg/dL N 8.8-10.8 Calcium/Ionized Calcium Ratio April 22, 2015 6:40am 3.8 mg/dL N 3.8- 4.6 Calculated Osmolality April 22, 2015 6:40am 292 mosm/L N 280-300 Carbon Dioxide Level April 22, 2015 6:40am 27 mmol/L N 22-29 Chlamydia trachomatis RNA April 26, 2014 8:30am Negative Negative Chlamydia/GC DNA Probe Source April 26, 2014 8:30am Urine () Corrected result; previously reported as Urine on 04/26/14 at 12:42 by V/AUT--- 04/27/14 2349 --- GC.CHL SOURCE previously reported as: Urine Chloride Level April 22, 2015 6:40am 103 mmol/L N 98-108 Creatine Kinase MB April 22, 2015 6:40am 9.5 ng/mL H 0.0-6.0 Creatinine April 22, 2015 6:40am 1.00 mg/dL N 0.8-1.5 D-Dimer August 20, 2013 10:15am 0.43 ug/mL PH 0.00-0.41 Results called to Ladan read back the results. Called by Janna Greenwood at 1044 Differential Total Cells Counted November 20, 2014 7:20pm 100 Eosinophils # November 20, 2014 7:20pm 0.0 # Eosinophils # (Auto) April 22, 2015 6:40am 0.0 10^3uL Eosinophils % (Manual) November 20, 2014 7:20pm 0 % N 0-4 Eosinophils (%) (Auto) April 22, 2015 6:40am 0 % N 0-4 Erythrocyte Sedimentation Rate December 25, 2013 6:51pm 8 mm/hr N 0-12 Collected by nurse? N Estimat Glomerular Filtration Rate April 22, 2015 6:40am 100.1 Estimated GFR (Non- April 22, 2015 6:40am 82.8 Glucose Level April 22, 2015 6:40am 112 mg/dL DH 70-110 Hematocrit April 22, 2015 6:40am 45.30 % N 39.00-50.00 Hemoglobin April 22, 2015 6:40am 15.5 g/dL N 13.5-17.0 Iron (send out) October 14, 2012 2:48am 75 ug/dL 65-175 Lipase February 02, 2015 7:39am 141 U/L N 23-300 Lymphocytes # November 20, 2014 7:20pm 1.0 # Lymphocytes # (Auto) April 22, 2015 6:40am 1.8 X10^3 Lymphocytes % (Manual) November 20, 2014 7:20pm 9 % L 20-46 Lymphocytes (%) (Auto) April 22, 2015 6:40am 13 % L 20-46 Magnesium Level September 15, 2013 5:35am 2.1 MG/DL N 1.6-2.3 Collected by nurse? N Mean Corpuscular Hemoglobin April 22, 2015 6:40am 28.7 PG N 26.0- 34.0 Mean Corpuscular Hemoglobin Concent April 22, 2015 6:40am 34.2 g/dL N 31.0-37.0 Mean Corpuscular Volume April 22, 2015 6:40am 84 FL N 80-100 Mean Platelet Volume April 22, 2015 6:40am 8.9 FL N 6.0-9.5 Metamyelocytes % August 20, 2013 10:15am 0 % N 0-1 Monocytes # November 20, 2014 7:20pm 0.3 # Monocytes # (Auto) April 22, 2015 6:40am 1.4 X10^3 Monocytes % (Manual) November 20, 2014 7:20pm 3 % N 3-11 Monocytes (%) (Auto) April 22, 2015 6:40am 11 % N 3-11 N. gonorrhoeae DNA Specimen Source April 26, 2014 8:30am Urine () Corrected result; previously reported as Urine on 04/26/14 at 12:42 by V/AUT-- - 04/27/14 2349 --- NGON SOURCE previously reported as: Urine Neisseria gonorrhoeae RNA April 26, 2014 8:30am Negative Negative Test Performed by:[address] [address] Robotics Engineer: Ernst Stiles III, M.D. Neutrophils # November 20, 2014 7:20pm 9.7 # Neutrophils # (Auto) April 22, 2015 6:40am 10.2 X10^3 Neutrophils (%) (Auto) April 22, 2015 6:40am 76 % H 51-67 Platelet Count April 22, 2015 6:40am 359 10^3uL N 150-450 Potassium Level April 22, 2015 6:40am 3.7 mmol/L N 3.5-5.1 Prothromb Time International Ratio April 22, 2015 6:40am 1.0 N 0.8- 1.4 Prothrombin Time April 22, 2015 6:40am 13.2 SEC N 11.9-14.2 Rapid Plasma Reagin April 26, 2014 9:15am Non-reactive () Red Blood Count April 22, 2015 6:40am 5.41 10^6uL N 4.50-5.50 Red Cell Distribution Width April 22, 2015 6:40am 13.5 % N 11.8- 15.6 Salicylates Level August 27, 2013 2:30pm < 1.0 MG/DL L 2.0-20.0 Collected by nurse? N Segmented Neutrophils % November 20, 2014 7:20pm 87 % H 51-67 Serum Alcohol November 25, 2014 9:00pm < 10.0 mg/dL L 10-80 Sodium Level April 22, 2015 6:40am 151 mmol/L DH 135-150 Stool Occult Blood February 02, 2015 7:27am Positive NEGATIVE Stool Occult Blood Expiration Date November 14, 2013 11:59pm 11/29 -- - 11/15/1315 ---OBEXP previously reported as: 11/29 Stool Occult Blood Lot Number November 14, 2013 11:59pm [id number] --- 08/30 ---OCCULT BLOOD LO previously reported as: 1121 Streptococcus Screen March 29, 2014 6:55am Negative Negative Total Bilirubin April 22, 2015 6:40am 0.6 mg/dL N 0.1-1.0 Total Creatine Kinase April 22, 2015 6:40am 404 U/L DPH 55-170 Results called to MARTH[facility] read back the results. Called by Ysabel Almeida at 0700 Total Iron Binding Capacity October 14, 2012 2:48am 393 ug/dL 260- 445 Total Protein April 22, 2015 6:40am 8.5 g/dL N 6.4-8.5 Transferrin % Saturation October 14, 2012 2:48am 19 % 11-46 Troponin I April 22, 2015 8:38am < 0.012 ng/mL 0.010-0.080 Urine Bacteria April [...] developed and its performance characteristics determined by [facility]. It has not been cleared or approved by the U.S. Food and Drug Administration. Test Performed by: [facility] [address] [address] Robotics Engineer: Ernst Stiles III, M.D. Urine Nitrite April 22, 2015 8:30am Negative Negative Urine collection method Clean Catch Urine Protein April 22, 2015 8:30am 1+ H Negative Urine collection method Clean Catch Urine RBC April 22, 2015 8:30am 2-5 /HPF Urine collection method Clean Catch Urine RBC (Auto) April 22, 2015 8:30am Trace-intact H Negative Urine collection method Clean Catch Urine Specific [place] April 22, 2015 8:30am 1.020 1.005-1.030 Urine [...] Clean Catch White Blood Count April 22, 2015 6:40am 13.44 10^3uL H 4.0-11.0 Group A Streptococcus Culture Throat March 29, 2014 6:55am Procedures Procedure Status Date Provider(s) US EXAM ABDOM COMPLETE completed 04/13/15 US EXAM PELVIC COMPLETE completed 04/13/15 Encounters Encounter Location Date/Time Departed Emergency Room [facility] 04/22/15 5:47am Registered Clinic [facility] 04/13/15 7:19am Recent Diagnosis
--- OUTSIDE RECORDS SUMMARY | 2017-01-06 21:53 | XMS REPORT | Continuity of Care Document ---
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 Name Role Phone Lawrence Sher MD Primary Care Physician [phone] Insurance Providers Payer Name Policy Number Subscriber Name Relationship Self Pay/Approved [facility] [id number] Chin Weber 17 Self / Same As Patient Chief Complaint and Reason for Visit Chief Complaint GI Complaint Reason for Visit Methamphetamine abuse Rectal trauma [id number] Abdominal pain Problems Medical Problems Problem Onset Date [...] ~11/26/2014 Active Vomiting ~12/17/2014 Resolved Gastroenteritis ~12/17/2014 Active Chest discomfort Unknown Active Rectal trauma ~02/02/2015 Active Foreign body anus/rectum ~02/02/2015 Active Abdominal pain ~02/02/2015 Active Medications Medication Dose Route Sig Days/Qty [...] DAILY 30 Qty 08/28/13 09/13/13 Discontinued Cyanocobalamin [id number] Mcg ORAL DAILY 09/16/13 Active Multivits,Th W-Fe,Other Min 1 Each ORAL DAILY 09/16/13 Active [place]-3 Fatty Acids/Fish Oil 1 Each ORAL DAILY [...] discharge instructions. Plan of Care Discharge Date 02/02/15 9:30am Disposition 01 HOME OR SELF-CARE Condition at Discharge Stable Instructions/Education Provided Acute Abdominal Pain (ED) Methamphetamine Abuse (ED) Prescriptions See Medications Section Referrals Lawrence Sher MD Additional Instructions/Education Follow up with primary care doctor for repeat hemoccult test. Return to ER as needed. STOP USING METH!! Some of your test results may not [...] worrisome symptoms. * Emergency Department phone number: [phone], x [phone]* MEDICAL RECORD If you need copies of your X-rays, call [phone] x [phone]. If you need copies of [...] SERVICE BILLING [employer]Y Emergency Room Services [facility] Physician Services [facility] X-rays [place] [facility] Patients will receive bills for services from the appropriate provider. If you have any questions about your [facility] bill, our staff will be happy to assist you. Please call [phone], and ask for the billing department. THANK YOU for choosing [facility] as your emergency care provider! Functional Status No functional status results. Allergies, Adverse Reactions, Alerts Allergen Type Severity Reaction Status Last Updated No Known Drug Allergies Active 03/03/14 Immunizations No immunization records. Vital Signs Acute Vital Signs Vital Response Date/Time Temperature (Fahrenheit) 98.1 Pulse 52 bpm Respirations 20 Height 5 ft 7 in Weight 174 lb Body Mass Index 27.0 kg/m^2 Results Test Source Date Result Interp. Ref. Range Comments Absolute Band Neutrophils November 20, 2014 7:20pm 0.1 # Acetaminophen Level August 27, 2013 2:30pm < 10.0 UG/ML L 10.0-30.0 Collected by nurse? N Activated Partial Thromboplast Time January 06, 2015 6:35am 30.3 SEC N 24.9- 35.9 Alanine Aminotransferase (ALT/SGPT) February 02, 2015 7:39am 27 U/L L 30-65 Albumin February 02, 2015 7:39am 4.3 g/dL N 3.4-5.0 Albumin/Globulin Ratio February 02, 2015 7:39am 1.433 N 1.1-1.8 Alkaline Phosphatase February 02, 2015 7:39am 84 U/L N 38-126 Amylase Level February 02, 2015 7:39am 77 U/L N 25-115 Anion Gap February 02, 2015 7:39am 15.9 MEQ/L H 3-15 Aspartate Amino Transf (AST/SGOT) February 02, 2015 7:39am 23 U/L N 15-37 B-Type Natriuretic Peptide August 20, 2013 10:15am 7 PG/ML N 0-100 BUN/Creatinine Ratio February 02, 2015 7:39am 13 N 10-20 Band Neutrophils % November 20, 2014 7:20pm 1 % N 0-6 Basophils # (Auto) February 02, 2015 7:39am 0.0 10^3uL Basophils % (Manual) November 20, 2014 7:20pm 0 % N 0-2 Basophils (%) (Auto) February 02, 2015 7:39am 1 % N 0-2 Blood Morphology Comment November 20, 2014 7:20pm Normal NORMAL Blood Urea Nitrogen February 02, 2015 7:39am 11 mg/dL N 7-18 C-Reactive Protein December 25, 2013 6:51pm 0.70 MG/DL N 0.0-0.9 Collected by nurse? N Calcium Level February 02, 2015 7:39am 9.1 mg/dL N 8.8-10.8 Calcium/Ionized Calcium Ratio February 02, 2015 7:39am 3.9 mg/dL N 3.8-4.6 Calculated Osmolality February 02, 2015 7:39am 277 mosm/L L 280-300 Carbon Dioxide Level February 02, 2015 7:39am 30 mmol/L H 22-29 Chlamydia trachomatis RNA April 26, 2014 8:30am Negative Negative Chlamydia/GC DNA Probe Source April 26, 2014 8:30am Urine () Corrected result; previously reported as Urine on 04/26/14 at 12:42 by V/AUT--- 04/27/14 2349 --- GC.CHL SOURCE previously reported as: Urine Chloride Level February 02, 2015 7:39am 102 mmol/L N 98-108 Creatine Kinase MB January 06, 2015 6:35am 7.9 ng/mL H 0.0-6.0 Creatinine February 02, 2015 7:39am 0.87 mg/dL N 0.8-1.5 D-Dimer August 20, 2013 10:15am 0.43 ug/mL PH 0.00-0.41 Results called to Ladan read back the results. Called by Janna Greenwood at 1044 Differential Total Cells Counted November 20, 2014 7:20pm 100 Eosinophils # November 20, 2014 7:20pm 0.0 # Eosinophils # (Auto) February 02, 2015 7:39am 0.2 10^3uL Eosinophils % (Manual) November 20, 2014 7:20pm 0 % N 0-4 Eosinophils (%) (Auto) February 02, 2015 7:39am 3 % N 0-4 Erythrocyte Sedimentation Rate December 25, 2013 6:51pm 8 mm/hr N 0-12 Collected by nurse? N Estimat Glomerular Filtration Rate February 02, 2015 7:39am 117.6 Estimated GFR (Non- February 02, 2015 7:39am 97.2 Glucose Level February 02, 2015 7:39am 93 mg/dL N 70-110 Hematocrit February 02, 2015 7:39am 39.00 % N 39.00-50.00 Hemoglobin February 02, 2015 7:39am 13.5 g/dL N 13.5-17.0 Iron (send out) October 14, 2012 2:48am 75 ug/dL 65-175 Lipase February 02, 2015 7:39am 141 U/L N 23-300 Lymphocytes # November 20, 2014 7:20pm 1.0 # Lymphocytes # (Auto) February 02, 2015 7:39am 2.3 X10^3 Lymphocytes % (Manual) November 20, 2014 7:20pm 9 % L 20-46 Lymphocytes (%) (Auto) February 02, 2015 7:39am 36 % N 20-46 Magnesium Level September 15, 2013 5:35am 2.1 MG/DL N 1.6-2.3 Collected by nurse? N Mean Corpuscular Hemoglobin February 02, 2015 7:39am 29.2 PG N 26.0-34.0 Mean Corpuscular Hemoglobin Concent February 02, 2015 7:39am 34.6 g/dL N 31.0-37.0 Mean Corpuscular Volume February 02, 2015 7:39am 84 FL N 80-100 Mean Platelet Volume February 02, 2015 7:39am 8.9 FL N 6.0-9.5 Metamyelocytes % August 20, 2013 10:15am 0 % N 0-1 Monocytes # November 20, 2014 7:20pm 0.3 # Monocytes # (Auto) February 02, 2015 7:39am 0.8 X10^3 Monocytes % (Manual) November 20, 2014 7:20pm 3 % N 3-11 Monocytes (%) (Auto) February 02, 2015 7:39am 12 % H 3-11 N. gonorrhoeae DNA Specimen Source April 26, 2014 8:30am Urine () Corrected result; previously reported as Urine on 04/26/14 at 12:42 by V/AUT-- - 04/27/14 2349 --- NGON SOURCE previously reported as: Urine Neisseria gonorrhoeae RNA April 26, 2014 8:30am Negative Negative Test Performed by:[address] [address] Child Welfare Worker: Ernst Stiles III, M.D. Neutrophils # November 20, 2014 7:20pm 9.7 # Neutrophils # (Auto) February 02, 2015 7:39am 3.1 X10^3 Neutrophils (%) (Auto) February 02, 2015 7:39am 49 % L 51-67 Platelet Count February 02, 2015 7:39am 353 10^3uL N 150-450 Potassium Level February 02, 2015 7:39am 4.1 mmol/L N 3.5-5.1 Prothromb Time International Ratio January 06, 2015 6:35am 1.1 N 0.8-1.4 Prothrombin Time January 06, 2015 6:35am 13.6 SEC N 11.9-14.2 Rapid Plasma Reagin April 26, 2014 9:15am Non-reactive () Red Blood Count February 02, 2015 7:39am 4.63 10^6uL N 4.50-5.50 Red Cell Distribution Width February 02, 2015 7:39am 12.7 % N 11.8-15.6 Salicylates Level August 27, 2013 2:30pm < 1.0 MG/DL L 2.0-20.0 Collected by nurse? N Segmented Neutrophils % November 20, 2014 7:20pm 87 % H 51-67 Serum Alcohol November 25, 2014 9:00pm < 10.0 mg/dL L 10-80 Sodium Level February 02, 2015 7:39am 144 mmol/L N 135-150 Stool Occult Blood February 02, 2015 7:27am Positive NEGATIVE Stool Occult Blood Expiration Date November 14, 2013 11:59pm 11/29 -- - 11/15/1315 ---OBEXP previously reported as: 11/29 Stool Occult Blood Lot Number November 14, 2013 11:59pm [id number] --- 08/30 ---OCCULT BLOOD LO previously reported as: 1121 Streptococcus Screen March 29, 2014 6:55am Negative Negative Total Bilirubin February 02, 2015 7:39am 0.2 mg/dL DN 0.1-1.0 Total Creatine Kinase January 06, 2015 8:38am 703 U/L PH 55-170 Results called to [facility] read back the results. Called by Ysabel Almeida at 0850 Total Iron Binding Capacity October 14, 2012 2:48am 393 ug/dL 260- 445 Total Protein February 02, 2015 7:39am 7.3 g/dL N 6.4-8.5 Transferrin % Saturation October 14, 2012 2:48am 19 % 11-46 Troponin I January 06, 2015 8:38am < 0.012 ng/mL 0.010-0.080 Urine Bacteria January 06, 2015 8:35am None seen /HPF Urine collection method Clean Catch Urine Bilirubin February 02, 2015 7:25am Negative Negative Urine collection method Clean Catch Urine Blood March 29, 2014 6:55am Negative Negative Urine Clarity February 02, 2015 7:25am Clear Urine collection method Clean Catch Urine Collection Type February 02, 2015 7:25am Clean catch Urine collection method Clean Catch Urine Color February 02, 2015 7:25am Light yellow Urine collection method Clean Catch Urine Glucose (UA) February 02, 2015 7:25am Negative Negative Urine collection method Clean Catch Urine Hyaline Casts July 04, 2013 3:52am 3+ /LPF H Urine collection method Clean Catch Urine Ketones February 02, 2015 7:25am Negative Negative Urine collection method Clean Catch Urine Leukocyte Esterase February 02, 2015 7:25am Negative Negative Urine collection method Clean Catch [...] its performance characteristics determined by [facility]. It has not been cleared or approved by the U.S. Food and Drug Administration. Test Performed by: [facility] [place] [address] Child Welfare Worker: Ernst Stiles III, M.D. Urine Nitrite February 02, 2015 7:25am Negative Negative Urine collection method Clean Catch Urine Protein February 02, 2015 7:25am Negative Negative Urine collection method Clean Catch Urine RBC January 06, 2015 8:35am 0-2 /HPF Urine collection method Clean Catch Urine RBC (Auto) February 02, 2015 7:25am Negative Negative Urine collection method Clean Catch Urine Specific [place] February 02, 2015 7:25am 1.015 1.005-1.030 Urine collection method Clean Catch Urine Squamous Epithelial Cells January 06, 2015 8:35am 0-2 /LPF Urine collection method Clean Catch Urine Urobilinogen February 02, 2015 7:25am 0.2 mg/dL 0.2-1.0 Urine collection method Clean Catch Urine WBC January 06, 2015 8:35am None seen /HPF Urine collection method Clean Catch Urine pH February 02, 2015 7:25am 7.0 5.0 - 8.0 Urine collection method Clean Catch Volume Urine Centrifuged January 06, 2015 8:35am 12 ml Urine collection method Clean Catch White Blood Count February 02, 2015 7:39am 6.37 10^3uL N 4.0-11.0 Group A Streptococcus Culture Throat March 29, 2014 6:55am Procedures Procedure Status Date Provider(s) ROUTINE VENIPUNCTURE completed 01/06/15 CHEST X-RAY 1 VIEW FRONTAL completed 01/06/15 COMPREHEN METABOLIC PANEL completed 01/06/15 DRUG SCREEN CLASS LIST A completed 01/06/15 URINALYSIS AUTO W/O SCOPE completed 01/06/15 MICROSCOPIC EXAM OF URINE completed 01/06/15 ASSAY OF CK (CPK) completed 01/06/15 CREATINE MB FRACTION completed 01/06/15 ASSAY OF TROPONIN QUANT completed 01/06/15 COMPLETE CBC W/AUTO DIFF WBC completed 01/06/15 PROTHROMBIN TIME completed 01/06/15 THROMBOPLASTIN TIME PARTIAL completed 01/06/15 ELECTROCARDIOGRAM TRACING completed 01/06/15 MEASURE BLOOD OXYGEN LEVEL completed 01/06/15 HYDRATE IV INFUSION ADD-ON completed 01/06/15 THER/PROPH/DIAG INJ IV PUSH completed 01/06/15 EMERGENCY DEPT VISIT completed 01/06/15 completed 01/06/15 completed 01/06/15 EMERGENCY DEPT VISIT completed 01/09/15 Encounters Encounter Location Date/Time Departed Emergency Room [facility] 02/02/15 7:07am Departed Emergency Room [facility] 01/09/15 9:01am Departed Emergency Room [facility] 01/06/15 6:23am Recent Diagnosis
--- OUTSIDE RECORDS SUMMARY | 2017-01-06 21:54 | XMS REPORT | Continuity of Care Document ---
Author Author [facility] Organization [facility] Address Unknown Phone Unavailable Care Team Providers Care Drainage Engineer Name Role Phone Lawrence Sher MD Primary Care Physician [phone] Insurance Providers Payer Name Policy Number Subscriber Name Relationship [facility] [id number] Chin Weber 18 Self / Same As Patient Self Pay/Pending [facility] Apprv [id number] Chin Weber 18 Self / Same As Patient Chief Complaint and Reason for Visit Chief Complaint Abuse Reason for Visit Methamphetamine abuse Problems Medical Problems Problem Onset [...] DAILY 30 Qty 08/28/13 09/13/13 Discontinued Cyanocobalamin [id number] Mcg ORAL DAILY 09/16/13 Active Multivits,Th W-Fe,Other Min 1 Each ORAL DAILY 09/16/13 Active [place]-3 Fatty Acids/Fish Oil 1 Each ORAL DAILY [...] DAY PRN NAUSEA/VOMITING 12 Qty 04/23/15 Active Cephalexin 500 Mg ORAL THREE TIMES A DAY 21 Qty 04/29/15 Active Social History No social history. Hospital Discharge Instructions No hospital discharge instructions. Plan of Care Discharge Date 04/30/15 11:43pm Disposition 01 HOME OR SELF-CARE Condition at [...] worrisome symptoms. * Emergency Department phone number: [phone], x [phone] MEDICAL RECORD If you need copies of your X-rays, call [phone] x [phone]. If you need copies of [...] [employer] Emergency Room Services [facility] Physician Services [facility] X-rays [facility] Patients will receive bills for services from the appropriate provider. If you have any questions about your [facility] bill, our staff will be happy to assist you. Please call [phone], and ask for the billing department. THANK YOU for choosing [facility] as your emergency care provider! Functional Status No functional status results. Allergies, Adverse Reactions, Alerts Allergen Type Severity Reaction Status Last Updated No Known Drug Allergies Active 04/30/15 Immunizations No immunization records. Vital Signs Acute Vital Signs Vital Response Date/Time Temperature (Fahrenheit) 96.8 Pulse 88 bpm Respirations 22 Height 5 ft 6 in Weight 174 lb Body Mass Index 28.0 kg/m^2 Results Test Source Date Result Interp. Ref. Range Comments Acetaminophen Level August 27, 2013 2:30pm < 10.0 UG/ML L 10.0-30.0 Collected by nurse? N Activated Partial Thromboplast Time April 27, 2015 9:51pm 29.3 SEC N 24.9-35.9 Alanine Aminotransferase (ALT/SGPT) April 29, 2015 8:12am 39 U/L N 30-65 Albumin April 29, 2015 8:12am 4.9 g/dL N 3.4-5.0 Albumin/Globulin Ratio April 29, 2015 8:12am 1.441 N 1.1-1.8 Alkaline Phosphatase April 29, 2015 8:12am 76 U/L N 38-126 Amylase Level February 02, 2015 7:39am 77 U/L N 25-115 Anion Gap April 29, 2015 8:12am 20.2 MEQ/L H 3-15 Aspartate Amino Transf (AST/SGOT) April 29, 2015 8:12am 34 U/L N 15- 37 B-Type Natriuretic Peptide August 20, 2013 10:15am 7 PG/ML N 0-100 BUN/Creatinine Ratio April 29, 2015 8:12am 14 N 10-20 Band Neutrophils % November 20, 2014 7:20pm 1 % N 0-6 Basophils # (Auto) April 29, 2015 8:12am 0.0 10^3uL Basophils % (Manual) November 20, 2014 7:20pm 0 % N 0-2 Basophils (%) (Auto) April 29, 2015 8:12am 0 % N 0-2 Blood Urea Nitrogen April 29, 2015 8:12am 13 mg/dL N 7-18 C-Reactive Protein December 25, 2013 6:51pm 0.70 MG/DL N 0.0-0.9 Collected by nurse? N Calcium Level April 29, 2015 8:12am 9.6 mg/dL N 8.8-10.8 Calculated Osmolality April 29, 2015 8:12am 274 mosm/L L 280-300 Carbon Dioxide Level April 29, 2015 8:12am 26 mmol/L N 22-29 Chlamydia/GC DNA Probe Source April 26, 2014 8:30am Urine () Corrected result; previously reported as Urine on 04/26/14 at 12:42 by V/AUT--- 04/27/14 2349 --- GC.CHL SOURCE previously reported as: Urine Chloride Level April 29, 2015 8:12am 99 mmol/L N 98-108 Creatine Kinase MB April 27, 2015 9:51pm 4.4 ng/mL N 0.0-6.0 Creatinine April 29, 2015 8:12am 0.94 mg/dL N 0.8-1.5 D-Dimer April 27, 2015 9:51pm 0.51 ug/mL PH 0.00-0.41 Results called to E[facility] IN ERwho read back the results. Called by Ysabel Almeida at 2212 Differential Total Cells Counted November 20, 2014 7:20pm 100 Eosinophils # November 20, 2014 7:20pm 0.0 # Eosinophils # (Auto) April 29, 2015 8:12am 0.0 10^3uL Eosinophils % (Manual) November 20, 2014 7:20pm 0 % N 0-4 Eosinophils (%) (Auto) April 29, 2015 8:12am 0 % N 0-4 Erythrocyte Sedimentation Rate December 25, 2013 6:51pm 8 mm/hr N 0-12 Collected by nurse? N Glucose Level April 29, 2015 8:12am 95 mg/dL N 70-110 Hematocrit April 29, 2015 8:12am 39.50 % N 39.00-50.00 Hemoglobin April 29, 2015 8:12am 13.9 g/dL N 13.5-17.0 Lipase April 24, 2015 3:18pm 58 U/L N 23-300 Lymphocytes # November 20, 2014 7:20pm 1.0 # Lymphocytes # (Auto) April 29, 2015 8:12am 1.5 X10^3 Lymphocytes % (Manual) November 20, 2014 7:20pm 9 % L 20-46 Lymphocytes (%) (Auto) April 29, 2015 8:12am 21 % N 20-46 Magnesium Level September 15, 2013 5:35am 2.1 MG/DL N 1.6-2.3 Collected by nurse? N Mean Corpuscular Hemoglobin April 29, 2015 8:12am 28.8 PG N 26.0- 34.0 Mean Corpuscular Hemoglobin Concent April 29, 2015 8:12am 35.2 g/dL N 31.0-37.0 Mean Corpuscular Volume April 29, 2015 8:12am 82 FL N 80-100 Mean Platelet Volume April 29, 2015 8:12am 8.7 FL N 6.0-9.5 Metamyelocytes % August 20, 2013 10:15am 0 % N 0-1 Monocytes # November 20, 2014 7:20pm 0.3 # Monocytes # (Auto) April 29, 2015 8:12am 0.9 X10^3 Monocytes % (Manual) November 20, 2014 7:20pm 3 % N 3-11 Monocytes (%) (Auto) April 29, 2015 8:12am 12 % H 3-11 Neutrophils # November 20, 2014 7:20pm 9.7 # Neutrophils # (Auto) April 29, 2015 8:12am 4.9 X10^3 Neutrophils (%) (Auto) April 29, 2015 8:12am 67 % N 51-67 Platelet Count April 29, 2015 8:12am 353 10^3uL N 150-450 Potassium Level April 29, 2015 8:12am 3.9 mmol/L N 3.5-5.1 Prothromb Time International Ratio April 27, 2015 9:51pm 1.0 N 0.8- 1.4 Prothrombin Time April 27, 2015 9:51pm 13.3 SEC N 11.9-14.2 Rapid Plasma Reagin April 26, 2014 9:15am Non-reactive () Red Blood Count April 29, 2015 8:12am 4.82 10^6uL N 4.50-5.50 Red Cell Distribution Width April 29, 2015 8:12am 12.6 % N 11.8- 15.6 Salicylates Level August 27, 2013 2:30pm < 1.0 MG/DL L 2.0-20.0 Collected by nurse? N Segmented Neutrophils % November 20, 2014 7:20pm 87 % H 51-67 Sodium Level April 29, 2015 8:12am 142 mmol/L N 135-150 Stool Occult Blood February 02, 2015 7:27am Positive NEGATIVE Streptococcus Screen March 29, 2014 6:55am Negative Negative Total Bilirubin April 29, 2015 8:12am 1.1 mg/dL H 0.1-1.0 Total Creatine Kinase April 27, 2015 9:51pm 472 U/L PH 55-170 Results called to [facility] IN ERwho read back the results. Called by Ysabel Almeida at 2210 Total Iron Binding Capacity October 14, 2012 2:48am 393 ug/dL 260- 445 Total Protein April 29, 2015 8:12am 8.3 g/dL N 6.4-8.5 Transferrin % Saturation October 14, 2012 2:48am 19 % 11-46 Troponin I April 29, 2015 8:12am < 0.012 ng/mL 0.010-0.080 Urine Bacteria April 22, 2015 8:30am Rare /HPF Urine collection method Clean Catch Urine Bilirubin April 29, 2015 12:35pm Negative Negative Urine collection method Clean Catch Urine Blood March 29, 2014 6:55am Negative Negative Urine Clarity April 29, 2015 12:35pm Clear Urine collection method Clean Catch Urine Collection Type April 29, 2015 12:35pm Clean catch Urine collection method Clean Catch Urine Color April 29, 2015 12:35pm Yellow Urine collection method Clean Catch Urine Glucose (UA) April 29, 2015 12:35pm Negative Negative Urine collection method Clean Catch Urine Hyaline Casts July 04, 2013 3:52am 3+ /LPF H Urine collection method Clean Catch Urine Ketones April 29, 2015 12:35pm Negative Negative Urine collection method Clean Catch Urine Leukocyte Esterase April 29, 2015 12:35pm Negative Negative Urine collection method Clean Catch [...] its performance characteristics determined by [facility]. It has not been cleared or approved by the [place]. Food and Drug Administration. Test Performed by: [facility] [address] [place] [address] Music Mixer: Ernst Stiles III, M.D. Urine Nitrite April 29, 2015 12:35pm Negative Negative Urine collection method Clean Catch Urine Protein April 29, 2015 12:35pm Negative Negative Urine collection method Clean Catch Urine RBC April 22, 2015 8:30am 2-5 /HPF Urine collection method Clean Catch Urine Specific [place] April 29, 2015 12:35pm <=1.005 1.005-1.030 Urine collection method Clean Catch Urine Squamous Epithelial Cells April 22, 2015 8:30am 2-5 /LPF Urine collection method Clean Catch Urine Urobilinogen April 29, 2015 12:35pm 0.2 mg/dL 0.2-1.0 Urine collection method Clean Catch Urine WBC April 22, 2015 8:30am 0-2 /HPF Urine collection method Clean Catch Urine pH April 29, 2015 12:35pm 7.0 5.0 - 8.0 Urine collection method Clean Catch White Blood Count April 29, 2015 8:12am 7.27 10^3uL N 4.0-11.0 Serum Alcohol April 27, 2015 9:51pm < 10.0 mg/dL L 10-80 Volume Urine Centrifuged April 22, 2015 8:30am 10 ml Urine collection method Clean Catch Bedside Troponin I April 30, 2015 9:55pm 0.00 ng/mL N 0.00-0.08 Estimat Glomerular Filtration Rate April 29, 2015 8:12am 107.6 Blood Morphology Comment November 20, 2014 7:20pm Normal NORMAL Neisseria gonorrhoeae RNA April 26, 2014 8:30am Negative Negative Test Performed by:[address] [address] Music Mixer: Ernst Stiles III, M.D. Chlamydia trachomatis RNA April 26, 2014 8:30am Negative Negative Estimated GFR (Non- April 29, 2015 8:12am 88.9 N. gonorrhoeae DNA Specimen Source April 26, 2014 8:30am Urine () Corrected result; previously reported as Urine on 04/26/14 at 12:42 by V/AUT-- - 04/27/14 2349 --- NGON SOURCE previously reported as: Urine Urine RBC (Auto) April 29, 2015 12:35pm Negative Negative Urine collection method Clean Catch Iron (send out) October 14, 2012 2:48am 75 ug/dL 65-175 AJ-Cui-E-Type Natriuretic Peptide April 27, 2015 9:51pm 41 pg/mL N 0 -125 <300 ng/mL - HF unlikely Age <50 years, NT-proBNP >450 pg/mL - HF Likely Age 50-75 yrs, NT-proBNP >900 pg/mL - HF Likely Age >75 yrs, NT-proBNP >1800 - HF likely Absolute Band Neutrophils November 20, 2014 7:20pm 0.1 # Stool Occult Blood Expiration Date November 14, 2013 11:59pm 11/29 -- - 11/15/1315 ---OBEXP previously reported as: 11/29 Stool Occult Blood Lot Number November 14, 2013 11:59pm [id number] --- 08/30 0016 ---OCCULT BLOOD LO previously reported as: [id number] Calcium/Ionized Calcium Ratio April 29, 2015 8:12am 3.9 mg/dL N 3.8- 4.6 Group A Streptococcus Culture Throat March 29, 2014 6:55am Urine Culture Urine-Voided Urine April 22, 2015 8:30am Procedures Procedure Status Date Provider(s) US EXAM ABDOM COMPLETE completed 04/13/15 US EXAM PELVIC COMPLETE completed 04/13/15 ROUTINE VENIPUNCTURE completed 04/23/15 COMPREHEN METABOLIC PANEL completed 04/23/15 ASSAY OF LIPASE completed 04/23/15 ASSAY OF TROPONIN QUANT completed 04/23/15 ELECTROCARDIOGRAM TRACING completed 04/23/15 EMERGENCY DEPT VISIT completed 04/23/15 Encounters Encounter Location Date/Time Departed Emergency Room [facility] 04/30/15 8:02pm Departed Emergency Room [facility] 04/29/15 11:57am Departed Emergency Room [facility] 04/27/15 9:08pm Departed Emergency Room [facility] 04/24/15 2:30pm Departed Emergency Room [facility] 04/23/15 1:10pm Departed Emergency Room [facility] 04/22/15 5:47am Registered Clinic [facility] 04/13/15 7:19am Recent Diagnosis
--- OUTSIDE RECORDS SUMMARY | 2017-01-06 21:54 | XMS REPORT | Continuity of Care Document ---
Author Author [facility] Organization [facility] Address Unknown Phone Unavailable Care Team Providers Care Crimper Assembler Name Role Phone Lawrence Sher MD Primary Care Physician [phone] Insurance Providers Payer Name Policy Number Subscriber Name Relationship Self Pay/Approved [facility] [id number] Chin Weber 17 Self / Same As Patient Chief Complaint and Reason for Visit Chief Complaint Cardiac Complaint Reason for Visit Drug abuse [id number] discomfort Problems Medical Problems Problem Onset Date [...] Active Vomiting ~12/17/2014 Resolved Gastroenteritis ~12/17/2014 Active Medications Medication Dose Route Sig Days/Qty [...] DAILY 30 Qty 08/28/13 09/13/13 Discontinued Cyanocobalamin 4777-5235 Mcg ORAL DAILY 09/16/13 Active Multivits,Th W-Fe,Other Min 1 Each ORAL DAILY 09/16/13 Active [place]-3 Fatty Acids/Fish Oil 1 Each ORAL DAILY [...] DAY PRN CHEST PAIN 15 Qty 01/06/15 Active Social History No social history. Hospital Discharge Instructions No hospital discharge instructions. Plan of Care Discharge Date 01/06/15 9:34am Disposition 01 HOME OR SELF-CARE Condition at Discharge Stable Prescriptions See Medications Section Referrals Lawrence Sher MD Additional Instructions/Education Follow up with Dr. Sher on Thursday for recheck Drink lots fluids today - at least 1-2 quarts Return if symptoms worsen. Continue prescription medications Flexeril 10 mg every 8 hours as needed for pain Some of your test results may not [...] worrisome symptoms. * Emergency Department phone number: [phone], x [phone]* MEDICAL RECORD If you need copies of your X-rays, call [phone] x [phone]. If you need copies of [...] services. SERVICE BILLING LIBERTARIAN Emergency Room Services [facility] Physician Services [facility] X-rays [place] [facility] Patients will receive bills for services from the appropriate provider. If you have any questions about your [facility] bill, our staff will be happy to assist you. Please call [phone], and ask for the billing department. THANK YOU for choosing [facility] as your emergency care provider! Functional Status No functional status results. Allergies, Adverse Reactions, Alerts Allergen Type Severity Reaction Status Last Updated No Known Drug Allergies Active 03/03/14 Immunizations No immunization records. Vital Signs Acute Vital Signs Vital Response Date/Time Temperature (Fahrenheit) 98.7 Pulse 87 bpm Respirations 18 Height 5 ft 7 in Weight 177 lb Body Mass Index 27.0 kg/m^2 Results Test Source Date Result Interp. Ref. Range Comments Absolute Band Neutrophils November 20, 2014 7:20pm 0.1 # Acetaminophen Level August 27, 2013 2:30pm < 10.0 UG/ML L 10.0-30.0 Collected by nurse? N Activated Partial Thromboplast Time January 06, 2015 6:35am 30.3 SEC N 24.9- 35.9 Alanine Aminotransferase (ALT/SGPT) January 06, 2015 6:35am 48 U/L N 30-65 Albumin January 06, 2015 6:35am 4.8 g/dL N 3.4-5.0 Albumin/Globulin Ratio January 06, 2015 6:35am 1.600 N 1.1-1.8 Alkaline Phosphatase January 06, 2015 6:35am 80 U/L N 38-126 Amylase Level December 25, 2013 6:51pm 69 U/L N 25-115 Collected by nurse? N Anion Gap January 06, 2015 6:35am 20.3 MEQ/L H 3-15 Aspartate Amino Transf (AST/SGOT) January 06, 2015 6:35am 72 U/L H 15-37 B-Type Natriuretic Peptide August 20, 2013 10:15am 7 PG/ML N 0-100 BUN/Creatinine Ratio January 06, 2015 6:35am 14 N 10-20 Band Neutrophils % November 20, 2014 7:20pm 1 % N 0-6 Basophils # (Auto) January 06, 2015 6:35am 0.0 10^3uL Basophils % (Manual) November 20, 2014 7:20pm 0 % N 0-2 Basophils (%) (Auto) January 06, 2015 6:35am 0 % N 0-2 Blood Morphology Comment November 20, 2014 7:20pm Normal NORMAL Blood Urea Nitrogen January 06, 2015 6:35am 14 mg/dL DN 7-18 C-Reactive Protein December 25, 2013 6:51pm 0.70 MG/DL N 0.0-0.9 Collected by nurse? N Calcium Level January 06, 2015 6:35am 9.5 mg/dL N 8.8-10.8 Calcium/Ionized Calcium Ratio January 06, 2015 6:35am 4.0 mg/dL N 3.8-4.6 Calculated Osmolality January 06, 2015 6:35am 275 mosm/L L 280-300 Carbon Dioxide Level January 06, 2015 6:35am 24 mmol/L N 22-29 Chlamydia trachomatis RNA April 26, 2014 8:30am Negative Negative Chlamydia/GC DNA Probe Source April 26, 2014 8:30am Urine () Corrected result; previously reported as Urine on 04/26/14 at 12:42 by V/OLIVERIO--- 04/27/14 2349 --- GC.CHL SOURCE previously reported as: Urine Chloride Level January 06, 2015 6:35am 102 mmol/L N 98-108 Creatine Kinase MB January 06, 2015 6:35am 7.9 ng/mL H 0.0-6.0 Creatinine January 06, 2015 6:35am 0.98 mg/dL N 0.8-1.5 D-Dimer August 20, 2013 10:15am 0.43 ug/mL PH 0.00-0.41 Results called to Ladan read back the results. Called by Janna Greenwood at 1044 Differential Total Cells Counted November 20, 2014 7:20pm 100 Eosinophils # November 20, 2014 7:20pm 0.0 # Eosinophils # (Auto) January 06, 2015 6:35am 0.0 10^3uL Eosinophils % (Manual) November 20, 2014 7:20pm 0 % N 0-4 Eosinophils (%) (Auto) January 06, 2015 6:35am 1 % N 0-4 Erythrocyte Sedimentation Rate December 25, 2013 6:51pm 8 mm/hr N 0-12 Collected by nurse? N Estimat Glomerular Filtration Rate January 06, 2015 6:35am 102.5 Estimated GFR (Non- January 06, 2015 6:35am 84.7 Glucose Level January 06, 2015 6:35am 99 mg/dL DN 70-110 Hematocrit January 06, 2015 6:35am 44.00 % N 39.00-50.00 Hemoglobin January 06, 2015 6:35am 15.1 g/dL N 13.5-17.0 Iron (send out) October 14, 2012 2:48am 75 ug/dL 65-175 Lipase January 20, 2014 12:45pm 58 U/L N 23-300 Collected by nurse? N Lymphocytes # November 20, 2014 7:20pm 1.0 # Lymphocytes # (Auto) January 06, 2015 6:35am 1.8 X10^3 Lymphocytes % (Manual) November 20, 2014 7:20pm 9 % L 20-46 Lymphocytes (%) (Auto) January 06, 2015 6:35am 24 % N 20-46 Magnesium Level September 15, 2013 5:35am 2.1 MG/DL N 1.6-2.3 Collected by nurse? N Mean Corpuscular Hemoglobin January 06, 2015 6:35am 28.7 PG N 26.0-34.0 Mean Corpuscular Hemoglobin Concent January 06, 2015 6:35am 34.3 g/dL N 31.0 -37.0 Mean Corpuscular Volume January 06, 2015 6:35am 84 FL N 80-100 Mean Platelet Volume January 06, 2015 6:35am 8.8 FL N 6.0-9.5 Metamyelocytes % August 20, 2013 10:15am 0 % N 0-1 Monocytes # November 20, 2014 7:20pm 0.3 # Monocytes # (Auto) January 06, 2015 6:35am 0.9 X10^3 Monocytes % (Manual) November 20, 2014 7:20pm 3 % N 3-11 Monocytes (%) (Auto) January 06, 2015 6:35am 12 % H 3-11 N. gonorrhoeae DNA Specimen Source April 26, 2014 8:30am Urine () Corrected result; previously reported as Urine on 04/26/14 at 12:42 by V/AUT-- - 04/27/14 2349 --- NGON SOURCE previously reported as: Urine Neisseria gonorrhoeae RNA April 26, 2014 8:30am Negative Negative Test Performed by:[place] [id number] Tool Pusher: Ernst Stiles III, M.D. Neutrophils # November 20, 2014 7:20pm 9.7 # Neutrophils # (Auto) January 06, 2015 6:35am 4.7 X10^3 Neutrophils (%) (Auto) January 06, 2015 6:35am 63 % N 51-67 Platelet Count January 06, 2015 6:35am 389 10^3uL N 150-450 Potassium Level January 06, 2015 6:35am 3.9 mmol/L N 3.5-5.1 Prothromb Time International Ratio January 06, 2015 6:35am 1.1 N 0.8-1.4 Prothrombin Time January 06, 2015 6:35am 13.6 SEC N 11.9-14.2 Rapid Plasma Reagin April 26, 2014 9:15am Non-reactive () Red Blood Count January 06, 2015 6:35am 5.27 10^6uL N 4.50-5.50 Red Cell Distribution Width January 06, 2015 6:35am 12.9 % N 11.8-15.6 Salicylates Level August 27, 2013 2:30pm < 1.0 MG/DL L 2.0-20.0 Collected by nurse? N Segmented Neutrophils % November 20, 2014 7:20pm 87 % H 51-67 Serum Alcohol November 25, 2014 9:00pm < 10.0 mg/dL L 10-80 Sodium Level January 06, 2015 6:35am 142 mmol/L N 135-150 Stool Occult Blood November 14, 2013 11:59pm Negative Negative --- 08/30 ---OCCULT BLOOD previously reported as: Negative Stool Occult Blood Expiration Date November 14, 2013 11:59pm 11/29 -- - 11/15/1315 ---OBEXP previously reported as: 11/29 Stool Occult Blood Lot Number November 14, 2013 11:59pm [id number] --- 08/306 ---OCCULT BLOOD LO previously reported as: 1121 Streptococcus Screen March 29, 2014 6:55am Negative Negative Total Bilirubin January 06, 2015 6:35am 1.4 mg/dL DH 0.1-1.0 Total Creatine Kinase January 06, 2015 8:38am 703 U/L PH 55-170 Results called to [facility] read back the results. Called by Ysabel Almeida at 0850 Total Iron Binding Capacity October 14, 2012 2:48am 393 ug/dL 260- 445 Total Protein January 06, 2015 6:35am 7.8 g/dL N 6.4-8.5 Transferrin % Saturation October 14, 2012 2:48am 19 % 11-46 Troponin I January 06, 2015 8:38am < 0.012 ng/mL 0.010-0.080 Ur Tricyclic Antidepressants Screen January 06, 2015 8:35am Negative Negative Urine collection method Clean Catch Urine Amphetamines Screen January 06, 2015 8:35am Positive H Negative Urine collection method Clean Catch Urine Bacteria January 06, 2015 8:35am None seen /HPF Urine collection method Clean Catch Urine Barbiturates Screen January 06, 2015 8:35am Negative Negative Urine collection method Clean Catch Urine Benzodiazepines Screen January 06, 2015 8:35am Positive H Negative Urine collection method Clean Catch Urine Bilirubin January 06, 2015 8:35am 1+ H Negative Indican, Lodine metabolite and atypical colors mayinterfere with the interpretation of the Bilirubin reaction. Further testing is required for confirmation. Urine Blood March 29, 2014 6:55am Negative Negative Urine Cannabinoids Screen January 06, 2015 8:35am Negative Negative Urine collection method Clean Catch Urine Clarity January 06, 2015 8:35am Clear Urine collection method Clean Catch Urine Cocaine Screen January 06, 2015 8:35am Negative Negative Urine collection method Clean Catch Urine Collection Type January 06, 2015 8:35am Clean catch Urine collection method Clean Catch Urine Color January 06, 2015 8:35am Dark yellow Urine collection method Clean Catch Urine Glucose (UA) January 06, 2015 8:35am Negative Negative Urine collection method Clean Catch Urine Hyaline Casts July 04, 2013 3:52am 3+ /LPF H Urine collection method Clean Catch Urine Ketones January 06, 2015 8:35am 4+ Negative Urine collection method Clean Catch Urine Leukocyte Esterase January 06, 2015 8:35am Negative Negative Urine collection method Clean Catch Urine Methadone Screen January 06, 2015 8:35am Negative Negative Urine collection method Clean Catch Urine Methamphetamines Screen January 06, 2015 8:35am Positive H NEGATIVE Urine collection method Clean [...] its performance characteristics determined by [facility]. It has not been cleared or approved by the U.S. Food and Drug Administration. Test Performed by: [address] [address] Tool Pusher: Ernst Stiles III, M.D. Urine Nitrite January 06, 2015 8:35am Negative Negative Urine collection method Clean Catch Urine Opiates Screen January 06, 2015 8:35am Negative Negative Urine collection method Clean Catch Urine Oxycodone Screen January 06, 2015 8:35am Negative NEGATIVE Urine collection method Clean Catch Urine Phencyclidine Screen January 06, 2015 8:35am Negative Negative Phencyclidine testing by this method can showcross-reactivity with several common medications such as venlafaxine, dextromethorphan, and diphenhydramine. Submission of any positive sample for confirmatory testing is recommended. Urine Propoxyphene Screen January 06, 2015 8:35am Negative NEGATIVE Results of this screen are qualitative and are presumptiveresults. A more specific method (i.e. GC/MS) must be used if confirmation of results is indicated. Urine Protein January 06, 2015 8:35am 1+ H Negative Urine collection method Clean Catch Urine RBC January 06, 2015 8:35am 0-2 /HPF Urine collection method Clean Catch Urine RBC (Auto) January 06, 2015 8:35am Negative Negative Urine collection method Clean Catch Urine Specific [place] January 06, 2015 8:35am 1.025 1.005-1.030 Urine collection method Clean Catch Urine Squamous Epithelial Cells January 06, 2015 8:35am 0-2 /LPF Urine collection method Clean Catch Urine Urobilinogen January 06, 2015 8:35am 0.2 mg/dL 0.2-1.0 Urine collection method Clean Catch Urine WBC January 06, 2015 8:35am None seen /HPF Urine collection method Clean Catch Urine pH January 06, 2015 8:35am 7.0 5.0 - 8.0 Urine collection method Clean Catch Volume Urine Centrifuged January 06, 2015 8:35am 12 ml Urine collection method Clean Catch White Blood Count January 06, 2015 6:35am 7.48 10^3uL N 4.0-11.0 Group A Streptococcus Culture Throat March 29, 2014 6:55am Procedures Procedure Status Date Provider(s) ELECTROCARDIOGRAM TRACING completed 12/17/14 EMERGENCY DEPT VISIT completed 12/17/14 Encounters Encounter Location Date/Time Departed Emergency Room [facility] 01/06/15 6:23am Departed Emergency Room [facility] 12/17/14 2:47pm Recent Diagnosis
--- OUTSIDE RECORDS SUMMARY | 2017-01-06 21:54 | XMS REPORT | Summary of Care ---
Author Author [facility] Organization Unknown Address [address] [place], [place] [id number] Phone Unavailable Care Team Providers Care Signal Processing Engineer Name Role Phone Lawrence Sher MIL[place] Unavailable Unavailable Unavailable Functional Status Functional Status Health Issues* Name Dates Details Functional status health issues are not documented Status: Cognitive Status Health Issues* Name Dates Details Cognitive status health issues are not documented Status: Problems Name Dates Details Stomach problems (536.9, K31.9) Status: Active Chest pain (786.50, R07.9) Status: Active Shortness of breath (786.05, R06.02) Status: Active Kidney problem (593.9, N28.9) Status: Active Appetite loss (783.0, R63.0) Status: Active Hoarseness (784.42, R49.0) Status: Active Weight loss (783.21, R63.4) Status: Active Cough (786.2, R05) Status: Active Dysphagia (787.20, R13.10) Status: Active Eczematoid otitis externa of both ears, unspecified chronicity (380.22, H60.543 ) Status: Active Chronic cough (786.2, R05) Status: Active Gastroesophageal reflux disease without esophagitis (530.81, K21.9) Status: Active Sore throat (462, J02.9) Status: Active Lymphadenopathy, posterior cervical (785.6, R59.0) Status: Active Dysphonia (784.42, R49.0) Status: Active Medications Name Dates Details Multivitamins Oral Capsule TAKE 1 CAPSULE DAILY. * Started 01-May-2014 ActiveAcyclovir 200 MG Oral Capsule * Refills: 0 * Started 01-May-2014 ActiveFish Oil 1000 MG Oral Capsule TAKE 1 CAPSULE DAILY. * Quantity: 30 Refills: 0 * Started 01-May-2014 ActiveVitamin D3 1000 UNIT Oral Capsule Take 1 tablet daily * Quantity: 30 Refills: 3 * Started 01-May-2014 ActiveNexIUM 20 MG Oral Capsule Delayed Release * Refills: 0 * Started 18-Jun-2015 ActiveVitamin B-12 250 MCG Oral Tablet * Refills: 0 * Started 18-Jun-2015 Active Allergies and Adverse Reactions Name Dates Details No Known Drug Allergies Status: Active Procedures Procedure Dates Details History of Tonsillectomy Procedures not documented Immunization Name Dates Details Immunizations not documented Family History Grandmother* Name Dates Details Family history of lung disease (V19.8, Z83.6) Status: Active Family history of cardiac disorder (V17.49, Z82.49) Status: Active Mother* Name Dates Details Family history of hypertension (V17.49, Z82.49) Status: Active Family history of diabetes mellitus (V18.0, Z83.3) Status: Active Family history of High cholesterol (272.0, E78.0) Status: Active Family history of malignant neoplasm (V16.9, Z80.9) Status: Active Father* Name Dates Details No pertinent family history Status: Active Social History Name Dates Details Smoking Status* Never smoker Vital Signs Date Test Result Details No Known Vitals to report Results Date Description Value Details Results not documented Plan of Care Planned Observations* Name Dates Details Planned Goals not documented Goal Planned Encounters* Appointment; Provider: Lv Lester On 30-Aug-2015 10:00 Instructions * Instructions not documented Encounters Appointment; Smith [facility]z Encounter Diagnosis: Problem not documented On 27-Aug-2015 08:30 Appointment; Smith I[facility]z Encounter Diagnosis: Problem not documented On 18-Jun-2015 08:30 Appointment; Smith Ibanez Encounter Diagnosis: Problem not documented On 01-May-2014 10:00
--- OUTSIDE RECORDS SUMMARY | 2017-01-06 21:54 | XMS REPORT | Continuity of Care Document ---
Author Author [facility] Organization [facility] Address Unknown Phone Unavailable Care Team Providers Care Kids Club Attendant Name Role Phone Lawrence Sher MD Primary Care Physician [phone] Insurance Providers Payer Name Policy Number Subscriber Name Relationship [facility] [id number] Chin Weber 18 Self / Same As Patient Self Pay/Pending Monica Apprv [id number] Chin Weber 17 Self / Same As Patient Chief Complaint and Reason for Visit Chief Complaint Cardiac Complaint Reason for Visit Cellulitis Methamphetamine addiction Problems Medical Problems Problem Onset Date Status [...] DAILY 30 Qty 08/28/13 09/13/13 Discontinued Cyanocobalamin [id number] Mcg ORAL DAILY 09/16/13 Active Multivits,Th W-Fe,Other Min 1 Each ORAL DAILY 09/16/13 Active [place]-3 Fatty Acids/Fish Oil 1 Each ORAL DAILY [...] discharge instructions. Plan of Care Discharge Date 04/29/15 3:20pm Disposition 01 HOME OR SELF-CARE Condition at Discharge Stable Prescriptions See Medications Section Referrals Lawrence Sher MD Additional Instructions/Education Keflex 500 mg three times daily for 7 days Follow up with Dr. Christos Vaughan Follow up with Pastor Roshan Castillo about [facility] Return if symptoms worsen Some of your [...] worrisome symptoms. * Emergency Department phone number: [phone], x [phone]* MEDICAL RECORD If you need copies of your X-rays, call [phone] x [phone]. If you need copies of [...] SERVICE BILLING GREEN PARTY Emergency Room Services [facility] Physician Services [facility] X-rays [place] [facility] Patients will receive bills for services from the appropriate provider. If you have any questions about your [facility] bill, our staff will be happy to assist you. Please call [phone], and ask for the billing department. THANK YOU for choosing [facility] as your emergency care provider! Functional Status No functional status results. Allergies, Adverse Reactions, Alerts Allergen Type Severity Reaction Status Last Updated No Known Drug Allergies Active 04/27/15 Immunizations No immunization records. Vital Signs Acute Vital Signs Vital Response Date/Time Temperature (Fahrenheit) 96.8 Pulse 83 bpm Respirations 16 Height 5 ft 6 in Weight 174 [...] 2015 8:12am 0 % N 0-2 Blood Morphology Comment November 20, 2014 7:20pm Normal NORMAL Blood Urea Nitrogen April 29, 2015 8:12am 13 mg/dL N 7-18 C-Reactive Protein December 25, 2013 6:51pm 0.70 MG/DL N 0.0-0.9 Collected by nurse? N Calcium Level April 29, 2015 8:12am 9.6 mg/dL N 8.8-10.8 Calcium/Ionized Calcium Ratio April 29, 2015 8:12am 3.9 mg/dL N 3.8- 4.6 Calculated Osmolality April 29, 2015 8:12am 274 mosm/L L 280-300 Carbon Dioxide Level April 29, 2015 8:12am 26 mmol/L N 22-29 Chlamydia trachomatis RNA [...] nurse? N Estimat Glomerular Filtration Rate April 29, 2015 8:12am 107.6 Estimated GFR (Non- April 29, 2015 8:12am 88.9 Glucose Level April 29, 2015 8:12am 95 mg/dL N 70-110 Hematocrit April 29, 2015 8:12am 39.50 % N 39.00-50.00 Hemoglobin April 29, 2015 8:12am 13.9 g/dL N 13.5-17.0 Iron (send out) [...] 29, 2015 8:12am 12 % H 3-11 N. gonorrhoeae DNA Specimen Source April 26, 2014 8:30am Urine () Corrected result; previously reported as Urine on 04/26/14 at 12:42 by V/AUT-- - 04/27/14 2349 --- NGON SOURCE previously reported as: Urine OE-Kmf-C-Type Natriuretic Peptide April 27, 2015 9:51pm 41 pg/mL N 0 -125 <300 ng/mL - HF unlikely Age <50 years, NT-proBNP >450 pg/mL - HF Likely Age 50-75 yrs, NT-proBNP >900 pg/mL - HF Likely Age >75 yrs, NT-proBNP >1800 - HF likely Neisseria gonorrhoeae RNA April 26, 2014 8:30am Negative Negative Test Performed by:[facility] - [address] [address] Tax Services Specialist: Ernst Stiles III, M.D. Neutrophils # November [...] 10.0 mg/dL L 10-80 Sodium Level April 29, 2015 8:12am 142 [...] developed and its performance characteristics determined by [facility]. It has not been cleared or approved by the U.S. Food and Drug Administration. Test Performed by: [facility] [address] [address] Tax Services Specialist: Ernst Stiles III, M.D. Urine Nitrite April 29, 2015 12:35pm Negative Negative Urine collection method Clean Catch Urine Protein April 29, 2015 12:35pm Negative Negative Urine collection method Clean Catch Urine RBC April 22, 2015 8:30am 2-5 /HPF Urine collection method Clean Catch Urine RBC (Auto) April 29, 2015 12:35pm Negative Negative Urine collection method Clean Catch Urine Specific [place] April 29, 2015 12:35pm <=1.005 1.005-1.030 Urine [...] 29, 2015 8:12am 7.27 10^3uL N 4.0-11.0 Group A Streptococcus Culture Throat March 29, 2014 6:55am Urine Culture Urine-Voided Urine April 22, 2015 8:30am Procedures Procedure Status Date Provider(s) US EXAM ABDOM COMPLETE completed 04/13/15 US EXAM PELVIC COMPLETE completed 04/13/15 Encounters Encounter Location Date/Time Departed Emergency Room [facility] 04/29/15 11:57am Departed Emergency Room [facility] 04/27/15 9:08pm Departed Emergency Room [facility] 04/24/15 2:30pm Departed Emergency Room [facility] 04/23/15 1:10pm Departed Emergency Room [facility] 04/22/15 5:47am Registered Clinic [facility] 04/13/15 7:19am Recent Diagnosis
--- OUTSIDE RECORDS SUMMARY | 2017-01-06 21:55 | XMS REPORT | Continuity of Care Document ---
Author Author [facility] Organization [facility] Address Unknown Phone Unavailable Care Team Providers Care Standpipe Tender Name Role Phone Lawrence Sher MD Primary Care Physician [phone] Insurance Providers Payer Name Policy Number Subscriber [...] DAILY 30 Qty 08/28/13 09/13/13 Discontinued Cyanocobalamin [id number] Mcg ORAL DAILY 09/16/13 Active Multivits,Th W-Fe,Other Min 1 Each ORAL DAILY 09/16/13 Active [place]-3 Fatty Acids/Fish Oil 1 Each ORAL DAILY [...] discharge instructions. Plan of Care Discharge Date 11/21/14 7:06pm Disposition 01 HOME OR SELF-CARE Condition at Discharge Stable Instructions/Education Provided Methamphetamine Abuse (ED) Prescriptions See Medications Section Referrals Lawrence Sher MD Additional Instructions/Education avoid further meth use. Some of your test results may not [...] worrisome symptoms. * Emergency Department phone number: [phone], x [phone]* MEDICAL RECORD If you need copies of your X-rays, call [phone] x [phone]. If you need copies of [...] SERVICE BILLING [employer] [employer] Emergency Room Services [facility] Phys[facility] Services [facility] Patients will receive bills for services from the appropriate provider. If you have any questions about your [facility] bill, our staff will be happy to assist you. Please call [phone], and ask for the billing department. THANK YOU for choosing [facility] as your emergency care provider! Functional Status No functional status results. Allergies, Adverse Reactions, Alerts Allergen Type Severity Reaction Status Last Updated No Known Drug Allergies Active 03/03/14 Immunizations No immunization records. Vital Signs Acute Vital Signs Vital Response Date/Time Temperature (Fahrenheit) 98.8 Pulse 100 bpm Respirations 20 Height 5 ft 7 in Weight 178 [...] 26, 2014 8:30am Negative Negative Test Performed by:[place] [address] Chief Internal Auditor: Ernst Stiles III, M.D. Neutrophils # November [...] 2:48am 19 % 11-46 Troponin I November 21, 2014 6:02pm < 0.012 ng/mL 0.010-0.080 Ur Tricyclic Antidepressants [...] developed and its performance characteristics determined by [facility]. It has not been cleared or approved by the U.S. Food and Drug Administration. Test Performed by: [facility] [address] [address] Chief Internal Auditor: Ernst Stiles III, M.D. Urine Nitrite March [...] 26, 2012 10:55pm Negative Negative Urine Specific [place] March 29, 2014 6:55am 1.020 1.005-1.030 Urine [...] ADDON completed 11/15/14 TX/PRO/DX INJ SAME DRUG CELL TUBER HAND completed 11/15/14 EMERGENCY DEPT VISIT completed 11/15/14 completed 11/15/14 completed 11/15/14 completed 11/15/14 EMERGENCY DEPT VISIT completed 11/16/14 Encounters Encounter Location Date/Time Departed Emergency Room [facility] 11/21/14 5:44pm Departed Emergency Room [facility] 11/20/14 6:27pm Departed Emergency Room [facility] 11/16/14 8:21pm Departed Emergency Room [facility] 11/15/14 11:11am Departed Emergency Room [facility] 11/13/14 6:22pm Departed Emergency Room [facility] 11/11/14 1:06pm Registered Emergency Room [facility] 11/06/14 6:02pm Recent Diagnosis
--- OUTSIDE RECORDS SUMMARY | 2017-01-06 21:55 | XMS REPORT | Continuity of Care Document ---
Author Author [facility] Organization [facility] Address Unknown Phone Unavailable Care Team Providers Care Network Security Analyst Name Role Phone Lawrence Sher MD Primary Care Physician [phone] Insurance Providers Payer Name Policy Number Subscriber Name Relationship Self Pay Chin Weber 17 Self / Same As Patient Chief Complaint and Reason for Visit Chief Complaint Pain Reason for Visit Chest pain Methamphetamine addiction Problems Medical Problems Problem Onset [...] DAILY 30 Qty 08/28/13 09/13/13 Discontinued Cyanocobalamin [phone] Mcg ORAL DAILY 09/16/13 Active Multivits,Th W-Fe,Other Min 1 Each ORAL DAILY 09/16/13 Active [place]-3 Fatty Acids/Fish Oil 1 Each ORAL DAILY [...] discharge instructions. Plan of Care Discharge Date 11/20/14 10:22pm Disposition 01 HOME OR SELF-CARE Condition at Discharge Stable Instructions/Education Provided Chest Pain (ED) Methamphetamine Abuse (ED) Prescriptions See Medications Section Referrals Lawrence Sher MD Additional Instructions/Education QUIT USING METHAMPHETAMINES. Follow up with PCP in 2-3 days. Some of your test results may not [...] worrisome symptoms. * Emergency Department phone number: [phone], x [phone]* MEDICAL RECORD If you need copies of your X-rays, call [phone] x [phone]. If you need copies of [...] SERVICE BILLING [employer] Emergency Room Services [facility] Physician Services [facility] X-[facility] Patients will receive bills for services from the appropriate provider. If you have any questions about your [facility] bill, our staff will be happy to assist you. Please call [phone], and ask for the billing department. THANK YOU for choosing [facility] as your emergency care provider! Functional Status No functional status results. Allergies, Adverse Reactions, Alerts Allergen Type Severity Reaction Status Last Updated No Known Drug Allergies Active 03/03/14 Immunizations No immunization records. Vital Signs Acute Vital Signs Vital Response Date/Time Temperature (Fahrenheit) 97.8 Pulse 114 bpm Respirations 18 Height 5 ft 7 [...] Basophils # (Auto) November 20, 2014 7:20pm Basophils % (Manual) November 20, 2014 7:20pm 0 % N 0-2 Basophils (%) (Auto) November 20, 2014 7:20pm 0-2 Blood Morphology Comment November 20, 2014 [...] Eosinophils # (Auto) November 20, 2014 7:20pm Eosinophils % (Manual) November 20, 2014 7:20pm 0 % N 0-4 Eosinophils (%) (Auto) November 20, 2014 7:20pm 0-4 Erythrocyte Sedimentation Rate December 25, 2013 [...] Lymphocytes # (Auto) November 20, 2014 7:20pm Lymphocytes % (Manual) November 20, 2014 7:20pm 9 % L 20-46 Lymphocytes (%) (Auto) November 20, 2014 7:20pm 20-46 Magnesium Level September 15, 2013 5:35am [...] Monocytes # (Auto) November 20, 2014 7:20pm Monocytes % (Manual) November 20, 2014 7:20pm 3 % N 3-11 Monocytes (%) (Auto) November 20, 2014 7:20pm 3-11 N. gonorrhoeae DNA Specimen Source April 26, 2014 8:30am Urine () Corrected result; previously reported as Urine on 04/26/14 at 12:42 by V/AUT-- - 04/27/14 2349 --- NGON SOURCE previously reported as: Urine Neisseria gonorrhoeae RNA April 26, 2014 8:30am Negative Negative Test Performed by:[place] [id number] Combining Machine Operator: Ernst Stiles III, M.D. Neutrophils # November 20, 2014 7:20pm 9.7 # Neutrophils # (Auto) November 20, 2014 7:20pm Neutrophils (%) (Auto) November 20, 2014 7:20pm 51-67 Platelet Count November 20, 2014 7:20pm [...] 2:48am 19 % 11-46 Troponin I November 20, 2014 9:10pm < 0.012 ng/mL 0.010-0.080 Ur Tricyclic Antidepressants [...] and its performance characteristics determined by [facility]. It has not been cleared or approved by the U.S. Food and Drug Administration. Test Performed by: [address] [address] Combining Machine Operator: Ernst Stiles III, M.D. Urine Nitrite March [...] 26, 2012 10:55pm Negative Negative Urine Specific [place] March 29, 2014 6:55am 1.020 1.005-1.030 Urine [...] ADDON completed 11/15/14 TX/PRO/DX INJ SAME DRUG WOMEN'S APPAREL SALESPERSON completed 11/15/14 EMERGENCY DEPT VISIT completed 11/15/14 completed 11/15/14 completed 11/15/14 completed 11/15/14 Encounters Encounter Location Date/Time Departed Emergency Room [facility] 11/20/14 6:27pm Departed Emergency Room [facility] 11/16/14 8:21pm Departed Emergency Room [facility] 11/15/14 11:11am Departed Emergency Room [facility] 11/13/14 6:22pm Departed Emergency Room [facility] 11/11/14 1:06pm Registered Emergency Room [facility] 11/06/14 6:02pm Recent Diagnosis
--- OUTSIDE RECORDS SUMMARY | 2017-01-06 21:55 | XMS REPORT | Continuity of Care Document ---
Author Author [facility] Organization [facility] Address Unknown Phone Unavailable Care Team Providers Care Newspaper Carrier Name Role Phone Lawrence Sehr MD Primary Care Physician [phone] Insurance Providers Payer Name Policy Number Subscriber Name Relationship Self Pay/Approved [facility] [id number] Chin Weber 17 Self / Same As Patient Chief Complaint and Reason for Visit Chief Complaint Skin Condition Reason for Visit Cellulitis Problems Medical Problems Problem Onset Date [...] Gastroenteritis ~12/17/2014 Active Chest discomfort Unknown Active Medications Medication [...] DAILY 30 Qty 08/28/13 09/13/13 Discontinued Cyanocobalamin [phone] Mcg ORAL DAILY 09/16/13 Active Multivits,Th W-Fe,Other Min 1 Each ORAL DAILY 09/16/13 Active [place]-3 Fatty Acids/Fish Oil 1 Each ORAL DAILY 09/16/13 Active Gabapentin 300 Mg ORAL BEDTIME 09/16/13 12/18/13 Discontinued Phenobarbital 32.4 Mg ORAL THREE TIMES A DAY 09/16/13 12/18/13 Discontinued Calcium Carbonate/Mag Hydrox 1 Each ORAL NEEDED 09/16/13 Discontinued Cephalexin 500 Mg ORAL THREE TIMES A DAY 10 Days 12/01/13 12/01/13 Discontinued Penicillin V Potassium 250 Mg ORAL FOUR TIMES DAILY 04/17/14 05/04/ 14 Discontinued Cephalexin 500 Mg ORAL FOUR TIMES [...] PRN CHEST PAIN 15 Qty 01/06/15 Active Sulfamethoxazole/Trimethoprim 2 Each ORAL TWICE A DAY 14 Qty 01/09/15 Active Cephalexin Monohydrate 2 Ea ORAL TWICE A DAY 14 Qty 01/09/15 Active Social History No social history. Hospital Discharge Instructions No hospital discharge instructions. Plan of Care Discharge Date 01/09/15 9:32am Disposition 01 HOME OR SELF-CARE Condition at Discharge Stable Instructions/Education Provided Cellulitis (ED) Prescriptions See Medications Section Referrals Lawrence Sher MD Functional Status No functional status results. Allergies, Adverse Reactions, Alerts Allergen Type Severity Reaction Status Last Updated No Known Drug Allergies Active 03/03/14 Immunizations No immunization records. Vital Signs Acute Vital Signs Vital Response Date/Time Temperature (Fahrenheit) 98.6 Pulse 87 bpm Respirations 18 Height 5 [...] 26, 2014 8:30am Negative Negative Test Performed by:[address] [address] Block Cuber: Ernst Stiles III, M.D. Neutrophils # November [...] November 14, 2013 11:59pm Negative Negative --- 08/306 ---OCCULT BLOOD previously reported as: Negative Stool Occult Blood Expiration Date November 14, 2013 11:59pm 11/29 -- - 11/15/136 ---OBEXP previously reported as: 11/29 Stool Occult Blood Lot Number November 14, 2013 11:59pm [id number] --- 08/306 ---OCCULT BLOOD LO previously reported as: 1121 Streptococcus Screen March 29, 2014 6:55am Negative Negative Total Bilirubin January 06, 2015 6:35am 1.4 mg/dL DH 0.1-1.0 Total Creatine Kinase January 06, 2015 8:38am 703 U/L PH 55-170 Results called to [facility] read back the results. Called by [...] its performance characteristics determined by [facility]. It has not been cleared or approved by the U.S. Food and Drug Administration. Test Performed by: [facility] - [address] [address] Block Cuber: Ernst Stiles III, M.D. Urine Nitrite January [...] Urine collection method Clean Catch Urine Specific [place] January 06, 2015 8:35am 1.025 1.005-1.030 Urine [...] Emergency Room [facility] 01/09/15 9:01am Departed Emergency Room [facility] 01/06/15 6:23am Departed Emergency Room [facility] 12/17/14 2:47pm Recent Diagnosis
--- OUTSIDE RECORDS SUMMARY | 2017-01-06 21:56 | XMS REPORT | Continuity of Care Document ---
Author Author [facility] Organization [facility] Address Unknown Phone Unavailable Care Team Providers Care Proced Tech Name Role Phone Lawrence Sher MD Primary Care Physician [phone] Insurance Providers Payer Name Policy Number Subscriber Name Relationship [facility] [id number] Chin Weber L 18 Self / Same As Patient Self Pay/Pending [facility] Apprv [id number] Chin Weber L 17 Self / Same As Patient Chief Complaint and Reason for Visit Chief Complaint Cardiac Complaint Reason for Visit Methamphetamine abuse Abdominal pain Chest pain Problems Medical Problems Problem [...] DAILY 30 Qty 08/28/13 09/13/13 Discontinued Cyanocobalamin [id number] Mcg ORAL DAILY 09/16/13 Active Multivits,Th W-Fe,Other Min 1 Each ORAL DAILY 09/16/13 Active [place]-3 Fatty Acids/Fish Oil 1 Each ORAL DAILY [...] discharge instructions. Plan of Care Discharge Date 04/23/15 3:17pm Disposition 01 HOME OR SELF-CARE Condition at Discharge Stable Instructions/Education Provided Methamphetamine Abuse (ED) Prescriptions See Medications Section Referrals Lawrence Sher MD Additional Instructions/Education Stop taking the drugs. see your primary care physician in 2-3 days. Some of your test [...] worrisome symptoms. * Emergency Department phone number: [phone], x [phone]* MEDICAL RECORD If you need copies of your X-rays, call [phone] x [phone]. If you need copies of [...] services. SERVICE BILLING [facility] Emergency Room Services [facility] Phys[facility] Services [facility] Patients will receive bills for services from the appropriate provider. If you have any questions about your [facility] bill, our staff will be happy to assist you. Please call [phone], and ask for the billing department. THANK YOU for choosing [facility] as your emergency care provider! Functional Status No functional status results. Allergies, Adverse Reactions, Alerts Allergen Type Severity Reaction Status Last Updated No Known Drug Allergies Active 04/22/15 Immunizations No immunization records. Vital Signs Acute Vital Signs Vital Response Date/Time Temperature (Fahrenheit) 98.8 Pulse 102 bpm Respirations 20 Height 5 ft 6 in Weight 183 lb Body Mass Index 29.0 kg/m^2 Results Test Source Date Result Interp. Ref. Range Comments Absolute Band Neutrophils November 20, 2014 7:20pm 0.1 # Acetaminophen Level August 27, 2013 2:30pm < 10.0 UG/ML L 10.0-30.0 Collected by nurse? N Activated Partial Thromboplast Time April 22, 2015 6:40am 29.4 SEC N 24.9-35.9 Alanine Aminotransferase (ALT/SGPT) April 23, 2015 2:30pm 48 U/L N 30-65 Albumin April 23, 2015 2:30pm 4.9 g/dL N 3.4-5.0 Albumin/Globulin Ratio April 23, 2015 2:30pm 1.531 N 1.1-1.8 Alkaline Phosphatase April 23, 2015 2:30pm 69 U/L N 38-126 Amylase Level February 02, 2015 7:39am 77 U/L N 25-115 Anion Gap April 23, 2015 2:30pm 14.9 MEQ/L N 3-15 Aspartate Amino Transf (AST/SGOT) April 23, 2015 2:30pm 61 U/L H 15- 37 B-Type Natriuretic Peptide August 20, 2013 10:15am 7 PG/ML N 0-100 BUN/Creatinine Ratio April 23, 2015 2:30pm 14 N 10-20 Band Neutrophils % November 20, 2014 7:20pm 1 % N 0-6 Basophils # (Auto) April 22, 2015 6:40am 0.0 10^3uL Basophils % (Manual) November 20, 2014 7:20pm 0 % N 0-2 Basophils (%) (Auto) April 22, 2015 6:40am 0 % N 0-2 Blood Morphology Comment November 20, 2014 7:20pm Normal NORMAL Blood Urea Nitrogen April 23, 2015 2:30pm 13 mg/dL N 7-18 C-Reactive Protein December 25, 2013 6:51pm 0.70 MG/DL N 0.0-0.9 Collected by nurse? N Calcium Level April 23, 2015 2:30pm 9.4 mg/dL N 8.8-10.8 Calcium/Ionized Calcium Ratio April 23, 2015 2:30pm 3.8 mg/dL N 3.8- 4.6 Calculated Osmolality April 23, 2015 2:30pm 273 mosm/L L 280-300 Carbon Dioxide Level April 23, 2015 2:30pm 32 mmol/L H 22-29 Chlamydia trachomatis RNA April 26, 2014 8:30am Negative Negative Chlamydia/GC DNA Probe Source April 26, 2014 8:30am Urine () Corrected result; previously reported as Urine on 04/26/14 at 12:42 by V/OLIVERIO--- 04/27/14 2349 --- GC.CHL SOURCE previously reported as: Urine Chloride Level April 23, 2015 2:30pm 99 mmol/L N 98-108 Creatine Kinase MB April 22, 2015 6:40am 9.5 ng/mL H 0.0-6.0 Creatinine April 23, 2015 2:30pm 0.93 mg/dL N 0.8-1.5 D-Dimer August 20, 2013 [...] nurse? N Estimat Glomerular Filtration Rate April 23, 2015 2:30pm 108.9 Estimated GFR (Non- April 23, 2015 2:30pm 90.0 Glucose Level April 23, 2015 2:30pm 88 mg/dL DN 70-110 Hematocrit April 22, 2015 6:40am 45.30 % N 39.00-50.00 Hemoglobin April 22, 2015 6:40am 15.5 g/dL N 13.5-17.0 Iron (send out) October 14, 2012 2:48am 75 ug/dL 65-175 Lipase April 23, 2015 2:30pm 34 U/L N 23-300 Lymphocytes # November 20, [...] 26, 2014 8:30am Negative Negative Test Performed by:[address] [address] Air Hammer Operator: Ernst Stiles III, M.D. Neutrophils # November 20, 2014 7:20pm 9.7 # Neutrophils # (Auto) April 22, 2015 6:40am 10.2 X10^3 Neutrophils (%) (Auto) April 22, 2015 6:40am 76 % H 51-67 Platelet Count April 22, 2015 6:40am 359 10^3uL N 150-450 Potassium Level April 23, 2015 2:30pm 3.6 mmol/L N 3.5-5.1 Prothromb Time International [...] 10.0 mg/dL L 10-80 Sodium Level April 23, 2015 2:30pm 142 mmol/L DN 135-150 Stool Occult Blood February 02, 2015 7:27am Positive NEGATIVE Stool Occult Blood Expiration Date November 14, 2013 11:59pm 11/29 -- - 11/15/1315 ---OBEXP previously reported as: 11/29 Stool Occult Blood Lot Number November 14, 2013 11:59pm [id number] --- 08/30 ---OCCULT BLOOD LO previously reported as: 1121 Streptococcus Screen March 29, 2014 6:55am Negative Negative Total Bilirubin April 23, 2015 2:30pm 1.6 mg/dL DH 0.1-1.0 Total Creatine Kinase April 22, 2015 6:40am 404 U/L DPH 55-170 Results called to [facility] read back the results. Called by Ysabel Almeida at 0700 Total Iron Binding Capacity October 14, 2012 2:48am 393 ug/dL 260- 445 Total Protein April 23, 2015 2:30pm 8.1 g/dL N 6.4-8.5 Transferrin % Saturation October 14, 2012 2:48am 19 % 11-46 Troponin I April 23, 2015 2:30pm < 0.012 ng/mL 0.010-0.080 Urine Bacteria April [...] and its performance characteristics determined by [facility]. It has not been cleared or approved by the U.S. Food and Drug Administration. Test Performed by: [facility] [address] [address] Air Hammer Operator: Ernst Stiles III, M.D. Urine Nitrite April 22, 2015 8:30am Negative Negative Urine collection method Clean Catch Urine Protein April 22, 2015 8:30am 1+ H Negative Urine collection method Clean Catch Urine RBC April 22, 2015 8:30am 2-5 /HPF Urine collection method Clean Catch Urine RBC (Auto) April 22, 2015 8:30am Trace-intact H Negative Urine collection method Clean Catch Urine Specific [place] April 22, 2015 8:30am 1.020 1.005-1.030 Urine [...] Location Date/Time Departed Emergency Room [facility] 04/23/15 1:10pm Departed Emergency Room [facility] 04/22/15 5:47am Registered Clinic [facility] 04/13/15 7:19am Recent Diagnosis
--- OUTSIDE RECORDS SUMMARY | 2017-01-06 21:56 | XMS REPORT | Continuity of Care Document ---
Author Author [facility] Address Unknown Phone Unavailable Care Team Providers Care Paint Mixer Name Role Phone Lawrence Sher MD Primary Care Physician [phone] Insurance Providers Payer Name Policy Number Subscriber Name Relationship [facility] [id number] Chin Weber 18 Self / Same As Patient Advance Directives Directive Response Recorded Date/Time Advanced Directives No 12/31/15 11:30pm Chief Complaint and Reason for Visit Chief Complaint Cardiac Complaint Reason for Visit [id number] Methamphetamine abuse Hypokalemia Problems Active Problems Medical Problem Onset Date [...] Corneal abrasion, right ~04/14/2014 Resolved Costochondritis, acute Unknown Acute Diarrhea ~04/27/2014 Resolved Dizziness 10/14/2012 Resolved [...] Headache behind the eyes ~04/22/2014 Resolved Hypokalemia Unknown Acute Injury of head ~04/25/2014 Resolved Jaw pain ~02/16/2014 Resolved Methamphetamine abuse ~11/16/2014 Chronic Methamphetamine addiction ~04/30/2015 Chronic Paresthesias ~11/23/2014 Chronic Rectal trauma ~02/02/2015 Resolved Skin lesion 12/04/2013 Resolved Sore throat ~03/27/2014 Resolved Sore throat symptom ~12/18/2013 Resolved Substance abuse ~11/21/2014 Chronic Vomiting ~12/17/2014 Resolved Medications Current Home Medications Medication Dose Units Route Directions Days/Qty Instructions Start Date Cyanocobalamin 1,000 Mcg 1352-1621 Mcg ORAL Daily 09/16/13 Multivits,Th W-Fe,Other Min 1 Each 1 Each ORAL Daily 09/16/13 [place]-3 Fatty Acids/Fish Oil 1 Each 1 Each [...] discharge instructions. Plan of Care Discharge Date 01/01/16 12:45am Disposition 01 HOME OR SELF-CARE Condition at Discharge Stable Instructions/Education Provided Potassium Content of Foods List (ED) Costochondritis (ED) Methamphetamine Abuse (ED) Prescriptions See Medication Section Referrals Lawrence Sher MD - Additional Instructions/Education Home. Rest. STOP USING METHAMPHETAMINE. Eat 1-2 bananas per day for about 3 days to continue to build up your potassium. Follow up with PCP within 10 days. Discuss possibly doing a stress test of your heart. Some of your test results may not [...] worrisome symptoms. * Emergency Department phone number: [phone], x [phone]* MEDICAL RECORD If you need copies of your X-rays, call [phone] x [phone]. If you need copies of [...] Health Physician Services [facility] X-rays [facility] Patients will receive bills for services from the appropriate provider. If you have any questions about your [facility] bill, our staff will be happy to assist you. Please call [phone], and ask for the billing department. THANK YOU for choosing [facility] as your emergency care provider! Care Plan and Goals ~~Discharge Care Plan~~ Problem: Chest, epigastric or chest wall pain Goal: Decreased pain Instructions: Take medication(s) as directed. Follow home discharge instructions. Follow up with primary care physician or trade promotion analyst as directed. Functional Status No functional status results. Allergies, Adverse Reactions, Alerts No known allergies. Immunizations Name Given Type Status Date Pneumonia Vaccine Received if Current 08/17/08 Historical Historical Date Influenza Vaccine Received if Current 05/29/13 Historical Historical Vital Signs Acute Vital Signs Vital Response Date/Time Temperature (Fahrenheit) 98 12/31/2015 11:30pm Pulse 96 bpm 01/01/2016 1:18am Respirations 18 01/01/2016 1:18am Height 5 ft 6 in Weight 175 lb Body Mass Index 28.0 kg/m^2 Results Laboratory Results Test Name Result Units Flags Reference Collection Date/Time Result Date/ Time Comments White Blood Count 6.68 10^3uL 4.0-11.0 12/30/2015 9:30am 12/30/2015 9: 43am Red Blood Count 4.75 10^6uL 4.50-5.50 12/30/2015 9:12/30/2015 9: 43am Hemoglobin 13.7 g/dL 13.5-17.0 12/30/2015 9:12/30/2015 9:43am Hematocrit 38.80 % L 39.00-50.00 12/30/2015 9:12/30/2015 9:43am Mean Corpuscular Volume 82 FL 80-100 12/30/2015 9:12/30/2015 9: 43am Mean Corpuscular Hemoglobin 28.8 PG 26.0-34.0 12/30/2015 9:2015 9:43am Mean Corpuscular Hemoglobin Concent 35.3 g/dL 31.0-37.0 12/30/2015 9: 12/30/2015 9:43am Red Cell Distribution Width 12.9 % 11.8-15.6 12/30/2015 9:2015 9:43am Platelet Count 340 10^3uL 150-450 12/30/2015 9:12/30/2015 9:43am Mean Platelet Volume 9.0 FL 6.0-9.5 12/30/2015 9:12/30/2015 9: 43am Neutrophils (%) (Auto) 60 % 51-67 12/30/2015 9:12/30/2015 9:43am Lymphocytes (%) (Auto) 26 % 20-46 12/30/2015 9:12/30/2015 9:43am Monocytes (%) (Auto) 13 % H 3-11 12/30/2015 9:12/30/2015 9:43am Eosinophils (%) (Auto) 1 % 0-4 12/30/2015 9:12/30/2015 9:43am Basophils (%) (Auto) 0 % 0-2 12/30/2015 9:12/30/2015 9:43am Neutrophils # (Auto) 4.0 X10^3 12/30/2015 9:12/30/2015 9:43am Lymphocytes # (Auto) 1.8 X10^3 12/30/2015 9:12/30/2015 9:43am Monocytes # (Auto) 0.9 X10^3 12/30/2015 9:30am 12/30/2015 9:43am Eosinophils # (Auto) 0.0 10^3uL 12/30/2015 9:30am 12/30/2015 9:43am Basophils # (Auto) 0.0 10^3uL 12/30/2015 9:30am 12/30/2015 9:43am Sodium Level 141 mmol/L 135-150 12/30/2015 9:3012/30/2015 10:31am Potassium Level 3.0 mmol/L # L 3.5-5.1 12/30/2015 9:30am 12/30/2015 10: 31am Chloride Level 101 mmol/L 98-108 12/30/2015 9:3012/30/2015 10:31am Carbon Dioxide Level 30 mmol/L H 22-29 12/30/2015 9:30am 12/30/2015 10: 31am Anion Gap 13.1 MEQ/L 3-12/30/2015 9:3012/30/2015 10:31am Blood Urea Nitrogen 8 mg/dL 7-18 12/30/2015 9:30am 12/30/2015 10:31am Creatinine 0.90 mg/dL 0.8-1.5 12/30/2015 9:3012/30/2015 10:31am BUN/Creatinine Ratio 9 L 10-20 12/30/2015 9:3012/30/2015 10:31am Estimat Glomerular Filtration Rate 112.5 12/30/2015 9:302015 10:31am Estimated GFR (Non- 93.0 12/30/2015 9:302015 10:31am Glucose Level 93 mg/dL # 70-110 12/30/2015 9:3012/30/2015 10:31am Calculated Osmolality 270 mosm/L L 280-300 12/30/2015 9:3012/30/2015 10:31am Calcium Level 9.3 mg/dL 8.8-10.8 12/30/2015 9:3012/30/2015 10:31am Calcium/Ionized Calcium Ratio 3.8 mg/dL 3.8-4.6 12/30/2015 9:3012/29 10:31am Total Bilirubin 0.7 mg/dL # 0.1-1.0 12/30/2015 9:30am 12/30/2015 10:31am Alkaline Phosphatase 58 U/L 38-126 12/30/2015 9:30am 12/30/2015 10: 31am Aspartate Amino Transf (AST/SGOT) 36 U/L 15-37 12/30/2015 9:30am 2015 10:31am Alanine Aminotransferase (ALT/SGPT) 60 U/L 30-65 12/30/2015 9:30am 10:31am Total Creatine Kinase 362 U/L *H 55-170 12/30/2015 9:30am 12/30/2015 10: 31am Results called to VASU ABDALLA RN who read back the results. Called by Julissa Valencia at 1030 Creatine Kinase MB 3.3 ng/mL 0.0-6.0 12/30/2015 9:30am 12/30/2015 10: 31am Troponin I < 0.012 ng/mL 0.010-0.080 12/30/2015 9:30am 12/30/2015 10: 31am Total Protein 7.9 g/dL 6.4-8.5 12/30/2015 9:30am 12/30/2015 10:31am Albumin 4.7 g/dL # 3.4-5.0 12/30/2015 9:30am 12/30/2015 10:31am Albumin/Globulin Ratio 1.468 1.1-1.8 12/30/2015 9:30am 12/30/2015 10: 31am Pending Laboratory Results Test Name Collection Date/Time Procedures No known history of procedures. Encounters Encounter Location Arrival/Admit Date Discharge/Depart Date Attending Provider Registered Emergency Room [facility] 12/31/15 11:19pm HAYDEN DUFF MD Departed Emergency Room [facility] 12/30/15 8:46am 12/30/15 11:47am EVELINA JOHNSON MD Recent Diagnosis
--- OUTSIDE RECORDS SUMMARY | 2017-01-06 21:56 | XMS REPORT | Continuity of Care Document ---
Author Author [facility] Organization [facility] Address Unknown Phone Unavailable Care Team Providers Care Icu Registered Nurse Name Role Phone Lawrence Sher MD Primary Care Physician [phone] Insurance Providers Payer Name Policy Number Subscriber Name Relationship Self Pay/Fin Tufter Hand Review Chin Weber 18 Self / Same As Patient Chief Complaint and Reason for Visit Chief Complaint GI Complaint Reason for Visit Gastroenteritis Problems Medical Problems Problem Onset Date Status [...] ~11/25/2014 Active Anxiety ~11/26/2014 Active Vomiting ~12/17/2014 Active Gastroenteritis ~12/17/2014 Active Medications Medication Dose Route [...] DAILY 30 Qty 08/28/13 09/13/13 Discontinued Cyanocobalamin 6494-9547 Mcg ORAL DAILY 09/16/13 Active Multivits,Th W-Fe,Other Min 1 Each ORAL DAILY 09/16/13 Active [place]-3 Fatty Acids/Fish Oil 1 Each ORAL DAILY [...] discharge instructions. Plan of Care Discharge Date 12/17/14 4:08pm Disposition 01 HOME OR SELF-CARE Condition at Discharge Stable Instructions/Education Provided Gastroenteritis (ED) Prescriptions See Medications Section Referrals Lawrence Sher MD Additional Instructions/Education Take the nausea medication you have at home as prescribed. Observe a clear liquid diet today, and then tomorrow if nausea resolved, try a BRAT diet and thereafter resume your normal diet. See your doctor if you are not much better in 48 hours. Some of your test results may not [...] worrisome symptoms. * Emergency Department phone number: [phone], x [phone]* MEDICAL RECORD If you need copies of your X-rays, call [phone] x [phone]. If you need copies of [...] Hospital Physician Services [facility] X-rays [place] [facility] Patients will receive bills for services from the appropriate provider. If you have any questions about your [facility] bill, our staff will be happy to assist you. Please call [phone], and ask for the billing department. THANK YOU for choosing [facility] as your emergency care provider! Functional Status No functional status results. Allergies, Adverse Reactions, Alerts Allergen Type Severity Reaction Status Last Updated No Known Drug Allergies Active 03/03/14 Immunizations No immunization records. Vital Signs Acute Vital Signs Vital Response Date/Time Temperature (Fahrenheit) 98.7 Pulse 102 bpm Respirations 16 Height 5 ft 7 in Weight 175 [...] 26, 2014 8:30am Negative Negative Test Performed by:[place] [address] Desktop Engineer: Ernst Stiles III, M.D. Neutrophils # [...] and its performance characteristics determined by [facility]. It has not been cleared or approved by the U.S. Food and Drug Administration. Test Performed by: [facility] [address] [address] Desktop Engineer: Ernst Stiles III, M.D. Urine Nitrite November [...] Urine collection method Clean Catch Urine Specific [place] November 27, 2014 1:22am 1.010 1.005-1.030 Urine [...] 2014 6:55am Procedures Procedure Status Date Provider(s) CHEST X-RAY 1 VIEW FRONTAL completed 11/20/14 [...] VISIT completed 11/23/14 completed 11/23/14 completed 11/23/14 CHEST X-RAY 1 VIEW FRONTAL completed 11/25/14 COMPREHEN METABOLIC PANEL completed 11/25/14 DRUG SCREEN CLASS LIST A completed 11/25/14 DRUG SCREEN QUANTALCOHOLS completed 11/25/14 ASSAY OF CK (CPK) completed 11/25/14 CREATINE MB FRACTION completed 11/25/14 ASSAY OF TROPONIN QUANT completed 11/25/14 COMPLETE CBC W/AUTO DIFF WBC completed 11/25/14 PROTHROMBIN TIME completed 11/25/14 THROMBOPLASTIN TIME PARTIAL completed 11/25/14 ELECTROCARDIOGRAM TRACING completed 11/25/14 MEASURE BLOOD OXYGEN LEVEL completed 11/25/14 HYDRATION IV INFUSION INIT completed 11/25/14 EMERGENCY DEPT VISIT completed 11/25/14 completed 11/25/14 ROUTINE VENIPUNCTURE completed 11/27/14 COMPREHEN METABOLIC PANEL completed 11/27/14 DRUG SCREEN CLASS LIST A completed 11/27/14 URINALYSIS AUTO W/O SCOPE completed 11/27/14 ASSAY OF CK (CPK) completed 11/27/14 CREATINE MB FRACTION completed 11/27/14 ASSAY OF TROPONIN QUANT completed 11/27/14 COMPLETE CBC W/AUTO DIFF WBC completed 11/27/14 ELECTROCARDIOGRAM TRACING completed 11/27/14 MEASURE BLOOD OXYGEN LEVEL completed 11/27/14 THER/PROPH/DIAG INJ IV PUSH completed 11/27/14 EMERGENCY DEPT VISIT completed 11/27/14 completed 11/27/14 EMERGENCY DEPT VISIT completed 11/27/14 Encounters Encounter Location Date/Time Departed Emergency Room [facility] 12/17/14 2:47pm Departed Emergency Room [facility] 11/27/14 3:25pm Departed Emergency Room [facility] 11/27/14 1:16am Departed Emergency Room [facility] 11/25/14 8:24pm Departed Emergency Room [facility] 11/23/14 7:34pm Departed Emergency Room [facility] 11/22/14 2:36pm Departed Emergency Room [facility] 11/21/14 5:44pm Departed Emergency Room [facility] 11/20/14 6:27pm Recent Diagnosis
--- OUTSIDE RECORDS SUMMARY | 2017-01-06 21:56 | XMS REPORT | Summary of Care ---
Author Author Shamar Sorto, [place] Organization Unknown Address [address] [place], [place] [id number] Phone Unavailable Care Team Providers Care Farm Marketer Name Role Phone Shamar Sorto, Pamella Unavailable Unavailable Lawrence Sher PP Unavailable Unavailable Unavailable Functional Status Functional Status [...] Active Weight loss (783.21, R63.4) Status: Active Dysphonia (784.42, R49.0) Status: Active Cough (786.2, R05) Status: Active Dysphagia (787.20, R13.10) Status: Active Eczematoid otitis externa of both ears, unspecified chronicity (380.22, H60.543 ) Status: Active Chronic cough (786.2, R05) Status: Active Gastroesophageal reflux disease without esophagitis (530.81, K21.9) Status: Active Lymphadenopathy, posterior cervical (785.6, R59.9) Status: Active Medications Name Dates Details Multivitamins [...] Delayed Release * Refills: 0 * Started 2-Nov-2015 ActiveVitamin B-12 250 MCG Oral Tablet * Refills: 0 * Started 18-Jun-2015 ActiveCiprofloxacin HCl - 0.3 % Ophthalmic Solution 4gtts ear BID * Quantity: 1 Refills: 0 Smith Ibanez M.D.* Started 18-Jun-2015 Vofobi73 ML Bottle Allergies and Adverse Reactions Name Dates Details No Known Drug Allergies Status: Active Procedures Procedure Dates Details Procedures not documented Immunization Name Dates Details Immunizations not documented Social History Smoking Status* Unknown if ever smoked Vital Signs Date Test Result Details 18-Jun-2015 08:40 Temperature 98.1 f Status: Heart Rate 62 /min Status: Weight 186 lb Status: Results Date Description Value Details Results not [...]
--- OUTSIDE RECORDS SUMMARY | 2017-01-06 21:56 | XMS REPORT | Continuity of Care Document ---
Author Author [facility] Organization [facility] Address Unknown Phone Unavailable Care Team Providers Care Clinic Scheduler Name Role Phone Lawrence Sher MD Primary Care Physician [phone] Insurance Providers Payer Name Policy Number Subscriber Name Relationship Self Pay Chin Weber 18 Self / Same As Patient Chief Complaint and Reason for Visit Chief Complaint Cardiac Complaint Reason for Visit Chest pain Substance abuse Anxiety Problems Medical Problems Problem Onset Date Status [...] Drug abuse and dependence ~11/25/2014 Active Anxiety Unknown Active Medications Medication Dose Route Sig [...] DAILY 30 Qty 08/28/13 09/13/13 Discontinued Cyanocobalamin 8434-9171 Mcg ORAL DAILY 09/16/13 Active Multivits,Th W-Fe,Other Min 1 Each ORAL DAILY 09/16/13 Active [place]-3 Fatty Acids/Fish Oil 1 Each ORAL DAILY [...] instructions. Plan of Care Discharge Date 11/27/14 2:45am Disposition 01 HOME OR SELF-CARE Instructions/Education Provided Chest Pain (ED) Cocaine Abuse (ED) Generalized Anxiety Disorder (ED) Methamphetamine Abuse (ED) Prescriptions See Medications Section Referrals Lawrence Sher MD Additional Instructions/Education Follow up with your doctor tomorrow. ED CAROLA if any worse. Some of [...] worrisome symptoms. * Emergency Department phone number: [phone], x [phone]* MEDICAL RECORD If you need copies of your X-rays, call [phone] x [phone]. If you need copies of [...] SERVICE BILLING [employer] Emergency Room Services [facility] Physician Services [facility] X-rays [place] [facility] Patients will receive bills for services from the appropriate provider. If you have any questions about your [facility] bill, our staff will be happy to assist you. Please call [phone], and ask for the billing department. THANK YOU for choosing [facility] as your emergency care [...] 26, 2014 8:30am Negative Negative Test Performed by:[facility] [place] [address] Development Technologist: Ernst Stiles III, M.D. Neutrophils # November [...] developed and its performance characteristics determined by [facility]. It has not been cleared or approved by the U.S. Food and Drug Administration. Test Performed by: [address] [address] Development Technologist: Ernst Stiles III, M.D. Urine Nitrite November [...] Urine collection method Clean Catch Urine Specific [place] November 27, 2014 1:22am 1.010 1.005-1.030 Urine [...] ADDON completed 11/15/14 TX/PRO/DX INJ SAME DRUG STYLIST APPRENTICE completed 11/15/14 EMERGENCY DEPT VISIT completed 11/15/14 [...] Encounters Encounter Location Date/Time Departed Emergency Room [facility] 11/27/14 1:16am Departed Emergency Room [facility] 11/25/14 8:24pm Departed Emergency Room [facility] 11/23/14 7:34pm Departed Emergency Room [facility] 11/22/14 2:36pm Departed Emergency Room [facility] 11/21/14 5:44pm Departed Emergency Room [facility] 11/20/14 6:27pm Departed Emergency Room [facility] 11/16/14 8:21pm Departed Emergency Room [facility] 11/15/14 11:11am Departed Emergency Room [facility] 11/13/14 6:22pm Departed Emergency Room [facility] 11/11/14 1:06pm Registered Emergency Room [facility] 11/06/14 6:02pm Recent Diagnosis
--- OUTSIDE RECORDS SUMMARY | 2017-01-06 21:57 | XMS REPORT | Continuity of Care Document ---
Author Author [facility] Organization [facility] Address Unknown Phone Unavailable Care Team Providers Care Game Operator Name Role Phone Lawrence Sher MD Primary Care Physician [phone] Insurance Providers Payer Name Policy Number Subscriber Name Relationship Self Pay Chin Weber 18 Self / Same As Patient Chief Complaint and Reason for Visit Chief Complaint Malaise Reason for Visit Methamphetamine addiction [id number] Problems Medical Problems Problem Onset Date Status [...] DAILY 30 Qty 08/28/13 09/13/13 Discontinued Cyanocobalamin 1802-9646 Mcg ORAL DAILY 09/16/13 Active Multivits,Th W-Fe,Other Min 1 Each ORAL DAILY 09/16/13 Active [place]-3 Fatty Acids/Fish Oil 1 Each ORAL DAILY [...] worrisome symptoms. * Emergency Department phone number: [phone], x [phone]* MEDICAL RECORD If you need copies of your X-rays, call [phone] x [phone]. If you need copies of [...] SERVICE BILLING [employer] Emergency Room Services [facility] Physician Services [facility] X-rays [place] [facility] Patients will receive bills for services from the appropriate provider. If you have any questions about your [facility] bill, our staff will be happy to assist you. Please call [phone], and ask for the billing department. THANK YOU for choosing [facility] as your emergency care provider! Functional [...] 26, 2014 8:30am Negative Negative Test Performed by:[place] [address] Deep Submergence Vehicle Operator: Ernst Stiles III, M.D. Neutrophils # [...] its performance characteristics determined by [facility]. It has not been cleared or approved by the U.S. Food and Drug Administration. Test Performed by: [address] [address] Deep Submergence Vehicle Operator: Ernst Stiles III, M.D. Urine Nitrite [...] 26, 2012 10:55pm Negative Negative Urine Specific [place] March 29, 2014 6:55am 1.020 1.005-1.030 Urine [...] ADDON completed 11/15/14 TX/PRO/DX INJ SAME DRUG PRIVACY SPECIALIST completed 11/15/14 EMERGENCY DEPT VISIT completed 11/15/14 completed 11/15/14 completed 11/15/14 completed 11/15/14 EMERGENCY DEPT VISIT completed 11/16/14 Encounters Encounter Location Date/Time Departed Emergency Room [facility] 11/23/14 7:34pm Departed Emergency Room [facility] 11/22/14 2:36pm Departed Emergency Room [facility] 11/21/14 5:44pm Departed Emergency Room [facility] 11/20/14 6:27pm Departed Emergency Room [facility] 11/16/14 8:21pm Departed Emergency Room [facility] 11/15/14 11:11am Departed Emergency Room [facility] 11/13/14 6:22pm Departed Emergency Room [facility] 11/11/14 1:06pm Registered Emergency Room [facility] 11/06/14 6:02pm Recent Diagnosis
--- OUTSIDE RECORDS SUMMARY | 2017-01-06 21:57 | XMS REPORT | Continuity of Care Document ---
Author Author [facility] Organization [facility] Address Unknown Phone Unavailable Care Team Providers Care Patient Services Coordinator Name Role Phone Lawrence Sher MD Primary Care Physician [phone] Insurance Providers Payer Name Policy Number Subscriber Name Relationship [facility] [id number] Chin Weber 18 Self / Same As Patient Self Pay/Pending [facility] Apprv [id number] Chin Weber 18 Self / Same As Patient Chief Complaint and Reason for Visit Chief Complaint Pain Reason for Visit Methamphetamine addiction [id number] Problems Medical Problems Problem Onset Date Status [...] DAILY 30 Qty 08/28/13 09/13/13 Discontinued Cyanocobalamin 3566-8135 Mcg ORAL DAILY 09/16/13 Active Multivits,Th W-Fe,Other Min 1 Each ORAL DAILY 09/16/13 Active [place]-3 Fatty Acids/Fish Oil 1 Each ORAL DAILY [...] worrisome symptoms. * Emergency Department phone number: [phone], x [phone]* MEDICAL RECORD If you need copies of your X-rays, call [phone] x [phone]. If you need copies of [...] SERVICE BILLING [employer] Emergency Room Services [facility] Physician Services [facility] X-rays [facility] Patients will receive bills for services from the appropriate provider. If you have any questions about your [facility] bill, our staff will be happy to assist you. Please call [phone], and ask for the billing department. THANK YOU for choosing [facility] as your emergency care provider! Functional [...] --- NGON SOURCE previously reported as: Urine OI-Ngz-C-Type Natriuretic Peptide April 27, 2015 9:51pm 41 pg/mL N 0 -125 <300 ng/mL - HF unlikely Age <50 years, NT-proBNP >450 pg/mL - HF Likely Age 50-75 yrs, NT-proBNP >900 pg/mL - HF Likely Age >75 yrs, NT-proBNP >1800 - HF likely Neisseria gonorrhoeae RNA April 26, 2014 8:30am Negative Negative Test Performed by:[address] [address] Botanical Technical Officer: Ernst Stiles III, M.D. Neutrophils # November [...] Drug Administration. Test Performed by: [facility] [address] [address] Botanical Technical Officer: Ernst Stiles III, M.D. Urine Nitrite April 27, 2015 9:45pm Negative Negative Urine collection method Clean Catch Urine Protein April 27, 2015 9:45pm Negative Negative Urine collection method Clean Catch Urine RBC April 22, 2015 8:30am 2-5 /HPF Urine collection method Clean Catch Urine RBC (Auto) April 27, 2015 9:45pm Negative Negative Urine collection method Clean Catch Urine Specific [place] April 27, 2015 9:45pm 1.010 1.005-1.030 Urine [...] Encounters Encounter Location Date/Time Departed Emergency Room [facility] 04/27/15 9:08pm Departed Emergency Room [facility] 04/24/15 2:30pm Departed Emergency Room [facility] 04/23/15 1:10pm Departed Emergency Room [facility] 04/22/15 5:47am Registered Clinic [facility] 04/13/15 7:19am Recent Diagnosis
--- OUTSIDE RECORDS SUMMARY | 2017-01-06 21:57 | XMS REPORT | Continuity of Care Document ---
Author Author [facility] LIVE HCIS Organization [facility] HCIS Address Unknown Phone Unavailable Care Team Providers Care Toddler Nanny Name Role Phone Lawrence Sher MD Primary Care Physician [phone] Insurance Providers Payer Name Policy Number Subscriber [...] DAILY 30 Qty 08/28/13 09/13/13 Discontinued Cyanocobalamin [id number] Mcg ORAL DAILY 09/16/13 Active Multivits,Th W-Fe,Other Min 1 Each ORAL DAILY 09/16/13 Active [place]-3 Fatty Acids/Fish Oil 1 Each ORAL DAILY [...] worrisome symptoms. * Emergency Department phone number: [phone], x 543* MEDICAL RECORD If you need copies of your X-rays, call [phone] x [phone]. If you need copies of [...] SERVICE BILLING [place]EN [place] Emergency Room Services [facility] Physician Services [facility] X-rays [facility] Patients will receive bills for services from the appropriate provider. If you have any questions about your [facility] bill, our staff will be happy to assist you. Please call [phone], and ask for the billing department. THANK YOU for choosing [facility] as your emergency care provider! [...] 26, 2014 8:30am Negative Negative Test Performed by:[address] [address] Airplane Dispatch Clerk: Ernst Stiles III, M.D. Neutrophils # [...] developed and its performance characteristics determined by [facility]. It has not been cleared or approved by the U.S. Food and Drug Administration. Test Performed by: [address] [address] Airplane Dispatch Clerk: Ernst Stiles III, M.D. Urine Nitrite [...] 26, 2012 10:55pm Negative Negative Urine Specific [place] March 29, 2014 6:55am 1.020 1.005-1.030 Urine [...]
--- OUTSIDE RECORDS SUMMARY | 2017-01-06 21:58 | XMS REPORT | Continuity of Care Document ---
Author Author [facility] LIVE Organization [facility] LIVE Address Unknown Phone Unavailable Support Name Relationship Address Phone VUHUDSON SOTO Caregiver [address] [place] [address] SHAHNAZ LUTHER Caregiver [address] [place] [address] [place] [address] CHARLESDANUTA COLLINS Next Of Kin [address] [place] [address] Insurance Providers Payer Name Policy Number Subscriber Name Relationship [facility] [id number] Chin Weber 17 Self Advance Directives Directive [...] a day ( at BEDTIME). 04/29/14 Active [place]-3 Fatty Acids 500 Mg PO DAILY 04/29/14 [...] F (96.8 - 99.1) Temperature (Calculated Celsius) 36.34809 degrees C (36.0 - 37.3) Pulse Rate [...] specimen been collected /obtained? Y Urine Specific [place] April 29, 2014 6:30am 1.010 L - [...] Report May 06, 2011 1:36pm REFERENCE LAB [id number] - EKG May 17, 2009 7:50pm Complete [...] Encounters Encounter Location Date/Time Departed Emergency Room 04/29/14 5:57am Recent Diagnosis
--- OUTSIDE RECORDS SUMMARY | 2017-01-06 21:58 | XMS REPORT | Continuity of Care Document ---
Author Author [facility] LIVE HCIS Organization [facility]IVE HCIS Address Unknown Phone Unavailable Care Team Providers Care Air Marshal Name Role Phone Lawrence Sher MD Primary Care Physician [phone] Insurance Providers Payer Name Policy Number Subscriber [...] DAILY 30 Qty 08/28/13 09/13/13 Discontinued Cyanocobalamin [id number] Mcg ORAL DAILY 09/16/13 Active Multivits,Th W-Fe,Other Min 1 Each ORAL DAILY 09/16/13 Active [place]-3 Fatty Acids/Fish Oil 1 Each ORAL DAILY [...] worrisome symptoms. * Emergency Department phone number: [phone], x [phone]* MEDICAL RECORD If you need copies of your X-rays, call [phone] x [phone]. If you need copies of [...] services. SERVICE BILLING REPUBLICAN Emergency Room Services [facility] Physician Services [facility] X-rays [place] [facility] Patients will receive bills for services from the appropriate provider. If you have any questions about your [facility] bill, our staff will be happy to assist you. Please call [phone], and ask for the billing department. THANK YOU for choosing [facility] as your emergency care provider! [...] 26, 2014 8:30am Negative Negative Test Performed by:[place] [address] Rotary Filter Operator: Ernst Stiles III, M.D. Neutrophils # August [...] its performance characteristics determined by [facility]. It has not been cleared or approved by the U.S. Food and Drug Administration. Test Performed by: [address] [address] Rotary Filter Operator: Ernst Stiles III, M.D. Urine Nitrite [...] 26, 2012 10:55pm Negative Negative Urine Specific [place] March 29, 2014 6:55am 1.020 1.005-1.030 Urine [...] [facility] 11/13/14 6:22pm Departed Emergency Room [facility] 11/11/14 1:06pm Registered Emergency Room [facility] 11/06/14 6:02pm Recent Diagnosis
--- OUTSIDE RECORDS SUMMARY | 2017-01-06 21:58 | XMS REPORT | Continuity of Care Document ---
Author Author [facility] LIVE HCIS Organization [facility] HCIS Address Unknown Phone Unavailable Care Team Providers Care Community Service Technician Name Role Phone Lawrence Sher MD Primary Care Physician [phone] Insurance Providers Payer Name Policy Number Subscriber Name Relationship [facility] [id number] Chin Weber 18 Self / Same As Patient Self Pay/Pending [facility] Apprv [id number] Chin Weber 17 Self / Same As [...] DAILY 30 Qty 08/28/13 09/13/13 Discontinued Cyanocobalamin [id number] Mcg ORAL DAILY 09/16/13 Active Multivits,Th W-Fe,Other Min 1 Each ORAL DAILY 09/16/13 Active [place]-3 Fatty Acids/Fish Oil 1 Each ORAL DAILY [...] worrisome symptoms. * Emergency Department phone number: [phone], x [phone]* MEDICAL RECORD If you need copies of your X-rays, call [phone] x [phone]. If you need copies of [...] services. SERVICE BILLING REPUBLICAN Emergency Room Services [facility] Physician Services [facility] X-rays [place] [facility] Patients will receive bills for services from the appropriate provider. If you have any questions about your [facility] bill, our staff will be happy to assist you. Please call [phone], and ask for the billing department. THANK YOU for choosing [facility] as your emergency care provider! Functional [...] 26, 2014 8:30am Negative Negative Test Performed by:[address] [address] Histology Tech: Ernst Stiles III, M.D. Neutrophils # November [...] DPH 55-170 Results called to MARTHA IN [facility] read back the results. Called by Ysabel [...] developed and its performance characteristics determined by [facility]. It has not been cleared or approved by the U.S. Food and Drug Administration. Test Performed by: [facility] [address] [address] Histology Tech: Ernst Stiles III, M.D. Urine Nitrite April 22, 2015 8:30am Negative Negative Urine collection method Clean Catch Urine Protein April 22, 2015 8:30am 1+ H Negative Urine collection method Clean Catch Urine RBC April 22, 2015 8:30am 2-5 /HPF Urine collection method Clean Catch Urine RBC (Auto) April 22, 2015 8:30am Trace-intact H Negative Urine collection method Clean Catch Urine Specific [place] April 22, 2015 8:30am 1.020 1.005-1.030 Urine [...] Encounters Encounter Location Date/Time Departed Emergency Room [facility] 04/24/15 2:30pm Departed Emergency Room [facility] 04/23/15 1:10pm Departed Emergency Room [facility] 04/22/15 5:47am Registered Clinic [facility] 04/13/15 7:19am Recent Diagnosis
--- OUTSIDE RECORDS SUMMARY | 2017-01-06 21:59 | XMS REPORT | Continuity of Care Document ---
Author Author [facility] LIVE HCIS Organization [facility]IVE HCIS Address Unknown Phone Unavailable Care Team Providers Care Web Site Designer Name Role Phone Lawrence Sher MD Primary Care Physician [phone] Insurance Providers Payer Name Policy Number Subscriber [...] DAILY 30 Qty 08/28/13 09/13/13 Discontinued Cyanocobalamin [phone] Mcg ORAL DAILY 09/16/13 Active Multivits,Th W-Fe,Other Min 1 Each ORAL DAILY 09/16/13 Active [place]-3 Fatty Acids/Fish Oil 1 Each ORAL DAILY [...] 26, 2014 8:30am Negative Negative Test Performed by:[place] [address] Manager Managed Backup Services: Ernst Stiles III, M.D. Neutrophils # November [...] developed and its performance characteristics determined by [facility]. It has not been cleared or approved by the U.S. Food and Drug Administration. Test Performed by: [facility] - [address] [address] Manager Managed Backup Services: Ernst Stiles III, M.D. Urine Nitrite November [...] Urine collection method Clean Catch Urine Specific [place] November 27, 2014 1:22am 1.010 1.005-1.030 Urine [...] ADDON completed 11/15/14 TX/PRO/DX INJ SAME DRUG UROLOGY NURSE completed 11/15/14 EMERGENCY DEPT VISIT completed 11/15/14 [...] Encounters Encounter Location Date/Time Departed Emergency Room [facility] 11/27/14 3:25pm Departed Emergency Room [facility] 11/27/14 1:16am Departed Emergency Room [facility] 11/25/14 8:24pm Departed Emergency Room [facility] 11/23/14 7:34pm Departed Emergency Room [facility] 11/22/14 2:36pm Departed Emergency Room [facility] 11/21/14 5:44pm Departed Emergency Room [facility] 11/20/14 6:27pm Departed Emergency Room [facility] 11/16/14 8:21pm Departed Emergency Room [facility] 11/15/14 11:11am Departed Emergency Room [facility] 11/13/14 6:22pm Departed Emergency Room [facility] 11/11/14 1:06pm Registered Emergency Room [facility] 11/06/14 6:02pm Recent Diagnosis
[2017-01-06 22:00] LABS: BASOPHILS % (AUTO) 0.3 % (0-2); EOSINOPHILS % (AUTO) 0.3 % (0-4); HCT - HEMATOCRIT 40.3 % (41-53); HGB - HEMOGLOBIN 13.7 GM/DL (13.5-17.5); IMMATURE GRANULOCYTE # (AUTO) 0.01 T/MM3 (0.00-0.03); IMMATURE GRANULOCYTE % (AUTO) 0.1 % (0.0-0.5); LYMPHOCYTES # (AUTO) 1.3 T/MM3 (1-4.8); LYMPHOCYTES % (AUTO) 13.4 % (23-45); MEAN CORPUSCULAR HGB 28.8 UUG (26-34); MEAN CORPUSCULAR VOLUME 84.7 UM3 (80-100); MEAN PLATELET VOLUME 9.1 UM3 (9.4-12.4); MONOCYTES # (AUTO) 0.9 T/MM3 (0-0.8); MONOCYTES % (AUTO) 9.4 % (0-9.0); NEUTROPHILS #(AUTO)-ABSOLUTE 7.4 T/MM3 (1.8-7.7); NEUTROPHILS % (AUTO) 76.5 % (33-66); RED BLOOD COUNT 4.76 M/MM3 (4.50-5.90); WBC - WHITE BLOOD COUNT 9.7 T/MM3 (4.5-11.0)
--- NOTE | 2017-01-06 22:00 | ERPDOC ---
Departure Disposition Decision Date: January 06, 2017 Disposition Decision Time: 22:51 Disposition: 01 DISCHARGED HOME, SELF-CARE Impression Impression Impression: Primary Impression: Chest pain Chest pain type: unspecified Qualified Codes: R07.9 - Chest pain, unspecified Additional Impression: Paronychia Laterality: left Qualified Codes: L03.012 - Cellulitis of left finger Severity: Moderate Condition: Stable Seen By: Mid-level only Referrals: SHAHNAZ LUTHER (Family) Patient Instructions: Chest Pain (ED), Paronychia (ED) Problems/Meds/Labs Reviewed?: Yes Medications reviewed and manag: Yes Additional Instructions: Take the Bactrim as prescribed. Elevate your hand to help with the pain in the finger. Your labs today are all normal. I do want you to follow up with your primary care provider for reevaluation of your finger and your chest pain if this does not improve. May take Ibuprofen and/or Tylenol as needed for pain. Avoid use of drugs Follow up care ordered?: Yes Mental Status: Alert Scripts Sulfamethoxazole/Trimethoprim (Bactrim Ds Tablet) 1 Each Tablet 1 TAB PO BID, #20 TAB 0 Refills Take 1 tablet, by mouth, 2 times a day. Prov: HEIDI GEORGE MATILDE 01/06/17 HPI - Chest Pain General Chief Complaint: Chest Pain Stated Complaint: CHEST PAIN,DIFF BREATHING Time Seen by Provider: 21:42 Source: patient Exam Limitations: no limitations HPI - Chest Pain Initial Comments He has had some left sided chest pain for the last few hours. He describes it more as an ache and is constant. He does report that he has been using meth "pretty much constantly" for the last 3 weeks. 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 He also has a small abscess on the left abdomen and paronychia of the left ring finger and reports that the pain from these two things hurts more than the pain from his chest. Did take ASA 324mg at home prior to coming to [facility]. Occurred At: home Onset/Timing: Gradual Duration: other (Over the last several hours) Activities at Onset/Context: none Location: anterior L Quality: aching Associated Symptoms: DENIES: abdominal pain, back pain, diaphoresis, dizziness , edema, fast HR, fatigue, fever/chills, headache, heartburn, irregular HR, nausea/vomiting, rash, shortness of breath, slow HR, swelling/lump in chest, syncope, weakness Chest Pain Radiation: no radiation Nitro Today/Relief: no nitro taken today Aspirin Treatment Today: 81 mg x 4 Prior Chest Pain/Cardiac Hiral: heart attack Hx of Similar Symptoms: No Allergies: Coded Allergies: NKDA (Verified Allergy, Unknown, 01/06/17) Past History Past Medical History GI: GERD Musculoskeletal: back pain Psychological: anxiety, drug abuse Surgical History Cardiac: cardiac cath Family History Family PMH: FOUND: other Vaccines Hx Influenza Vaccination: Yes (2012) Hx Pneumococcal Vaccination: Yes () Review of Systems Constitutional Constitutional: DENIES: chills, dizziness, fatigue, fever, weakness Cardiovascular Cardiac: chest pain, DENIES: dyspnea on exertion, orthopnea Rhythm/Rate: DENIES: irregular beat, palpitations Pulmonary Respiratory: DENIES: cough, dyspnea, sputum, tachypnea GI Upper Abdomen: DENIES: nausea, pain, vomiting Lower Abdomen: DENIES: constipation, diarrhea, pain Integumentary Skin: lesion (He does have a small abscess on left abdomen and swelling/ redness of left distal ring finger), DENIES: rash Neurological General: DENIES: headache, numbness, tingling, weakness Physical Exam General General Nourishment: well nourished, well developed, appears stated age, no acute distress, adult General Body Habitus: well groomed Vitals and Pain First Documented Vital Signs Date Time Temp Pulse Resp B/P Pulse Ox O2 Delivery O2 Flow Rate FiO2 01/06/17 21:45 98.2 102 20 147/95 100 Room Air Weight: Kilograms: Height (feet): 5 Height (inches): 7.00 Triage Pain Scale: RN VS reviewed by Provider: Yes Normal Exams: Neurologic: Patient is alert, and oriented Psychiatric: Patient exhibits, appropriate attention, emotion and affect Integumentary (brief) Integumentary Brief: FOUND: other (There is a small dime sized abscess with surrounding erythema and pointing on the left abdomen. There is also swelling and erthema of the left distal ring finger around the nail. No fluctuance noted. ) Differential Diagnoses Considering: Acute AL, Anxiety/Panic, Angina, Costochondritis, Esophageal Spasm , GERD, Other (paronychia, abscess) Progress Results/Orders Orders Procedure Category Date Status Time EKG EKG 01/06/17 Logged Chest 1 View RAD 5/23/17 Taken Cbc W/Auto LAB 01/06/17 Complete Diff-Reflex Manual Bmp - Basic Metabolic LAB 01/06/17 Complete Panel Troponin I W LAB 01/06/17 Complete Hemolysis Index Iv Lock (Ed Only) EDM 01/06/17 Transmitted 21:51 Sulfamethoxazole/Trimethoprim PHA 01/06/17 Complete (Bactrim D 22:15 Lidocaine 1% PHA 01/06/17 Complete (Xylocaine 1%) 22:45 Lab Results Laboratory Tests Test 01/06/17 21:53 White Blood Count 9.7T/MM3 Red Blood Count 4.76M/MM3 Hemoglobin 13.7GM/DL Hematocrit 40.3% Mean Corpuscular Volume 84.7UM3 Mean Corpuscular Hemoglobin 28.8UUG Mean Corpuscular Hemoglobin Concent 34.0GM/DL RDW Standard Deviation 40.3FL Platelet Count 396T/MM3 Mean Platelet Volume 9.1UM3 Immature Granulocyte % (Auto) 0.1% Neutrophils (%) (Auto) 76.5% Lymphocytes (%) (Auto) 13.4% Monocytes (%) (Auto) 9.4% Eosinophils (%) (Auto) 0.3% Basophils (%) (Auto) 0.3% Absolute Immature Granulocyte (auto 0.01T/MM3 Absolute Neutrophils (auto) 7.4T/MM3 Absolute Lymphocytes (auto) 1.3T/MM3 Absolute Monocytes (auto) 0.9T/MM3 Absolute Eosinophils (auto) 0.0T/MM3 Absolute Basophils (auto) 0.0T/MM3 Turbidity < 20 Sodium Level 145MEQ/L Potassium Level 3.6MEQ/L Chloride Level 103MEQ/L Carbon Dioxide Level 27MEQ/L Anion Gap 15MEQ/L Blood Urea Nitrogen 11.0MG/DL Creatinine 1.0MG/DL Glomerular Filtration Rate Calc 82 BUN/Creatinine Ratio 11RATIO Glucose Level 151MG/DL Calculated Osmolality 281MOSM/KG Calcium Level 9.4MG/DL Icterus Index < 2 Troponin I < 0.012ng/ml Chemistry Specimen Hemolysis < 15 Medications Current ED Medications Trimethoprim/ Sulfamethoxazole (Bactrim Ds) 1 tab ONE TIME ONCE PO Last administered on 01/06/17t 22:12; Start 01/06/17 at 22:15; Stop 5/23/17 at 22:16 ; Status DC Lidocaine HCl (Xylocaine 1%) 100 mg O ONCE INFIL ; Start 01/06/17 at 22:45; Stop 01/06/17 at 22:46; Status DC HEIDI GEORGE APRN January 06, 2017 22:00 HEIDI GEORGE APRN January 06, 2017 22:00
--- OUTSIDE RECORDS SUMMARY | 2017-01-06 22:00 | XMS REPORT | Continuity of Care Document ---
Author Author [facility] LIVE HCIS Organization [facility]IVE HCIS Address Unknown Phone Unavailable Care Team Providers Care Form Setter Helper Name Role Phone Lawrence Sher MD Primary Care Physician [phone] Insurance Providers Payer Name Policy Number Subscriber [...] DAILY 30 Qty 08/28/13 09/13/13 Discontinued Cyanocobalamin [id number] Mcg ORAL DAILY 09/16/13 Active Multivits,Th W-Fe,Other Min 1 Each ORAL DAILY 09/16/13 Active [place]-3 Fatty Acids/Fish Oil 1 Each ORAL DAILY [...] 26, 2014 8:30am Negative Negative Test Performed by:[place] [address] Urban And Regional Planner: Ernst Stiles III, M.D. Neutrophils # November [...] and its performance characteristics determined by [facility]. It has not been cleared or approved by the U.S. Food and Drug Administration. Test Performed by: [facility] [place] [address] Urban And Regional Planner: Ernst Stiles III, M.D. Urine Nitrite March [...] 26, 2012 10:55pm Negative Negative Urine Specific [place] March 29, 2014 6:55am 1.020 1.005-1.030 Urine [...] ADDON completed 11/15/14 TX/PRO/DX INJ SAME DRUG PHOSPHORIC ACID SUPERVISOR completed 11/15/14 EMERGENCY DEPT VISIT completed 11/15/14 [...] Encounter Location Date/Time Departed Emergency Room [facility] 11/25/14 8:24pm Departed Emergency Room [facility] 11/23/14 7:34pm Departed Emergency Room [facility] 11/22/14 2:36pm Departed Emergency Room [facility] 11/21/14 5:44pm Departed Emergency Room [facility] 11/20/14 6:27pm Departed Emergency Room [facility] 11/16/14 8:21pm Departed Emergency Room [facility] 11/15/14 11:11am Departed Emergency Room [facility] 11/13/14 6:22pm Departed Emergency Room [facility] 11/11/14 1:06pm Registered Emergency Room [facility] 11/06/14 6:02pm Recent Diagnosis Drug abuse and dependence
--- OUTSIDE RECORDS SUMMARY | 2017-01-06 22:01 | XMS REPORT | Continuity of Care Document ---
Author Author [facility] LIVE HCIS Organization [facility] LIVE HCIS Address Unknown Phone Unavailable Care Team Providers Care Computer Network And Systems Engineer Name Role Phone Lawrence Sher MD Primary Care Physician [phone] Insurance Providers Payer Name Policy Number Subscriber [...] DAILY 30 Qty 08/28/13 09/13/13 Discontinued Cyanocobalamin [id number] Mcg ORAL DAILY 09/16/13 Active Multivits,Th W-Fe,Other Min 1 Each ORAL DAILY 09/16/13 Active [place]-3 Fatty Acids/Fish Oil 1 Each ORAL DAILY [...] worrisome symptoms. * Emergency Department phone number: [phone], x [phone]* MEDICAL RECORD If you need copies of your X-rays, call [phone] x [phone]. If you need copies of [...] SERVICE BILLING CONSTITUTION PARTY Emergency Room Services [facility] Physician Services [facility] X-rays [place] [facility] Patients will receive bills for services from the appropriate provider. If you have any questions about your [facility] bill, our staff will be happy to assist you. Please call [phone], and ask for the billing department. THANK YOU for choosing [facility] as your emergency care provider! Functional [...] Encounters Encounter Location Date/Time Registered Emergency Room [facility] 11/16/14 8:21pm Departed Emergency Room [facility] 11/15/14 11:11am Departed Emergency Room [facility] 11/13/14 6:22pm Departed Emergency Room [facility] 11/11/14 1:06pm Registered Emergency Room [facility] 11/06/14 6:02pm Recent Diagnosis
--- OUTSIDE RECORDS SUMMARY | 2017-01-06 22:01 | XMS REPORT | Continuity of Care Document ---
Author Author [facility] HCIS Organization [facility] HCIS Address Unknown Phone Unavailable Care Team Providers Care Clipper Machine Name Role Phone Lawrence Sher MD Primary Care Physician [phone] Insurance Providers Payer Name Policy Number Subscriber Name Relationship Self Pay Chin Weber 18 Self / Same As Patient Chief Complaint and Reason for Visit Chief Complaint Skin Condition Reason for Visit [id number] pain Methamphetamine addiction Cellulitis Problems Medical Problems [...] DAILY 30 Qty 08/28/13 09/13/13 Discontinued Cyanocobalamin [id number] Mcg ORAL DAILY 09/16/13 Active Multivits,Th W-Fe,Other Min 1 Each ORAL DAILY 09/16/13 Active [place]-3 Fatty Acids/Fish Oil 1 Each ORAL DAILY [...] worrisome symptoms. * Emergency Department phone number: [phone], x 543* MEDICAL RECORD If you need copies of your X-rays, call [phone] x [phone]. If you need copies of [...] SERVICE BILLING CONSTITUTION PARTY Emergency Room Services [facility] Physician Services [facility] X-rays [place] [facility] Patients will receive bills for services from the appropriate provider. If you have any questions about your [facility] bill, our staff will be happy to assist you. Please call [phone], and ask for the billing department. THANK YOU for choosing [facility] as your emergency care provider! Functional Status [...] 26, 2014 8:30am Negative Negative Test Performed by:[place] [address] Consulting Services Manager: Ernst Stiles III, M.D. Neutrophils # August [...] its performance characteristics determined by [facility]. It has not been cleared or approved by the U.S. Food and Drug Administration. Test Performed by: [facility] - [address] [address] Consulting Services Manager: Ernst Stiles III, M.D. Urine Nitrite March [...] 26, 2012 10:55pm Negative Negative Urine Specific [place] March 29, 2014 6:55am 1.020 1.005-1.030 Urine [...] Encounters Encounter Location Date/Time Departed Emergency Room [facility] 11/15/14 11:11am Departed Emergency Room [facility] 11/13/14 6:22pm Departed Emergency Room [facility] 11/11/14 1:06pm Registered Emergency Room [facility] 11/06/14 6:02pm Recent Diagnosis
--- OUTSIDE RECORDS SUMMARY | 2017-01-06 22:02 | XMS REPORT | Continuity of Care Document ---
Author Author [facility] Organization [facility] Address Unknown Phone Unavailable Care Team Providers Care Coding Machine Operator Name Role Phone Lawrence Sher MD Primary Care Physician [phone] Insurance Providers Payer Name Policy Number Subscriber Name Relationship Self Pay/Approved Full [facility] [id number] Chin Weber 17 Self / Same As Patient Chief Complaint and Reason for Visit Chief Complaint Abuse Reason for Visit Drug abuse Methamphetamine addiction Constipation [id number] Problems Medical Problems Problem Onset Date Status [...] DAILY 30 Qty 08/28/13 09/13/13 Discontinued Cyanocobalamin 5354-2728 Mcg ORAL DAILY 09/16/13 Active Multivits,Th W-Fe,Other Min 1 Each ORAL DAILY 09/16/13 Active [place]-3 Fatty Acids/Fish Oil 1 Each ORAL DAILY [...] worrisome symptoms. * Emergency Department phone number: [phone], x 543* MEDICAL RECORD If you need copies of your X-rays, call [phone] x [phone]. If you need copies of [...] services. SERVICE BILLING LIBERTARIAN Emergency Room Services [facility] Physician Services [facility] X-rays [place] [facility] Patients will receive bills for services from the appropriate provider. If you have any questions about your [facility] bill, our staff will be happy to assist you. Please call [phone], and ask for the billing department. THANK YOU for choosing [facility] as your emergency care provider! [...] 26, 2014 8:30am Negative Negative Test Performed by:[address] [address] Braided Rug Maker: Ernst Stiles III, M.D. Neutrophils # November [...] developed and its performance characteristics determined by [facility]. It has not been cleared or approved by the U.S. Food and Drug Administration. Test Performed by: [facility] [address] [address] Braided Rug Maker: Ernst Stiles III, M.D. Urine Nitrite February 14, 2015 7:30am Negative Negative Urine collection method Clean Catch Urine Protein February 14, 2015 7:30am Negative Negative Urine collection method Clean Catch Urine RBC January 06, 2015 8:35am 0-2 /HPF Urine collection method Clean Catch Urine RBC (Auto) February 14, 2015 7:30am Negative Negative Urine collection method Clean Catch Urine Specific [place] February 14, 2015 7:30am <=1.005 1.005-1.030 Urine [...] Encounters Encounter Location Date/Time Departed Emergency Room [facility] 02/14/15 6:07am Departed Emergency Room [facility] 02/02/15 7:07am Recent Diagnosis
--- OUTSIDE RECORDS SUMMARY | 2017-01-06 22:03 | XMS REPORT | Continuity of Care Document ---
Author Author [facility] Organization [facility] Address Unknown Phone Unavailable Allergies Active Description [...] N/A 11/24/2014 Yes No Known Drug Allergies [id number] Drug Allergy Unknown N/ A 11/23/2016 Medications [...] Ot 780.4 DIZZINESS AND GIDDINESS 07/04/2013 LA OSHEA DO Ot 780.79 OTH MALAISE FATIGUE 07/04/2013 [...] SCREEN FOR OTH SPECIF CONDITIONS 09/21/2013 HECTOR GOMEZ, KIRSTIE Jones Ot 304.41 AMPHETAMIN DEPEND-CONTIN 09/21/2013 [...] GOMEZ, LISA Edmonds Ot 787.01 06/20/2015 MIRNA OGMEZ, FRANCES Kolb Ot 723.1 06/20/2015 MIRNA GOMEZ, FRANCES Kolb Ot 786.50 06/20/2015 MIRNA GOMEZ, FRANCES Kolb Ot 789.00 06/20/2015 HECTOR GOMEZ, KIRSTIE Jones Ot 786.50 06/20/2015 Christos GOMEZ, Lawrence Lang Ot 721.0 06/20/2015 Christos GOMEZ, Lawrence Lang Ot 721.3 06/20/2015 Christos GOMEZ, Lawrence aLng Ot 724.3 06/20/2015 Christos GOMEZ, Lawrence Lang [...] APRN Ot R10.84 10/11/2015 NERY KYAW Dia FRENCH DRAWER Ot R11.2 10/11/2015 KYAW GABRIEL FRENCH DRAWER Ot R19.7 10/14/2015 ROOSEVELT GOMEZ, DIDIER Ot [...] 12/21/2015 Frances Bradley MD Final Z79.899 Other intermediate (current) drug therapy 12/30/2015 EVELINA JOHNSON MD [...] 789.00 ABDOMINAL PAIN, UNSPECIFIED SITE 01/16/2016 Mika De lValle MD K Ot M25.521 PAIN IN RIGHT [...] R07.89 OTHER CHEST PAIN 04/03/2016 KYAW GABRIEL FRENCH DRAWER Ot R10.84 GENERALIZED ABDOMINAL PAIN 04/03/2016 KYAW GABRIEL FRENCH DRAWER Ot R11.2 NAUSEA WITH VOMITING, UNSPECIFIED 04/03/2016 KYAW GABRIEL FRENCH DRAWER Ot R19.7 DIARRHEA, UNSPECIFIED 04/04/2016 UZIEL POSEY [...] Ot M25.521 PAIN IN RIGHT ELBOW 04/19/2016 iMka Del Valle MD Ot M25.522 PAIN IN [...] 787.01 NAUSEA WITH VOMITING 06/13/2016 MIRNA GOMEZ, FRANCES Kolb Ot 723.1 CERVICALGIA 06/13/2016 MIRNA GOMEZ, [...] WITH STIMULANT- INDUC 06/13/2016 UYEN GOMEZ, VASU Lockahrt Ot R07.89 OTHER CHEST PAIN 06/13/2016 KYAW GABRIEL FRENCH DRAWER Ot R10.84 GENERALIZED ABDOMINAL PAIN 06/13/2016 KYAW GABRIEL FRENCH DRAWER Ot R11.2 NAUSEA WITH VOMITING, UNSPECIFIED 06/13/2016 KYAW GABRIEL FRENCH DRAWER Ot R19.7 DIARRHEA, UNSPECIFIED 06/19/2016 SOTO INGRAM [...] Status Pt. Type Provider Facility Loc./Unit Complaint [id number] 07/04/2013 07:22:00 2012 20:40:00 DIS Outpatient Arlyn Wagner DO [address] [id number] 09/15/2012 04:42:00 2012 09:11:00 DIS Emergency Vasu [facility] [id number] 05/14/2012 01:28:00 Document Registration
--- OUTSIDE RECORDS SUMMARY | 2017-01-06 22:04 | XMS REPORT | Continuity of Care Document ---
Author Author [facility] Organization [facility] Address Unknown Phone Unavailable Care Team Providers Care Senior Engineering Team Leader Name Role Phone Lawrence Sher MD Primary Care Physician [phone] Insurance Providers Payer Name Policy Number Subscriber Name Relationship Self Pay/Approved Full [facility] [id number] Chin Weber 17 Self / Same As Patient Chief Complaint and Reason for Visit Chief Complaint GI Complaint Reason for Visit Methamphetamine abuse Rectal trauma [id number] Abdominal pain Problems Medical Problems Problem Onset [...] DAILY 30 Qty 08/28/13 09/13/13 Discontinued Cyanocobalamin 2458-1081 Mcg ORAL DAILY 09/16/13 Active Multivits,Th W-Fe,Other Min 1 Each ORAL DAILY 09/16/13 Active [place]-3 Fatty Acids/Fish Oil 1 Each ORAL DAILY [...] worrisome symptoms. * Emergency Department phone number: [phone], x 543* MEDICAL RECORD If you need copies of your X-rays, call [phone] x [phone]. If you need copies of [...] SERVICE BILLING CONSTITUTION PARTY Emergency Room Services [facility] Physician Services [facility] X-rays [place] [facility] Patients will receive bills for services from the appropriate provider. If you have any questions about your [facility] bill, our staff will be happy to assist you. Please call [phone], and ask for the billing department. THANK [...] 2014 8:30am Negative Negative Test Performed by:[address] [address] Block Mason: Ernst Stiles III, M.D. Neutrophils # November [...] 703 U/L PH 55-170 Results called to [facility] IN [facility] read back the results. Called by Ysabel [...] developed and its performance characteristics determined by [facility]. It has not been cleared or approved by the U.S. Food and Drug Administration. Test Performed by: [facility] [place] [address] Block Mason: Ernst Stiles III, M.D. Urine Nitrite February 02, 2015 7:25am Negative Negative Urine collection method Clean Catch Urine Protein February 02, 2015 7:25am Negative Negative Urine collection method Clean Catch Urine RBC January 06, 2015 8:35am 0-2 /HPF Urine collection method Clean Catch Urine RBC (Auto) February 02, 2015 7:25am Negative Negative Urine collection method Clean Catch Urine Specific [place] February 02, 2015 7:25am 1.015 1.005-1.030 Urine [...] Encounters Encounter Location Date/Time Departed Emergency Room [facility] 02/02/15 7:07am Departed Emergency Room [facility] 01/09/15 9:01am Departed Emergency Room [facility] 01/06/15 6:23am Recent Diagnosis
--- OUTSIDE RECORDS SUMMARY | 2017-01-06 22:04 | XMS REPORT | Continuity of Care Document ---
Author Author [facility] Organization [facility] Address Unknown Phone Unavailable Care Team Providers Care Art Therapy Certified Supervisor Name Role Phone Lawrence Sher MD Primary Care Physician [phone] Insurance Providers Payer Name Policy Number Subscriber [...] DAILY 30 Qty 08/28/13 09/13/13 Discontinued Cyanocobalamin [phone] Mcg ORAL DAILY 09/16/13 Active Multivits,Th W-Fe,Other Min 1 Each ORAL DAILY 09/16/13 Active [place]-3 Fatty Acids/Fish Oil 1 Each ORAL DAILY [...] worrisome symptoms. * Emergency Department phone number: [phone], x 543* MEDICAL RECORD If you need copies of your X-rays, call [phone] x [phone]. If you need copies of [...] SERVICE BILLING GREEN PARTY Emergency Room Services [facility] Physician Services [facility] X-rays [place] [facility] Patients will receive bills for services from the appropriate provider. If you have any questions about your [facility] bill, our staff will be happy to assist you. Please call [phone], and ask for the billing department. THANK YOU for choosing [facility] as your emergency care provider! Functional [...] 26, 2014 8:30am Negative Negative Test Performed by:[place] [address] Life Science Research Assistant: Ernst Stiles III, M.D. Neutrophils # [...] developed and its performance characteristics determined by [facility]. It has not been cleared or approved by the U.S. Food and Drug Administration. Test Performed by: [address] [address] Life Science Research Assistant: Ernst Stiles III, M.D. Urine Nitrite [...] 26, 2012 10:55pm Negative Negative Urine Specific [place] March 29, 2014 6:55am 1.020 1.005-1.030 Urine [...] ADDON completed 11/15/14 TX/PRO/DX INJ SAME DRUG SOFTWARE ENGINEER BACKEND completed 11/15/14 EMERGENCY DEPT VISIT completed 11/15/14 completed 11/15/14 completed 11/15/14 completed 11/15/14 EMERGENCY DEPT VISIT completed 11/16/14 Encounters Encounter Location Date/Time Departed Emergency Room [facility] 11/22/14 2:36pm Departed Emergency Room [facility] 11/21/14 5:44pm Departed Emergency Room [facility] 11/20/14 6:27pm Departed Emergency Room [facility] 11/16/14 8:21pm Departed Emergency Room [facility] 11/15/14 11:11am Departed Emergency Room [facility] 11/13/14 6:22pm Departed Emergency Room [facility] 11/11/14 1:06pm Registered Emergency Room [facility] 11/06/14 6:02pm Recent Diagnosis
--- OUTSIDE RECORDS SUMMARY | 2017-01-06 22:05 | XMS REPORT | Continuity of Care Document ---
Author Author [facility] Organization [facility] Address Unknown Phone Unavailable Care Team Providers Care Heart Specialist Name Role Phone Lawrence Sher MD Primary Care Physician [phone] Insurance Providers Payer Name Policy Number Subscriber Name Relationship Self Pay/Approved Full [facility] [id number] Chin Weber 17 Self / Same As Patient Chief Complaint and Reason for Visit Chief Complaint Cardiac Complaint Reason for Visit Drug abuse [id number]-[id number] discomfort Problems Medical Problems Problem Onset Date [...] DAILY 30 Qty 08/28/13 09/13/13 Discontinued Cyanocobalamin [id number] Mcg ORAL DAILY 09/16/13 Active Multivits,Th W-Fe,Other Min 1 Each ORAL DAILY 09/16/13 Active [place]-3 Fatty Acids/Fish Oil 1 Each ORAL DAILY [...] worrisome symptoms. * Emergency Department phone number: [phone], x 543* MEDICAL RECORD If you need copies of your X-rays, call [phone] x [phone]. If you need copies of [...] BILLING GREEN PARTY Emergency Room Services [facility] Physician Services [facility] X-rays [place] [facility] Patients will receive bills for services from the appropriate provider. If you have any questions about your [facility] bill, our staff will be happy to assist you. Please call [phone], and ask for the billing department. THANK YOU for choosing [facility] as your emergency care provider! [...] 26, 2014 8:30am Negative Negative Test Performed by:[place] [address] Chief Design Branch: Ernst Stiles III, M.D. Neutrophils # November [...] 703 U/L PH 55-170 Results called to [facility] IN [facility] read back the results. Called by Ysabel [...] its performance characteristics determined by [facility]. It has not been cleared or approved by the U.S. Food and Drug Administration. Test Performed by: [address] [address] Chief Design Branch: Ernst Stiles III, M.D. Urine Nitrite January [...] Urine collection method Clean Catch Urine Specific [place] January 06, 2015 8:35am 1.025 1.005-1.030 Urine [...] Encounter Location Date/Time Departed Emergency Room [facility] 01/06/15 6:23am Departed Emergency Room [facility] 12/17/14 2:47pm Recent Diagnosis
--- OUTSIDE RECORDS SUMMARY | 2017-01-06 22:05 | XMS REPORT | Continuity of Care Document ---
Author Author [facility] Organization [facility] Address Unknown Phone Unavailable Care Team Providers Care Cosmetic Counselor Name Role Phone Lawrence Sher MD Primary Care Physician [phone] Insurance Providers Payer Name Policy Number Subscriber Name Relationship [facility] [id number] Chin Weber 18 Self / Same As Patient Self Pay/Pending [facility] Apprv [id number] Chin Weber 18 Self / Same As [...] DAILY 30 Qty 08/28/13 09/13/13 Discontinued Cyanocobalamin [phone] Mcg ORAL DAILY 09/16/13 Active Multivits,Th W-Fe,Other Min 1 Each ORAL DAILY 09/16/13 Active [place]-3 Fatty Acids/Fish Oil 1 Each ORAL DAILY [...] worrisome symptoms. * Emergency Department phone number: [phone], x 543* MEDICAL RECORD If you need copies of your X-rays, call [phone] x [phone]. If you need copies of [...] SERVICE BILLING ALLIANCE PARTY Emergency Room Services [facility] Physician Services [facility] X-rays [place] [facility] Patients will receive bills for services from the appropriate provider. If you have any questions about your [facility] bill, our staff will be happy to assist you. Please call [phone], and ask for the billing department. THANK YOU for choosing [facility] as your emergency care provider! [...] 26, 2014 8:30am Negative Negative Test Performed by:[address] [address] Financial Market Dealer: Ernst Stiles III, M.D. Neutrophils # November [...] DPH 55-170 Results called to [facility] IN [facility] read back the results. Called [...] and its performance characteristics determined by [facility]. It has not been cleared or approved by the U.S. Food and Drug Administration. Test Performed by: [facility] [address] [address] Financial Market Dealer: Ernst Stiles III, M.D. Urine Nitrite April 22, 2015 8:30am Negative Negative Urine collection method Clean Catch Urine Protein April 22, 2015 8:30am 1+ H Negative Urine collection method Clean Catch Urine RBC April 22, 2015 8:30am 2-5 /HPF Urine collection method Clean Catch Urine RBC (Auto) April 22, 2015 8:30am Trace-intact H Negative Urine collection method Clean Catch Urine Specific [place] April 22, 2015 8:30am 1.020 1.005-1.030 Urine [...] Encounters Encounter Location Date/Time Departed Emergency Room [facility] 04/22/15 5:47am Registered Clinic [facility] 04/13/15 7:19am Recent Diagnosis
--- OUTSIDE RECORDS SUMMARY | 2017-01-06 22:05 | XMS REPORT | Continuity of Care Document ---
Author Author [facility] Organization [facility] Address Unknown Phone Unavailable Care Team Providers Care Staffing Mgr Name Role Phone Lawrence Sher MD Primary Care Physician [phone] Insurance Providers Payer Name Policy Number Subscriber Name Relationship [facility] [id number] Chin Weber 18 Self / Same As Patient Self Pay/Pending [facility] Apprv [id number] Chin Weber 17 Self / Same As [...] DAILY 30 Qty 08/28/13 09/13/13 Discontinued Cyanocobalamin 6033-1969 Mcg ORAL DAILY 09/16/13 Active Multivits,Th W-Fe,Other Min 1 Each ORAL DAILY 09/16/13 Active [place]-3 Fatty Acids/Fish Oil 1 Each ORAL DAILY [...] Follow up with Pastor Roshan Castillo about [place] [facility] Return if symptoms worsen Some of [...] worrisome symptoms. * Emergency Department phone number: [phone], x 543* MEDICAL RECORD If you need copies of your X-rays, call [phone] x [phone]. If you need copies of [...] SERVICE BILLING GREEN PARTY Emergency Room Services [facility] Physician Services [facility] X-rays [place] [facility] Patients will receive bills for services from the appropriate provider. If you have any questions about your [facility] bill, our staff will be happy to assist you. Please call [phone], and ask for the billing department. THANK YOU for choosing [facility] as your emergency care provider! Functional [...] --- NGON SOURCE previously reported as: Urine GV-Hfn-T-Type Natriuretic Peptide April 27, 2015 9:51pm 41 pg/mL N 0 -125 <300 ng/mL - HF unlikely Age <50 years, NT-proBNP >450 pg/mL - HF Likely Age 50-75 yrs, NT-proBNP >900 pg/mL - HF Likely Age >75 yrs, NT-proBNP >1800 - HF likely Neisseria gonorrhoeae RNA April 26, 2014 8:30am Negative Negative Test Performed by:[facility] - [address] [address] Print Producer: Ernst Stiles III, M.D. Neutrophils # November [...] its performance characteristics determined by [facility]. It has not been cleared or approved by the U.S. Food and Drug Administration. Test Performed by: [facility] [address] [address] Print Producer: Ernst Stiles III, M.D. Urine Nitrite April 29, 2015 12:35pm Negative Negative Urine collection method Clean Catch Urine Protein April 29, 2015 12:35pm Negative Negative Urine collection method Clean Catch Urine RBC April 22, 2015 8:30am 2-5 /HPF Urine collection method Clean Catch Urine RBC (Auto) April 29, 2015 12:35pm Negative Negative Urine collection method Clean Catch Urine Specific [place] April 29, 2015 12:35pm <=1.005 1.005-1.030 Urine [...] Encounters Encounter Location Date/Time Departed Emergency Room [facility] 04/29/15 11:57am Departed Emergency Room [facility] 04/27/15 9:08pm Departed Emergency Room [facility] 04/24/15 2:30pm Departed Emergency Room [facility] 04/23/15 1:10pm Departed Emergency Room [facility] 04/22/15 5:47am Registered Clinic [facility] 04/13/15 7:19am Recent Diagnosis
--- OUTSIDE RECORDS SUMMARY | 2017-01-06 22:06 | XMS REPORT | Continuity of Care Document ---
Author Author [facility] Organization [facility] Address Unknown Phone Unavailable Care Team Providers Care Dietary Aide Cook Name Role Phone Lawrence Sher MD Primary Care Physician [phone] Insurance Providers Payer Name Policy Number Subscriber [...] DAILY 30 Qty 08/28/13 09/13/13 Discontinued Cyanocobalamin [phone] Mcg ORAL DAILY 09/16/13 Active Multivits,Th W-Fe,Other Min 1 Each ORAL DAILY 09/16/13 Active [place]-3 Fatty Acids/Fish Oil 1 Each ORAL DAILY [...] worrisome symptoms. * Emergency Department phone number: [phone], x 543* MEDICAL RECORD If you need copies of your X-rays, call [phone] x [phone]. If you need copies of [...] SERVICE BILLING CONSTITUTION PARTY Emergency Room Services [facility] Physician Services [facility] X-rays [place] [facility] Patients will receive bills for services from the appropriate provider. If you have any questions about your [facility] bill, our staff will be happy to assist you. Please call [phone], and ask for the billing department. THANK YOU for choosing [facility] as your emergency care provider! [...] 26, 2014 8:30am Negative Negative Test Performed by:[place] [id number] Hides And Skins Colorer: Ernst Stiles III, M.D. Neutrophils # November [...] developed and its performance characteristics determined by [facility]. It has not been cleared or approved by the U.S. Food and Drug Administration. Test Performed by: [address] [address] Hides And Skins Colorer: Ernst Stiles III, M.D. Urine Nitrite March [...] 26, 2012 10:55pm Negative Negative Urine Specific [place] March 29, 2014 6:55am 1.020 1.005-1.030 Urine [...] ADDON completed 11/15/14 TX/PRO/DX INJ SAME DRUG CONTRACTING ANALYST completed 11/15/14 EMERGENCY DEPT VISIT completed 11/15/14 completed 11/15/14 completed 11/15/14 completed 11/15/14 Encounters Encounter Location Date/Time Departed Emergency Room [facility] 11/20/14 6:27pm Departed Emergency Room [facility] 11/16/14 8:21pm Departed Emergency Room [facility] 11/15/14 11:11am Departed Emergency Room [facility] 11/13/14 6:22pm Departed Emergency Room [facility] 11/11/14 1:06pm Registered Emergency Room [facility] 11/06/14 6:02pm Recent Diagnosis
--- OUTSIDE RECORDS SUMMARY | 2017-01-06 22:06 | XMS REPORT | Continuity of Care Document ---
Author Author [facility] Organization [facility] Address Unknown Phone Unavailable Care Team Providers Care Air Quality Engineer Name Role Phone Lawrence Sher MD Primary Care Physician [phone] Insurance Providers Payer Name Policy Number Subscriber Name Relationship [facility] [id number] Chin Weber 18 Self / Same As Patient Self Pay/Pending [facility] Apprv [id number] Chin Weber 18 Self / Same As [...] DAILY 30 Qty 08/28/13 09/13/13 Discontinued Cyanocobalamin [id number] Mcg ORAL DAILY 09/16/13 Active Multivits,Th W-Fe,Other Min 1 Each ORAL DAILY 09/16/13 Active [place]-3 Fatty Acids/Fish Oil 1 Each ORAL DAILY [...] worrisome symptoms. * Emergency Department phone number: [phone], x [phone]* MEDICAL RECORD If you need copies of your X-rays, call [phone] x [phone]. If you need copies of [...] services. SERVICE BILLING [facility] Emergency Room Services [facility] Physician Services [facility] X-rays [facility] Patients will receive bills for services from the appropriate provider. If you have any questions about your [facility] bill, our staff will be happy to assist you. Please call [phone], and ask for the billing department. THANK YOU for choosing [facility] as your emergency care provider! [...] developed and its performance characteristics determined by [facility]. It has not been cleared or approved by the U.S. Food and Drug Administration. Test Performed by: [facility] [address] [place] [address] Retort Condenser Attendant: Ernst Stiles III, M.D. Urine Nitrite April 29, 2015 12:35pm Negative Negative Urine collection method Clean Catch Urine Protein April 29, 2015 12:35pm Negative Negative Urine collection method Clean Catch Urine RBC April 22, 2015 8:30am 2-5 /HPF Urine collection method Clean Catch Urine Specific [place] April 29, 2015 12:35pm <=1.005 1.005-1.030 Urine [...] 26, 2014 8:30am Negative Negative Test Performed by:[address] [address] Retort Condenser Attendant: Ernst Stiles III, M.D. Chlamydia trachomatis RNA [...] October 14, 2012 2:48am 75 ug/dL 65-175 OH-Lte-F-Type Natriuretic Peptide April 27, 2015 9:51pm 41 [...] Encounters Encounter Location Date/Time Departed Emergency Room [facility] 04/30/15 8:02pm Departed Emergency Room [facility] 04/29/15 11:57am Departed Emergency Room [facility] 04/27/15 9:08pm Departed Emergency Room [facility] 04/24/15 2:30pm Departed Emergency Room [facility] 04/23/15 1:10pm Departed Emergency Room [facility] 04/22/15 5:47am Registered Clinic [facility] 04/13/15 7:19am Recent Diagnosis
--- OUTSIDE RECORDS SUMMARY | 2017-01-06 22:06 | XMS REPORT | Continuity of Care Document ---
Author Author [facility] Organization [facility] Address Unknown Phone Unavailable Care Team Providers Care Electrical Design Engineer Name Role Phone Lawrence Sher MD Primary Care Physician [phone] Insurance Providers Payer Name Policy Number Subscriber Name Relationship Self Pay/Approved [facility] [id number] Chin Weber 18 Self / Same As [...] DAILY 30 Qty 08/28/13 09/13/13 Discontinued Cyanocobalamin [id number] Mcg ORAL DAILY 09/16/13 Active Multivits,Th W-Fe,Other Min 1 Each ORAL DAILY 09/16/13 Active [place]-3 Fatty Acids/Fish Oil 1 Each ORAL DAILY [...] 2014 8:30am Negative Negative Test Performed by:[address] [address] Facialist: Ernst Stiles III, M.D. Neutrophils # November [...] 703 U/L PH 55-170 Results called to [facility] read back the results. Called [...] developed and its performance characteristics determined by [facility]. It has not been cleared or approved by the U.S. Food and Drug Administration. Test Performed by: [facility] - [address] [address] Facialist: Ernst Stiles III, M.D. Urine Nitrite January [...] Urine collection method Clean Catch Urine Specific [place] January 06, 2015 8:35am 1.025 1.005-1.030 Urine [...] Date/Time Departed Emergency Room [facility] 01/09/15 9:01am Departed Emergency Room [facility] 01/06/15 6:23am Departed Emergency Room [facility] 12/17/14 2:47pm Recent Diagnosis
--- OUTSIDE RECORDS SUMMARY | 2017-01-06 22:07 | XMS REPORT | Continuity of Care Document ---
Author Author [facility] Organization [facility] Address Unknown Phone Unavailable Care Team Providers Care Blueprint Maker Name Role Phone Lawrence Sher MD Primary Care Physician [phone] Insurance Providers Payer Name Policy Number Subscriber [...] DAILY 30 Qty 08/28/13 09/13/13 Discontinued Cyanocobalamin [id number] Mcg ORAL DAILY 09/16/13 Active Multivits,Th W-Fe,Other Min 1 Each ORAL DAILY 09/16/13 Active [place]-3 Fatty Acids/Fish Oil 1 Each ORAL DAILY [...] worrisome symptoms. * Emergency Department phone number: [phone], x 543* MEDICAL RECORD If you need copies of your X-rays, call [phone] x [phone]. If you need copies of [...] SERVICE BILLING [facility] Emergency Room Services [facility] Physician Services [facility] X-rays [place] [facility] Patients will receive bills for services from the appropriate provider. If you have any questions about your [facility] bill, our staff will be happy to assist you. Please call [phone], and ask for the billing department. THANK YOU for choosing [facility] as your emergency care provider! [...] 0.43 ug/mL PH 0.00-0.41 Results called to [place] read back the results. Called by Janna [...] 26, 2014 8:30am Negative Negative Test Performed by:[place] [address] Kelp Gatherer: Ernst Stiles III, M.D. Neutrophils # November [...] developed and its performance characteristics determined by [facility]. It has not been cleared or approved by the U.S. Food and Drug Administration. Test Performed by: [facility] [address] [address] Kelp Gatherer: Ernst Stiles III, M.D. Urine Nitrite March [...] 26, 2012 10:55pm Negative Negative Urine Specific [place] March 29, 2014 6:55am 1.020 1.005-1.030 Urine [...] ADDON completed 11/15/14 TX/PRO/DX INJ SAME DRUG PRECIPITATE WASHER completed 11/15/14 EMERGENCY DEPT VISIT completed 11/15/14 completed 11/15/14 completed 11/15/14 completed 11/15/14 EMERGENCY DEPT VISIT completed 11/16/14 Encounters Encounter Location Date/Time Departed Emergency Room [facility] 11/21/14 5:44pm Departed Emergency Room [facility] 11/20/14 6:27pm Departed Emergency Room [facility] 11/16/14 8:21pm Departed Emergency Room [facility] 11/15/14 11:11am Departed Emergency Room [facility] 11/13/14 6:22pm Departed Emergency Room [facility] 11/11/14 1:06pm Registered Emergency Room [facility] 11/06/14 6:02pm Recent Diagnosis
--- OUTSIDE RECORDS SUMMARY | 2017-01-06 22:07 | XMS REPORT | Continuity of Care Document ---
Author Author [facility] Organization [facility] Address Unknown Phone Unavailable Care Team Providers Care Primary Products Inspectors Name Role Phone Lawrence Sher MD Primary Care Physician [phone] Insurance Providers Payer Name Policy Number Subscriber Name Relationship Self Pay/Fin Label Printer Review Chin Weber 18 Self / Same [...] DAILY 30 Qty 08/28/13 09/13/13 Discontinued Cyanocobalamin [id number] Mcg ORAL DAILY 09/16/13 Active Multivits,Th W-Fe,Other Min 1 Each ORAL DAILY 09/16/13 Active [place]-3 Fatty Acids/Fish Oil 1 Each ORAL DAILY [...] worrisome symptoms. * Emergency Department phone number: [phone], x 543* MEDICAL RECORD If you need copies of your X-rays, call [phone] x [phone]. If you need copies of [...] SERVICE BILLING [facility] Emergency Room Services [facility] Physician Services [facility] X-rays [place] [facility] Patients will receive bills for services from the appropriate provider. If you have any questions about your [facility] bill, our staff will be happy to assist you. Please call [phone], and ask for the billing department. THANK YOU for choosing [facility] as your emergency care provider! [...] 26, 2014 8:30am Negative Negative Test Performed by:[place] [address] Gas Line Servicer: Ernst Stiles III, M.D. Neutrophils # November [...] and its performance characteristics determined by [facility]. It has not been cleared or approved by the U.S. Food and Drug Administration. Test Performed by: [facility] [address] [address] Gas Line Servicer: Ernst Stiles III, M.D. Urine Nitrite November [...] collection method Clean Catch Urine Specific [place] November 27, 2014 1:22am 1.010 1.005-1.030 Urine [...] Encounters Encounter Location Date/Time Departed Emergency Room [facility] 12/17/14 2:47pm Departed Emergency Room [facility] 11/27/14 3:25pm Departed Emergency Room [facility] 11/27/14 1:16am Departed Emergency Room [facility] 11/25/14 8:24pm Departed Emergency Room [facility] 11/23/14 7:34pm Departed Emergency Room [facility] 11/22/14 2:36pm Departed Emergency Room [facility] 11/21/14 5:44pm Departed Emergency Room [facility] 11/20/14 6:27pm Recent Diagnosis
--- OUTSIDE RECORDS SUMMARY | 2017-01-06 22:07 | XMS REPORT | Continuity of Care Document ---
Author Author [facility] Organization [facility] Address Unknown Phone Unavailable Care Team Providers Care Seed Corn Manager Production Name Role Phone Lawrence Sher MD Primary Care Physician [phone] Insurance Providers Payer Name Policy Number Subscriber Name Relationship [facility] [id number] Chin Weber L 18 Self / Same As Patient Self Pay/Pending [facility] Apprv [id number] Chin Weber L 18 Self / Same [...] DAILY 30 Qty 08/28/13 09/13/13 Discontinued Cyanocobalamin [phone] Mcg ORAL DAILY 09/16/13 Active Multivits,Th W-Fe,Other Min 1 Each ORAL DAILY 09/16/13 Active [place]-3 Fatty Acids/Fish Oil 1 Each ORAL DAILY [...] worrisome symptoms. * Emergency Department phone number: [phone], x 543* MEDICAL RECORD If you need copies of your X-rays, call [phone] x [phone]. If you need copies of [...] SERVICE BILLING [facility] Emergency Room Services [facility] Physician Services [facility] X-rays [facility] Patients will receive bills for services from the appropriate provider. If you have any questions about your [facility] bill, our staff will be happy to assist you. Please call [phone], and ask for the billing department. THANK YOU for choosing [facility] as your emergency care provider! Functional [...] 26, 2014 8:30am Negative Negative Test Performed by:[address] [address] Endoscope Technician: Ernst Stiles III, M.D. Neutrophils # November [...] DPH 55-170 Results called to [facility] read back the results. Called by [...] developed and its performance characteristics determined by [facility]. It has not been cleared or approved by the U.S. Food and Drug Administration. Test Performed by: [facility] [address] [address] Endoscope Technician: Ernst Stiles III, M.D. Urine Nitrite April 22, 2015 8:30am Negative Negative Urine collection method Clean Catch Urine Protein April 22, 2015 8:30am 1+ H Negative Urine collection method Clean Catch Urine RBC April 22, 2015 8:30am 2-5 /HPF Urine collection method Clean Catch Urine RBC (Auto) April 22, 2015 8:30am Trace-intact H Negative Urine collection method Clean Catch Urine Specific [place] April 22, 2015 8:30am 1.020 1.005-1.030 Urine [...] Encounters Encounter Location Date/Time Departed Emergency Room [facility] 04/23/15 1:10pm Departed Emergency Room [facility] 04/22/15 5:47am Registered Clinic [facility] 04/13/15 7:19am Recent Diagnosis
--- OUTSIDE RECORDS SUMMARY | 2017-01-06 22:08 | XMS REPORT | Continuity of Care Document ---
Author Author [facility] Organization [facility] Address Unknown Phone Unavailable Care Team Providers Care Keypunch Operators Supervisor Name Role Phone Lawrence Sher MD Primary Care Physician [phone] Insurance Providers Payer Name Policy Number Subscriber [...] DAILY 30 Qty 08/28/13 09/13/13 Discontinued Cyanocobalamin [phone] Mcg ORAL DAILY 09/16/13 Active Multivits,Th W-Fe,Other Min 1 Each ORAL DAILY 09/16/13 Active [place]-3 Fatty Acids/Fish Oil 1 Each ORAL DAILY [...] worrisome symptoms. * Emergency Department phone number: [phone], x 543* MEDICAL RECORD If you need copies of your X-rays, call [phone] x [phone]. If you need copies of [...] Hospital Physician Services [facility] X-rays [place] [facility] Patients will receive bills for services from the appropriate provider. If you have any questions about your [facility] bill, our staff will be happy to assist you. Please call [phone], and ask for the billing department. THANK [...] 26, 2014 8:30am Negative Negative Test Performed by:[facility] [place] [address] Creative Producer: Ernst Stiles III, M.D. Neutrophils # [...] and its performance characteristics determined by [facility]. It has not been cleared or approved by the U.S. Food and Drug Administration. Test Performed by: [address] [address] Creative Producer: Ernst Stiles III, M.D. Urine Nitrite November [...] Urine collection method Clean Catch Urine Specific [place] November 27, 2014 1:22am 1.010 1.005-1.030 Urine [...] ADDON completed 11/15/14 TX/PRO/DX INJ SAME DRUG [employer] CONSERVATION LABORER completed 11/15/14 EMERGENCY DEPT VISIT completed 11/15/14 [...] Encounters Encounter Location Date/Time Departed Emergency Room [facility] 11/27/14 1:16am Departed Emergency Room [facility] 11/25/14 8:24pm Departed Emergency Room [facility] 11/23/14 7:34pm Departed Emergency Room [facility] 11/22/14 2:36pm Departed Emergency Room [facility] 11/21/14 5:44pm Departed Emergency Room [facility] 11/20/14 6:27pm Departed Emergency Room [facility] 11/16/14 8:21pm Departed Emergency Room [facility] 11/15/14 11:11am Departed Emergency Room [facility] 11/13/14 6:22pm Departed Emergency Room [facility] 11/11/14 1:06pm Registered Emergency Room [facility] 11/06/14 6:02pm Recent Diagnosis
--- NOTE | 2017-01-06 22:09 | NUR ---
XRAY IN PT ROOM
[2017-01-06 22:14] LABS: ANION GAP 15 MEQ/L (5-15); BUN/CREATININE RATIO 11 RATIO (6-26); CALCIUM 9.4 MG/DL (8.4-10.2); CHLORIDE 103 MEQ/L (98-107); CO2 - CARBON DIOXIDE 27 MEQ/L (22-30); GLOMERULAR FILTRATION RATE 82; GLUCOSE 151 MG/DL (75-110); POTASSIUM 3.6 MEQ/L (3.6-5); SODIUM 145 MEQ/L (134-144)
[2017-01-06] MEDS ORDERED: SULFAMETHOXAZOLE/TMP 800mg/160mg TABLET PO ONE (22:15)
[2017-01-06] MEDS ORDERED: LIDOCAINE 1% (10mg/ml) 30ml SDV INFIL ONE (22:45)
[2017-01-06] MEDS ORDERED: SULF1TAB42 PO (22:54)
[2017-01-06 23:20] VITALS: BP 139/74; PULSE 87; RESP 45; TEMP 98.2; O2SAT 96
--- NOTE | 2017-01-07 08:11 | DI ---
Indication: ITS.REASON: chest pain PROCEDURE: CHEST 1 VIEW: Encounter: Initial Comparison: December 31, 2015 FINDINGS: The lungs are clear. There is no abnormal airspace opacity, pleural effusion or pneumothorax identified. The heart size, pulmonary vasculature and mediastinum are within normal limits. No significant skeletal abnormality is seen. IMPRESSION: No acute cardiopulmonary abnormality. .
== END 2017-01-06 23:20 | disposition home or self-care (01) ==
LOC: ED 21:40
DX: R07.89 Other chest pain (principal); L03.012 Cellulitis of left finger; L02.211 Cutaneous abscess of abdominal wall
CPT/HCPCS: 80048; 84484; 85025; 93005